=== PATIENT | female | born 1965 | race Caucasian/White ===

== ENCOUNTER 2020-09-22 16:54 | Emergency (ER) | payer OTHER, SELFPAY ==
--- NOTE | ~2020-09-22 | XR_ITS ---
EXAMINATION: XR knee RT min 4V DATE: 09/22/2020 17:34 INDICATION: Right knee pain TECHNIQUE: Four views of the right knee were obtained. COMPARISON: None. FINDINGS: Alignment is normal. No fracture or osteochondral lesion. 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 No joint effusion/synovitis. There is infra patellar soft tissue swelling. IMPRESSION: 1. Soft tissue swelling without acute osseous abnormality. Reviewed, dictated and finalized at location A. [employer]
[2020-09-22 17:16] VITALS: BP 155/92; PULSE 93; RESP 20; TEMP 36.6; O2SAT 100
--- NOTE | 2020-09-22 17:48 | ED.FALL ---
HPI - Fall General Chief Complaint: Fall Stated Complaint: fall today/right knee pain Time Seen by Provider: 09/22/20 17:10 Source: patient Mode of arrival: ambulatory Limitations: no limitations History of Present Illness HPI Narrative: Patient is a 54-year-old female who presents complaining of right knee pain. She reports stepping off a curb yesterday while walking dogs in her knee gave out causing her to fall. Patient reports right knee pain and swelling. Abrasion noted to right knee. Patient reports multiple falls with same knee over the past few weeks. Mild swelling noted to right lower extremity, tenderness with palpation to anterior and posterior knee. Patient denies taking fboo-cnc-[id number] medications prior to arrival. complaint: fall Related Data Home Medications Medication Instructions Recorded Confirmed duloxetine 60 mg PO DAILY 09/22/20 09/22/20 hydroxychloroquine 200 mg PO DAILY 09/22/20 09/22/20 Allergies Allergy/AdvReac Type Severity Reaction Status Date / Time No Known Allergies Allergy Verified 09/22/20 17:15 Review of Systems Review of Systems: Narrative: CONSTITUTIONAL: Denies fever, chills, or sweats. EYES: Denies visual changes, redness, or discharge. ENT: Denies rhinorrhea, congestion, sore throat, or otalgia. CARDIOVASCULAR: Denies chest pain, palpitations, or edema. RESPIRATORY: Denies cough or dyspnea. GASTROINTESTINAL: Denies abdominal pain, nausea, vomiting, or diarrhea. GENITOURINARY: Denies dysuria or hematuria. SKIN: Denies rash or itching. MUSCULOSKELETAL: Right knee pain NEUROLOGIC: Denies headache, numbness, dizziness, or weakness. PSYCHIATRIC: Denies anxiety or depression. [facility] Past Medical History Medical History HTN (hypertension) Surgical History Surgical History H/O: Family History Family History (Updated 09/22/20 @ 17:55 by LOUISE Birch) Other No significant family history Social History Social History (Updated 09/22/20 @ 17:55 by LOUISE Birch) Smoking status: Never smoker Alcohol intake: never Substance use: never Living arrangements: with family Gender identity (if verbalized by the patient): Female Exam Narrative: Exam Narrative: GENERAL: Well-appearing, well-nourished, and in no acute distress. HEAD: Normocephalic, atraumatic. EYES: No redness or drainage. ENT: Mucous membranes pink and moist. CHEST: No respiratory distress. HEART: Regular rate and rhythm. EXTREMITIES: Right knee pain with palpation anterior and posterior, abrasion, edema to right lower extremity SKIN: Warm, dry, no rash. NEURO: No focal deficits. Alert and oriented x3. Gait steady. PSYCH: Normal affect. No signs of depression or anxiety. Course Vital Signs Vital signs: Vital Signs Temperature 36.6 C 09/22/20 17:16 Pulse Rate 93 09/22/20 17:16 Respiratory Rate 20 09/22/20 17:16 Blood Pressure 155/92 H 09/22/20 17:16 Pulse Oximetry 100 09/22/20 17:16 Temperature 36.6 C 09/22/20 17:16 Pulse Rate 93 09/22/20 17:16 Respiratory Rate 20 09/22/20 17:16 Blood Pressure 155/92 H 09/22/20 17:16 Pulse Oximetry 100 09/22/20 17:16 Reviewed-patient is informed that they may have pre-hypertension or hypertension based on a blood pressure reading. I recommend the patient call the primary care provider listed on their discharge instructions or a physician of their choice this week to arrange follow-up for further evaluation of possible pre-hypertension or hypertension. MDM - Fall MDM Narrative Medical decision making narrative: Patient has no fracture or dislocation per x-ray. Soft tissue swelling noted. Discussed with patient rest, ice, elevation as well as NSAIDs. Patient requesting crutches for ambulation. Harvinder wrap placed for comfort. Patient is stable for discharge home with outpatient fol
== END 2020-09-22 18:50 | disposition home or self-care (01) ==
PROVIDERS: Emergency Provider Nurse Practitioner
DX: S80.01XA Contusion of right knee, initial encounter (principal); S80.11XA Contusion of right lower leg, initial encounter; I10 Essential (primary) hypertension; W10.1XXA Fall (on)(from) sidewalk curb, initial encounter; Y93.K1 Activity, walking an animal
CPT/HCPCS: 73564; 99283

== ENCOUNTER 2024-12-12 10:24 | Outpatient (CLI) | payer OTHER, SELFPAY ==
--- NOTE | 2024-12-12 10:32 | ECG_ITS ---
Test Date: 2024-12-12 10:51:36 Measurements Intervals [place] Rate: 69 P: 55 AL: 166 QRS: -1 QRSD: 100 T: 36 QT: 378 QTc: 407 Interpretive Statements SINUS RHYTHM WITH SINUS ARRHYTHMIA ANTEROSEPTAL MYOCARDIAL INFARCTION [40+ ms Q WAVE IN V1-V4], OF INDETERMINATE AGE No previous ECG available for comparison Electronically Signed On 12-12-2024 16:42:51 CDT by Ivonne Morris M.D.
--- OUTSIDE RECORDS SUMMARY | 2024-12-12 12:21 | XMS_ITS | Clinical Summary ---
Author Organization [facility] Address [address] [place] [address] Care Team Providers Care Order Planner Name Role Phone Andree Neal Unavailable [phone] Chaim Miller Primary Care Provid er Joey Alvarenga MD Unavailable [phone] Allergies No known active allergies Medications multivitamin tablet tablet take 1 tablet by oral route every day with food 0 0 05/05/2016 Active lisinopriL (PRINIVIL,ZESTRI L) 5 mg tablet 04/27/[address] (CYMBALTA) 30 mg capsule Take 1 tablet daily for 7 days, then 1 tablet every other day for 7 days and then stop 10 capsule 11/09/2023 Active milnacipran 12.5 mg (5)-25 mg(8)-50 mg(42) tablets,dose pack Take 12.5 mg daily x1d, 12.5 mg bid x2d, 25 mg bid x4d, then 50 mg bid 55 tablet 11/09/2023 Active Active Problems Problem Noted Date Diagnosed Date 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 No ptosis. Pt denies pain or associated headache. Pt will review old photos. 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 woman with a 6-year history of progressive gait unsteadiness with falls. She has a strong maternal family history of gait ataxia. - The examination revealed mild to moderate ataxia that was generalized but most pronounced in her gait, with wide base, irregular path and shukri, and inability to tandem. The TRAV score today was 7. - The examination findings indicate cerebellar ataxia . 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 - I ordered 3 blood tests to rule out potentially treatable causes of ataxia, and I will order a brain MRi to look for cerebellar atrophy. PLAN (phrased as addressed to the patient): - As we discussed, I agree that your balance is impaired. You have what neurologists call ataxic gait. - A possible diagnosis for this problem is cerebellar ataxia. - The specific condition is something we may or may not find out through testing. I recommend the following tests at this time: - My office will arrange for a brain MRI without contrast here at [facility] (clinical information: Ataxic gait for 4 years with falls and family hx of cerebellar ataxia. Check for cerebellar atrophy as in SCA ) (order entered) - I gave you a referral for physical therapy for gait and balance. - Today I will send blood tests for vitamin E level, paraneoplastic antibodies, anti-YASMEEN antibodies. - Contact my office after you have had your brain MRI so I can review it. This encounter's total lgco-[id number] time was greater than 40 minutes. I spent more than 50% of this time in counseling and/or coordination of care as documented in the note. The patient visit started at 1358 and ended at 1401. Greater than 50% of the visit was spent on counseling and coordinating care. Patient was counseled on nature of cerebellar atrophy. NOTE: The present note includes, below, the line Ambulatory referral to Neurology . This statement is included as a mandatory component of the note template that I do not have the ability to remove. This statement has no clinical significance. I am NOT ordering a referral to Neurology. 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 She has chondromalacia of both knees one on the right known from arthroscopy in from the left from her MRI. Patient was currently relatively symptom free of both of her knees for the time being. She long-term would benefit from weight loss. She should avoid low seating kneeling squats and lunges. She is return the office on an as-needed basis Acute tear lateral meniscus, left, initial encou nter 01/20/2021 Assessment & Plan (01/20/2021 3:45 PM CDT): Patient's history and exam is consistent with a tear of the lateral meniscus. With recurring locking effusions would recommend obtaining an MRI to evaluate the integrity structures initiate appropriate treatment once results are available. The patient the meantime was advised to continue using a cane or walking stick. Ice packs and elevation to the acute pain and swelling or recommended as well. She may want to be taking an aspirin a day for DVT prophylaxis as she is relatively inactive Hamstring injury, left, initial encounter 2020 Assessment & Plan (01/20/2021 3:45 PM CDT): Patient most likely ruptured while the posterolateral hamstrings in her thigh. A light wrap may be helpful but otherwise she should stretch the leg. MRI of the knee will help rule out any other internal derangement of the knee joint. Will initiate appropriate treatment once results are available. Encounter for medication monitoring 11/05/2020 Assessment & Plan (10/19/2023 8:31 AM HOTEL SALES MANAGER): Hepatitis negative 2020 Continue routine lab monitoring Assessment & Plan (06/22/2023 9:26 AM CDT): Hepatitis negative 2020 Continue routine lab monitoring Assessment & Plan (03/24/2023 12:42 PM CDT): Hepatitis negative 2020 Continue routine lab monitoring Assessment & Plan (12/24/2022 1:14 PM CDT): Hepatitis negative 2020 Continue routine lab monitoring Assessment & Plan (11/19/2022 12:54 PM HOTEL SALES MANAGER): Hepatitis negative 2020 Assessment & Plan (10/06/2022 3:10 PM HOTEL SALES MANAGER): Hepatitis negative 2020 Assessment & Plan (08/31/2022 12:06 PM HOTEL SALES MANAGER): Hepatitis negative 2020 Will check updated baseline labs today Assessment & Plan (07/28/2022 8:35 AM HOTEL SALES MANAGER): Hepatitis negative 2020 Will check updated baseline labs today Assessment & Plan (06/30/2022 12:23 PM CDT): Hepatitis negative 2020 Will check updated baseline labs today Assessment & Plan (11/25/2021 2:39 PM HOTEL SALES MANAGER): Hepatitis negative 2020 Will check updated baseline labs today Assessment & Plan (04/14/2021 12:54 PM CDT): Maintain routine eye exams throughout the duration of taking hydroxychloroquine Assessment & Plan (02/20/2021 2:45 PM CDT): Maintain routine eye exams throughout the duration of taking hydroxychloroquine Assessment & Plan (01/08/2021 3:39 PM CDT): Maintain routine eye exams throughout the duration of taking hydroxychloroquine Assessment & Plan (11/05/2020 2:08 PM HOTEL SALES MANAGER): Maintain routine eye exams throughout the duration of taking hydroxychloroquine Right knee pain 11/05/2020 Assessment & Plan (11/05/2020 2:09 PM HOTEL SALES MANAGER): MRI with evidence of medial and lateral meniscal tears with a chondral flap lesion of the medial femoral condyle and a large effusion with a large He cyst and a hematoma anterior lateral with just distal to the knee itself. Scheduled for arthroscopic partial meniscectomy with Dr. Coelho on 2020. Osteochondral lesion 10/22/2020 Bucket-handle tear of latera l meniscus of right knee as current injury 10/22/2020 Assessment & Plan (10/22/2020 8:58 AM HOTEL SALES MANAGER): Patient has a lateral meniscal tear as well. The time of arthroscopy partial meniscectomy of the lateral meniscus is likely indicated. At her age tears on likely to heal even if repaired. Acute medial meniscus tear of right knee 021 Assessment & Plan (10/22/2020 8:57 AM HOTEL SALES MANAGER): By MRI the patient has medial lateral meniscal tears of the right knee. These are unlikely to heal and would recommend arthroscopic partial meniscectomy. With patient's inflammatory arthritis that she is likely have some persistent issues with the knee. However removing the meniscal pathology may reduce the wear rate of the knee for 3rd body wear as well as fluid buildup. Typically this helps reduce the size of He cyst. The risks of knee arthroscopy include incisional numbness, hypersensitive scar, neurovascular compromise, infection, recurrent tearing, persistent pain due to underlying arthritis, medical and anesthetic risks including and is willing to proceed Hematoma of right lower leg 10/22/2020 Assessment & Plan (10/22/2020 8:59 AM HOTEL SALES MANAGER): Patient's hematoma has reduced in size from the initial swelling. This may dissipate spontaneously but if still present at the time of surgery excision debridement could be performed to drain the hematoma and speed the healing process. This would entail a separate incision and have risks of incisional numbness hypersensitive scar keloid formation and neurovascular compromise. Neck pain 04/16/2020 Assessment & Plan (04/16/2020 2:36 PM CDT): Pt reports worsening neck pain, exacerbated by lateral rotation. Has been working with a chiropractor. Will obtain updated XR at this time. Muscle weakness 04/16/2020 Assessment & Plan (09/03/2020 4:34 PM HOTEL SALES MANAGER): She complains of weakness in her legs with giving out, RLE strength intact, LLE 4/5 hip flexion and knee flexion/extension. She also complains of poor balance and easy tripping. We have been recommending neuro evaluation for the last several months, at last contact she was going to check with and PCP for in-network referral. Today she states that she has been putting this off to 2020. Based upon another fall, once again reiterated recommendation to see neuro. She can see if someone at [place] or [facility] would be in-network. Assessment & Plan (06/04/2020 3:58 PM CDT): She complains of weakness in her legs with giving out on three occasions, two falls since last visit. RLE strength intact, LLE 4/5 hip flexion and knee flexion/extension. CK 195. Await neuro evaluation. Assessment & Plan (04/16/2020 2:36 PM CDT): She complains of weakness in her legs with giving out on three occasions. RLE strength intact, LLE 4/5 hip flexion and knee flexion/extension. Will check CK now. May consider neuro evaluation. Right hip pain 07/21/2019 Assessment & Plan (09/29/2019 2:36 PM HOTEL SALES MANAGER): Suspect trochanteric bursitis. Symptoms have resolved since last visit. Continues to do exercises daily. Assessment & Plan (08/21/2019 4:24 PM HOTEL SALES MANAGER): Suspect trochanteric bursitis. Pt also complains of perception of weakness, strength intact by exam. Will obtain XR as discussed last visit. She has been unable to find time to arrange PT, provided handout of exercises today, will monitor response. Assessment & Plan (07/21/2019 3:30 PM CDT): Suspect trochanteric bursitis. Pt also complains of perception of weakness, strength intact by exam. Will obtain XR and trial PT, follow up in 6 weeks. Fibromyalgia 02/02/2019 Overview (04/16/2020): Gabapentin with side effects Cymbalta at 90 mg daily caused diaphoresis and nausea Assessment & Plan (11/09/2023 2:00 PM HOTEL SALES MANAGER): On Cymbalta 60 mg daily which she previously felt offered benefit, now cannot say that it helps and has frequent diaphoresis. Discussed tapering off of Cymbalta, decreasing to 30 mg daily x7d then every other day x7d then stop. Will instead start Savella, reviewed dosing and potential AE, will start with the dose titration pack. Recommend routine exercise. Follow up in 6-8 weeks or sooner as needed. Assessment & Plan (10/19/2023 8:31 AM HOTEL SALES MANAGER): On Cymbalta 60 mg daily with benefit, will continue and monitor. Recommend routine exercise. Assessment & Plan (06/22/2023 2:03 PM CDT): On Cymbalta 60 mg daily with benefit, will continue and monitor. Recommend routine exercise. Assessment & Plan (03/25/2023 12:29 PM CDT): On Cymbalta 60 mg daily with benefit, will continue and monitor. Recommend routine exercise and encouraged her to forge ahead with the sleep study that had been ordered by her PCP. Assessment & Plan (12/24/2022 9:35 AM CDT): On Cymbalta 60 mg daily with benefit, will continue and monitor. Assessment & Plan (11/19/2022 12:54 PM HOTEL SALES MANAGER): On Cymbalta 60 mg daily with benefit, will continue and monitor. Assessment & Plan (10/06/2022 10:19 AM HOTEL SALES MANAGER): On Cymbalta 60 mg daily with benefit, will continue and monitor. Assessment & Plan (08/31/2022 12:06 PM HOTEL SALES MANAGER): On Cymbalta 60 mg daily with benefit, will continue and monitor. Assessment & Plan (07/28/2022 8:35 AM HOTEL SALES MANAGER): On Cymbalta 60 mg daily with benefit, will continue and monitor. Assessment & Plan (06/30/2022 3:01 PM CDT): On Cymbalta 60 mg daily with benefit, will continue and monitor. Assessment & Plan (11/25/2021 2:38 PM HOTEL SALES MANAGER): Previously on Cymbalta 90 mg daily, sicne last visit she tapered to 60 mg daily without increase in pain; however, after decreasing to 30 mg daily her widespread pain flared. Will increase Cymbalta back to 60 mg daily and monitor. Assessment & Plan (05/08/2021 4:08 PM CDT): On Cymbalta 90 mg daily. Noted swelling B feet after starting Lyrica. Widespread pain improved at this time. Will continue Cymbalta and monitor. Assessment & Plan (02/20/2021 4:13 PM CDT): On Cymbalta 90 mg daily. Noted swelling B feet after starting Lyrica. Widespread pain improved at this time. Will continue Cymbalta and monitor. Encourage routine exercise. Plan for follow up in 8 weeks to reassess or sooner as needed. Assessment & Plan (01/09/2021 3:50 PM CDT): On Cymbalta 90 mg daily with complaint of significantly worsened widespread pain. At this time will begin trial of Lyrica 75 mg bid, discussed possible side effects, and titrate dose as needed/tolerated. In the future may consider tapering down/off Cymbalta. Encourage routine exercise. Plan for follow up in 4-6 weeks to reassess or sooner as needed. Assessment & Plan (11/05/2020 2:08 PM HOTEL SALES MANAGER): On Cymbalta 90 mg daily without adverse effect and with improvement in her widespread pain, will continue. Encouraged exercise as able. Assessment & Plan (09/03/2020 4:32 PM HOTEL SALES MANAGER): Remains on Cymbalta 60 mg daily which she is now tolerating without adverse effect, reports some benefit, questions trying a higher dose. At this time will try increasing Cymbalta to 90 mg daily and monitor response. Follow up in 6-8 weeks to reassess. Assessment & Plan (07/04/2020 3:08 PM CDT): Remains on Cymbalta 60 mg daily which she is now tolerating without adverse effect, reports some benefit, questions trying a higher dose. Given uncertainty with side effects, will resume hydroxychloroquine as below and pending this then may consider increasing to 90 mg daily. Assessment & Plan (06/04/2020 4:25 PM CDT): Previously reported notable improvement in her widespread pain after starting Cymbalta. Today states that she does not feel that it is providing any benefit and notes ongoing side effects (diaphoresis and upset stomach) despite having decreased the dose to 60 mg daily; based upon this, she would like to taper off of Cymbalta, will decrease to 30 mg daily x1 week and then stop. After 1 week of being off then will begin hydroxychloroquine as below and after two weeks if she is tolerating this without adverse effect, then may begin Lyrica 75 mg bid. Recommend routine exercise. Follow up in 4 weeks to reassess. Assessment & Plan (04/16/2020 2:33 PM CDT): Previously reported notable improvement in her widespread pain after starting Cymbalta. Requested to increase to 90 mg daily last visit, today reports nausea and diaphoresis which are likely side effects. She also complains of a frequent feeling of tension throughout her muscles with an inability to relax, question whether this could be related to Cymbalta as well. At this time, will reduce Cymbalta back to 60 mg daily and monitor side effects, may have to consider tapering further. Recommend routine exercise. Follow up in 4 weeks to reassess. Assessment & Plan (03/05/2020 3:00 PM CDT): On Cymbalta 60 mg daily with notable improvement in her widespread pain. Today she requests to attempt increasing the dose to 90 mg daily. We will discontinue hydroxychloroquine as below and after side effects improve, then will try increasing Cymbalta to 90 mg daily and monitor response. Recommend routine exercise. Follow up in 4-6 weeks. Assessment & Plan (02/06/2020 2:49 PM CDT): On Cymbalta 60 mg daily with notable improvement in her widespread pain, discussed that in the future may consider increasing dose to 90 mg daily if needed. Recommend routine exercise. Continue to monitor. Assessment & Plan (01/05/2020 3:28 PM CDT): Pt did not tolerate gabapentin due to side effects. Previously felt well controlled with combination of Cymbalta and CBD,however now with widespread pain once again. Reassess for inflammatory arthritis as above. In the meantime will continue Cymbalta 60 mg daily. Recommend routine exercise. Assessment & Plan (09/29/2019 2:38 PM HOTEL SALES MANAGER): Pt did not tolerate gabapentin due to side effects. Now feels well controlled with combination of Cymbalta and CBD. Will continue Cymbalta 60 mg daily. Recommend routine exercise. Follow up in 3 months or sooner as needed. Assessment & Plan (08/21/2019 4:23 PM HOTEL SALES MANAGER): Ongoing sensation of pain all over with widespread tenderness one xam. She initially reported improvement with Cymbalta 30 mg daily, but eventually pain worsened again. No improvement after increasing Cymbalta to 60 mg daily, will decrease back to 30 mg daily at this time. Begin trial of gabapentin starting at 300 mg qHS and increaseing by 300 mg per week to a dose of 300 mg tid until next visit. Plan for follow up in 4 weeks to reassess. Assessment & Plan (07/21/2019 3:28 PM CDT): Based upon complaint of widespread pain and diffuse tenderness on exam which is out of proportion, suspect that fibromyalgia is contributing to the bulk of her pain complaints at present. She initially reported improvement with Cymbalta 30 mg daily but given worsening pain complaints will try increasing to 60 mg daily at this time and monitor. Plan for follow up in 6 weeks to reassess. Assessment & Plan (04/21/2019 4:26 PM CDT): Improved with Cymbalta 30 mg daily, will continue. Should this worsen again in the future then we could increase the dose further. Assessment & Plan (02/02/2019 4:45 PM CDT): As above. 12/18 tender points on exam today. Recommend initiating treatment with Cymbalta [address] Effexor as it can benefit both her mood and pain complaints, will titrate dose as needed/tolerated. Plan for follow up in 4-6 weeks to reassess or sooner as needed. Polyarthralgia 01/12/2019 Overview (10/22/2023): Our prior workup revealed equivocal RF IgM, xrays with calcific tendonitis B shoulders and R plantar fascia enthesophyte, and ultrasound with only mild changes at the wrist and 2nd PIP. Repeat US in April 2019 showed increased thickening of the 2nd PIP, though still very mild overall and in December 2019 showed slight worsening with increased synovial thickening. IM triamcinolone provided significant benefit to her joint pain. Suspect that this represents an early inflammatory arthritis, RA vs spondyloarthritis with the enthesophyte seen on prior imaging. Labs 01/12/19 AVISE: equivocal RF IgM (4.7) Xrays 01/13/19 XR L foot - negative XR R foot - large enthesophyte at the R plantar fascial origin XR B hands - negative XR B shoulders - small bone islands within both humeral heads. Mild calcific tendonitis bilaterally. Ultrasound US right hand/wrist (10/21/23): Small grade 1 power doppler in the radial scaphoid joint. Moderate synovial thickening in the 3rd PIP joint. An enlarged median nerve at 0.12 cm2 is identified. A small cortical defect seen in the 2nd metacarpal head without obvious erosion or surrounding inflammatory signals. 01/15/2020 US R hand/wrist: mild thickening/effusion wrist. Mild 3rd MCP and PIP thickening wiht moderate 2nd PIP thickening. Compared ot hand US from 04/28/19 a mild increase in thickening is noted. 04/28/19 US R hand/wrist: moderate 2nd pip thickening. Grade 1 PD in the wrist with mild thickening. Compared to 01/20/19 the 2nd PIP is worse. 01/20/19 US R hand/wrist: mild thickening/effusion with grade 1 PD at the wrist. Very mild 2nd PIP thickening. Assessment & Plan (11/09/2023 1:59 PM HOTEL SALES MANAGER): Over the last few years at times she has noted more inflammatory sounding pain and had some suspected synovitis by exam, however prior hand ultrasound have not shown significant active inflammatory arthritis. Repeat hand US this month again does not show significant active inflammation and she does not have notable synovitis on exam. She is diffusely tender with an amplified pain response, overall suspect that fibromyalgia is the biggest contributor to her current pain. However, she does have known OA which is likely the source of her knee pain. Assessment & Plan (10/19/2023 11:35 AM HOTEL SALES MANAGER): Hair thinning has improved since stopping leflunomide, though she does feel that her joint pain and stiffness have increased since it was discontinued. In particular notes hand pain which does sound somewhat inflammatory and knee pain which sounds mechanical. Prior knee xrays confirm OA bilaterally. Over the last few years at times she has noted more inflammatory sounding pain and had some suspected synovitis by exam, however prior hand ultrasound have not shown significant active inflammatory arthritis. At this time, recommend that we recheck labs as below and obtain an updated hand ultrasound to better assess whether her current symptoms are a reflection of active inflammation to warrant treatment with a dmard. Plan for follow up in 4 weeks or sooner as needed. Assessment & Plan (06/22/2023 2:03 PM CDT): Low cdai. While she can say that her joint pain has improved with treatment with leflunomide, she reports hair thinning and fatigue which she is concerned are 2/2 leflunomide; due to this, recommend that we discontinue leflunomide and monitor both those symptoms andh er joints off treatment. Should her joints flare, then may consider sulfasalazine. Recent labs reviewed. Follow up in 2 months to reassess or sooner as needed. Assessment & Plan (03/25/2023 12:28 PM CDT): Moderate cdai, with mild/questionable synovitis of three PIP joints. Overall she can say that she has improved with treatment with leflunomide and Cymbalta. Primary complaint is her R 4th finger, she does not feel that this is significant enough to warrant anything further at present. Discussed that would consider repeat hand US. The burning pain suggests possible neuropathic etiology. For now she wishes to continue leflunomide 20 mg daily and Tylenol up to 4g/day and monitor. Recheck labs today as below. Follow up in 3 months to reassess or sooner as needed. Assessment & Plan (12/24/2022 1:13 PM CDT): Moderate cdai. Now on leflunomide 20 mg dialy x1 month and feels that she is tolerating it without AE and also may be starting to notice some benefit. Recheck labs today as below. At this time will plan to continue leflunomide and allow time for effect. Follow up in 3 months to reassess or sooner as needed. Assessment & Plan (11/19/2022 3:05 PM HOTEL SALES MANAGER): Moderate cdai. Discussed multifactorial nature of fatigue, while leflunomide could contribute it could also be related to many things including suspected sleep apnea (she reports snoring and witnessed apneic events). Offered to hold leflunomide but after further discussion she is agreeable to continuing. Will check labs today and will increase leflunomide dose to 20 mg daily. Will reserve steroids for worsening given inherent risks. Labs today as below. Follow up in 4 weeks to reassess or sooner as needed. Assessment & Plan (10/06/2022 3:09 PM HOTEL SALES MANAGER): Discussed that while it is great that she is feeling better this month, she does still report inflammatory sounding pain in her hands. Discussed my suspicion that the steroid shot is the more likely reason for her symptomatic improvement and that as its effect weans, she will likely begin to hurt more once again. Moreover, when she was here last visit she had a high cdai which was a reflection of numerous tender AND swollen joints in her hands. Reviewed the risks of uncontrolled disease including joint damage and increased CV risk. Offered to mail patient a handout reviewing leflunomide again which she was interested in. She will review the handout and consider what we talked about today and she will call with update in 2 weeks. Assessment & Plan (09/01/2022 2:31 PM HOTEL SALES MANAGER): High cdai. On methotrexate 15 mg po weekly with report of oral sores/sensitivity, will d/c. Will instead initiate treatment with leflunomide 10 mg po daily. Reviewed potential adverse effects including diarrhea. Warned to watch for development of any rash and to stop taking and call should this occur. Reviewed need for routine lab monitoring throughout the duration of taking this medication, initially monthly and then quarterly as long as they remain on the medication. Due to burden of disease will give patient a triamcinolone injection. Patient made aware of SE of steroids including but not limited to HTN, increased blood glucose, cataracts, glaucoma, AVN, and osteoporosis with group home use. Labs today. Plan for follow up in 4 weeks to reassess or sooner as needed. Assessment & Plan (07/28/2022 2:14 PM HOTEL SALES MANAGER): Moderate cdai. On methotrexate 10 mg po weekly with folic acid 1 mg daily without AE, recheck labs today and will increase methotrexate to 15 mg weekly. Plan for follow up in 4 weeks to reassess or sooner as needed. Assessment & Plan (06/30/2022 3:00 PM CDT): Moderate cdai. Again discussed initiating treatment with methotrexate 10 mg po weekly with folic acid 1 mg daily, pt states that she is now agreeable to trying this. Reviewed potential adverse effects including nausea, fatigue, and oral ulcers. Warned to watch for development of any rash and to stop taking and call should this occur. Reviewed need for routine lab monitoring throughout the duration of taking this medication, initially monthly and then quarterly as long as they remain on the medication. Plan for follow up in 4 weeks to reassess or sooner as needed. Assessment & Plan (11/25/2021 2:37 PM HOTEL SALES MANAGER): Repeat hand ultrasound in May compared to US from 01/15/2020 showed no significant change despite hydroxychloroquine. Sometime since then she dc'd hydroxychloroquine altogether. Notes increasing hand pain and has a high cdai by exam today. Discussed initiating treatment with methotrexate 10 mg po weekly with folic acid 1 mg daily. Reviewed potential adverse effects including nausea, fatigue, and oral ulcers. Warned to watch for development of any rash and to stop taking and call should this occur. Reviewed need for routine lab monitoring throughout the duration of taking this medication, initially monthly and then quarterly as long as they remain on the medication. Due to burden of disease will give patient a triamcinolone injection. Patient made aware of SE of steroids including but not limited to HTN, increased blood glucose, cataracts, glaucoma, AVN, and osteoporosis with meterman use. Plan for follow up in 4 weeks to reassess or sooner as needed. Assessment & Plan (05/08/2021 4:07 PM CDT): High cdai. Previous hand ultrasound 01/15/2020 showed mild thickening/effusion R wrist, mild thickening 3rd MCP/PIP, and moderate 2nd PIP; subsequent to this she was started on hydroxychloroquine. Today notes increasing joint pain without significant AM stiffness, some of this pain does sound more mechanical though she also has suspected synovitis in a few joints on exam. At this time, recommend obtaining repeat hand ultrasound to assess response to hydroxychloroquine and to help determine further treatment recommendations. Will continue hydroxychloroquine 200 mg bid. Notes recent labs with PCP and lath tier, will request results but check CRP and ESR today. Await ultrasound findings, follow up timing tbd pending this. Assessment & Plan (02/20/2021 4:12 PM CDT): Low cdai. Overall feels improved since starting treatment for Lyme per chiropractor, will monitor response after completing. Will continue hydroxychloroquine 200 mg bid. Labs up to date. Plan for follow up in 2-3 months to reassess. Assessment & Plan (01/09/2021 3:49 PM CDT): High cdai with tenderness throughout most of her joints and 18/18 tender points but no obvious synovitis. Overall suspect that fibromyalgia is causing the bulk of her current pain, see below. Labs today as below. Will continue hydroxychloroquine 200 mg bid. Assessment & Plan (11/05/2020 2:07 PM HOTEL SALES MANAGER): Our prior workup revealed equivocal RF IgM, xrays with calcific tendonitis B shoulders and R plantar fascia enthesophyte, and ultrasound with only mild changes at the wrist and 2nd PIP. Repeat US in April 2019 showed increased thickening of the 2nd PIP, though still very mild overall and in December 2019 showed slight worsening with increased synovial thickening. IM triamcinolone provided significant benefit to her joint pain. Suspect that this represents an early inflammatory arthritis, RA vs spondyloarthritis with the enthesophyte seen on prior imaging. Overall feels improved since last visit with significant lessening of hand pain. She believes that hydroxychloroquine is working. Unable to re-examine joints today due to phone visit. Will continue hydroxychloroquine 200 mg bid. Plan for follow up in 3 months to reassess or sooner as needed. Assessment & Plan (09/03/2020 4:32 PM HOTEL SALES MANAGER): Our prior workup revealed equivocal RF IgM, xrays with calcific tendonitis B shoulders and R plantar fascia enthesophyte, and ultrasound with only mild changes at the wrist and 2nd PIP. Repeat US in April 2019 showed increased thickening of the 2nd PIP, though still very mild overall and in December 2019 showed slight worsening with increased synovial thickening. IM triamcinolone provided significant benefit to her joint pain. Suspect that this represents an early inflammatory arthritis, RA vs spondyloarthritis with the enthesophyte seen on prior imaging. Moderate cdai. On hydroxychloroquine 200 mg bid x6 weeks and fortunately is tolerating without adverse effect, will continue and allow more time for effect. Plan for follow up in 2 months to reassess or sooner as needed. Assessment & Plan (07/04/2020 3:06 PM CDT): Our prior workup revealed equivocal RF IgM, xrays with calcific tendonitis B shoulders and R plantar fascia enthesophyte, and ultrasound with only mild changes at the wrist and 2nd PIP. Repeat US in April 2019 showed increased thickening of the 2nd PIP, though still very mild overall and in December 2019 showed slight worsening with increased synovial thickening. IM triamcinolone provided significant benefit to her joint pain. Suspect that this represents an early inflammatory arthritis, RA vs spondyloarthritis with the enthesophyte seen on prior imaging. She had started hydroxychloroquine and then reported side effects including diaphoresis and GI upset - these persisted despite stopping. At this time she is agreeable to trying hydroxychloroquine once again, will resume 200 mg once daily for 2 weeks and if tolerating without adverse effect, then will increase back to bid dosing. Plan for follow up in 6-8 weeks to reassess or sooner as needed. Assessment & Plan (06/04/2020 4:24 PM CDT): Our prior workup revealed equivocal RF IgM, xrays with calcific tendonitis B shoulders and R plantar fascia enthesophyte, and ultrasound with only mild changes at the wrist and 2nd PIP. Repeat US in April 2019 showed increased thickening of the 2nd PIP, though still very mild overall and in December 2019 showed slight worsening with increased synovial thickening. IM triamcinolone provided significant benefit to her joint pain. Suspect that this represents an early inflammatory arthritis, RA vs spondyloarthritis with the enthesophyte seen on prior imaging. She had started hydroxychloroquine and then reported side effects including diaphoresis and GI upset - these persisted despite stopping, suspect they are 2/2 Cymbalta as above. Pt is agreeable to trying hydroxychloroquine once again, however will wait to start this until after she has been off Cymbalta for 1 week. Assessment & Plan (04/16/2020 2:35 PM CDT): Our prior workup revealed equivocal RF IgM, xrays with calcific tendonitis B shoulders and R plantar fascia enthesophyte, and ultrasound with only mild changes at the wrist and 2nd PIP. Repeat US in April 2019 showed increased thickening of the 2nd PIP, though still very mild overall and in December 2019 showed slight worsening with increased synovial thickening. IM triamcinolone provided significant benefit to her joint pain. Suspect that this represents an early inflammatory arthritis, RA vs spondyloarthritis with the enthesophyte seen on prior imaging. She started hydroxychloroquine 2 months ago and reported side effects including diaphoresis and GI upset - these persisted despite stopping, suspect they are 2/2 Cymbalta as above. Though her joint complaints are improved currently, she does have persistent synovitis by exam. Likely will consider the use of methotrexate at next visit which was discussed briefly today. Assessment & Plan (03/05/2020 3:01 PM CDT): Our prior workup revealed equivocal RF IgM, xrays with calcific tendonitis B shoulders and R plantar fascia enthesophyte, and ultrasound with only mild changes at the wrist and 2nd PIP. Repeat US in April 2019 showed increased thickening of the 2nd PIP, though still very mild overall. Once again, repeat ultrasound last month shows slight worsening with increased synovial thickening. IM triamcinolone provided significant benefit to her joint pain. Thus, she complains of inflammatory sounding pain with AM stiffness for ~2 hours and has had increasing inflammatory changes on her last two ultrasounds, though still fairly mild overall. Discussed suspicion that this represents an early inflammatory arthritis, RA vs spondyloarthritis with the enthesophyte seen on prior imaging. She started hydroxychloroquine 1 month ago and reports unbearable side effects including diaphoresis and GI upset. Will discontinue and monitor for these symptoms to resolve. Discussed that at follow up we may consider a trial of an anti-inflammatory such as meloxicam. Plan for follow up in 4-6 weeks to reassess. Assessment & Plan (02/06/2020 2:48 PM CDT): Our prior workup revealed equivocal RF IgM, xrays with calcific tendonitis B shoulders and R plantar fascia enthesophyte, and ultrasound with only mild changes at the wrist and 2nd PIP. Repeat US in April 2019 showed increased thickening of the 2nd PIP, though still very mild overall. Once again, repeat ultrasound last month shows slight worsening with increased synovial thickening. IM triamcinolone provided significant benefit to her joint pain. Thus, she complains of inflammatory sounding pain with AM stiffness for ~2 hours and has had increasing inflammatory changes on her last two ultrasounds, though still fairly mild overall. Discussed suspicion that this represents an early inflammatory arthritis, RA vs spondyloarthritis with the enthesophyte seen on prior imaging. Pt interested in initiating treatment targeted at inflammation given her symptom progression. Recommend starting treatment with hydroxychloroquine 200 mg once daily. Warned to watch for development of a rash. Discussed SE including but not limited to dizziness, bloating, and in rare cases, retinal toxicity. Patient instructed to have a baseline eye exam and routine exams throughout the duration of taking hydroxychloroquine. Plan for follow up in 4 weeks to reassess. Assessment & Plan (01/05/2020 3:27 PM CDT): Our prior workup revealed equivocal RF IgM, xrays with calcific tendonitis B shoulders and R plantar fascia enthesophyte, and ultrasound with only mild changes at the wrist and 2nd PIP. Repeat AVISE negative, repeat US in April 2019 showed increased thickening of the 2nd PIP, though still very mild overall. We have previously discussed that this may represent an overlap of an inflammatory arthritis such as RA with fibromyalgia. Though previously she has had no obvious synovitis by exam, today she has several joints with questionable swelling as well as widespread tenderness. To reevaluate will obtain hand ultrasound. Due to burden of disease will give patient a triamcinolone injection AFTER the hand ultrasound is obtained. Patient made aware of SE of steroids including but not limited to HTN, increased blood glucose, cataracts, glaucoma, AVN, and osteoporosis with group home use. Plan for follow up in ~3-4 weeks to reassess, timing determined based upon when ultrasound is able to be completed. Assessment & Plan (09/29/2019 2:37 PM HOTEL SALES MANAGER): Our prior workup revealed equivocal RF IgM, xrays with calcific tendonitis B shoulders and R plantar fascia enthesophyte, and ultrasound with only mild changes at the wrist and 2nd PIP. Repeat AVISE negative, US shows increased thickening of the 2nd PIP, though still very mild overall. This may represent an overlap of an inflammatory arthritis such as RA with fibromyalgia. She has no obvious synovitis by exam. Discussed that we may consider the use of hydroxychloroquine in this instance, for now will continue treatment for fibromyalgia as below and monitor. Assessment & Plan (08/21/2019 4:22 PM HOTEL SALES MANAGER): Stable complaints in her hands with AM stiffness for 2 hours. Our prior workup revealed equivocal RF IgM, xrays with calcific tendonitis B shoulders and R plantar fascia enthesophyte, and ultrasound with only mild changes at the wrist and 2nd PIP. Repeat AVISE negative, US shows increased thickening of the 2nd PIP, though still very mild overall. This may represent an overlap of an inflammatory arthritis such as RA with fibromyalgia. She has no obvious synovitis by exam. Discussed that we may consider the use of hydroxychloroquine in this instance, for now will continue treatment for fibromyalgia as below and monitor. Assessment & Plan (07/21/2019 3:29 PM CDT): Increasing complaints in her hands with AM stiffness for 2 hours. Our prior workup revealed equivocal RF IgM, xrays with calcific tendonitis B shoulders and R plantar fascia enthesophyte, and ultrasound with only mild changes at the wrist and 2nd PIP. Repeat AVISE negative, US shows increased thickening of the 2nd PIP. This may represent an overlap of an inflammatory arthritis such as RA with fibromyalgia. Discussed that we would consider the use of hydroxychloroquine in this instance, will increase Cymbalta as above and consider hydroxychloroquine at follow up. Assessment & Plan (04/21/2019 4:49 PM CDT): Increasing complaints in her hands with AM stiffness for 2 hours. By exam today she exhibits far more synovitis than she had previously with a high cdai overall. Our prior workup revealed equivocal RF IgM, xrays with calcific tendonitis B shoulders and R plantar fascia enthesophyte, and ultrasound with only mild changes at the wrist and 2nd PIP. Based upon worsening symptoms and exam findings, suspect that this may represent an overlap of an inflammatory arthritis with fibromyalgia. Will repeat labs as below and obtain updated hand ultrasound to help direct further treatment. FU 1 month. Assessment & Plan (02/02/2019 4:44 PM CDT): 53yoF presents for evaluation of widespread pain present for the past 3.5 years. Worse at the end of the day after having stood all day, seems to set in after she sits and rests and feels that it does improve if she gets up to move around. Reports stiffness in her hands with inability to make a fist in the morning for ~30 minutes. Profound fatigue with nonrestorative sleep, she snores and has not had a sleep study. Our workup revealed equivocal RF IgM, xrays with calcific tendonitis B shoulders and R plantar fascia enthesophyte, and ultrasound with only mild changes at the wrist and 2nd PIP. Overall at present there is little evidence to suggest an inflammatory arthritis, however will continue to monitor for progression. At present suspect fibromyalgia is contributing to the bulk of her pain complaints. Assessment & Plan (01/12/2019 3:56 PM CDT): 53yoF presents for evaluation of widespread pain present for the past 3.5 years. Worse at the end of the day after having stood all day, seems to set in after she sits and rests and feels that it does improve if she gets up to move around. Reports stiffness in her hands with inability to make a fist in the morning for ~30 minutes. Profound fatigue with nonrestorative sleep, she snores and has not had a sleep study. Her exam reveals tenderness with questionable swelling in several joints throughout her hands. By history there is concern for fibromyalgia with the sensation of pain all over and profound fatigue with poor sleep though she has few tender points on exam today. There is also concern for possibly inflammatory arthritis such as RA. To fully evaluate will check appropriate serologies, xrays, and ultrasound with plan for follow up in 2 weeks to review results and to discuss treatment options. Chronic fatigue 01/12/2019 Assessment & Plan (11/19/2022 3:06 PM HOTEL SALES MANAGER): Fatigue with snoring and apenic events, recommend sleep study Assessment & Plan (01/12/2019 3:57 PM CDT): Chronic fatigue with nonrestorative sleep. Pt snores but denies witnessed apneic events. Recommend that she discuss a sleep study with her PCP. Polyarthralgia 01/12/2019 Overview (12/05/2020): Last Assessment & Plan: Increasing complaints in her hands with AM stiffness for 2 hours. By exam today she exhibits far more synovitis than she had previously with a high cdai overall. Our prior workup revealed equivocal RF IgM, xrays with calcific tendonitis B shoulders and R plantar fascia enthesophyte, and ultrasound with only mild changes at the wrist and 2nd PIP. Based upon worsening symptoms and exam findings, suspect that this may represent an overlap of an inflammatory arthritis with fibromyalgia. Will repeat labs as below and obtain updated hand ultrasound to help direct further treatment. FU 1 month. Atypical lobular hyperplasia (ALH) of breast 10/2016 Ejection murmur 05/05/2016 Overview (12/31/2016): Systolic ejection murmur Essential hypertension 05/05/2016 Overview (12/31/2016): Essential hypertension Resolved Problems Problem Noted Date Diagnosed Date Resolved Date Body mass index 40+ - severely obese 05/05/2016 10/22/2020 Overview (12/31/2016): Morbid obesity with BMI of 40.0-44.9, adult Surgical History Surgery Date Site/Laterality Comments SECTION BREAST BIOPSY 09/20/2016 - 09/19/2017 TUBAL LIGATION Medical History Medical History Date Comments Anxiety Depression Fibromyalgia Rheumatoid arthritis (HCC) Rheumatoid arthritis (HCC) Family History Medical History Relation Name Comments Lung cancer Father Cancer, lung; C ause of : Cancer, lung/Family history of lung cancer - (Added by TW Conv) Heart attack Mother Hypertension Other Family history of Hypertension; Relation Name Status Comments Father Mother Other Social History Tobacco Use Types Packs/Day Years Used Date Smoking Tobacco: Never Alcohol Use Standard Drinks/Week Comments No 0 (1 standard drink = 0.6 oz pur e alcohol) AUDIT-C Answer Date Recorded Q1: How often do you have a drink containing alc ohol? 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 Not on file Not o n file Obstetrics History Last Filed Vital Signs Vital Sign Reading Time Taken Comments Blood Pressure 124/90 11/09/2023 10:53 AM HOTEL SALES MANAGER Pulse 89 11/09/2023 10:53 AM HOTEL SALES MANAGER Temperature 36.7 C (98.1 F) 11/25/2021 1:11 PM HOTEL SALES MANAGER Respiratory Rate 15 2020 9:50 AM HOTEL SALES MANAGER Oxygen Saturation 97% 11/09/2023 10:53 AM HOTEL SALES MANAGER Inhaled Oxygen Concentration - - Weight 96 kg (211 lb 9.6 oz) 11/09/2023 10:53 AM HOTEL SALES MANAGER Height 157.5 cm (5' 2 ) 11/09/2023 10:53 AM HOTEL SALES MANAGER Body Mass Index 38.7 11/09/2023 10:53 AM HOTEL SALES MANAGER Plan of Treatment Health Maintenance Due Date Last Done Comments Breast Cancer Screening-Mammogram 1967 Cervical Cancer Screening 1967 Colon Cancer Screening-Colonoscopy 1965 Depression Screening 1967 Regular Well Visit/Exam 18-64 11/28/1985 Influenza Vaccine (#1) 2024 DTaP/Tdap/Td Vaccine (3 - Td or Tdap) 04/17/2033 04/17/2023, 01/23/2013 Hepatitis B Screening Completed 10/28/2015 , 05/31/2015, 04/16/2015 Hepatitis C Screening Completed 04/16/2020 Zoster Vaccine Completed 08/26/2021, 05/02/2021 Pneumococcal vaccine <65 Aged Out No longer eligible based on patient's age to complete this topic Procedures Procedure Name Priority Date/Time Associated Diagnosis Comments HEPATITIS C ANTIBODY Routine 04/16/2020 2:31 PM CDT Encounter for screening for other viral diseases from Last 3 Months or Most Recently Relevant to Health Maintenance Results * Hepatitis C antibody (04/16/2020 2:31 PM CDT) Hep C Ab NON-REACTI VE NON-REACT MELANIA [facility] SIGNAL TO CUT-OFF 0.02 <1.00 [facility] Comment: HCV antibody was non-reactive. There is no laboratory evidence of HCV infection. In most cases, no further action is required. However, if recent HCV exposure is suspected, a test for HCV RNA (test code 04148) is suggested. For additional information please refer to http://education.[employer]/faq/HWP77y5 (This link is being provided for informational/ educational purposes only.) Blood specimen (specimen) 04/16/2020 2:31 PM CDT 04/16/2020 2:32 PM CDT [facility] - GENERA L ORDERABLES Final Result [id number] [place] [id number] from Last 3 Months or Most Recently Relevant to Health Maintenance Insurance [facility] CLAIMS [facility] CLAIMS [facility] CLAIMS Care Teams Order Planner Relationship Specialty Start Date End Date Chaim Miller PA [address] [place] [address] PCP - General Physician Cook Apprentice 06/25/22 [place] [id number] [address] Physician Cook Apprentice Orthopedic Surgery 11/29/20 Joey Alvarenga MD [address] [facility] [address] [place] [address] Consulting Physician Rheumatology 10/19/23
--- OUTSIDE RECORDS SUMMARY | 2024-12-12 12:21 | XMS_ITS | Clinical Summary ---
Author Organization [facility] Address [address] [facility] [facility] [place] [address] Care Team Providers Care Anesthesiology Resident Name Role Phone Unavailable Primary Care Provider Unavailabl e Source Comments [facility],non-owned Affiliates and Associated Physician Practices is amultiple site organization consisting of ambulatory clinics and hospital sitesin [place], [place], [place] and [place]. This disclosure is being madepursuant to the Care Everywhere program and may not contain all information available regarding this patient. Last updated 18.[facility] Allergies No known active allergies Medications * Be aware that medications may not be up to date on this document. Alwaysverify current medications with the patient. Medication Sig Dispensed Refills Start Date End Date Status DULoxetine (Cymbalta) 30 MG capsule Take 1 (one) capsule by mouth once daily Active leflunomide (Arava) 10 MG tablet Take 0.5 (one-half) tablet by mouth once daily Active lisinopril (Prinivil; Zestril) 2.5 MG tablet Take 2 (two) tablets by mouth once daily Active oxyCODONE, immediate release, (Roxicodone) 5 MG tabletIndications: Abdominal hematoma Take 1 (one) tablet by mouth every 4 hours as needed 20 tablet 04/19/2023 Active Additional Information Patient not taking.Reported on 04/22/2023 acetaminophen (Tylenol) 500 MG tablet Take 2 (two) tablets by mouth every 6 hours Maximum allowable Acetaminophen amount = 4 Grams (4000 mg) / 24 hours. 04/20/2023 Active polyethylene glycol 3350 (Miralax) 17 g packet Take 17 (seventeen) g by mouth once daily 0 04/21/2023 Active Additional Information Patient not taking.Reported on 04/22/2023 cyanocobalamin 100 MCG tablet Take 0.5 (one-half) tablet by mouth once daily Active Active Problems Problem Noted Date Diagnosed Date S/P evacuation of hematoma 04/20/2023 Abdominal hematoma 04/17/2023 Immunizations Name Administration Dates Next Due TDAP (7yrs+) 04/17/2023 Social History Tobacco Use Types Packs/Day Years Used Date Smoking Tobacco: Never Passive Smoke Exposure: Never Smokeless Tobacco: Never Tobacco Cessation:Counseling Given: Not Answered Alcohol Use Standard Drinks/Week Comments Never 0 (1 standard drink = 0.6 oz pur e alcohol) AUDIT-C Answer Date Recorded Q1: How often do you have a drink containing alc ohol? Monthly or less 04/18/2023 Q2: How many drinks containi ng alcohol do you have on a typical day when you are drinking? 1 or 2 04/18/2023 Q3: How often do you have si x or more drinks on one occasion? Never 04/18/2023 Overall Financial Resource Strain (CARDIA) Answe r Date Recorded How hard is it for you to pa y for the very basics like food, housing, medical care, and heating? Not hard at all 04/18/2023 [facility] [place] [place] [facility] - Occupational Stress Questionnaire Answer Date Recorded Do you feel stress - tense, restless, nervous, or anxious, or unable to sleep at night because your mind is troubled all the time - these days? Not at all 04/18/2023 Hunger Vital Sign Answer Date Recorded Within the past 12 months, y ou worried that your food would run out before you got the money to buy more. Never true 04/18/20 23 Within the past 12 months, t he food you bought just didn't last and you didn't have money to get more. Never true 04/18/2023 PRAPARE - Transportation Answer Date Re corded In the past 12 months, has l ack of transportation kept you from medical appointments or from getting medications? No 03/22 In the past 12 months, has l ack of transportation kept you from meetings, work, or from getting things needed for daily living? No 04/18/2023 Housing Stability Vital Sign Answer Wale e Recorded In the last 12 months, was t here a time when you were not able to pay the mortgage or rent on time? No 04/18/2023 In the last 12 months, how many places have you lived? 1 04/18/2023 In the last 12 months, was t here a time when you did not have a steady place to sleep or slept in a senior living (including now)? No 04/18/2023 Sex and Gender Information Value Date Recorded Sex Assigned at Not on file Gender Identity Not on file Sexual Orientation Not on file Last Filed Vital Signs Vital Sign Reading Time Taken Comments Blood Pressure 155/85 05/04/2023 10:14 PM CDT Pulse 80 05/04/2023 10:14 PM CDT Temperature 36.7 C (98 F) 05/04/2023 12:21 PM CDT Respiratory Rate 18 05/04/2023 10:14 PM CDT Oxygen Saturation 100% 05/04/2023 10:14 PM CDT Inhaled Oxygen Concentration - - Weight 95.3 kg (210 lb) 05/04/2023 12:21 PM CDT Height 157.5 cm (5' 2 ) 05/04/2023 12:21 PM CDT Body Mass Index 38.41 05/04/2023 12:21 PM CDT Plan of Treatment Health Maintenance Due Date Last Done Comments COLOGUARD (AGES 45-75) - COLON CA SCREENING 1967 COLON MONITORING 1967 COLONOSCOPY - COLON CA SCREENING 1967 CT COLONOGRAPHY - COLON CA SCREENING 1967 Colorectal Cancer Screening 1967 FIT - COLON CA SCREENING 1967 FLEX SIG - COLON CA SCREENING 1967 LIPID TESTING 1967 MAMMOGRAM 1967 PAP SMEAR 1967 HIV SCREENING 11/28/1982 HEPATITIS C SCREENING 11/24/1985 HEPATITIS B VACCINE (1 of 3 - 19+ 3-dose series) 11/28/1986 PNEUMOCOCCAL VACCINE 50+ (1 of 1 - PCV) 11/28/2017 ZOSTER VACCINE (1 of 2) 11/28/2017 COVID-19 VACCINE ( - season) 2024 02/06/2022, 10/12/2021, 02/04/2021, Additional history exists INFLUENZA VACCINE (#1) 2024 DEPRESSION SCREENING 09/20/2024 SCREENING FOR DIABETES 05/04/2026 3, 04/19/2023, 04/17/2023 DTAP/TDAP/TD VACCINES (2 - Td or Tdap) 04/17/2033 04/17/2023 HIB VACCINE Aged Out No longer eligi ble based on patient's age to complete this topic HPV VACCINE Aged Out No longer eligi ble based on patient's age to complete this topic MENINGOCOCCAL (Group B) VACCINE SHARED DECISION-MAKING Aged Out No longer eligible based on patient's age to complete this topic MENINGOCOCCAL GROUPS A/C/Y/W VACCINE Aged Out No longer eligible based on patient's age to complete this topic Procedures Procedure Name Priority Date/Time Associated Diagnosis Comments COMPREHENSIVE METABOLIC PANEL STAT 05/04/2023 2:42 PM CDT from Last 3 Months or Most Recently Relevant to Health Maintenance Results * (ABNORMAL) COMPREHENSIVE METABOLIC PANEL (05/04/2023 2:42 PM CDT) BUN 14 7 - 26 mg/dL 05/04/2023 3:21 PM [facility] Creatinine 0.53(L) 0.56 - 0.96 mg/dL 05/04/2023 3:21 PM [facility] Sodium 141 136 - 145 mmol/L 05/04/2023 3:21 PM [facility] Potassium 3.7 3.5 - 4.5 mmol/L 05/04/2023 3:21 PM [facility] Chloride 106 98 - 107 mmol/L 05/04/2023 3:21 PM [facility] CO2 25 22 - 29 mmol/L 05/04/2023 3:21 PM [facility] Glucose 85 70 - 115 mg/dL 05/04/2023 3:21 PM [facility] Calcium 9.4 8.4 - 10.2 mg/dL 05/04/2023 3:21 PM [facility] Protein Total 7.1 6.0 - 8.3 g/dL 05/04/2023 3:21 PM [facility] Albumin 3.9 3.4 - 5.0 g/dL 05/04/2023 3:21 PM [facility] Bilirubin Total 0.5 0.2 - 1.2 mg/dL 05/04/2023 3:21 PM [facility] Alkaline Phosphatase 87 40 - 150 U/L 05/04/2023 3:21 PM [facility] ALT 34 5 - 55 U/L 05/04/2023 3:21 PM [facility] AST 20 5 - 34 U/L 05/04/2023 3:21 PM [facility] Anion Gap 14 8 - 18 05/04/2023 3:21 PM [facility] BUN/Creatinine Ratio 26(H) 7 - 23 05/04/2023 3:21 PM [facility] Osmolality Calculated 292 270 - 300 mOsm/kg 05/04/2023 3:21 PM [facility] Albumin/Globulin Ratio 1.2 1.1 - 2.3 05/04/2023 3:21 PM [facility] eGFR by CKD-EPI >90 >=90 mL/min/1.7 3 m2 05/04/2023 3:21 PM [facility] Blood BLOOD SPECIMEN / Unknown Venipuncture / Unknown 05/04/2023 2:42 PM CDT 05/04/2023 2:47 PM T Villa Echavarria MD LAB - CHEMISTRY MITZI MONIQUE [facility] Organization Address [facility]/State/ZIP Co de Phone Number [facility] [address] [place] [address] [phone] from Last 3 Months or Most Recently Relevant to Health Maintenance Advance Directives * Full Code (Latest Code Status on File) Date Activated Date Inactivated Comments 04/17/2023 3:07 PM 04/20/2023 3:55 PM
--- OUTSIDE RECORDS SUMMARY | 2024-12-12 12:21 | XMS_ITS | Referral Summary ---
Author Organization [facility] Address [address] [place] [address] Care Team Providers Care Material [employer] Name Role Phone Andree Neal Unavailable [phone] Chaim Miller Primary Care Provid er Joey Alvarenga MD Unavailable [phone] Allergies No known active allergies Medications multivitamin [...] a brain MRI without contrast here at [facility] (clinical information: Ataxic gait for 4 years [...] I can review it. This encounter's total [id number]-[id number] time was greater than 40 minutes. I [...] 11/05/2020 Assessment & Plan (10/19/2023 8:31 AM REGISTRATION MANAGER): Hepatitis negative 2020 Continue routine lab monitoring Assessment & Plan (06/22/2023 9:26 AM CDT): Hepatitis negative 2020 Continue routine lab monitoring Assessment & Plan (03/24/2023 12:42 PM CDT): Hepatitis negative 2020 Continue routine lab monitoring Assessment & Plan (12/24/2022 1:14 PM CDT): Hepatitis negative 2020 Continue routine lab monitoring Assessment & Plan (11/19/2022 12:54 PM REGISTRATION MANAGER): Hepatitis negative 2020 Assessment & Plan (10/06/2022 3:10 PM REGISTRATION MANAGER): Hepatitis negative 2020 Assessment & Plan (08/31/2022 12:06 PM REGISTRATION MANAGER): Hepatitis negative 2020 Will check updated baseline labs today Assessment & Plan (07/28/2022 8:35 AM REGISTRATION MANAGER): Hepatitis negative 2020 Will check updated baseline labs today Assessment & Plan (06/30/2022 12:23 PM CDT): Hepatitis negative 2020 Will check updated baseline labs today Assessment & Plan (11/25/2021 2:39 PM REGISTRATION MANAGER): Hepatitis negative 2020 Will check updated [...] hydroxychloroquine Assessment & Plan (11/05/2020 2:08 PM REGISTRATION MANAGER): Maintain routine eye exams throughout the duration of taking hydroxychloroquine Right knee pain 11/05/2020 Assessment & Plan (11/05/2020 2:09 PM REGISTRATION MANAGER): MRI with evidence of medial and [...] 10/22/2020 Assessment & Plan (10/22/2020 8:58 AM REGISTRATION MANAGER): Patient has a lateral meniscal tear as well. The time of arthroscopy partial meniscectomy of the lateral meniscus is likely indicated. At her age tears on likely to heal even if repaired. Acute medial meniscus tear of right knee 021 Assessment & Plan (10/22/2020 8:57 AM REGISTRATION MANAGER): By MRI the patient has medial [...] 10/22/2020 Assessment & Plan (10/22/2020 8:59 AM REGISTRATION MANAGER): Patient's hematoma has reduced in size [...] 04/16/2020 Assessment & Plan (09/03/2020 4:34 PM REGISTRATION MANAGER): She complains of weakness in her [...] neuro. She can see if someone at [facility] or [facility] would be in-network. Assessment & Plan (06/04/2020 [...] 07/21/2019 Assessment & Plan (09/29/2019 2:36 PM REGISTRATION MANAGER): Suspect trochanteric bursitis. Symptoms have resolved since last visit. Continues to do exercises daily. Assessment & Plan (08/21/2019 4:24 PM REGISTRATION MANAGER): Suspect trochanteric bursitis. Pt also complains [...] nausea Assessment & Plan (11/09/2023 2:00 PM REGISTRATION MANAGER): On Cymbalta 60 mg daily which [...] needed. Assessment & Plan (10/19/2023 8:31 AM REGISTRATION MANAGER): On Cymbalta 60 mg daily with [...] monitor. Assessment & Plan (11/19/2022 12:54 PM REGISTRATION MANAGER): On Cymbalta 60 mg daily with benefit, will continue and monitor. Assessment & Plan (10/06/2022 10:19 AM REGISTRATION MANAGER): On Cymbalta 60 mg daily with benefit, will continue and monitor. Assessment & Plan (08/31/2022 12:06 PM REGISTRATION MANAGER): On Cymbalta 60 mg daily with benefit, will continue and monitor. Assessment & Plan (07/28/2022 8:35 AM REGISTRATION MANAGER): On Cymbalta 60 mg daily with benefit, will continue and monitor. Assessment & Plan (06/30/2022 3:01 PM CDT): On Cymbalta 60 mg daily with benefit, will continue and monitor. Assessment & Plan (11/25/2021 2:38 PM REGISTRATION MANAGER): Previously on Cymbalta 90 mg daily, [...] needed. Assessment & Plan (11/05/2020 2:08 PM REGISTRATION MANAGER): On Cymbalta 90 mg daily without adverse effect and with improvement in her widespread pain, will continue. Encouraged exercise as able. Assessment & Plan (09/03/2020 4:32 PM REGISTRATION MANAGER): Remains on Cymbalta 60 mg daily [...] exercise. Assessment & Plan (09/29/2019 2:38 PM REGISTRATION MANAGER): Pt did not tolerate gabapentin due to side effects. Now feels well controlled with combination of Cymbalta and CBD. Will continue Cymbalta 60 mg daily. Recommend routine exercise. Follow up in 3 months or sooner as needed. Assessment & Plan (08/21/2019 4:23 PM REGISTRATION MANAGER): Ongoing sensation of pain all over [...] thickening. Assessment & Plan (11/09/2023 1:59 PM REGISTRATION MANAGER): Over the last few years at [...] pain. Assessment & Plan (10/19/2023 11:35 AM REGISTRATION MANAGER): Hair thinning has improved since stopping [...] needed. Assessment & Plan (11/19/2022 3:05 PM REGISTRATION MANAGER): Moderate cdai. Discussed multifactorial nature of [...] needed. Assessment & Plan (10/06/2022 3:09 PM REGISTRATION MANAGER): Discussed that while it is great [...] weeks. Assessment & Plan (09/01/2022 2:31 PM REGISTRATION MANAGER): High cdai. On methotrexate 15 mg [...] glucose, cataracts, glaucoma, AVN, and osteoporosis with retirement use. Labs today. Plan for follow up in 4 weeks to reassess or sooner as needed. Assessment & Plan (07/28/2022 2:14 PM REGISTRATION MANAGER): Moderate cdai. On methotrexate 10 mg [...] needed. 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 Plan for follow up in 4 [...] bid. Notes recent labs with PCP and document review attorney, will request results but check CRP and [...] bid. Assessment & Plan (11/05/2020 2:07 PM REGISTRATION MANAGER): Our prior workup revealed equivocal RF [...] needed. Assessment & Plan (09/03/2020 4:32 PM REGISTRATION MANAGER): Our prior workup revealed equivocal RF [...] glucose, cataracts, glaucoma, AVN, and osteoporosis with retirement use. Plan for follow up in ~3-4 weeks to reassess, timing determined based upon when ultrasound is able to be completed. Assessment & Plan (09/29/2019 2:37 PM REGISTRATION MANAGER): Our prior workup revealed equivocal RF [...] monitor. Assessment & Plan (08/21/2019 4:22 PM REGISTRATION MANAGER): Stable complaints in her hands with [...] 01/12/2019 Assessment & Plan (11/19/2022 3:06 PM REGISTRATION MANAGER): Fatigue with snoring and apenic events, [...] Morbid obesity with BMI of 40.0-44.9, adult Social History Tobacco Use Types Packs/Day Years Used Date Smoking Tobacco: Never Alcohol Use Standard Drinks/Week Comments No 0 (1 standard drink = 0.6 oz pur e alcohol) AUDIT-C Answer Date Recorded Q1: How often do you have a drink containing alc ohol? 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 Not on file Not on file Not o n file Last Filed Vital Signs Vital Sign Reading Time Taken Comments Blood Pressure 124/90 11/09/2023 10:53 AM REGISTRATION MANAGER Pulse 89 11/09/2023 10:53 AM REGISTRATION MANAGER Temperature 36.7 C (98.1 F) 11/25/2021 1:11 PM REGISTRATION MANAGER Respiratory Rate 15 2020 9:50 AM REGISTRATION MANAGER Oxygen Saturation 97% 11/09/2023 10:53 AM REGISTRATION MANAGER Inhaled Oxygen Concentration - - Weight 96 kg (211 lb 9.6 oz) 11/09/2023 10:53 AM REGISTRATION MANAGER Height 157.5 cm (5' 2 ) 11/09/2023 10:53 AM REGISTRATION MANAGER Body Mass Index 38.7 11/09/2023 10:53 AM REGISTRATION MANAGER Plan of Treatment Not on file Procedures Procedure Name Priority Date/Time Associated Diagnosis [...] a test for HCV RNA (test code 76727) is suggested. For additional information please refer to http://education.femeninas/faq/FSG49h2 (This link is being provided for informational/ educational purposes only.) Blood specimen (specimen) 04/16/2020 2:31 PM CDT 04/16/2020 2:32 PM CDT [facility] MICROBIOLOGY - GENERA L ORDERABLES Final Result [employer] [id number] [phone] from Last 3 Months or Most Recently Relevant to Health Maintenance Insurance [facility] Care Teams Material [employer] Relationship Specialty Start Date End Date Chaim Miller PA [address] [place], [place] [id number] PCP - General Physician [employer] Consultant 06/25/22 [place] [id number] [facility] [address] [place] [address] Physician [employer] Consultant Orthopedic Surgery 11/29/20 Joey Alvarenga MD [address] [facility] [address] [place] [address] Consulting Physician Rheumatology 10/19/23
--- OUTSIDE RECORDS SUMMARY | 2024-12-12 12:21 | XMS_ITS | Clinical Summary ---
Author Organization [facility] Address [address] [place] [address] Care Team Providers Care Sound Technician Supervisor Name Role Phone Chaim Miller Primary Care Provid er Allergies No known active allergies Medications vitamin D3, cholecalciferol , 1000 UNIT Tab tablet Take 1 tablet (25 mcg total) by mouth daily. 07/25/2018 Active duloxetine 30 MG capsule Take 1 capsule (30 mg total) by mouth daily. 04/21/2019 Active multivitamin tablet Take 1 tablet by mouth daily. 05/05/2016 Active biotin 300 MCG Tab Take 1 tablet (300 mcg total) by mouth daily. Active vitamin B-12 100 MCG tablet Take 0.5 tablets (50 mcg total) by mouth daily. Active lisinopril 5 MG tablet Take 1 tablet (5 mg total) by mouth daily. Active HYDROcodone-tay taminophen (NORCO) 5-325 MG tabletIndicatio ns:Acute Pain < 3 Day Supply Take 1 tablet by mouth every 6 (six) hours as needed for Pain. Indications: Acute Pain < 3 Day Supply 10 tablet 09/22/2020 Active Active Problems Problem Noted Date Diagnosed Date Fibromyalgia 02/02/2019 Overview (05/15/2019): Last Assessment & Plan: Improved with Cymbalta 30 mg daily, will continue. Should this worsen again in the future then we could increase the dose further. Chronic fatigue 01/12/2019 Overview (05/15/2019): Last Assessment & Plan: Chronic fatigue with nonrestorative sleep. Pt snores but denies witnessed apneic events. Recommend that she discuss a sleep study with her PCP. Polyarthralgia 01/12/2019 Overview (05/15/2019): Last Assessment & Plan: Increasing complaints in [...] help direct further treatment. FU 1 month. Ejection murmur 05/05/2016 Overview (05/15/2019): Overview: Systolic ejection murmur Essential hypertension 05/05/2016 Overview (05/15/2019): Overview: Essential hypertension Resolved Problems Problem Noted Date Diagnosed Date Resolved Date Wears glasses 02/25/2018 05/31/2020 Encounters Date Type Department Care Team Description 11/20/2024 1:40 PM BINDING DYER - 11/20/2024 11:59 PM [facility] Hospital Encounter [facility] [address] [place] [address] Sarah Schwarz NP Discharge Disposition: Home or Self Care (Routine Discharge) 11/20/2024 Travel from Last 3 Months Family History Medical History Relation Comments None Brother Lung Cancer Father Heart Attack Mother Heart Disease Mother Hyperlipidemia Mother Hypertension Mother None Sister 1 None Sister 2 None Sister 3 Relation Status Comments Brother Alive Father Mother Sister 1 Alive Sister 2 Alive Sister 3 Alive Social History Tobacco Use Types Packs/Day Years Used Date Smoking Tobacco: Never Smokeless Tobacco: Never Alcohol Use Standard Drinks/Week Comments No 0 (1 standard drink = 0.6 oz pur e alcohol) AUDIT-C Answer Date Recorded Frequency of Alcohol Consumption Never 09/27/2018 Average Number of Drinks Not on file 019 Frequency of Binge Drinking Not on file 04/2019 Education Answer Date Recorded What is the highest level of school you have completed or the highest degree you have received? High school graduate 05/15/2019 Comments No Sex and Gender Information Value Date Recorded Sex Assigned at Female 05/15/2019 8:37 AM CDT Legal Sex Female 5:41 PM CDT Gender Identity Female 05/15/2019 8:37 AM CDT Sexual Orientation Straight 05/31/2019 7: 45 AM CDT Last Filed Vital Signs Vital Sign Reading Time Taken Comments Blood Pressure 120/83 04/17/2023 1:42 PM CDT Pulse 96 04/17/2023 1:42 PM CDT Temperature 36.7 C (98 F) 04/17/2023 1:42 PM CDT Respiratory Rate 16 04/17/2023 1:42 PM CDT Oxygen Saturation 97% 04/17/2023 11:30 AM CDT Inhaled Oxygen Concentration - - Weight 95.3 kg (210 lb) 04/17/2023 11:30 AM CDT Height 157.5 cm (5' 2 ) 04/17/2023 11:30 AM CDT Body Mass Index 38.41 04/17/2023 11:30 AM CDT Plan of Treatment Health Maintenance Due Date Last Done Comments Cervical Cancer Screening Pap Smear (Age 30 to 64) Every 3 Years 1967 Colorectal Cancer Screening Colonoscopy (10 Years) 1967 Annual Physical 11/28/1970 Hepatitis C 11/28/1985 Hepatitis B Vaccines (1 of 3 - 19+ 3-dose series) 11/28/1986 Cervical Cancer Screening Pap with HPV Testing (Age 30 to 64) Every 5 Years 11/28/1997 Cervical Cancer Screening with HPV 11/28/1997 Mammogram Screening 2007 Zoster Vaccines (1 of 2) 11/28/2017 COVID-19 Vaccine ( season) 2024 02/06/2022, 10/12/2021, 02/04/2021, Additional history exists Influenza Adult (#1) 2024 DTaP, Tdap and Td Vaccines (2 - Td or Tdap) 04/17/2033 04/17/2023 Meningococcal B Vaccine Aged Out No l onger eligible based on patient's age to complete this topic Meningococcal Vaccine Aged Out No carina jair eligible based on patient's age to complete this topic Pneumococcal Vaccine: Pediatrics (0 to 5 Years) and At-Risk Patients (6 to 64 Years) Aged Out No longer eligible based on patient's age to complete this topic RSV Immunizations Under 20 Months Aged Out No longer eligible based on patient's age to complete this topic Procedures Procedure Name Priority Date/Time Associated Diagnosis Comments MRI BREAST HUGO WWO CON BIRAD Routine 11/20/2024 3:13 PM BINDING DYER Encounter for screening mammogram for malignant neoplasm of breast from Last 3 Months Results * MRI BREAST HUGO WWO CON BIRAD (11/20/2024 3:13 PM BINDING DYER) Anatomical Region Laterality Modality Breast Bilateral Magnetic Resonan ce 12/06/2024 10:2 9 AM CDT Impressions 12/06/2024 10:34 AM CDT IMPRESSION: No breast malignancy. Recommendation: 1: Routine screening mammogram Bilateral May 2025 2: Breast MRI Bilateral in 1 Year Assessment: ACR BI-RADS CATEGORY 1 - NEGATIVE. Ordered By: SARAH SCHWARZ Interpreted By: Deepak Morris MD, 12/06/2024 10:29 AM Narrative 12/06/2024 10:34 AM CDT [facility] [address] [place] [address] EXAMINATION: MRI BILATERAL BREAST WITHOUT AND WITH CONTRAST Exam Date: 11/20/2024 1:40 PM INDICATION: SUPPLEMENTAL SCREENING FOR BREAST CANCER. ELEVATED LIFETIME RISK FOR BREAST CANCER PT HAS HX OF RT BREAST BIOPSY SHOWING ATYPIA AND HYPERPLASIA REMOVAL OF RT BREAST MICROCALCIFICATIONS ADDITIONAL PERTINENT HISTORY:None provided COMPARISON: Recently of 05/24/2024 and dating back to 11/25/2011 TECHNIQUE: MRI imaging acquisition sequences obtained as per standard department protocol. Patient placed prone in bilateral dedicated breast coil with images acquired on MRI scanner. Bilateral simultaneous acquisitions obtained with axial slices pre and post (in multiple phases) after the uneventful IV infusion of 20 ML OF DOTAREM. 3D Reconstructions (MIPS & reformatted imaging planes) were obtained using dedicated separate software system/workstation. Study supplemented with computer-aided detection (CAD) system. FINDINGS: MR Based Breast Composition: Scattered fibroglandular tissue. Background Parenchymal Enhancement: Minimal level. No cystic or ductal disease. No malignant enhancement pattern or mass. No skin, nipple, chest wall, or lymph node abnormality. Sarah Schwarz NP MRI Final Result from Last 3 Months Insurance Care Teams Sound Technician Supervisor Relationship Specialty Start Date End Date Chaim Miller PA PCP - General PHYSICIAN BALANCE WEIGHER 04/17/23
== END 2024-12-12 10:25 | disposition home or self-care (01) ==
PROVIDERS: Visit Provider Surgery
DX: Z01.810 Encounter for preprocedural cardiovascular examination (principal); I10 Essential (primary) hypertension; R94.31 Abnormal electrocardiogram [ECG] [EKG]
CPT/HCPCS: 93005

== ENCOUNTER 2024-12-20 00:21 | Day surgery (SDC) | payer OTHER, SELFPAY ==
[2024-12-06 15:23] VITALS: BMI 38.2
--- NOTE | 2024-12-06 15:23 | PC.NURSE ---
Report to the Outpatient Waiting Room, entrance under the green pavilion located off [facility], at time _1130_ on date 12/20/24_. Planned Procedure Time: _1330_.? Time changes happen often and if your time is changed the preop area will call you the afternoon before. - You and your visitor will be asked to self-screen and do not enter if you have any COVID symptoms. Please call surgeon if you need to reschedule. - A mask is optional within the hospital at this time. Patients may have clear liquids (water, carbonated beverages, clear teas, apple juice) until 3 hours prior to surgery with a maximum of 20 ounces. - No food from midnight until time of surgery and no smoking, or chewing tobacco (or any form of nicotine). No chewing gum, candy or mints. - Infants may have breast milk until 4 hours before surgery, infant formula 6 hours prior to surgery. - Children will be allowed to drink immediately following surgery.? If applicable, please bring a bottle or sippy cup to assist with drinking. Juice, water, soda, and popsicles are readily available.? For infants on formula, please bring formula the day of surgery.? Pacifiers are allowed. Take only the following medications with a SIP of water on the morning of surgery: ___DULOXETINE DO NOT STOP ANY OF YOUR OTHER PRESCRIPTION MEDICATIONS PRIOR TO SURGERY EXCEPT THE FOLLOWING Hold all vitamins and supplements for 3 days per anesthesiologist. Medications to discontinue per physician Date to take last dose Please no make-up, nail tajik, hairspray, perfume, deodorant, or body powder the day of surgery.? No jewelry (including any body piercings) or valuables the day of surgery, leave them at home.? Please take a shower or bath the night before, or the morning of, surgery with HIBICL[employer] antibacterial soap.? Wear comfortable, loose fitting clothing.? Children are encouraged to wear pajamas. - Jewelry must be removed prior to entering the operating room.? Rings and piercings that are not removed may be cut off. - The hospital will not accept responsibility for valuables.? - Please leave all valuables, including medications, at home the day of surgery. If you are going home after surgery, a licensed school bus driver/mechanic must drive you home.? - NO public transportation without another adult if you receive anesthesia. - We recommend that an adult stay with you for 24 hours following discharge. - We also recommend that you do not drive, make important decision, drink alcoholic beverages, or take any drugs that were not prescribed by your health care provider for at least 24 hours after your discharge time. For Pediatric surgeries, we recommend two adults accompany the child home. Follow any additional instructions given to you from your surgeon. Telephone instructions given to EDUARDO__and asked if any additional questions and then verbalized understanding. Patient advised to call surgeon office or pre surgery nurse liaison [phone] if any additional questions.
--- NOTE | 2024-12-19 13:51 | P.PNAN_ITS ---
Anes - Initial Pre Proc Eval Procedure: Operation Date: 12/20/24 12:00 Proposed Procedures p Excisional Biopsy Right Shoulder Subcutaneous Mass - Marimar Paz MD Date/Time: 12/19/24 13:51 Surgeon: Marimar Paz MD Pre Op Diagnosis: right shoulder subcutaneous mass (6x5cm) Patient Data Age: 59 Gender: F Height: 1.57 m Weight: 95 kg Allergies Allergy/AdvReac Type Severity Reaction Status Date / Time No Known Allergies Allergy Verified 12/20/24 10:10 Home Medications ?Medication ?Instructions ?Recorded ?Confirmed ?Type cholecalciferol (vitamin D3) 25 25 mcg PO DAILY 11/28/24 12/20/24 History mcg (1,000 unit) capsule duloxetine 60 mg capsule,delayed 60 mg PO DAILY 11/28/24 12/20/24 History release (Cymbalta) lisinopril 10 mg tablet 10 mg PO DAILY 11/28/24 12/20/24 History magnesium 200 mg tablet 200 mg PO DAILY 11/28/24 12/20/24 History mecobalamin (vitamin B12) 500 mcg 500 mcg PO DAILY 11/28/24 12/20/24 History chewable tablet multivitamin (Daily Multi-Vitamin 1 tablet PO DAILY 11/28/24 12/20/24 History tablet) omeprazole magnesium 2.5 mg oral 10 mg PO DAILY 11/28/24 12/20/24 History suspension,delayed release (Prilosec) Patient hx anesthesia problems: post op nausea/vomiting Family hx anesthesia problems: none Results Review: All pre-operative results and documents have been reviewed as part of the pre-operative evaluation. [facility] Past Medical History Medical History (Updated 12/19/24 @ 13:51 by Neal Lloyd DO) PONV (postoperative nausea and vomiting) Arthritis HTN (hypertension) Surgical History Surgical History (Updated 11/28/24 @ 14:02 by Berenice Varma MA) Hx of tubal ligation 2000 H/O: 1990, 1993, 2000 Family History Family History (Updated 11/28/24 @ 14:02 by Berenice Varma MA) Father Lung cancer Mother Hypertension Other No significant family history Social History Social History (Updated 11/28/24 @ 14:03 by Berenice Varma MA) Smoking status: Never smoker Alcohol intake: current Alcohol use details: 2 PER MONTH- GLASS [place] WINE Substance use: never Do You Feel Safe in your Home?: Yes Lack of Transportation: No Lack of Food: Never True Current Housing: I Have Housing Concerned About Future Housing: No Difficulty Paying Gas/Electric Bills: No Difficulty Paying for Meds: No Currently Unemployed: Decline to Answer Education: High School Diploma/GED Difficulty w/ Childcare or Family Care: No Living arrangements: with family Gender identity (if verbalized by the patient): Female Anes - Eval Final PreProcedure Day of Procedure 12/19/24 13:51 Patient weight: obese Heart: regular rate and rhythm Lungs: clear to auscultation Airway: Mallampati scale class II Neurological: alert and oriented Last oral intake: >/= 8 hours ASA classification: III Emergent: no Anesthetic plan: proceed Anesthesia type and monitoring: general GIVS and standard monitoring Results Review: All pre-operative results and documents have been reviewed as part of the pre- operative evaluation. Informed Consent: The patient's anesthetic plan and its attendant risks and benefits were discussed with the patient/family/POA. Questions were solicited and answers provided to the satisfaction of the patient/family/POA.
--- OUTSIDE RECORDS SUMMARY | 2024-12-20 00:24 | XMS_ITS | Clinical Summary ---
Author Organization [facility] [employer] Address [address] [place] [address] Care Team Providers Care House Father Name Role Phone Unavailable Primary Care Provider Unavailabl e Source Comments [facility] [employer],non-owned Affiliates and Associated Physician Practices is amultiple site organization consisting of ambulatory clinics and hospital sitesin [place], [place], [place] and [place]. This disclosure is being madepursuant to the Care Everywhere program and may not contain all information available regarding this patient. Last updated 18.[facility] [employer] Allergies No known active allergies Medications * [...] and heating? Not hard at all 04/18/2023 [facility] [place] of Occupat ional Health - Occupational Stress [...] place to sleep or slept in a longterm (including now)? No 04/18/2023 Sex and Gender [...] 7 - 26 mg/dL 05/04/2023 3:21 PM [facility] Creatinine 0.53(L) 0.56 - 0.96 mg/dL 05/04/2023 3:21 PM [facility] Sodium 141 136 - 145 mmol/L 05/04/2023 3:21 PM [facility] Potassium 3.7 3.5 - 4.5 mmol/L 05/04/2023 3:21 PM [facility] Chloride 106 98 - 107 mmol/L 05/04/2023 3:21 PM [facility] CO2 25 22 - 29 mmol/L 05/04/2023 3:21 PM [facility] Glucose 85 70 - 115 mg/dL 05/04/2023 3:21 PM [facility] Calcium 9.4 8.4 - 10.2 mg/dL 05/04/2023 3:21 PM [facility] Protein Total 7.1 6.0 - 8.3 g/dL 05/04/2023 3:21 PM [facility] Albumin 3.9 3.4 - 5.0 g/dL 05/04/2023 3:21 PM [facility] Bilirubin Total 0.5 0.2 - 1.2 mg/dL 05/04/2023 3:21 PM [facility] Alkaline Phosphatase 87 40 - 150 U/L 05/04/2023 3:21 PM [facility] ALT 34 5 - 55 U/L 05/04/2023 3:21 PM [facility] AST 20 5 - 34 U/L 05/04/2023 3:21 PM [facility] Anion Gap 14 8 - 18 05/04/2023 3:21 PM [facility] BUN/Creatinine Ratio 26(H) 7 - 23 05/04/2023 3:21 PM [facility] Osmolality Calculated 292 270 - 300 mOsm/kg 05/04/2023 3:21 PM [facility] Albumin/Globulin Ratio 1.2 1.1 - 2.3 05/04/2023 3:21 PM [facility] eGFR by CKD-EPI >90 >=90 mL/min/1.7 3 m2 05/04/2023 3:21 PM [facility] Blood BLOOD SPECIMEN / Unknown Venipuncture / Unknown 05/04/2023 2:42 PM CDT 05/04/2023 2:47 PM T Villa Echavarria MD LAB - CHEMISTRY MITZI MONIQUE [facility] Organization Address [facility]/State/ZIP Co de Phone Number [facility] [address] [place] [address] [phone] from Last 3 Months or Most Recently Relevant to Health Maintenance Advance Directives * Full Code (Latest Code Status on File) Date Activated Date Inactivated Comments 04/17/2023 3:07 PM 04/20/2023 3:55 PM
--- OUTSIDE RECORDS SUMMARY | 2024-12-20 00:24 | XMS_ITS | Referral Summary ---
Author Organization [facility] Address [address] [place] [address] Care Team Providers Care Microbiology Lab Technician Name Role Phone Andree Neal Unavailable [phone] Chaim Miller Primary Care Provid er Joey Alvarenga MD Unavailable [phone] Allergies No known active allergies Medications multivitamin [...] without contrast here at [facility] (clinical information: Ataxic gait for 4 years [...] I can review it. This encounter's total vimv-hl-ofni time was greater than 40 minutes. I [...] 11/05/2020 Assessment & Plan (10/19/2023 8:31 AM IT RISK AND ASSURANCE MANAGER): Hepatitis negative 2020 Continue routine lab monitoring Assessment & Plan (06/22/2023 9:26 AM CDT): Hepatitis negative 2020 Continue routine lab monitoring Assessment & Plan (03/24/2023 12:42 PM CDT): Hepatitis negative 2020 Continue routine lab monitoring Assessment & Plan (12/24/2022 1:14 PM CDT): Hepatitis negative 2020 Continue routine lab monitoring Assessment & Plan (11/19/2022 12:54 PM IT RISK AND ASSURANCE MANAGER): Hepatitis negative 2020 Assessment & Plan (10/06/2022 3:10 PM IT RISK AND ASSURANCE MANAGER): Hepatitis negative 2020 Assessment & Plan (08/31/2022 12:06 PM IT RISK AND ASSURANCE MANAGER): Hepatitis negative 2020 Will check updated baseline labs today Assessment & Plan (07/28/2022 8:35 AM IT RISK AND ASSURANCE MANAGER): Hepatitis negative 2020 Will check updated baseline labs today Assessment & Plan (06/30/2022 12:23 PM CDT): Hepatitis negative 2020 Will check updated baseline labs today Assessment & Plan (11/25/2021 2:39 PM IT RISK AND ASSURANCE MANAGER): Hepatitis negative 2020 Will check updated [...] hydroxychloroquine Assessment & Plan (11/05/2020 2:08 PM IT RISK AND ASSURANCE MANAGER): Maintain routine eye exams throughout the duration of taking hydroxychloroquine Right knee pain 11/05/2020 Assessment & Plan (11/05/2020 2:09 PM IT RISK AND ASSURANCE MANAGER): MRI with evidence of medial and [...] 10/22/2020 Assessment & Plan (10/22/2020 8:58 AM IT RISK AND ASSURANCE MANAGER): Patient has a lateral meniscal tear as well. The time of arthroscopy partial meniscectomy of the lateral meniscus is likely indicated. At her age tears on likely to heal even if repaired. Acute medial meniscus tear of right knee 021 Assessment & Plan (10/22/2020 8:57 AM IT RISK AND ASSURANCE MANAGER): By MRI the patient has medial [...] 10/22/2020 Assessment & Plan (10/22/2020 8:59 AM IT RISK AND ASSURANCE MANAGER): Patient's hematoma has reduced in size [...] 04/16/2020 Assessment & Plan (09/03/2020 4:34 PM IT RISK AND ASSURANCE MANAGER): She complains of weakness in her [...] neuro. She can see if someone at [facility] or [facility] would be in-network. Assessment & Plan (06/04/2020 [...] 07/21/2019 Assessment & Plan (09/29/2019 2:36 PM IT RISK AND ASSURANCE MANAGER): Suspect trochanteric bursitis. Symptoms have resolved since last visit. Continues to do exercises daily. Assessment & Plan (08/21/2019 4:24 PM IT RISK AND ASSURANCE MANAGER): Suspect trochanteric bursitis. Pt also complains [...] nausea Assessment & Plan (11/09/2023 2:00 PM IT RISK AND ASSURANCE MANAGER): On Cymbalta 60 mg daily which [...] needed. Assessment & Plan (10/19/2023 8:31 AM IT RISK AND ASSURANCE MANAGER): On Cymbalta 60 mg daily with [...] monitor. Assessment & Plan (11/19/2022 12:54 PM IT RISK AND ASSURANCE MANAGER): On Cymbalta 60 mg daily with benefit, will continue and monitor. Assessment & Plan (10/06/2022 10:19 AM IT RISK AND ASSURANCE MANAGER): On Cymbalta 60 mg daily with benefit, will continue and monitor. Assessment & Plan (08/31/2022 12:06 PM IT RISK AND ASSURANCE MANAGER): On Cymbalta 60 mg daily with benefit, will continue and monitor. Assessment & Plan (07/28/2022 8:35 AM IT RISK AND ASSURANCE MANAGER): On Cymbalta 60 mg daily with benefit, will continue and monitor. Assessment & Plan (06/30/2022 3:01 PM CDT): On Cymbalta 60 mg daily with benefit, will continue and monitor. Assessment & Plan (11/25/2021 2:38 PM IT RISK AND ASSURANCE MANAGER): Previously on Cymbalta 90 mg daily, [...] needed. Assessment & Plan (11/05/2020 2:08 PM IT RISK AND ASSURANCE MANAGER): On Cymbalta 90 mg daily without adverse effect and with improvement in her widespread pain, will continue. Encouraged exercise as able. Assessment & Plan (09/03/2020 4:32 PM IT RISK AND ASSURANCE MANAGER): Remains on Cymbalta 60 mg daily [...] exercise. Assessment & Plan (09/29/2019 2:38 PM IT RISK AND ASSURANCE MANAGER): Pt did not tolerate gabapentin due to side effects. Now feels well controlled with combination of Cymbalta and CBD. Will continue Cymbalta 60 mg daily. Recommend routine exercise. Follow up in 3 months or sooner as needed. Assessment & Plan (08/21/2019 4:23 PM IT RISK AND ASSURANCE MANAGER): Ongoing sensation of pain all over [...] thickening. Assessment & Plan (11/09/2023 1:59 PM IT RISK AND ASSURANCE MANAGER): Over the last few years at [...] pain. Assessment & Plan (10/19/2023 11:35 AM IT RISK AND ASSURANCE MANAGER): Hair thinning has improved since stopping [...] needed. Assessment & Plan (11/19/2022 3:05 PM IT RISK AND ASSURANCE MANAGER): Moderate cdai. Discussed multifactorial nature of [...] needed. Assessment & Plan (10/06/2022 3:09 PM IT RISK AND ASSURANCE MANAGER): Discussed that while it is great [...] weeks. Assessment & Plan (09/01/2022 2:31 PM IT RISK AND ASSURANCE MANAGER): High cdai. On methotrexate 15 mg [...] cataracts, glaucoma, AVN, and osteoporosis with terminal computer operator use. Labs today. Plan for follow up in 4 weeks to reassess or sooner as needed. Assessment & Plan (07/28/2022 2:14 PM IT RISK AND ASSURANCE MANAGER): Moderate cdai. On methotrexate 10 mg [...] needed. Assessment & Plan (11/25/2021 2:37 PM IT RISK AND ASSURANCE MANAGER): Repeat hand ultrasound in May compared [...] cataracts, glaucoma, AVN, and osteoporosis with terminal computer operator use. Plan for follow up in [...] bid. Notes recent labs with PCP and digital marketing officer, will request results but check CRP and [...] bid. Assessment & Plan (11/05/2020 2:07 PM IT RISK AND ASSURANCE MANAGER): Our prior workup revealed equivocal RF [...] needed. Assessment & Plan (09/03/2020 4:32 PM IT RISK AND ASSURANCE MANAGER): Our prior workup revealed equivocal RF [...] glucose, cataracts, glaucoma, AVN, and osteoporosis with nursing home use. Plan for follow up in ~3-4 weeks to reassess, timing determined based upon when ultrasound is able to be completed. Assessment & Plan (09/29/2019 2:37 PM IT RISK AND ASSURANCE MANAGER): Our prior workup revealed equivocal RF [...] monitor. 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 on file Not on file Not o n file Last Filed Vital Signs Vital Sign Reading Time Taken Comments Blood Pressure 124/90 11/09/2023 10:53 AM IT RISK AND ASSURANCE MANAGER Pulse 89 11/09/2023 10:53 AM IT RISK AND ASSURANCE MANAGER Temperature 36.7 C (98.1 F) 11/25/2021 1:11 PM IT RISK AND ASSURANCE MANAGER Respiratory Rate 15 2020 9:50 AM IT RISK AND ASSURANCE MANAGER Oxygen Saturation 97% 11/09/2023 10:53 AM IT RISK AND ASSURANCE MANAGER Inhaled Oxygen Concentration - - Weight 96 kg (211 lb 9.6 oz) 11/09/2023 10:53 AM IT RISK AND ASSURANCE MANAGER Height 157.5 cm (5' 2 ) 11/09/2023 10:53 AM IT RISK AND ASSURANCE MANAGER Body Mass Index 38.7 11/09/2023 10:53 AM IT RISK AND ASSURANCE MANAGER Plan of Treatment Not on file [...] a test for HCV RNA (test code 10562) is suggested. For additional information please refer to http://education.[employer].ru/faq/IIN20v0 (This link is being provided for informational/ educational purposes only.) Blood specimen (specimen) 04/16/2020 2:31 PM CDT 04/16/2020 2:32 PM CDT [facility] MICROBIOLOGY - GENERA L ORDERABLES Final Result Startup [facility] [id number] [id number] from Last 3 Months or Most Recently Relevant to Health Maintenance Insurance [facility] Care Teams Microbiology Lab Technician Relationship Specialty Start Date End Date Chaim Miller PA [address], [place] [address] PCP - General Physician Health Science Instructor 06/25/22 [place] [address] [facility] [address] [place] [address] Physician Health Science Instructor Orthopedic Surgery 11/29/20 Joey Alvarenga MD [address] [facility] [address] [place] [address] Consulting Physician Rheumatology 10/19/23
--- OUTSIDE RECORDS SUMMARY | 2024-12-20 00:24 | XMS_ITS | Clinical Summary ---
Author Organization [facility] Address [address] [place] [address] Care Team Providers Care Clearing House Clerk Name Role Phone Chaim Miller Primary Care [...] Department Care Team Description 11/20/2024 1:40 PM LOAN COUNSELOR - 11/20/2024 11:59 PM [facility] Hospital Encounter [facility] [address] [place] [address] Sarah Schwarz NP Discharge Disposition: Home or [...] WWO CON BIRAD Routine 11/20/2024 3:13 PM LOAN COUNSELOR Encounter for screening mammogram for malignant neoplasm of breast from Last 3 Months Results * MRI BREAST HUGO WWO CON BIRAD (11/20/2024 3:13 PM LOAN COUNSELOR) Anatomical Region Laterality Modality Breast Bilateral Magnetic Resonan ce 12/06/2024 10:2 9 AM CDT Impressions 12/06/2024 10:34 AM CDT IMPRESSION: No breast malignancy. Recommendation: 1: Routine screening mammogram Bilateral May 2025 2: Breast MRI Bilateral in 1 Year Assessment: ACR BI-RADS CATEGORY 1 - NEGATIVE. Ordered By: SARAH SCHWARZ Interpreted By: Deepak Morris MD, 12/06/2024 10:29 AM Narrative 12/06/2024 10:34 AM CDT [facility] [address] [place] [address] EXAMINATION: MRI BILATERAL BREAST WITHOUT AND WITH [...] from Last 3 Months Insurance Care Teams Clearing House Clerk Relationship Specialty Start Date End Date Chaim Miller PA PCP - General PHYSICIAN CLOTH MERCERIZING SUPERVISOR 04/17/23
--- OUTSIDE RECORDS SUMMARY | 2024-12-20 00:24 | XMS_ITS | Continuity of Care Document ---
Author Name [facility] Organization [facility] Care Team Providers Care Surfacer Name Role Phone [facility] Unavailable Unavailable Problems Combined list of problems from Department of Defense and Veterans Affairs facilities. It does not include entries that were removed or entered in error. 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 [facility] Chronic pain Active 5 Diagnosis [facility] Trigger finger, right middle finger Active Condition [facility] Trigger finger, right ring finger Active Condition 0055C[facility] Anisocoria Active Condition [facility] Anxiety Active Condition [facility] Astigmatism Active Condition [facility] Chronic pain Active Condition [facility] Difficulty swallowing Active Condition [facility] Essential (primary) hypertension Active Condition [facility] Fibromyalgia Active Condition [facility] Hyperlipidemia Active Condition [facility] Morbid obesity Active Condition Unknown Organization Patent ductus arteriosus Active Condition [facility] Presbyopia Active Condition [facility] Rosacea Active Condition [facility] Weakness of right hand Active Condition [facility] Medications Combined list of outpatient medications from Department of Defense and Veterans Affairs facilities.Medications provided include 1) outpatient medications from the last 15 months, and 2) patient-reported medications. Medication Details Route Status Patient Instructions Prescription Expires Prescription Number Last Dispense Date Ordering Provider Order Date Order Qty Source cholecalcif ketan 125 mcg (5000 intl units) oral capsule cholecal ciferol 125 mcg (5000 intl units) oral capsule Start Date: 04/29/21 Status: Ordered Repeat number: 1 Ordered 2020 No Facilit y Access clotrimazol e 1% topical cream APPLY TO AFFECTED AREA(S) TWICE A DAY DIRECTED , # 28 g, 3 total refill(s ), Acute Complet ed 10/12/2023 3 2023 28.0 Ambulat ory Pharmac y Cymbalta 60 mg oral delayed release capsule 1 cap(s), Oral, Daily, do not crush or chew, # 30 cap(s), 0 total refill(s ), Maintena nce Oral (given by mouth) Cancele d 02/09/20242023 30.0 0055C-[address] [place] [address] diclofenac sodium 75 mg oral delayed release tablet diclofen ac sodium 75 mg oral delayed release tablet Start Date: 04/05/21 Stop Date: 05/11/23 Status: Complete d Repeat number: 1 Complet ed 05/11/20232022 No Facilit y Access diclofenac sodium 75 mg oral delayed release tablet diclofen ac sodium 75 mg oral delayed release tablet Start Date: 11/08/20 Stop Date: 05/11/23 Status: Complete d Repeat number: 1 Complet ed 05/11/20232022 No Facilit y Access DULoxetine 30 mg oral delayed release capsule 1 cap(s), Oral, BID, for 1-2 wks then increase to 60mg. do not crush or chew, # 14 cap(s), 0 total refill(s ), Maintena dce, Pharmacy : [facility] Oral (given by mouth) Discont inued 02/09/20242023 14.0 0055C-[address] [place] [address] DULoxetine 30 mg oral delayed release capsule 1 cap(s), Oral, Daily, for 1-2 wks then increase to 60mg. do not crush or chew, # 14 cap(s), 0 total refill(s ), Maintena dce, Pharmacy : [facility] Oral (given by mouth) Discont inued 05/17/2024 4 2023 14.0 0055C-3 [facility] DULoxetine 30 mg oral delayed release capsule DULoxeti ne 30 mg oral delayed release capsule Start Date: 06/12/21 Stop Date: 05/11/23 Status: Complete d Repeat number: 1 Complet ed 05/11/20232022 No Facilit y Access DULoxetine 30 mg oral delayed release capsule DULoxeti ne 30 mg oral delayed release capsule Start Date: 11/06/20 Stop Date: 05/11/23 Status: Complete d Repeat number: 1 Complet ed 05/11/20232022 No Facilit y Access DULoxetine 30 mg oral delayed release capsule DULoxeti ne 30 mg oral delayed release capsule Start Date: 06/16/20 Stop Date: 05/11/23 Status: Complete d Repeat number: 1 Complet ed 05/11/20232022 No Facilit y Access DULoxetine 60 mg oral delayed release capsule 1 cap(s), Oral, Daily, do not crush or chew, # 90 cap(s), 3 total refill(s ), [facility], Pharmacy : [facility] Oral (given by mouth) Ordered 5 2024 90.0 0055C-[address] [place] [address] DULoxetine 60 mg oral delayed release capsule 1 cap(s), Oral, Daily, do not crush or chew, # 90 cap(s), 3 total refill(s ), [facility], Pharmacy : [facility] Oral (given by mouth) Discont inued 12/07/20242024 90.0 0055C-3 [facility] DULoxetine 60 mg oral delayed release capsule 1 cap(s), Oral, Daily, do not crush or chew, # 90 cap(s), 0 total refill(s ), [facility], Pharmacy : [facility] Oral (given by mouth) Discont inued 05/30/2024 4 2023 90.0 0055C-3 [facility] DULoxetine 60 mg oral delayed release capsule DULoxeti ne 60 mg oral delayed release capsule Start Date: 05/07/20 Stop Date: 05/11/23 Status: Complete d Repeat number: 1 Complet ed 05/11/20232022 No Facilit y Access DULoxetine 60 mg oral delayed release capsule 1 cap(s), Oral, Daily, do not crush or chew, # 90 cap(s), 2 total refill(s ), Maintena nce, Pharmacy : [facility] Oral (given by mouth) Discont inued 10/31/2024 4 2024 90.0 0055C-3 [facility]ulik Flexeril 10 mg oral tablet See Instruct ions, 1 tab(s) Oral before bedtime. , # 90 tab(s), 0 total refill(s ), Acute, Pharmacy : [facility] Ordered 12/07/2025 5 2024 90.0 0055C-[address] [place] [address] [place] HYDROCODONE -ACETAMINOP HEN (HYDROCODON E/ACETAMINO PHEN), 5MG-325MG, TABLET, ORAL, MALLINCKROD T PH, 50 HYDROCOD ONE-ACET AMINOPHE N (HYDROCO DONE/TRISHA TAMINOPH EN), 5MG-325M G, TABLET, ORAL, MALLINCK RODT PH, 50 Start Date: 11/30/20 Stop Date: 05/11/23 Status: Complete d Repeat number: 1 Complet ed 05/11/20232022 No Facilit y Access hydroxychlo roquine 200 mg oral tablet 2 total refill(s ) Complet ed 05/11/20232022 No Facilit y Access hydroxychlo roquine 200 mg oral tablet 2 total refill(s ) Complet ed 05/11/20232022 No Facilit y Access leflunomide 10 mg oral tablet 1 tab(s), Oral, Daily, # 90 tab(s), 0 total refill(s ), Maintena nce Oral (given by mouth) Discont inued 05/17/20242023 90.0 0055C-[address] [place] [address] Ma[place] lisinopril 10 mg oral tablet 1 tab(s), Oral, Daily, for blood pressure , # 90 tab(s), 3 total refill(s ), Maintena nce, Pharmacy : [facility] Oral (given by mouth) Ordered 2024 90.0 0055C-[address] [place] [address] Maulik lisinopril 10 mg oral tablet 1 tab(s), Oral, Daily, for blood pressure , # 90 tab(s), 3 total refill(s ), [facility], [facility] Oral (given by mouth) Discont inued 10/31/2024 2024 90.0 0055C-[address] [place] [address] Maulik lisinopril 5 mg oral tablet lisinopr il 5 mg oral tablet Start Date: 05/01/21 Stop Date: 10/19/23 Status: Disconti nubianca Repeat number: 1 Discont inued 10/19/20232023 No Facilit y Access lisinopril 5 mg oral tablet TAKE ONE TABLET BY MOUTH DAILY, # 90 EA, 2 total refill(s ), Acute Complet ed 04/26/2023 2 2022 90.0 Ambulat ory Pharmac y Multivitami n oral gum 0 total refill(s ), [facility] Ordered 2022 0055C-[address] [place] [address] Ma[place] naproxen 500 mg oral tablet naproxen 500 mg oral tablet Start Date: 10/17/20 Stop Date: 05/11/23 Status: Complete d Repeat number: 1 Complet ed 05/11/20232022 No Facilit y Access naproxen 500 mg oral tablet 1 tab(s), Oral, BID, # 20 tab(s), 0 total refill(s ), Acute, 08/05/24 12:00:00 AM [employer] [facility], Pharmacy : [facility] Oral (given by mouth) Complet ed 08/05/2024 3 2023 20.0 0055C-[address] [place] [address] [place] omeprazole 20 mg oral delayed release capsule 180 cap(s), 0 Refill(s ), 0 total refill(s ), Soft Stop Ordered 2023 0055C-[address] [place] [address] Ma[place] pregabalin 75 mg oral capsule pregabal in 75 mg oral capsule Start Date: 01/11/21 Stop Date: 05/11/23 Status: Complete d Repeat number: 1 Complet ed 05/11/20232022 No Facilit y Access rosuvastati n 5 mg oral tablet TAKE ONE TABLET BY MOUTH DAILY, # 90 EA, 1 total refill(s ), Acute Complet ed 12/10/20232023 90.0 Ambulat ory Pharmac y Savella 4-week titration pack oral tablet 55 EA, 0 Refill(s ), FOLLOW PACKAGE DIRECTIO NS, 0 total refill(s ), Soft Stop Discont inued 05/17/20242023 0055C-[address] [place] [address] Vitamin B12 0 total refill(s ), Maintena nce Ordered 2022 0055C-[address] [place] [address] Vitamin D2 1.25 mg (50,000 intl units) oral capsule 1.25 mg, Oral, every week, # 12 cap(s), 0 total refill(s ), Maintena nce, 12 caps = 90-day supply, Pharmacy : [facility] Oral (given by mouth) Ordered 4 2023 12.0 0055C-[address] [place] [address] Immunizations Combined list of available immunizations from the Department of Defense and Veterans Affairs facilities. 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 Status Comments Source tetanus, diphtheria, acellular pertu is 2022 DARLENERBRUNN ER [id number] 115 complet ed Result Comment: Manufactu rer: SKB(Glaxo ) 5C-[address] [place] [address] SARS-CoV-2 mRNA(toziname wyd-pcfu-jxu) vac 2021 DARLENERBRUNN ER 217 complet ed Result Comment: Route: Unknown Manufactu rer: OTH (PFR) 0055C-[address] [place] [address] SARS-CoV-2 mRNA(toziname exu-btlj-ubw) vac 2021 DARLENERBRUNN ER 217 complet ed Result Comment: Route: Unknown Manufactu rer: OTH (PFR) 0055C-[address] [place] [address] zoster vaccine, inactivated 2020 DARLENERBRUNN ER [id number] 187 complet ed Result Comment: Route: Unknown Manufactu rer: OTH (SKB) 0055C-3 [facility] zoster vaccine, inactivated 2020 zzLef t Arm [id number] GlaxoSmithKli ne complet ed zoster vaccine, inactivat ed 05/02/21 Given Ambulat ory Pharmac y COVID Vaccine Pfizer 2020 DARLENERBRUNN ER 208 complet ed Result Comment: Route: Unknown Manufactu rer: OTH (PFR) 0055C-3 [facility] COVID Vaccine Pfizer 2020 DARLENERBRUNN ER 208 complet ed Result Comment: Route: Unknown Manufactu rer: OTH (PFR) 0055C-3 [facility] tuberculin purified protein derivative 2016 zzLef t Arm [id number] 96 sanofi pasteur complet ed Patient Tolerance : Negative Ambulat ory Pharmac y tuberculin purified protein derivative 2015 zzLef t Arm [id number] 96 sanofi pasteur complet ed Patient Tolerance : Negative Ambulat ory Pharmac y hepatitis B adult vaccine 2015 TRANSCR IBED 43 complet ed hepatitis B adult vaccine 10/28/15 Given Ambulat ory Pharmac y HepB, Adult 2015 DARLENERBRUNN ER TRANSCR IBED 43 complet ed Result Comment: Route: Unknown Manufactu rer: Transcrib ed (TRS) 0055C-3 [facility] hepatitis B adult vaccine 2014 TRANSCR IBED 43 complet ed hepatitis B adult vaccine 05/31/15 Given Ambulat ory Pharmac y HepB, Adult 2014 DARLENERBRUNN ER TRANSCR IBED 43 complet ed Result Comment: Route: Unknown Manufactu rer: Transcrib ed (TRS) 0055C-[address] [place] [address]- [place] hepatitis B adult vaccine 2014 TRANSCR IBED 43 complet ed hepatitis B adult vaccine 04/16/15 Given Ambulat ory Pharmac y HepB, Adult 2014 DARLENERBRUNN ER TRANSCR IBED 43 complet ed Result Comment: Route: Unknown Manufactu rer: Transcrib ed (TRS) 0055C-3 [facility] tetanus, diphtheria, acellular pertu is 2012 zzRig ht Arm [id number] 115 GlaxoSmithKli ne complet ed tetanus, diphtheri a, acellular pertussis 01/23/13 Given Ambulat ory Pharmac y Results Combined list of recent chemistry, hematology and other laboratory results from Department of Defense and Veterans Affairs, ranging from 15 months to all on record, depending upon the facility. Order Name Results Value Reference Range Date Interpretation Specimen Comments Source Chemistry Vitamin D 25 OH 15.7 ng/mL 30.0 - 100.0 05/24 L Interpretiv e Data: Classificat ion of Vitamin D Status: Deficient: <20 ng/mL Insufficien t: 20-29 ng/mL Sufficient: 30-100 ng/mL Possible Toxicity: >100 ng/mL This assay is for the quantitativ e determinati on of total 25 (OH) vitamin D. It is intended as an aid in the determinati on of vitamin D sufficiency . Results should always be interpreted in conjunction with the patient's medical history, clinical presentatio n, and other findings. Testing performed by [employer] 5600A-U [facility] [employer] Chemistry Triglycerid es 121 mg/dL 7 - 149 05/24 N Interpretiv e Data: AGES 0-9: Desirable: < 75 mg/dL Borderline High: 75-99 mg/dL High: >/= 100 mg/dL AGES 10-19: Desirable: < 90 mg/dL Borderline High: 90-129 mg/dL High: >/= 130 mg/dL ADULTS: Desirable: < 150 mg/dL Borderline High: 150-199 mg/dL High: >/= 240 mg/dL Very High: >/= 500 mg/dL [address] [place] [address] Chemistry Cholesterol Total 242 mg/dL 05/24 H Interpretiv e Data: According to the [employer] : AGES 0-19: Desirable: < 170 mg/dL Borderline High: 170-199 mg/dL High Blood Cholesterol : >/= 200 mg/dL ADULTS: Desirable < 200 mg/dL Borderline High: 200-239 mg/dL High Blood Cholesterol : >/= 240 mg/dL -[address] [place] [address] Chemistry HDL Cholesterol 61 mg/dL 40 - 59 05/24 H Interpretiv e Data: HDL (HIGH DENSITY LIPOPROTEIN ): ADULTS: Low: < 40 mg/dL High: >/= 60 mg/dL AGES 0 -19: Low: < 40 mg/dL Borderline Low: 40 - 45 mg/dL Acceptable: > 45 mg/dL - [address] [place] [address] Chemistry LDL 178 mg/dL 100 - 130 05/24 H Interpretiv e Data: AGES 0-19: Desirable: < 110 mg/dL Borderline High: 110-129 mg/dL High: >/= 130 mg/dL ADULTS: Desirable: <100 mg/dL Near/above optimal: 100-130 mg/dL Borderline High: 131-159 mg/dL High: 160-189 mg/dL Very High: 190 mg/dL - [facility] Chemistry LDL/HDL 3 05/24- [address] [place] [address] Chemistry Chol/HDL 4 mg/dL 05/24- [address] [place] [address] AP Specimens HPV Genotype 18 Negative 6 (05/17/24 2:42 PM) Negative 05/17 N Interpretiv e Data: HPV GENOTYPE 18 Negative: NEGATIVE for HPV genotype 18 DNA. HPV GENOTYPE 18 Positive: POSITIVE for HPV genotype 18 DNA. The serge HPV Test is a qualitative in vitro test for the detection Human Papillomavi timoteo in clinician-c ollected cervical and vaginal specimens. It detects the following high-risk HPV types 16, 18, 31, 33, 35, 39, 45, 51, 52, 56, 58, 66, and 68. Note: The modificatio n to specimen source of vaginal was developed and its performance characteris tics determined by [facility] Molecular Diagnostics [facility]. Vaginal source has not been cleared or approved by the U. S. Food and Drug Administrat ion. This modified vaginal specimen HPV test is for clinical purposes. This laboratory is certified under the Clinical Laboratory Improvement Amendments of 1988 (CLIA-88) as qualified to perform high complexity clinical laboratory testing. Clinician collected PreservCyt ThinPrep vaginal specimen are an approved additional specimen source, based on an internal laboratory validation. Limitations : A negative result does NOT preclude the presence of HPV infection because results depend on adequate specimen collection, absence of inhibitors and sufficient DNA to be detected. Correlation with cytologic findings is recommended as applicable. Questions about process or methodology contact Molecular Department at or [phone]. 0109A-A [facility] AP Specimens HPV Genotype 16 Negative 8 (05/17/24 2:42 PM) Negative 05/17 N Interpretiv e Data: HPV GENOTYPE 16 Negative: NEGATIVE for HPV DNA genotype 16 DNA. HPV GENOTYPE 16 Positive: POSITIVE for HPV genotype 16 DNA. The serge HPV Test is a qualitative in vitro test for the detection Human Papillomavi timoteo in clinician-c ollected cervical and vaginal specimens. It detects the following high-risk HPV types 16, 18, 31, 33, 35, 39, 45, 51, 52, 56, 58, 66, and 68. Note: The modificatio n to specimen source of vaginal was developed and its performance characteris tics determined by [facility], [facility]. Vaginal source has not been cleared or approved by the U. S. Food and Drug Administrat ion. This modified vaginal specimen HPV test is for clinical purposes. This laboratory is certified under the Clinical Laboratory Improvement Amendments of 1988 (CLIA-88) as qualified to perform high complexity clinical laboratory testing. Clinician collected PreservCyt ThinPrep vaginal specimen are an approved additional specimen source, based on an internal laboratory validation. Limitations : A negative result does NOT preclude the presence of HPV infection because results depend on adequate specimen collection, absence of inhibitors and sufficient DNA to be detected. Correlation with cytologic findings is recommended as applicable. Questions about process or methodology contact Molecular Department at or [phone]. 0109A-A [facility] AP Specimens HPV Typing High Risk Negative 7 (05/17/24 2:42 PM) Negative 05/17 N Interpretiv e Data: HPV Typing High Risk Negative: NEGATIVE for concurrentl y detecting the rest of the 12 high risk types HPV DNA (31,33,35,3 9,45,51,52, 56,58,59,66 and 68) without differentia tion. HPV Typing High Risk Positive: POSITIVE for concurrentl y detecting the rest of the 12 high risk types HPV DNA (31,33,35,3 9,45,51,52, 56,58,59,66 and 68) without differentia tion. The serge HPV Test is a qualitative in vitro test for the detection Human Papillomavi timoteo in clinician-c ollected cervical and vaginal specimens. It detects the following high-risk HPV types 16, 18, 31, 33, 35, 39, 45, 51, 52, 56, 58, 66, and 68. Note: The modificatio n to specimen source of vaginal was developed and its performance characteris tics determined by [facility]ostics [facility]. Vaginal source has not been cleared or approved by the U. S. Food and Drug Administrat ion. This modified vaginal specimen HPV test is for clinical purposes. This laboratory is certified under the Clinical Laboratory Improvement Amendments of 1988 (CLIA-88) as qualified to perform high complexity clinical laboratory testing. Clinician collected PreservCyt ThinPrep vaginal specimen are an approved additional specimen source, based on an internal laboratory validation. Limitations : A negative result does NOT preclude the presence of HPV infection because results depend on adequate specimen collection, absence of inhibitors and sufficient DNA to be detected. Correlation with cytologic findings is recommended as applicable. Questions about process or methodology contact Molecular Department at or [phone]. 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 DEPARTME NT OF PATHOLOG Y [address] [facility] [address] [place] [address] Cytology Gynecolo gic Report Patient: Tom Aguayo Specimen #: [id number] [facility] ID:: [id number]: [id number] Taken: 14:42 /Age: [birth year] 8 (Age: 58) Received : 05/24/2024 13:04 Physicia n(s:): GOGO MAY Reported : 05/25/2024 Specimen (s) Received Taken Rec Thin Prep - Cervical w/o reflex HPV 14:42 05/24/2024 13:04 Final Diagnosi s Thin Prep - Cervical w/o reflex HPV: Satisfac tory for evaluati on; endocerv ical componen t present. Negative for intraepi thelial lesion or malignan cy. This Pap test was evaluate d with the assistan ce of the Thin Prep Imaging System. Elect sylwiaicall y Signed by JUN MEZA Clinical Diagnosi s and History ASC-H pap with neg HPV 11/15, neg bx; nl paps since; co test 5yrs if nl Prior History Signed Out Specimen # Interpre tation 05/05/20 21 [id number] Negative for Intraepi thlial Lesion or Malignan cy 06/23/20 18 [id number] Negative for Intraepi thlial Lesion or Malignan cy 11/25/19 17 [id number] NEGATIVE 08/05/20 15 [id number] EPITHELI AL CELL ABNORMAL ITIES 04/08/20 09 [id number] NEGATIVE CPT Codes: A; 94939 The Pap test is a screenin g test for precurso rs of squamous cell carcinom a with an irreduci ble false negative rate of around 5%. It is not designed to detect glandula r lesions. A negative test does not ensure that no disease is present. 05/17 0055C-[address] [place] [address] Specimens AP Surgical Pathology Patient: Tom Aguayo Specimen #: [id number] Patholog ist: Juan Antonio Timmons, , Lt Col, [employer], [employer] Accessio n: 05/25/2024 [facility] DEPARTME NT OF PATHOLOG Y [address] [place] [address] [address] [place] [address] Surgical Patholog y Report Patient: Tom Aguayo Specimen #: [id number] [facility] ID:: [id number] Encounte r #: [id number] Taken: 4 14:25 /Age: 3 8 (Age: 58) Received : 05/25/2024 11:30 Physicia n(s): GOGO MAY Reported : 05/29/2024 Specimen (s) Received Taken Rec cx polyp 4 14:25 05/25/2024 11:30 Final Diagnosi s A: Cervix, Polypect feng: - Benign cervical polyp Elect sylwiaicall y Signed rafi/2023 Juan Antonio Timmons, DO, Lt [employer], [employer], Clinical Diagnosi s and History 58yo with polypoid tissue @ os Pre-Oper ative Diagnosi s cervical polyp Post-Ope rative Diagnosi s cervical polyp Gross Descript ion A. Received in formalin , labeled with the patient' s correct name and secondar y identifi ers, designat ed cervica l polyp , are multiple fragment s of pickering ?brown soft tissue measurin g 1.0 x 0.9 x 0.2 cm in aggregat e. Entirely submitte d in 1 cassette . Blocks submitte d in 10% neutral- buffered formalin for paraffin -embedde d sections . Cold ischemic time : N/A . Total fixation time: N/A . [facility] CPT Codes: A; 13198 05/17 0055C-3 [facility] Vital Signs Combined list of inpatient and outpatient Vital Signs from Department of Defense and Veterans Affairs, ranging from 12 months to all on record, depending upon the facility. Vital Sign Value Date Comments Source Blood Pressure Manual Automatic 05/11/2023 15:39:00 [facility] BP Site Left arm 05/11/2023 15:39:00 0055C -[facility] Peripheral Pulse Rate 86 bpm 05/11/2023 15:39:00 [facility] Respiratory Rate 16 br/min 05/11/2023 15:39:00 [facility] Temperature Oral 36.2 Salima 05/11/2023 15:39:00 [facility] Systolic Blood Pressure 132 mm[Hg] 05/11/2023 15:39:00 [facility] Diastolic Blood Pressure 80 mm[Hg] 05/11/2023 15:39:00 [facility] Mean Arterial Pressure, Calc 97 mm[Hg] 05/11/2023 15:39:00 [facility] BP Site Left arm 02/08/2024 19:03:00 0055C -[facility] Mean Arterial Pressure, Calc 96 mm[Hg] 02/08/2024 19:03:00 [facility] Systolic Blood Pressure 127 mm[Hg] 02/08/2024 19:03:00 [facility] Diastolic Blood Pressure 80 mm[Hg] 02/08/2024 19:03:00 [facility] Blood Pressure Manual Automatic 02/08/2024 19:03:00 [facility] Respiratory Rate 16 br/min 08/05/2023 14:52:00 [facility] Temperature Oral 36.7 Salima 08/05/2023 14:52:00 [facility] Mean Arterial Pressure, Calc 101 mm[Hg] 08/05/2023 14:52:00 [facility] Peripheral Pulse Rate 73 bpm 08/05/2023 14:52:00 [facility] Systolic Blood Pressure 138 mm[Hg] 08/05/2023 14:52:00 [facility] Diastolic Blood Pressure 83 mm[Hg] 08/05/2023 14:52:00 [facility] Systolic Blood Pressure 146 1 10/31/2024 20:17:00 [facility] Diastolic Blood Pressure 93 mm[Hg] 10/31/2024 20:17:00 [facility] Mean Arterial Pressure, Calc 111 mm[Hg] 10/31/2024 20:17:00 [facility] Peripheral Pulse Rate 81 bpm 10/31/2024 20:17:00 [facility] Respiratory Rate 17 br/min 10/31/2024 20:17:00 [facility] Temperature Oral 36.9 Salima 10/31/2024 20:17:00 [facility] Systolic Blood Pressure 126 mm[Hg] 05/17/2024 18:24:00 [facility] Diastolic Blood Pressure 87 mm[Hg] 05/17/2024 18:24:00 [facility] Apical Heart Rate 82 bpm 05/17/2024 18:24:00 [facility] Mean Arterial Pressure, Calc 100 mm[Hg] 05/17/2024 18:24:00 [facility] Systolic Blood Pressure 165 mm[Hg] 02/08/2024 19:01:00 [facility] Diastolic Blood Pressure 105 mm[Hg] 02/08/2024 19:01:00 [facility] Mean Arterial Pressure, Calc 125 mm[Hg] 02/08/2024 19:01:00 [facility] BP Site Left arm 02/08/2024 19:01:00 [facility] Blood Pressure Manual Automatic 02/08/2024 19:01:00 [facility] Peripheral Pulse Rate 77 bpm 02/08/2024 19:01:00 [facility] Respiratory Rate 14 br/min 02/08/2024 19:01:00 [facility] Temperature Oral 36.9 Salima 02/08/2024 19:01:00 [facility] Mean Arterial Pressure, Calc 107 mm[Hg] 05/17/2024 18:18:00 [facility] Systolic Blood Pressure 143 mm[Hg] 05/17/2024 18:18:00 [facility] Diastolic Blood Pressure 89 mm[Hg] 05/17/2024 18:18:00 [facility] Blood Pressure Manual Automatic 05/17/2024 18:18:00 [facility] BP Site Right arm 05/17/2024 18:18:00 [facility] Temperature Oral 36.7 Salima 05/17/2024 18:18:00 [facility] Peripheral Pulse Rate 82 bpm 05/17/2024 18:18:00 [facility] Respiratory Rate 16 br/min 05/17/2024 18:18:00 [facility] Blood Pressure Manual Automatic 10/19/2023 20:52:00 [facility] Temperature Oral 36.7 Salima 10/19/2023 20:52:00 [facility] BP Site Left arm 10/19/2023 20:52:00 [facility] Respiratory Rate 16 br/min 10/19/2023 20:52:00 [facility] Mean Arterial Pressure, Calc 87 mm[Hg] 10/19/2023 20:52:00 [facility] Peripheral Pulse Rate 89 bpm 10/19/2023 20:52:00 [facility] Systolic Blood Pressure 112 mm[Hg] 10/19/2023 20:52:00 [facility] Diastolic Blood Pressure 74 mm[Hg] 10/19/2023 20:52:00 [facility] Encounters Combined list of: 1) Encounters from [facility] facilities going backup to the last 18 months, not all VA inpatient encounters are included; 2) Encounters from the Department of Defense facilities going backup to 280 months. Location Location Details Encounter Type Encounter Number Reason For Visit Attending Provider ADM Date DC Date Status Disposition Source - [facility] Outside Documentat ion Only [id number] 05/26 Discharge Disposition: Home or Self Care [facility] [id number] Essenti al (primar y) hyperte nsion,E ncounte r for other screeni ng for maligna nt neoplas m of breast, Fibromy algia,B enign lipomat ous neoplas m of skin and subcuta neous tissue of right arm,Oth er chronic pain SARAH ROSEHALL 10/31 Discharge Disposition: Home or Self Care [facility] Between Visit [id number] 11/13 Discharge Disposition: Home or Self Care [facility] Between Visit [id number] 12/04 Discharge Disposition: Home or Self Care [facility] [id number] Fibromy algia SARAH ROSEHALL 12/07 Discharge Disposition: Home or Self Care [facility] Procedures Combined list of: 1) Procedures from [facility] Affairs facilities going back up to thelast 18 months, not all VA non-surgical procedures are included; 2) All procedures from the [facility] facilities. Procedure Procedure Type Code Date Perfomer Comments Sourc e delivery only; including care delivery only; including care 62489 4 [facility] delivery only; including care delivery only; including care 80699 1 [facility] abdominal hematoma I+D 3 [facility] right knee surgery 1 [facility] right breast bx 7 B9 [facility] right breast calcification excision 7 ductal hyperplasia [facility] C/S with BTL 1 [facility] wte 6 [facility] Social History Combined list of available smoking, tobacco, and other social history from [facility] and [facility] facilities. Social History Type Response Date Comment Sourdiane e Sex Representation Female (finding) 07/24/2021 Unknown Organization Tobacco Cigarette use: Never-cigarette user. Other Tobacco use: Never-other tobacco user (not cigarettes). Ambulatory Pharmacy Sexual Orientation Ambula tory Pharmacy Gender identity Ambulator y Pharmacy Assessment and Plan Combined list of future care activities from Department of Defense and Veterans Affairs facilities (e.g., assessment and plan notes, appointments, orders, and referrals). Additional future care activities may be listed in the Plan of Care section. Result Assessment and Plan Date Source Assessment and Plan Extracted from:Title : Office Clinic Note Author: SARAH SCHWARZ NP, Family Medicine Date: 12/07/24 1. F ibromyalgia Chronic. Not currently well-controlled over the last 2 months. She is on max-dosing of Cymbalta. She reports increased pain, particularly at night, if she has been doing increased activity during the day. She states that she can only last a couple of hours and whole body aches. Cymbalta was working well previously, but has stopped working over the last 2 months and has begun to impact sleep. She was established with Rheumatology a couple of years ago but had a falling out and hasn't gone back. She has trialed Gabapentin, Lyrica and has stopped d/t adverse SE. S he has not trialed skeletal muscle relaxant and is open to trying this today. - we will trial adding on flexeril that she c an take at HS; advised that there is room to upward titrate if no immediate improvement - refer back to Rheumatology for management; second-opinion referral - pt to follow-up in 2 -4 weeks with virtual appt to discuss med efficacy 20 m inutes total time spent on evaluation and management. Sarah Schwarz R., , [place] [address] Orders: DULoxetine(DULoxetine 60 mg oral delayed release capsule), 1 cap(s), Oral, Daily, do not crush or chew, # 90 cap(s), 3 total refill(s), Maintenance, Pharmacy: [facility] [Not filled] cyclobenzaprine(Flexeril 10 mg oral tablet), See Instructions, 1 tab(s) Oral before bedtime., # 90 tab(s), 0 total refill(s), Acute, Pharmacy: [facility] [Not filled] Extracted from:Title: 0055 [facility] lipoma/referral Author: SARAH SCHWARZ NP, Family Medicine Date: 10/31/24 1. B enign lipomatous neoplasm of skin and subcutaneous tissue of right arm Right shoulder duration x months . Causing some discomfort as it is located underneath bra strap. Would like referral for removal. PE remarkable for 5.0x 3.cm soft, mobile lump. Likely lipoma. - Gen surgery referral for removal - f/u PRN Ordered: Referral Request 2.0 - [facility] 2. E ssential (primary) hypertension Checks at home with averages in 110s/80. No CP, SOB, palpitations. No medication changes today.? 3. F ibromyalgia Well-controlled on Cymbalta. Would like medication refill. 4. B reast neoplasm screening status D ue for breast MRI d/t high lifetime risk. Will place referral and order for breast MRI. 15 minutes total time spent on evaluation and management. Sarah Schwarz R., [place] [address] Ordered: Referral Request 2.0 - [facility] Orders: DULoxetine(DULoxetine 60 mg oral delayed release capsule), 1 cap(s), Oral, Daily, do not crush or chew, # 90 cap(s), 3 total refill(s), Maintenance, Pharmacy: [facility] [Not filled] lisinopril(lisinopril 10 mg oral tablet), 1 tab(s), Oral, Daily, for blood pressure, # 90 tab(s), 3 total refill(s), Maintenance, Pharmacy: [facility] [Not filled] Extracted from:Title: 0055 [facility] virt fibromyalgia/med refill Author: SARAH CSHWARZ NP Date: 05/30/24 1. F ibromyalgia Doing well on current med. Needing refill today. - continue current medication--no changes today 10 minutes total time spent on evaluation and management. Sarah Schwarz R., [place], [place] [address] Orders: DULoxetine(DULoxetine 60 mg oral delayed release capsule), 1 cap(s), Oral, Daily, do not crush or chew, # 90 cap(s), 2 total refill(s), Maintenance, 1 cap(s) Oral Daily,Instr:do not crush or chew, Pharmacy: [facility] [Not filled] Extracted from:Title: TECHNICAL SYSTEM ANALYST/Virtual, cx polyp; vit d def, elevated LDL Author: GOGO MAY NP Date: 05/29/24 1. P olyp of cervix uteri B9 polyp; no further eval needed 2. V itamin D deficiency, unspecified start 50K units wkly, stop 5000U daily while taking 50K U dose; repeat labs just after taking last vit d dose Ordered: ergocalciferol(Vitamin D2 1.25 mg (50,000 intl units) oral capsule), 1.25 mg, Oral, every week, # 12 cap(s), 0 total refill(s), Maintenance, 12 caps = 90-day supply, 1.25 mg Oral every week, Pharmacy: [facility] [Not filled] Vitamin D 25 Hydroxy Level 3. O ther specified abnormal findings of blood chemistry low fat/low chol diet, no more than 25% total calories from fat, will repeat lab with vit d lab Ordered: Lipid Panel 4. O ther signs and symptoms in breast increased lifetime risk; mammo nl; plan MRI 12/12; contact clinic 10/14 for referral Orders: [facility] Path[facility] Pt questions addressed and instructions were provided to the patient. Gogo May [facility] [employer] [facility] Extracted from:Title: TECHNICAL SYSTEM ANALYST/WWE, pap, cx polyp; dysplasia f/u Author: GOGO MAY NP Date: 05/17/24 1. E ncounter for gynecological examination (general) (routine) with abnormal findings Over 50% of m inute visit spent face to face with patient on education, reviewing history, and developing plan of care. Continue monthly BSE and yearly well woman exams. Return to clinic in 1 year. Exercise: 30 minutes of moderate exercise 5 days a week including cardio and strength training is recommended for a healthy lifestyle. T his should be in addition to your normal daily work/routine. If you are trying to lose weight more exercise along with a healthy diet is recommended. Supplements/Vitamins: If you are not following, or able to follow a well-balanced diet indicated below due to personal or medical reasons, it is recommended you take a m ultivitamin. This is especially important if you are trying to get as w omen need additional folic acid before and during (400-1000 micrograms per day). Daily calcium intake should be around 1200 mg per day w hich is 120% of the recommended daily allowance if looking at food labels.? W e recommend V itamin D3 2,000-3,000 international units a day i f you have not already been identified with an insufficiency or deficiency. Nutrition: A healthy diet with protein, vegetables, fruits, grains, and dairy is advised. More information including example serving sizes can be found at h ttps://www.choosemyplate.gov/.&# 160; T hese amounts are appropriate for individuals who get less than 30 minutes per day of moderate physical activity, beyond normal daily activities. Those who are more physically active may be able to consume more while staying within calorie needs. Ordered: Vitamin D 25 Hydroxy Level MG Mammo Ace Screening Bilateral 2. E ncounter for screening for malignant neoplasm of cervix co test 5yrs if neg Ordered: [facility] Cytology TECHNICAL SYSTEM ANALYST HPV High Risk (16/18/Other) 3. 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 O ther specified abnormal findings of blood chemistry low fat/low chol diet, no more than 25% total calories from fat, states wasn't aware they wanted to start statin; code and test clerk never told her; will repeat lab to determine further plan Ordered: Lipid Panel 5. E ssential (primary) hypertension repeat BP nl; on HTN meds; to monitor home readings 6. A typical squamous cells cannot exclude high grade squamous intraepithelial lesion on cytologic smear of cervix (ASC-H) co test 5yrs if neg Ordered: [facility] Cyt[facility] TECHNICAL SYSTEM ANALYST HPV High Risk (16/18/Other) 7. O besity, unspecified increase exercise, decrease calories to decrease wt/BMI; advised healthy lifestyle, namely whole food plant based diet w/ regular exercise. Advise nutrition wade/diary to track energy intake vs expenditure f/u prn PVUA. 8. B MO 38.0 to 38.9 Pt questions addressed and written discharge instructions were provided to the patient. Gogo Fernandez [facility] [employer] [facility] Extracted from:Title: 0055 [facility] Chronic pain / Multiple complaints Author: BENEDICT DICK PA Date: 02/08/24 1. C hronic pain 58 y/o F w/hx of fibromyalgia along with p olyarthralgia and o steoarthritis of the right knee presents c/o ongoing pain requesting help with pain management. Pt states she currently sees a code and test clerk but is not pleased with the care she is receiving. Pt would like a second opinion. -Will restart Cymbalta. -Placed consults for pt to see new code and test clerk for a second opinion. -F/u as needed. 2. F ibromyalgia Same as above. 3. D ifficulty swallowing 58 y/o F w/hx of esophageal strictures which were treated in the past and presents c/o of difficulty swallowing and feeling like food is stuck. for 2-3 wks. -Placed consult for GI. -ER precautions given. -F/u as needed. 4. R ight knee pain 58 y/o F w/hx of chronic right knee pain improved with steroid injections in the past and would like to continue with the same treatment. -Placed consult for orthopedics. -F/u as needed. 5. W eakness of right hand 58 y/o F w/hx of right hand pain and weakness for years worsening over the past few wks. Negative tinnel's and p halen's tests. Full AROM. Weakness noted on exam. P t may benefit from nerve conduction study. -Placed consult for Neurology. -F/u as needed. Extracted from:Title: 0055 BCC Essential Hypertension Author: BENEDICT DICK PA Date: 11/16/23 1. E ssential (primary) hypertension 57 y/o F w/hx of hypertension presents for a virtual appointment to discuss blood pressure check. Pt states she has been doing well with Lisinopril 10mg. Pt states her blood pressure has been averaging about 115/80 without any s/s of hypotension. Continue current treatment plan and f/u as needed. Extracted from:Title: 0055 BCC Cyst on Eyelid / Hypertension Author: BENEDICT DICK PA Date: 10/19/23 1. C yst of eyelid 57 y/o F presents c/o cyst on her right upper eyelid for years recently growing and started to bother her right eye. Pt has an appointment scheduled with ophthalmology. -Placed consult for Ophthalmology. -F/u as needed. Ordered: Referral Request 2.0 2. E ssential (primary) hypertension Pt states her average BP has been in the 140s/90s on lisinopril 5mg still asymptomatic. Will increase lisinopril to 10mg once daily and have pt f/u in 2 wks with a new BP log. Orders: lisinopril(lisinopril 10 mg oral tablet), 1 tab(s), Oral, Daily, for blood pressure, # 90 tab(s), 3 total refill(s), Maintenance, 1 tab(s) Oral Daily,Instr:for blood pressure, Pharmacy: [facility] [Not filled] Extracted from:Title: 0055 BCC Plantar Fasciitis Author: ABDI PERERA PA Date: 08/05/23 1. P lantar fasciitis 57y/o pt states 2mo of posterior heel pain on the R side. Pt believes i s was new shoes that are f lat and un-supportive she had worn for a while. Pain is located at p lanter heel and radiates up to Achilles. Pain i s worse when first standing and with prolonged walking. She has tried Biofreeze, Epsom salt, acupuncture, Tylenol and Advil none of which have provided much relief. Pt states she has never had this before. Likely a tendinitis vs plantar fascitis. -Recommend changing shoes -Discussed benefits of shoe inserts, tennis ball massage, f rozen water bottle massage -Recommended stretching heel/Achilles prior to getting out of b ed in the [facility] -Provided stretch/strengthening handout for Achilles tendinitis/plantar fasciatus -Trial Naproxen 500mg twice daily with food f or 2 wks then as needed. Maintain hydration with at least 64oz of water per day. -f/u in 4-6 wks after start of conservative tx -If conservative tx does not help will consider imaging +/- referral to podiatry Ordered: naproxen(naproxen 500 mg oral tablet), 1 tab(s), Oral, BID, # 20 tab(s), 0 total refill(s), Acute, 08/05/2024, Pharmacy: [facility] [Not filled] 2. E levated blood pressure Pt had elevated BP at appointment. Possibly due to pts pain levels. Will keep an eye on BP a nd consider medication change/increase at flu visit. Extracted from:Title: 0055 BCC Surgery f/u / knee pain / anisocoria / Hypertension Author: BENEDICT DICK PA Date: 05/11/23 1. H istory of major abdominal surgery 57 y/o F 3 wks s/p abdominal hemorrhage surgery presents for a f/u with normal wound healing. Pt initially fell and hurt her left knee and is currently having weakness of the knee. -Continue to monitor wound for healing. -Apply moisturizing topical ointment or cream to help with reduced scaring. -F/u as needed Ordered: Referral Request 2.0 2. p ain of left knee 57 y/o F 3 wks s/p abdominal hemorrhage surgery presents for a f/u with normal wound healing. Pt initially fell and hurt her left knee and is currently having weakness of the knee. On exam the pt had tenderness to palpation to the knee joint with mild effusion on the left knee but otherwise negative exams. -Placed consult for physical therapy. -F/u as needed. Will consider imaging next. 3. A nisocoria 57 y/o F presents for a 3 wk post of after falling and tearing an abdominal vessel. During the fall the pt hit her face on the ground. On exam today the pt has Anisocoria R bigger than L. Pt is having random episodes of pain on the right eye. No other vision changes. P t denies any hx of unequal pupils. Given that the pt has had a recent injury, will get pt evaluated by ophthalmology. Will consider neurology next. Ordered: Referral Request 2.0 4. H ypertension Chronic, currently well controlled but states she continues to have a high diastolic BP at home averaging in the high 90s. She states her BP was normal during her hospital stay. Will have pt do a 2 wk BP check then f/u. Future Scheduled TestsLaboratoryVitamin D 25 Hydroxy Level 08/20/24Lipid Panel 08/20/24 12/20/2024 [facility] Assessment and Plan Extracted from:Title : Office Clinic Note Author: SARAH SCHWARZ NP, Family Medicine Date: 12/07/24 1. F ibromyalgia Chronic. Not currently well-controlled over the last 2 months. She is on max-dosing of Cymbalta. She reports increased pain, particularly at night, if she has been doing increased activity during the day. She states that she can only last a couple of hours and whole body aches. Cymbalta was working well previously, but has stopped working over the last 2 months and has begun to impact sleep. She was established with Rheumatology a couple of years ago but had a falling out and hasn't gone back. She has trialed Gabapentin, Lyrica and has stopped d/t adverse SE. S he has not trialed skeletal muscle relaxant and is open to trying this today. - we will trial adding on flexeril that she c an take at HS; advised that there is room to upward titrate if no immediate improvement - refer back to Rheumatology for management; second-opinion referral - pt to follow-up in 2 -4 weeks with virtual appt to discuss med efficacy 20 m inutes total time spent on evaluation and management. Sarah Schwarz R., , [place] [address] Orders: DULoxetine(DULoxetine 60 mg oral delayed release capsule), 1 cap(s), Oral, Daily, do not crush or chew, # 90 cap(s), 3 total refill(s), Maintenance, Pharmacy: [facility] [Not filled] cyclobenzaprine(Flexeril 10 mg oral tablet), See Instructions, 1 tab(s) Oral before bedtime., # 90 tab(s), 0 total refill(s), Acute, Pharmacy: [facility] [Not filled] Extracted from:Title: 0055 BCC lipoma/referral Author: SARAH SCHWARZ NP, Family Medicine Date: 10/31/24 1. B enign lipomatous neoplasm of skin and subcutaneous tissue of right arm Right shoulder duration x months . Causing some discomfort as it is located underneath bra strap. Would like referral for removal. PE remarkable for 5.0x 3.cm soft, mobile lump. Likely lipoma. - Gen surgery referral for removal - f/u PRN Ordered: Referral Request 2.0 - [facility] 2. E ssential (primary) hypertension Checks at home with averages in 110s/80. No CP, SOB, palpitations. No medication changes today.? 3. F ibromyalgia Well-controlled on Cymbalta. Would like medication refill. 4. B reast neoplasm screening status D ue for breast MRI d/t high lifetime risk. Will place referral and order for breast MRI. 15 minutes total time spent on evaluation and management. Sarah Schwarz R., , [place] [address] Ordered: Referral Request 2.0 - [facility] Orders: DULoxetine(DULoxetine 60 mg oral delayed release capsule), 1 cap(s), Oral, Daily, do not crush or chew, # 90 cap(s), 3 total refill(s), Maintenance, Pharmacy: [facility] [Not filled] lisinopril(lisinopril 10 mg oral tablet), 1 tab(s), Oral, Daily, for blood pressure, # 90 tab(s), 3 total refill(s), Maintenance, Pharmacy: [facility] [Not filled] Extracted from:Title: 0055 BCC virt fibromyalgia/med refill Author: SARAH SCHWARZ NP Date: 05/30/24 1. F ibromyalgia Doing well on current med. Needing refill today. - continue current medication--no changes today 10 minutes total time spent on evaluation and management. Sarah Schwarz R., Alfonso, [place] [address] Orders: DULoxetine(DULoxetine 60 mg oral delayed release capsule), 1 cap(s), Oral, Daily, do not crush or chew, # 90 cap(s), 2 total refill(s), Maintenance, 1 cap(s) Oral Daily,Instr:do not crush or chew, Pharmacy: [facility] [Not filled] Extracted from:Title: TECHNICAL SYSTEM ANALYST/Virtual, cx polyp; vit d def, elevated LDL Author: GOGO MAY NP Date: 05/29/24 1. P olyp of cervix uteri B9 polyp; no further eval needed 2. V itamin D deficiency, unspecified start 50K units wkly, stop 5000U daily while taking 50K U dose; repeat labs just after taking last vit d dose Ordered: ergocalciferol(Vitamin D2 1.25 mg (50,000 intl units) oral capsule), 1.25 mg, Oral, every week, # 12 cap(s), 0 total refill(s), Maintenance, 12 caps = 90-day supply, 1.25 mg Oral every week, Pharmacy: [facility] [Not filled] Vitamin D 25 Hydroxy Level 3. O ther specified abnormal findings of blood chemistry low fat/low chol diet, no more than 25% total calories from fat, will repeat lab with vit d lab Ordered: Lipid Panel 4. O ther signs and symptoms in breast increased lifetime risk; mammo nl; plan MRI 12/12; contact clinic 10/14 for referral Orders: [facility] Pathology Pt questions addressed and instructions were provided to the patient. Gogo May [facility] Extracted from:Title: TECHNICAL SYSTEM ANALYST/WWE, pap, cx polyp; dysplasia f/u Author: GOGO MAY NP Date: 05/17/24 1. E ncounter for gynecological examination (general) (routine) with abnormal findings Over 50% of m inute visit spent face to face with patient on education, reviewing history, and developing plan of care. Continue monthly BSE and yearly well woman exams. Return to clinic in 1 year. Exercise: 30 minutes of moderate exercise 5 days a week including cardio and strength training is recommended for a healthy lifestyle. T his should be in addition to your normal daily work/routine. If you are trying to lose weight more exercise along with a healthy diet is recommended. Supplements/Vitamins: If you are not following, or able to follow a well-balanced diet indicated below due to personal or medical reasons, it is recommended you take a m ultivitamin. This is especially important if you are trying to get as w omen need additional folic acid before and during (400-1000 micrograms per day). Daily calcium intake should be around 1200 mg per day w hich is 120% of the recommended daily allowance if looking at food labels.? W e recommend V itamin D3 2,000-3,000 international units a day i f you have not already been identified with an insufficiency or deficiency. Nutrition: A healthy diet with protein, vegetables, fruits, grains, and dairy is advised. More information including example serving sizes can be found at h ttps://www.choosemyplate.gov/.&# 160; T hese amounts are appropriate for individuals who get less than 30 minutes per day of moderate physical activity, beyond normal daily activities. Those who are more physically active may be able to consume more while staying within calorie needs. Ordered: Vitamin D 25 Hydroxy Level MG Mammo Ace Screening Bilateral 2. E ncounter for screening for malignant neoplasm of cervix co test 5yrs if neg Ordered: AP Cytology TECHNICAL SYSTEM ANALYST HPV High Risk (16/18/Other) 3. P olyp of cervix uteri sent to path; virtual appt scheduled 9 to discuss results Ordered: AP Surgical Pathology 4. O ther specified abnormal findings of blood chemistry low fat/low chol diet, no more than 25% total calories from fat, states wasn't aware they wanted to start statin; code and test clerk never told her; will repeat lab to determine further plan Ordered: Lipid Panel 5. E ssential (primary) hypertension repeat BP nl; on HTN meds; to monitor home readings 6. A typical squamous cells cannot exclude high grade squamous intraepithelial lesion on cytologic smear of cervix (ASC-H) co test 5yrs if neg Ordered: AP Cytology TECHNICAL SYSTEM ANALYST HPV High Risk (16/18/Other) 7. O besity, unspecified increase exercise, decrease calories to decrease wt/BMI; advised healthy lifestyle, namely whole food plant based diet w/ regular exercise. Advise nutrition wade/diary to track energy intake vs expenditure f/u prn PVUA. 8. B MO 38.0 to 38.9 Pt questions addressed and written discharge instructions were provided to the patient. Gogo May [facility] LACING STRING CUTTER [facility] Extracted from:Title: 0055 BCC Chronic pain / Multiple complaints Author: BENEDICT DICK PA Date: 02/08/24 1. C hronic pain 58 y/o F w/hx of fibromyalgia along with p olyarthralgia and o steoarthritis of the right knee presents c/o ongoing pain requesting help with pain management. Pt states she currently sees a code and test clerk but is not pleased with the care she is receiving. Pt would like a second opinion. -Will restart Cymbalta. -Placed consults for pt to see new code and test clerk for a second opinion. -F/u as needed. 2. F ibromyalgia Same as above. 3. D ifficulty swallowing 58 y/o F w/hx of esophageal strictures which were treated in the past and presents c/o of difficulty swallowing and feeling like food is stuck. for 2-3 wks. -Placed consult for GI. -ER precautions given. -F/u as needed. 4. R ight knee pain 58 y/o F w/hx of chronic right knee pain improved with steroid injections in the past and would like to continue with the same treatment. -Placed consult for orthopedics. -F/u as needed. 5. W eakness of right hand 58 y/o F w/hx of right hand pain and weakness for years worsening over the past few wks. Negative tinnel's and p halen's tests. Full AROM. Weakness noted on exam. P t may benefit from nerve conduction study. -Placed consult for Neurology. -F/u as needed. Extracted from:Title: 0055 BCC Essential Hypertension Author: BENEDICT DICK PA Date: 11/16/23 1. E ssential (primary) hypertension 57 y/o F w/hx of hypertension presents for a virtual appointment to discuss blood pressure check. Pt states she has been doing well with Lisinopril 10mg. Pt states her blood pressure has been averaging about 115/80 without any s/s of hypotension. Continue current treatment plan and f/u as needed. Extracted from:Title: 0055 BCC Cyst on Eyelid / Hypertension Author: BENEDICT DICK PA Date: 10/19/23 1. C yst of eyelid 57 y/o F presents c/o cyst on her right upper eyelid for years recently growing and started to bother her right eye. Pt has an appointment scheduled with ophthalmology. -Placed consult for Ophthalmology. -F/u as needed. Ordered: Referral Request 2.0 2. E ssential (primary) hypertension Pt states her average BP has been in the 140s/90s on lisinopril 5mg still asymptomatic. Will increase lisinopril to 10mg once daily and have pt f/u in 2 wks with a new BP log. Orders: lisinopril(lisinopril 10 mg oral tablet), 1 tab(s), Oral, Daily, for blood pressure, # 90 tab(s), 3 total refill(s), Maintenance, 1 tab(s) Oral Daily,Instr:for blood pressure, Pharmacy: [facility] [Not filled] Extracted from:Title: 0055 BCC Plantar Fasciitis Author: ABDI PERERA PA Date: 08/05/23 1. P lantar fasciitis 57y/o pt states 2mo of posterior heel pain on the R side. Pt believes i s was new shoes that are f lat and un-supportive she had worn for a while. Pain is located at p lanter heel and radiates up to Achilles. Pain i s worse when first standing and with prolonged walking. She has tried Biofreeze, Epsom salt, acupuncture, Tylenol and Advil none of which have provided much relief. Pt states she has never had this before. Likely a tendinitis vs plantar fascitis. -Recommend changing shoes -Discussed benefits of shoe inserts, tennis ball massage, f rozen water bottle massage -Recommended stretching heel/Achilles prior to getting out of b ed in the [facility] -Provided stretch/strengthening handout for Achilles tendinitis/plantar fasciatus -Trial Naproxen 500mg twice daily with food f or 2 wks then as needed. Maintain hydration with at least 64oz of water per day. -f/u in 4-6 wks after start of conservative tx -If conservative tx does not help will consider imaging +/- referral to podiatry Ordered: naproxen(naproxen 500 mg oral tablet), 1 tab(s), Oral, BID, # 20 tab(s), 0 total refill(s), Acute, 08/05/2024, Pharmacy: [facility] [Not filled] 2. E levated blood pressure Pt had elevated BP at appointment. Possibly due to pts pain levels. Will keep an eye on BP a nd consider medication change/increase at flu visit. Extracted from:Title: 0055 BCC Surgery f/u / knee pain / anisocoria / Hypertension Author: BENDEICT DICK PA Date: 05/11/23 1. H istory of major abdominal surgery 57 y/o F 3 wks s/p abdominal hemorrhage surgery presents for a f/u with normal wound healing. Pt initially fell and hurt her left knee and is currently having weakness of the knee. -Continue to monitor wound for healing. -Apply moisturizing topical ointment or cream to help with reduced scaring. -F/u as needed Ordered: Referral Request 2.0 2. p ain of left knee 57 y/o F 3 wks s/p abdominal hemorrhage surgery presents for a f/u with normal wound healing. Pt initially fell and hurt her left knee and is currently having weakness of the knee. On exam the pt had tenderness to palpation to the knee joint with mild effusion on the left knee but otherwise negative exams. -Placed consult for physical therapy. -F/u as needed. Will consider imaging next. 3. A nisocoria 57 y/o F presents for a 3 wk post of after falling and tearing an abdominal vessel. During the fall the pt hit her face on the ground. On exam today the pt has Anisocoria R bigger than L. Pt is having random episodes of pain on the right eye. No other vision changes. P t denies any hx of unequal pupils. Given that the pt has had a recent injury, will get pt evaluated by ophthalmology. Will consider neurology next. Ordered: Referral Request 2.0 4. H ypertension Chronic, currently well controlled but states she continues to have a high diastolic BP at home averaging in the high 90s. She states her BP was normal during her hospital stay. Will have pt do a 2 wk BP check then f/u. Future Scheduled TestsLaboratoryVitamin D 25 Hydroxy Level 08/20/24Lipid Panel 08/20/24 12/20/2024 Unknown Organization Functional Status Combined list of recent functional and cognitive assessments recorded at [facility] [employer] [facility] [employer] (VA).VA Functional [place] Measurement (FIM) Scale: 1 = Total Assistance (Subject = 0% +), 2 = Maximal Assistance (Subject = 25% +), 3 = Moderate Assistance (Subject = 50% +), 4 = Minimal Assistance (Subject = 75% +), 5 = Supervision, 6 = Modified [place] (Device), 7 = Complete [place] (Timely, Safely). Assessment Date/Time Source Assessment Type Assessment Skill Assessment Score Assessment Details No data available for this section
--- OUTSIDE RECORDS SUMMARY | 2024-12-20 00:24 | XMS_ITS | Clinical Summary ---
Author Organization [facility] Address [address] [place] [address] Care Team Providers Care Volunteer Services Coordinator Name Role Phone Anrdee Neal Unavailable [phone] Chaim Miller Primary Care Provid er Joey Alvarenga MD Unavailable [phone] Allergies No known active allergies Medications multivitamin [...] a brain MRI without contrast here at [facility] (clinical information: Ataxic gait for 4 years [...] I can review it. This encounter's total [id number] time was greater than 40 minutes. I [...] 11/05/2020 Assessment & Plan (10/19/2023 8:31 AM APPLIANCE LINE ASSEMBLER): Hepatitis negative 2020 Continue routine lab monitoring Assessment & Plan (06/22/2023 9:26 AM CDT): Hepatitis negative 2020 Continue routine lab monitoring Assessment & Plan (03/24/2023 12:42 PM CDT): Hepatitis negative 2020 Continue routine lab monitoring Assessment & Plan (12/24/2022 1:14 PM CDT): Hepatitis negative 2020 Continue routine lab monitoring Assessment & Plan (11/19/2022 12:54 PM APPLIANCE LINE ASSEMBLER): Hepatitis negative 2020 Assessment & Plan (10/06/2022 3:10 PM APPLIANCE LINE ASSEMBLER): Hepatitis negative 2020 Assessment & Plan (08/31/2022 12:06 PM APPLIANCE LINE ASSEMBLER): Hepatitis negative 2020 Will check updated baseline labs today Assessment & Plan (07/28/2022 8:35 AM APPLIANCE LINE ASSEMBLER): Hepatitis negative 2020 Will check updated baseline labs today Assessment & Plan (06/30/2022 12:23 PM CDT): Hepatitis negative 2020 Will check updated baseline labs today Assessment & Plan (11/25/2021 2:39 PM APPLIANCE LINE ASSEMBLER): Hepatitis negative 2020 Will check updated baseline [...] hydroxychloroquine Assessment & Plan (11/05/2020 2:08 PM APPLIANCE LINE ASSEMBLER): Maintain routine eye exams throughout the duration of taking hydroxychloroquine Right knee pain 11/05/2020 Assessment & Plan (11/05/2020 2:09 PM APPLIANCE LINE ASSEMBLER): MRI with evidence of medial and lateral [...] 10/22/2020 Assessment & Plan (10/22/2020 8:58 AM APPLIANCE LINE ASSEMBLER): Patient has a lateral meniscal tear as well. The time of arthroscopy partial meniscectomy of the lateral meniscus is likely indicated. At her age tears on likely to heal even if repaired. Acute medial meniscus tear of right knee 021 Assessment & Plan (10/22/2020 8:57 AM APPLIANCE LINE ASSEMBLER): By MRI the patient has medial lateral [...] 10/22/2020 Assessment & Plan (10/22/2020 8:59 AM APPLIANCE LINE ASSEMBLER): Patient's hematoma has reduced in size from [...] 04/16/2020 Assessment & Plan (09/03/2020 4:34 PM APPLIANCE LINE ASSEMBLER): She complains of weakness in her legs [...] neuro. She can see if someone at [place] or [facility] would be in-network. [...] 07/21/2019 Assessment & Plan (09/29/2019 2:36 PM APPLIANCE LINE ASSEMBLER): Suspect trochanteric bursitis. Symptoms have resolved since last visit. Continues to do exercises daily. Assessment & Plan (08/21/2019 4:24 PM APPLIANCE LINE ASSEMBLER): Suspect trochanteric bursitis. Pt also complains of [...] nausea Assessment & Plan (11/09/2023 2:00 PM APPLIANCE LINE ASSEMBLER): On Cymbalta 60 mg daily which she [...] needed. Assessment & Plan (10/19/2023 8:31 AM APPLIANCE LINE ASSEMBLER): On Cymbalta 60 mg daily with benefit, [...] monitor. Assessment & Plan (11/19/2022 12:54 PM APPLIANCE LINE ASSEMBLER): On Cymbalta 60 mg daily with benefit, will continue and monitor. Assessment & Plan (10/06/2022 10:19 AM APPLIANCE LINE ASSEMBLER): On Cymbalta 60 mg daily with benefit, will continue and monitor. Assessment & Plan (08/31/2022 12:06 PM APPLIANCE LINE ASSEMBLER): On Cymbalta 60 mg daily with benefit, will continue and monitor. Assessment & Plan (07/28/2022 8:35 AM APPLIANCE LINE ASSEMBLER): On Cymbalta 60 mg daily with benefit, will continue and monitor. Assessment & Plan (06/30/2022 3:01 PM CDT): On Cymbalta 60 mg daily with benefit, will continue and monitor. Assessment & Plan (11/25/2021 2:38 PM APPLIANCE LINE ASSEMBLER): Previously on Cymbalta 90 mg daily, sicne [...] needed. Assessment & Plan (11/05/2020 2:08 PM APPLIANCE LINE ASSEMBLER): On Cymbalta 90 mg daily without adverse effect and with improvement in her widespread pain, will continue. Encouraged exercise as able. Assessment & Plan (09/03/2020 4:32 PM APPLIANCE LINE ASSEMBLER): Remains on Cymbalta 60 mg daily which [...] exercise. Assessment & Plan (09/29/2019 2:38 PM APPLIANCE LINE ASSEMBLER): Pt did not tolerate gabapentin due to side effects. Now feels well controlled with combination of Cymbalta and CBD. Will continue Cymbalta 60 mg daily. Recommend routine exercise. Follow up in 3 months or sooner as needed. Assessment & Plan (08/21/2019 4:23 PM APPLIANCE LINE ASSEMBLER): Ongoing sensation of pain all over with [...] thickening. Assessment & Plan (11/09/2023 1:59 PM APPLIANCE LINE ASSEMBLER): Over the last few years at times [...] pain. Assessment & Plan (10/19/2023 11:35 AM APPLIANCE LINE ASSEMBLER): Hair thinning has improved since stopping leflunomide, [...] needed. Assessment & Plan (11/19/2022 3:05 PM APPLIANCE LINE ASSEMBLER): Moderate cdai. Discussed multifactorial nature of fatigue, [...] needed. Assessment & Plan (10/06/2022 3:09 PM APPLIANCE LINE ASSEMBLER): Discussed that while it is great that [...] weeks. Assessment & Plan (09/01/2022 2:31 PM APPLIANCE LINE ASSEMBLER): High cdai. On methotrexate 15 mg po [...] glucose, cataracts, glaucoma, AVN, and osteoporosis with intermediate teacher use. Labs today. Plan for follow up in 4 weeks to reassess or sooner as needed. Assessment & Plan (07/28/2022 2:14 PM APPLIANCE LINE ASSEMBLER): Moderate cdai. On methotrexate 10 mg po [...] needed. Assessment & Plan (11/25/2021 2:37 PM APPLIANCE LINE ASSEMBLER): Repeat hand ultrasound in May compared to [...] glucose, cataracts, glaucoma, AVN, and osteoporosis with intermediate teacher use. Plan for follow up in 4 [...] bid. Notes recent labs with PCP and software developer manager, will request results but check CRP and [...] bid. Assessment & Plan (11/05/2020 2:07 PM APPLIANCE LINE ASSEMBLER): Our prior workup revealed equivocal RF IgM, [...] needed. Assessment & Plan (09/03/2020 4:32 PM APPLIANCE LINE ASSEMBLER): Our prior workup revealed equivocal RF IgM, [...] glucose, cataracts, glaucoma, AVN, and osteoporosis with care home use. Plan for follow up in ~3-4 weeks to reassess, timing determined based upon when ultrasound is able to be completed. Assessment & Plan (09/29/2019 2:37 PM APPLIANCE LINE ASSEMBLER): Our prior workup revealed equivocal RF IgM, [...] monitor. 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 on file Not on file Not o n file Obstetrics History Last Filed Vital Signs Vital Sign Reading Time Taken Comments Blood Pressure 124/90 11/09/2023 10:53 AM APPLIANCE LINE ASSEMBLER Pulse 89 11/09/2023 10:53 AM APPLIANCE LINE ASSEMBLER Temperature 36.7 C (98.1 F) 11/25/2021 1:11 PM APPLIANCE LINE ASSEMBLER Respiratory Rate 15 2020 9:50 AM APPLIANCE LINE ASSEMBLER Oxygen Saturation 97% 11/09/2023 10:53 AM APPLIANCE LINE ASSEMBLER Inhaled Oxygen Concentration - - Weight 96 kg (211 lb 9.6 oz) 11/09/2023 10:53 AM APPLIANCE LINE ASSEMBLER Height 157.5 cm (5' 2 ) 11/09/2023 10:53 AM APPLIANCE LINE ASSEMBLER Body Mass Index 38.7 11/09/2023 10:53 AM APPLIANCE LINE ASSEMBLER Plan of Treatment Health Maintenance Due Date [...] a test for HCV RNA (test code 52449) is suggested. For additional information please refer to http://education.[employer]/faq/XQW14e1 (This link is being provided for informational/ educational purposes only.) Blood specimen (specimen) 04/16/2020 2:31 PM CDT 04/16/2020 2:32 PM CDT [facility] MICROBIOLOG[facility] - GENERA L ORDERABLES Final Result [facility] [address] [place] [address] from Last 3 Months or Most Recently Relevant to Health Maintenance Insurance [facility] CLAIMS [facility] CLAIMS [facility] CLAIM[facility] Care Teams Volunteer Services Coordinator Relationship Specialty Start Date End Date Chaim Miller PA [address] [place] [address] PCP - General Physician Fretted Instruments Inspector 06/25/22 [place] [address] [address] Physician Fretted Instruments Inspector Orthopedic Surgery 11/29/20 Joey Alvarenga MD [address] [facility] [address] [place] [address] Consulting Physician Rheumatology 10/19/23
[2024-12-20 10:10] VITALS: BP 138/81; PULSE 79; RESP 16; TEMP 36.4; O2SAT 97
[2024-12-20] MEDS: LACTATED RINGERS 1,000 ML 30 ML IV CONT (10:30)
--- NOTE | 2024-12-20 10:37 | WPDHPUPDATE1 ---
History and Physical Update Update Date/Time: 12/20/24 10:37 History and Physical has been reviewed, including an updated exam of the patient. There are NO changes in the patient's condition. Risks, benefits, and alternatives have been discussed and questions answered. Patient agrees to proceed with procedure.
[2024-12-20] MEDS: ceFAZolin 2 GM/D5W 50 ML 2 GM/50 ML BAG IVPB (12:09)
[2024-12-20] MEDS: BUPIVACAINE/EPINEPHRINE 0.5% 30 ML VIAL 20 ML INFILTRATE (12:24)
[2024-12-20 12:40] VITALS: BP 121/71; PULSE 89; RESP 16; O2SAT 95
--- NOTE | 2024-12-20 12:41 | W.PM.PROC2 ---
Procedure Note - Detailed Date of Procedure 12/20/24 Pre-op Diagnosis right shoulder subcutaneous mass Post-op Diagnosis Same Procedure Performed excisional biopsy right shoulder subcutaneous mass measuring 6 x 4 cm Surgeon Marimar Paz MD Anesthesia MAC and Local Indications 59-year-old female presenting to the office with a right shoulder subcutaneous mass. The patient reports slow growth in size and now moderate symptomatology. 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 After adequate induction of MAC anesthesia, the patient was prepped and draped in the normal sterile fashion. A time-out was then done to verify patient's identity, as well as the procedure being performed. I began by localizing the area and around this mass in the right anterior shoulder. Once locally anesthetized, I made an incision over the mass. This was carried down through the dermis into the subcutaneous tissue. At this point a well-circumscribed mass was encountered. This was noted to be most consistent with a multi lobular lipoma. I was able to bluntly and sharply dissect around this mass which was located entirely within the subcutaneous tissue. Once excised, it measured 6 x 4 cm. It will now be sent to pathology for further review. Hemostasis was then gained with the Bovie cautery. No other pathology was seen in the cavity. I then closed the subcutaneous tissue with 3-0 Vicryl suture. The skin was closed with 4-0 Monocryl subcuticular suture. Dermabond was placed on the wound. The patient tolerated the procedure well. She was alert and awake in the operating room postoperatively. She will be sent to the recovery room in stable condition. Estimated Blood Loss 5 Drains No Packing No Pathology Yes Complications No immediate complications Condition Stable Disposition PACU [facility] Billing Surgery - Charge Forward: Surgery Billing
[2024-12-20 13:15] VITALS: BP 128/76; PULSE 90; RESP 16
== END 2024-12-20 13:22 | disposition home or self-care (01) ==
PROVIDERS: Visit Provider Surgery
PROC: (CPT 23071; principal; 2024-12-20 12:00)
DX: D17.21 Benign lipomatous neoplasm of skin and subcutaneous tissue of right arm (principal); I10 Essential (primary) hypertension; M19.90 Unspecified osteoarthritis, unspecified site; E66.9 Obesity, unspecified; Z68.37 Body mass index [BMI] 37.0-37.9, adult; Z98.890 Other specified postprocedural states; Z98.51 Tubal ligation status; Z80.1 Family history of malignant neoplasm of trachea, bronchus and lung
CPT/HCPCS: 23071; 88304; J0690; J2003; J2250; J2405; J2704; J3010; J7120

== ENCOUNTER 2025-03-29 11:21 | Emergency (ER) | payer OTHER, SELFPAY ==
--- NOTE | ~2025-03-29 | CT_ITS ---
EXAM: CTA brain carotid - 03/29/2025 13:10 CDT History: 59 years old Female with Vertigo/lightheadedness after massage TECHNIQUE: CT scan of the head without contrast. Subsequently CTA of the head and neck with intraveno us contrast was performed. 3-D reconstructed images of cerebral artery circulation were generated on a [employer] workstation. Automatic exposure control was used for this study. CONTRAST: 100 cc of Omnipaque 350 was used for this study COMPARISON: None available. FINDINGS: CT HEAD WITHOUT CONTRAST: BRAIN PARENCHYMA: Peraza-white differentiation is maintained.No intra-axial hemorrhage or midline shift . No evidence of intraaxial mass. Mild chronic volume loss with scattered white matter hypodensitie s compatible with chronic microvascular ischemic changes. VENTRICLES/ EXTRA-AXIAL SPACES: No extra-axial hemorrhage or fluid collection. No evidence of extra-a xial mass. No hydrocephalus. CALVARIUM AND SINUSES: No calvarial fracture. The visualized sinuses and mastoid air cells are clear . CTA: Normal branching pattern of the thoracic aorta. Great vessels of the neck are patent. RIGHT ANTERIOR CIRCULATION: Innominate and right common carotid artery is normal in caliber. No significant stenosis at the carotid bifurcation by NASCET criteria. Cervical segment of the internal carotid artery is normal in caliber. Cavernous and supraclinoid segm ents of the internal carotid artery patent. M1 segment and middle cerebral artery bifurcation are unremarkable. A1 segment, anterior communicating artery complex and A2 segment are within normal limits. LEFT ANTERIOR CIRCULATION: Left common carotid artery is normal in caliber. No significant stenosis at the carotid bifurcation by NASCET criteria. Cervical segment of the internal carotid artery is normal in caliber. Cavernous and supraclinoid segm ents of the internal carotid artery patent. M1 segment and middle cerebral artery bifurcation are unremarkable. A1 segment, anterior communicating artery complex and A2 segment are within normal limits. POSTERIOR CIRCULATION: Vertebral arteries are codominant and patent throughout the neck. Intradural vertebral arteries are normal in caliber and terminate as the basilar artery. Basilar artery is normal in caliber. P1 and P2 segments of the posterior cerebral arteries are normal in caliber. OTHER: Multilevel degenerative changes of the visualized cervical spine. Visualized lungs are clear. IMPRESSION: No evidence for acute intracranial hemorrhage or acute ischemic infarct on non-contrast CT. Unremarkable CTA of the head and neck. No evidence of cerebral artery aneurysm, stenosis or mass. *REFERENCES: NASCET CRITERIA: The degree of internal carotid artery (ICA) stenosis is based on NASCET criteria. No rmal is no stenosis. Mild is less than 50% stenosis. Moderate is 50-69% stenosis. Severe is 70-99% st enosis. Total occlusion is no detectable patent lumen. Reviewed, dictated and finalized at location A. IMPRESSION: No evidence for acute intracranial hemorrhage or acute ischemic infarct on non- contrast CT. Unremarkable CTA of the head and neck. No evidence of cerebral artery aneurysm , stenosis or mass. *REFERENCES: NASCET CRITERIA: The degree of internal carotid artery (ICA) stenosis is based on NASCET criteria. Normal is no stenosis. Mild is less than 50% stenosis. Mode rate is 50-69% stenosis. Severe is 70-99% stenosis. Total occlusion is no detec table patent lumen.
--- NOTE | ~2025-03-29 | XR_ITS ---
EXAM/PROCEDURE: XR chest 1V portable - 03/29/2025 13:12 CDT HISTORY: 59 years old Female with Flu like symptoms TECHNIQUE: AP view(s) of the chest. COMPARISON: None available. FINDINGS: LUNGS/ PLEURA: No focal consolidation. No appreciable pneumothorax or large pleural effusion. HEART/ MEDIASTINUM: Heart appears normal in size. BONES: No acute osseous abnormality. OTHER: Visualized upper abdomen is unremarkable. IMPRESSION: No acute process. Reviewed, dictated and finalized at location A. IMPRESSION: No acute process.
--- OUTSIDE RECORDS SUMMARY | 2025-03-29 11:27 | XMS_ITS | Clinical Summary ---
Author Organization [facility] Address [address] [place] [address] Care Team Providers Care Billing Checker Name Role Phone Chaim Miller Primary Care [...] Date Resolved Date Wears glasses 02/25/2018 05/31/2020 Family History Medical History Relation Comments None [...] 11:30 AM CDT Height 157.5 cm (5' 2) 04/17/2023 11:30 AM CDT Body Mass Index [...] Screening with HPV 11/28/1997 Mammogram Screening 2007 Pneumococcal Vaccine: 50+ Years (1 of 1 - PCV) 11/28/2017 Zoster Vaccines (1 of 2) 11/28/2017 COVID-19 Vaccine ( season) 2024 02/06/2022, 10/12/2021, 02/04/2021, Additional history exists DTaP, Tdap and Td Vaccines (2 - Td or Tdap) 04/17/2033 04/17/2023 Meningococcal B Vaccine Aged Out No l onger eligible based on patient's age to complete this topic Meningococcal Vaccine Aged Out No carina jair eligible based on patient's age to complete this topic RSV Immunizations Under 20 Months Aged Out No longer eligible based on patient's age to complete this topic Insurance Care Teams Billing Checker Relationship Specialty Start Date End Date Chaim Miller PA PCP - General PHYSICIAN SENIOR TALENT ACQUISITION SPECIALIST 04/17/23
--- OUTSIDE RECORDS SUMMARY | 2025-03-29 11:27 | XMS_ITS | Clinical Summary ---
Author Organization [facility] Address [address] [place] [address] Care Team Providers Care Tourist Information Assistant Name Role Phone Andree Neal Unavailable [phone] Chaim Miller Primary Care Provid er Joey Alvarenga MD Unavailable [phone] Allergies No known active allergies Medications multivitamin [...] ataxia. Check for cerebellar atrophy as in [facility]) (order entered) - I gave you a referral for physical therapy for gait and balance. - Today I will send blood tests for vitamin E level, paraneoplastic antibodies, anti-YASMEEN antibodies. - Contact my office after you have had your brain MRI so I can review it. This encounter's total ovim-qb-dxmo time was greater than 40 minutes. I [...] includes, below, the line Ambulatory referral to Neurology. This statement is included as a mandatory [...] 11/05/2020 Assessment & Plan (10/19/2023 8:31 AM POWERBUILDER): Hepatitis negative 2020 Continue routine lab monitoring Assessment & Plan (06/22/2023 9:26 AM CDT): Hepatitis negative 2020 Continue routine lab monitoring Assessment & Plan (03/24/2023 12:42 PM CDT): Hepatitis negative 2020 Continue routine lab monitoring Assessment & Plan (12/24/2022 1:14 PM CDT): Hepatitis negative 2020 Continue routine lab monitoring Assessment & Plan (11/19/2022 12:54 PM POWERBUILDER): Hepatitis negative 2020 Assessment & Plan (10/06/2022 3:10 PM POWERBUILDER): Hepatitis negative 2020 Assessment & Plan (08/31/2022 12:06 PM POWERBUILDER): Hepatitis negative 2020 Will check updated baseline labs today Assessment & Plan (07/28/2022 8:35 AM POWERBUILDER): Hepatitis negative 2020 Will check updated baseline labs today Assessment & Plan (06/30/2022 12:23 PM CDT): Hepatitis negative 2020 Will check updated baseline labs today Assessment & Plan (11/25/2021 2:39 PM POWERBUILDER): Hepatitis negative 2020 Will check updated baseline [...] hydroxychloroquine Assessment & Plan (11/05/2020 2:08 PM POWERBUILDER): Maintain routine eye exams throughout the duration of taking hydroxychloroquine Right knee pain 11/05/2020 Assessment & Plan (11/05/2020 2:09 PM POWERBUILDER): MRI with evidence of medial and lateral [...] 10/22/2020 Assessment & Plan (10/22/2020 8:58 AM POWERBUILDER): Patient has a lateral meniscal tear as well. The time of arthroscopy partial meniscectomy of the lateral meniscus is likely indicated. At her age tears on likely to heal even if repaired. Acute medial meniscus tear of right knee 021 Assessment & Plan (10/22/2020 8:57 AM POWERBUILDER): By MRI the patient has medial lateral [...] 10/22/2020 Assessment & Plan (10/22/2020 8:59 AM POWERBUILDER): Patient's hematoma has reduced in size from [...] 04/16/2020 Assessment & Plan (09/03/2020 4:34 PM POWERBUILDER): She complains of weakness in her legs [...] neuro. She can see if someone at [place] or [facility] would be in-network. Assessment & Plan [...] 07/21/2019 Assessment & Plan (09/29/2019 2:36 PM POWERBUILDER): Suspect trochanteric bursitis. Symptoms have resolved since last visit. Continues to do exercises daily. Assessment & Plan (08/21/2019 4:24 PM POWERBUILDER): Suspect trochanteric bursitis. Pt also complains of [...] nausea Assessment & Plan (11/09/2023 2:00 PM POWERBUILDER): On Cymbalta 60 mg daily which she [...] needed. Assessment & Plan (10/19/2023 8:31 AM POWERBUILDER): On Cymbalta 60 mg daily with benefit, [...] monitor. Assessment & Plan (11/19/2022 12:54 PM POWERBUILDER): On Cymbalta 60 mg daily with benefit, will continue and monitor. Assessment & Plan (10/06/2022 10:19 AM POWERBUILDER): On Cymbalta 60 mg daily with benefit, will continue and monitor. Assessment & Plan (08/31/2022 12:06 PM POWERBUILDER): On Cymbalta 60 mg daily with benefit, will continue and monitor. Assessment & Plan (07/28/2022 8:35 AM POWERBUILDER): On Cymbalta 60 mg daily with benefit, will continue and monitor. Assessment & Plan (06/30/2022 3:01 PM CDT): On Cymbalta 60 mg daily with benefit, will continue and monitor. Assessment & Plan (11/25/2021 2:38 PM POWERBUILDER): Previously on Cymbalta 90 mg daily, sicne [...] needed. Assessment & Plan (11/05/2020 2:08 PM POWERBUILDER): On Cymbalta 90 mg daily without adverse effect and with improvement in her widespread pain, will continue. Encouraged exercise as able. Assessment & Plan (09/03/2020 4:32 PM POWERBUILDER): Remains on Cymbalta 60 mg daily which [...] exercise. Assessment & Plan (09/29/2019 2:38 PM POWERBUILDER): Pt did not tolerate gabapentin due to side effects. Now feels well controlled with combination of Cymbalta and CBD. Will continue Cymbalta 60 mg daily. Recommend routine exercise. Follow up in 3 months or sooner as needed. Assessment & Plan (08/21/2019 4:23 PM POWERBUILDER): Ongoing sensation of pain all over with [...] thickening. Assessment & Plan (11/09/2023 1:59 PM POWERBUILDER): Over the last few years at times [...] pain. Assessment & Plan (10/19/2023 11:35 AM POWERBUILDER): Hair thinning has improved since stopping leflunomide, [...] needed. Assessment & Plan (11/19/2022 3:05 PM POWERBUILDER): Moderate cdai. Discussed multifactorial nature of fatigue, [...] needed. Assessment & Plan (10/06/2022 3:09 PM POWERBUILDER): Discussed that while it is great that [...] weeks. Assessment & Plan (09/01/2022 2:31 PM POWERBUILDER): High cdai. On methotrexate 15 mg po [...] glucose, cataracts, glaucoma, AVN, and osteoporosis with aircraft structure mechanic use. Labs today. Plan for follow up in 4 weeks to reassess or sooner as needed. Assessment & Plan (07/28/2022 2:14 PM POWERBUILDER): Moderate cdai. On methotrexate 10 mg po [...] needed. Assessment & Plan (11/25/2021 2:37 PM POWERBUILDER): Repeat hand ultrasound in May compared to [...] glucose, cataracts, glaucoma, AVN, and osteoporosis with aircraft structure mechanic use. Plan for follow up in 4 [...] bid. Notes recent labs with PCP and junk removal specialist, will request results but check CRP and [...] bid. Assessment & Plan (11/05/2020 2:07 PM POWERBUILDER): Our prior workup revealed equivocal RF IgM, [...] needed. Assessment & Plan (09/03/2020 4:32 PM POWERBUILDER): Our prior workup revealed equivocal RF IgM, [...] glucose, cataracts, glaucoma, AVN, and osteoporosis with aircraft structure mechanic use. Plan for follow up in ~3-4 weeks to reassess, timing determined based upon when ultrasound is able to be completed. Assessment & Plan (09/29/2019 2:37 PM POWERBUILDER): Our prior workup revealed equivocal RF IgM, [...] monitor. 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 on file Not o n file Obstetrics History Last Filed Vital Signs Vital Sign Reading Time Taken Comments Blood Pressure 124/90 11/09/2023 10:53 AM POWERBUILDER Pulse 89 11/09/2023 10:53 AM POWERBUILDER Temperature 36.7 C (98.1 F) 11/25/2021 1:11 PM POWERBUILDER Respiratory Rate 15 2020 9:50 AM POWERBUILDER Oxygen Saturation 97% 11/09/2023 10:53 AM POWERBUILDER Inhaled Oxygen Concentration - - Weight 96 kg (211 lb 9.6 oz) 11/09/2023 10:53 AM POWERBUILDER Height 157.5 cm (5' 2) 11/09/2023 10:53 AM POWERBUILDER Body Mass Index 38.7 11/09/2023 10:53 AM POWERBUILDER Plan of Treatment Health Maintenance Due Date Last Done Comments Breast Cancer Screening-Mammogram 1967 Cervical Cancer Screening 1967 Colon Cancer Screening-Colonoscopy 1967 Depression Screening 1967 Regular Well Visit/Exam 18-64 11/28/1985 Influenza Vaccine (Season Ended) 2025 DTaP/Tdap/Td Vaccine (3 - Td or Tdap) [...] a test for HCV RNA (test code 92346) is suggested. For additional information please refer to http://education.[employer]/faq/WMC60b6 (This link is being provided for informational/ educational purposes only.) Blood specimen (specimen) 04/16/2020 2:31 PM CDT 04/16/2020 2:32 PM CDT [facility] MICROBIOLOGY - GENERA L ORDERABLES Final Result [facility] [id number] [place] [address] from Last 3 Months or Most Recently Relevant to Health Maintenance Insurance [facility] [employer] CLAIMS [place] CLAIMS [employer] CLAIMS Care Teams Tourist Information Assistant Relationship Specialty Start Date End Date Chaim Miller PA [address] [place] [address] PCP - General Physician Pig Lead Melter Helper 06/25/22 [place] [address] [address] Physician Pig Lead Melter Helper Orthopedic Surgery 3/12/21 Joey Alvarenga MD [address] [facility] [address] [place] [address] Consulting Physician Rheumatology 10/19/23
--- OUTSIDE RECORDS SUMMARY | 2025-03-29 11:27 | XMS_ITS | Referral Summary ---
Author Organization [facility] Address [address] [place] [address] Care Team Providers Care Polo Coach Name Role Phone Andree Neal Unavailable [phone] Chaim Miller Primary Care Provid er Joey Alvarenga MD Unavailable [phone] Allergies No known active allergies Medications multivitamin [...] a brain MRI without contrast here at [facility] (clinical information: Ataxic gait for 4 years [...] I can review it. This encounter's total ckyb-wb-qxij time was greater than 40 minutes. I [...] 11/05/2020 Assessment & Plan (10/19/2023 8:31 AM RIFFLER TENDER): Hepatitis negative 2020 Continue routine lab monitoring Assessment & Plan (06/22/2023 9:26 AM CDT): Hepatitis negative 2020 Continue routine lab monitoring Assessment & Plan (03/24/2023 12:42 PM CDT): Hepatitis negative 2020 Continue routine lab monitoring Assessment & Plan (12/24/2022 1:14 PM CDT): Hepatitis negative 2020 Continue routine lab monitoring Assessment & Plan (11/19/2022 12:54 PM RIFFLER TENDER): Hepatitis negative 2020 Assessment & Plan (10/06/2022 3:10 PM RIFFLER TENDER): Hepatitis negative 2020 Assessment & Plan (08/31/2022 12:06 PM RIFFLER TENDER): Hepatitis negative 2020 Will check updated baseline labs today Assessment & Plan (07/28/2022 8:35 AM RIFFLER TENDER): Hepatitis negative 2020 Will check updated baseline labs today Assessment & Plan (06/30/2022 12:23 PM CDT): Hepatitis negative 2020 Will check updated baseline labs today Assessment & Plan (11/25/2021 2:39 PM RIFFLER TENDER): Hepatitis negative 2020 Will check updated baseline [...] hydroxychloroquine Assessment & Plan (11/05/2020 2:08 PM RIFFLER TENDER): Maintain routine eye exams throughout the duration of taking hydroxychloroquine Right knee pain 11/05/2020 Assessment & Plan (11/05/2020 2:09 PM RIFFLER TENDER): MRI with evidence of medial and lateral [...] 10/22/2020 Assessment & Plan (10/22/2020 8:58 AM RIFFLER TENDER): Patient has a lateral meniscal tear as well. The time of arthroscopy partial meniscectomy of the lateral meniscus is likely indicated. At her age tears on likely to heal even if repaired. Acute medial meniscus tear of right knee 021 Assessment & Plan (10/22/2020 8:57 AM RIFFLER TENDER): By MRI the patient has medial lateral [...] 10/22/2020 Assessment & Plan (10/22/2020 8:59 AM RIFFLER TENDER): Patient's hematoma has reduced in size from [...] 04/16/2020 Assessment & Plan (09/03/2020 4:34 PM RIFFLER TENDER): She complains of weakness in her legs [...] neuro. She can see if someone at [place] or [facility] would be in-network. Assessment & Plan (06/04/2020 [...] 07/21/2019 Assessment & Plan (09/29/2019 2:36 PM RIFFLER TENDER): Suspect trochanteric bursitis. Symptoms have resolved since last visit. Continues to do exercises daily. Assessment & Plan (08/21/2019 4:24 PM RIFFLER TENDER): Suspect trochanteric bursitis. Pt also complains of [...] nausea Assessment & Plan (11/09/2023 2:00 PM RIFFLER TENDER): On Cymbalta 60 mg daily which she [...] needed. Assessment & Plan (10/19/2023 8:31 AM RIFFLER TENDER): On Cymbalta 60 mg daily with benefit, [...] monitor. Assessment & Plan (11/19/2022 12:54 PM RIFFLER TENDER): On Cymbalta 60 mg daily with benefit, will continue and monitor. Assessment & Plan (10/06/2022 10:19 AM RIFFLER TENDER): On Cymbalta 60 mg daily with benefit, will continue and monitor. Assessment & Plan (08/31/2022 12:06 PM RIFFLER TENDER): On Cymbalta 60 mg daily with benefit, will continue and monitor. Assessment & Plan (07/28/2022 8:35 AM RIFFLER TENDER): On Cymbalta 60 mg daily with benefit, will continue and monitor. Assessment & Plan (06/30/2022 3:01 PM CDT): On Cymbalta 60 mg daily with benefit, will continue and monitor. Assessment & Plan (11/25/2021 2:38 PM RIFFLER TENDER): Previously on Cymbalta 90 mg daily, sicne [...] needed. Assessment & Plan (11/05/2020 2:08 PM RIFFLER TENDER): On Cymbalta 90 mg daily without adverse effect and with improvement in her widespread pain, will continue. Encouraged exercise as able. Assessment & Plan (09/03/2020 4:32 PM RIFFLER TENDER): Remains on Cymbalta 60 mg daily which [...] exercise. Assessment & Plan (09/29/2019 2:38 PM RIFFLER TENDER): Pt did not tolerate gabapentin due to side effects. Now feels well controlled with combination of Cymbalta and CBD. Will continue Cymbalta 60 mg daily. Recommend routine exercise. Follow up in 3 months or sooner as needed. Assessment & Plan (08/21/2019 4:23 PM RIFFLER TENDER): Ongoing sensation of pain all over with [...] thickening. Assessment & Plan (11/09/2023 1:59 PM RIFFLER TENDER): Over the last few years at times [...] pain. Assessment & Plan (10/19/2023 11:35 AM RIFFLER TENDER): Hair thinning has improved since stopping leflunomide, [...] needed. Assessment & Plan (11/19/2022 3:05 PM RIFFLER TENDER): Moderate cdai. Discussed multifactorial nature of fatigue, [...] needed. Assessment & Plan (10/06/2022 3:09 PM RIFFLER TENDER): Discussed that while it is great that [...] weeks. Assessment & Plan (09/01/2022 2:31 PM RIFFLER TENDER): High cdai. On methotrexate 15 mg po [...] glucose, cataracts, glaucoma, AVN, and osteoporosis with watermelon harvesting supervisor use. Labs today. Plan for follow up in 4 weeks to reassess or sooner as needed. Assessment & Plan (07/28/2022 2:14 PM RIFFLER TENDER): Moderate cdai. On methotrexate 10 mg po [...] needed. Assessment & Plan (11/25/2021 2:37 PM RIFFLER TENDER): Repeat hand ultrasound in May compared to [...] glucose, cataracts, glaucoma, AVN, and osteoporosis with watermelon harvesting supervisor use. Plan for follow up in 4 [...] bid. Notes recent labs with PCP and sales mgr, will request results but check CRP and [...] bid. Assessment & Plan (11/05/2020 2:07 PM RIFFLER TENDER): Our prior workup revealed equivocal RF IgM, [...] needed. Assessment & Plan (09/03/2020 4:32 PM RIFFLER TENDER): Our prior workup revealed equivocal RF IgM, [...] glucose, cataracts, glaucoma, AVN, and osteoporosis with watermelon harvesting supervisor use. Plan for follow up in ~3-4 weeks to reassess, timing determined based upon when ultrasound is able to be completed. Assessment & Plan (09/29/2019 2:37 PM RIFFLER TENDER): Our prior workup revealed equivocal RF IgM, [...] monitor. 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 on file Not o n file Last Filed Vital Signs Vital Sign Reading Time Taken Comments Blood Pressure 124/90 11/09/2023 10:53 AM RIFFLER TENDER Pulse 89 11/09/2023 10:53 AM RIFFLER TENDER Temperature 36.7 C (98.1 F) 11/25/2021 1:11 PM RIFFLER TENDER Respiratory Rate 15 2020 9:50 AM RIFFLER TENDER Oxygen Saturation 97% 11/09/2023 10:53 AM RIFFLER TENDER Inhaled Oxygen Concentration - - Weight 96 kg (211 lb 9.6 oz) 11/09/2023 10:53 AM RIFFLER TENDER Height 157.5 cm (5' 2) 11/09/2023 10:53 AM RIFFLER TENDER Body Mass Index 38.7 11/09/2023 10:53 AM RIFFLER TENDER Plan of Treatment Not on file Procedures [...] a test for HCV RNA (test code 35194) is suggested. For additional information please refer to http://education.[employer]/faq/TQF49e4 (This link is being provided for informational/ educational purposes only.) Blood specimen (specimen) 04/16/2020 2:31 PM CDT 04/16/2020 2:32 PM CDT [facility] MICROBIOLOGY - GENERA L ORDERABLES Final Result [facility] [id number] [id number] from Last 3 Months or Most Recently Relevant to Health Maintenance Insurance [facility] CLAIMS [facility] CLAIMS [facility] CLAIMS Care Teams Polo Coach Relationship Specialty Start Date End Date Chaim Miller PA [address] [place], [place] [id number] PCP - General Physician Accounts Executive 06/25/22 [place] [address] [facility] [address] [place] [address] Physician Accounts Executive Orthopedic Surgery 11/29/20 Joey Alvarenga MD [address] [facility] [address] [place] [address] Consulting Physician Rheumatology 10/19/23
--- OUTSIDE RECORDS SUMMARY | 2025-03-29 11:28 | XMS_ITS | Data Portability ---
Author Organization [place] - [facility] , [facility] Address [address] [place] [address] Assessment Encounter Date Assessment Date Assessment LastModified by Organization Details LastModified Time 01/07/2025 01/07/2025 Viral respiratory infection - supported by patient's symptoms of dry cough, headache, chest congestion, and right ear pain, no history of allergies or asthma, and recent runny nose. - Prescribe a cough suppressant - Prescribe a nasal spray for ear pressure - Advise visiting a walk-in clinic if symptoms do not improve to check for potential ear infection - Medications sent to the pharmacy [email or web address] Not available 01/07/2025 14:27:07 Plan of Treatment Reminders Order Date Submit Date Provider Last Modified By Organization Details Last Modified Time Details Appointments None recorded. Lab None recorded. Referral None recorded. Procedures None recorded. Surgeries None recorded. Imaging None recorded. Medication Orders benzonatate 200 mg capsule 2024 025 [id number], [address] [place] [address], [id number], 14:27:40 fluticasone propionate 50 mcg/actuati on nasal spray,suspe nsion 2024 0[address] [id number], [address], [place], [id number], 14:27:40 Patient TargetsNo targets recorded. Patient Instructions Encounter Date Encounter Id Patient Instructions Last Modified By Organization Details Last Modified Time 01/07/2025 [id number] upper respirator y infection (cold): care instructions [email or web address] Not available 01/07/2025 14:27:31 Summary of Today s Visit: Today, we talked about your recent symptoms, which include a dry cough, constant headache, and ear pain, alongside pressure in your chest and sinuses. You mentioned that you do not have current fever, chills, or allergies, and no one close to you is experiencing similar symptoms. You've been taking Tylenol and NyQuil to manage your symptoms. Based on our discussion, it sounds like you have a viral respiratory infection. Treatment Plan: To alleviate your symptoms, I am prescribing a cough suppressant and a nasal spray. These medications should help reduce the pressure in your sinuses and relieve your ear pain. The prescriptions will be sent to your pharmacy. Follow-Up Recommendations: If your symptoms do not improve after using the prescribed medications, it is advisable to visit a walk-in clinic. This is important to rule out or address a potential ear infection. You should seek medical attention promptly if you notice worsening symptoms or new symptoms like fever or severe ear pain. Wishing you a em recovery and relief from your symptoms! If you have any further questions or concerns, feel free to reach out. Stay well! [email or web address] Not available 01/07/2025 14:27:17 Reason for Referral None Reported. Problems Name Problem SNOMED Code Status Onset Date Resolution Date Notes Provider Name and Address Organization Details Recorded Time Essential hypertension [id number] Active LOUISE Rodriguez 1 [facility] [address], [address], [facility] 14:24:29 Problem Notes None recorded. Medical Equipment None Reported. Allergies No known drug allergies Medications Name Sig Start Date Stop Date Status Note LastModified by Organization Details LastModified Time benzonatate 200 mg capsule Take 1 capsule 3 times a day by oral route as needed for 10 days, for cough. 2024 active Not Available Not Available Not Avai lable lisinopril 10 mg tablet active ADDED BY SLAVA T: Not Available Not Available Not Available fluticasone propionate 50 mcg/actuation nasal spray,suspens ion Instill 1 spray in each nostril twice daily 2024 active Not Available Not Available Not Avai lable Cymbalta 60 mg capsule,delay ed release active ADDED BY SLAVA T: Not Available Not Available Not Available Prilosec 10 mg oral suspension,de layed release active ADDED BY SLAVA T: Not Available Not Available Not Available Vitals Date Recorded Body height Body mass index (BMI) Body weight Provider Name and Address Organization Details Last Updated DateTime 01/07/2025 154.94 cm 39.1 kg/m2 51906.62 g LOUISE Rodriguez 1 [facility] [address], [place], [address], [place] [facility] 01/07/2025 14:24:50 Social History None recorded. Functional Status None recorded. Mental Status None recorded. Family History Nothing Reported. Medical History No medical history recorded. Gynecological HistoryNo gynecological history recorded. Obstetrics History GPAL:G 0 P 0 0 0 0 Past Encounters Encounter ID Performer Location Encounter Start Date Encounter Closed Date Diagnosis/Indication Diagnosis SNOMED-CT Code Diagnosis ICD10 Code Diagnosis Note [id number] LOUISE Rodriguez [facility] [address] [address] 01/07/2025 14:21:29 01/07/2025 14:31:39 Upper respiratory infection 45847487 J06.9 Summary of Today s Visit:Toda y, we talked about your recent symptoms, which include a dry cough, constant headache, and ear pain, alongside pressure in your chest and sinuses. You mentioned that you do not have current fever, chills, or allergies, and no one close to you is experienci ng similar symptoms. You've been taking Tylenol and NyQuil to manage your symptoms. Based on our discussion , it sounds like you have a viral respirator y infection. Treatment Plan:To alleviate your symptoms, I am prescribin g a cough suppressan t and a nasal spray. These medication s should help reduce the pressure in your sinuses and relieve your ear pain. The prescripti ons will be sent to your pharmacy. Follow-Up Recommenda tions:If your symptoms do not improve after using the prescribed medication s, it is advisable to visit a walk-in clinic. This is important to rule out or address a potential ear infection. You should seek medical attention promptly if you notice worsening symptoms or new symptoms like fever or severe ear pain. Wishing you a em recovery and relief from your symptoms! If you have any further questions or concerns, feel free to reach out. Stay well! Health Concerns Section Related Observation LastModified by Organization Detai ls LastModified Time None Recorded Concern Status LastModified by Organization Details LastModified Time None Recorded Advance Directives Directive None Recorded Payers Insurance Date Sequence Insurance Name Policy Number Policy Richey Covered Member ID Richey Member ID Guarantor Name 02/06/2025 1 [facility] Tom Palmerulk [id number] Tom Duchesne 01/07/2025 1 *SELF PAY* Samantha willett Dede 01/07/2025 [facility] Tom Duchesne [id number] Tom Dede 01/07/2025 2 *SELF PAY* Tom Aguayo [id number] Tom Aguayo Notes Date Note Type Note Provider Name and Address Organization Details Recorded Time 01/07/2025 text/html Call connected, patient greeted. Patient name, , telephone number, and location verified verbally with the patient. Telemedicine limitations reviewed, answered all questions the patient had about the telehealth interaction, and verbal consent obtained to treat. Clinician attests they are physically located in the following state at the time of visit: The patient also consents to the use of Cozy scribe technology. CC: Dry cough and headache HPI: The patient reports experiencing a dry cough and constant headache for the past three days. They have noticed that their symptoms have now progressed to involve increased chest congestion and right ear pain. Initially, the patient had a runny nose, but that symptom has since subsided. They describe feeling significant sinus pressure, particularly noting discomfort in the right ear. The patient has been self-managing with [id number] medications, including Tylenol and NyQuil, over the last three days. However, there is no reported improvement with these treatments. The patient denies experiencing fever, chills, sore throat, body aches, or sneezing. They confirm that no one around them is experiencing similar symptoms. The patient explicitly denied having any additional questions regarding their condition by the conclusion of the visit. LOUISE Rodriguez 1 [facility] [address] [place], [address], [facility] - [facility] 01/07/2025 14:28:05 OBGyn Episode No OBEpisode recorded.
--- OUTSIDE RECORDS SUMMARY | 2025-03-29 11:28 | XMS_ITS | Continuity of Care Document ---
Author Name [facility] Organization [facility] Care Team Providers Care Transit Driver Name Role Phone [facility] Unavailable Unavailable Problems Combined list of problems from Department of Defense and Veterans Affairs facilities. It does not include entries that were removed or entered in error. Problem Status Onset Date Problem Type Date of Resolution Comments Source Fibromyalgia Active 025 Diagnosis 0055C-[facility]th [facility] Hyperlipidemia Active 025 Diagnosis 0055C-[facility]th [facility] Screening status Active 025 Diagnosis 0055C-375th [facility] Fibromyalgia Active 025 Diagnosis 0055C-375th [facility] Hyperlipidemia, unspecified Active Condition DoD Ataxia, unspecified Active Condition Do D Pain in right knee Active Condition DoD Encounter for screening, unspecified Active Condition DoD Encounter for screening for malignant neoplasm of colon Active Condition DoD Fibromyalgia Active Condition -375 th [facility] Essential (primary) hypertension Active Condition 5C-375th [facility] earache Inactive Condition DoD PRESBYOPIA Active Condition DoD BENIGN SKIN NEOPLASM DERMATOFIBROMA Inactive Condition DoD PATENT DUCTUS ARTERIOSUS Active Condition DoD Preventive Medicine Estab Patient Checkup Adult 40-64 Inactive Condition DoD MENORRHAGIA PERIMENOPAUSAL Active Condition DoD MENORRHAGIA Active Condition DoD excessive bleeding during period (menorrhagia) Active Condition DoD Test Negative Inactive Condition DoD ABNORMAL ELECTROCARDIOGRAM Inactive Condition DoD joint pain, localized in the shoulder Active Condition DoD Laboratory Studies Active Condition DoD visit for: screening exam cardiovascular disorders Active Condition DoD OBESITY Active Condition DoD anxiety Active Condition DoD ATYPICAL CHEST PAIN Inactive Condition D oD PHOTODERMATITIS Inactive Condition DoD LENTIGO Active Condition DoD ACTINIC KERATOSIS Active Condition DoD ROSACEA Active Condition DoD HYPERTENSION (SYSTEMIC) Active Condition DoD ANOMALIES OF SKIN Inactive Condition DoD CANDIDIASIS OF THE SKIN Active Condition DoD DYSFUNCTIONAL UTERINE BLEEDING Active Condition DoD CERVICAL POLYPS Active Condition DoD Mammogram Screening Active Condition Do D visit for: screening exam for malignant neoplasm cervix Active Condition DoD ROUTINE GYNECOLOGICAL EXAM WITH CERVICAL PAP SMEAR Inactive Condition DoD BRONCHITIS Inactive Condition DoD COMMON COLD Active Condition DoD SINUSITIS Active Condition DoD spinning dizziness (vertigo) Inactive Condition Per ER visit Sep 25 2007 [facility] EUSTACHIAN TUBE DYSFUNCTION Active Condition instructed on valsalva maneuver DoD OTITIS MEDIA Active Condition DoD visit for: routine eye exam Inactive Condition ocular health normal DoD ASTIGMATISM Active Condition DoD REFRACTIVE ERROR - HYPERMETROPIA Active Condition DoD UPPER RESPIRATORY INFECTION Inactive Condition pt w/ headache not resolved w/ motrin TID; pt NOT drinking enough fluids w/ UIR--pt encouarged to push fluids not containing caffeine--pt agreesit not better w/in another week f/u and will treat as bronchitis-- pt agrees DoD visit for: administrative purpose Inactive Condition DoD irregular length of menstrual periods Active Condition trial of O CP for regulation DoD Pelvic Exam (Internal) Active Condition DoD Cervical Pap Smear Inactive Condition Do D TENDONITIS ROTATOR CUFF Active Condition See below for ordered meds, plan of care. DoD Trigger finger, right middle finger Active Condition 0055C -375th [facility] Trigger finger, right ring finger Active Condition 0055C-3 75th [facility] Anisocoria Active Condition -375th [facility] Anxiety Active Condition -375th [facility] Astigmatism Active Condition 0055C-375t h [facility] Chronic pain Active Condition 0055C-375 th [facility] Difficulty swallowing Active Condition 0055C-375th [facility] Hyperlipidemia Active Condition 0055C-3 75th [facility] Morbid obesity Active Condition Unknown Organization Patent ductus arteriosus Active Condition 0055C-375th [facility] Presbyopia Active Condition 0055C-375th [facility] Rosacea Active Condition 0055C-375th [facility] Weakness of right hand Active Condition 005-375th [facility] Medications Combined list of outpatient medications from Department of Defense and Veterans Affairs facilities.Medications provided include 1) outpatient medications from the last 15 months, and 2) patient-reported medications. Medication Details Route Status Patient Instructions Prescription Expires Prescription Number Last Dispense Date Ordering Provider Order Date Order Qty Source atorvastati n 40 mg oral tablet 1 tab(s), Oral, Daily, for choleste rol, # 90 tab(s), 3 total refill(s ), Maintena wae, Pharmacy : [facility] Oral (given by mouth) Ordered 5 2024 90.0 0055C-3 75th [facility] cholecalcif ketan 125 mcg (5000 intl units) oral capsule cholecal ciferol 125 mcg (5000 intl units) oral capsule Start Date: 04/29/21 Status: Ordered Repeat number: 1 Ordered 2020 No Facilit y Access CIPROFLOXAC IN-DEXAMETH ASONE (ciprofloxa gemma HCl/dexamet hasone), 0.3 %-0.1%, DROPS SUSP, OTIC (EAR), SANDOZ, 7.5 ml DROP BTL Active [id number] 03/15/20 2 4 2023 7.5 Pharmac y Data Transac tion Service Facilit y clotrimazol e 1% topical cream APPLY TO [...] by mouth) Cancele d 02/09/20242023 30.0 0055C-[address] [place] [address] [place]ik diclofenac sodium 75 mg oral delayed release [...] 14 cap(s), 0 total refill(s ), Maintena nce, Pharmacy : [facility] Oral (given by mouth) Discont inued 02/09/20242023 14.0 0055C-[address] [place] [address] DULoxetine 30 mg oral delayed release capsule 1 cap(s), Oral, Daily, for 1-2 wks then increase to 60mg. do not crush or chew, # 14 cap(s), 0 total refill(s ), Maintena [facility], Pharmacy : [facility] Oral (given by mouth) Discont inued 05/17/2024 2023 14.0 0055C-3 75th [facility] DULoxetine 30 mg oral delayed release capsule [...] # 90 cap(s), 3 total refill(s ), Maintena wae, Pharmacy : [facility] Oral (given by mouth) Ordered 2024 90.0 0055C-[address] [place] [address] DULoxetine 60 mg oral delayed release capsule 1 cap(s), Oral, Daily, do not crush or chew, # 90 cap(s), 3 total refill(s ), Maintena wae, Pharmacy : [facility] Oral (given by mouth) Discont inued 12/07/20242024 90.0 0055C-[address] [place] [address] DULoxetine 60 mg oral delayed release capsule 1 cap(s), Oral, Daily, do not crush or chew, # 90 cap(s), 0 total refill(s ), [facility] Oral (given by mouth) Discont inued 05/30/2024 4 2023 90.0 0055C-3 [facility] DULoxetine 60 mg oral delayed release capsule DULoxeti ne 60 mg oral delayed release capsule Start Date: 05/07/20 Stop Date: 05/11/23 Status: Complete d Repeat number: 1 Complet ed 05/11/20232022 No Facilit y Access DULoxetine 60 mg oral delayed release capsule 1 cap(s), Oral, Daily, do not crush or chew, # 90 cap(s), 2 total refill(s ), Maintena nce, Pharmacy : [facility] Oral (given by mouth) Discont inued 10/31/2024 4 2024 90.0 0055C-3 [facility] Flexeril 10 mg oral tablet See Instruct ions, 1 tab(s) Oral before bedtime. , # 90 tab(s), 0 total refill(s ), Acute, Pharmacy : [facility] Ordered 12/07/2025 5 2024 90.0 0055C-3 [facility] HYDROCODONE -ACETAMINOP HEN (HYDROCODON E/ACETAMINO PHEN), 5MG-325MG, [...] by mouth) Discont inued 05/17/20242023 90.0 0055C-3 75th [facility] Maulik lisinopril 10 mg oral tablet 1 tab(s), Oral, Daily, for blood pressure , # 90 tab(s), 3 total refill(s ), Mike [facility], Pharmacy : [facility] Oral (given by mouth) Ordered 5 2024 90.0 0055C-[address] [place] [address] Maulik lisinopril 10 mg oral tablet 1 tab(s), Oral, Daily, for blood pressure , # 90 tab(s), 3 total refill(s ), [facility] Pharmacy : [facility] Oral (given by mouth) Discont inued 10/31/2024 5 2024 90.0 0055C-[address] [place] [address] Maulik lisinopril 5 mg oral tablet lisinopr [...] n oral gum 0 total refill(s ), Mike [facility] Ordered 2022 0055C-[address] [place] [address] [place] naproxen 500 mg oral tablet naproxen 500 mg oral tablet Start Date: 10/17/20 Stop Date: 05/11/23 Status: Complete d Repeat number: 1 Complet ed 05/11/20232022 No Facilit y Access naproxen 500 mg oral tablet 1 tab(s), Oral, BID, # 20 tab(s), 0 total refill(s ), Acute, 08/05/24 12:00:00 AM [employer], Pharmacy : [facility] Oral (given by mouth) Complet ed 08/05/2024 3 2023 20.0 0055C-[address] [place] [address] omeprazole 20 mg oral delayed release capsule 1 cap(s), Oral, Daily, 180 cap(s), 0 Refill(s ), # 90 cap(s), 1 total refill(s ), Mike [facility], Pharmacy : [facility] Oral (given by mouth) Ordered 5 2024 90.0 0055C-[address] [place] [address] omeprazole 20 mg oral delayed release capsule 180 cap(s), 0 Refill(s ), 0 total refill(s ), Soft Stop Discont inued 03/19/20252024 0055C-[address] [place] [address] PREDNISONE (prednisone ), 20 MG, TABLET, ORAL, NOVITIUM/AN I PH, 500 ea. BOTTLE Active [id number] 4 2023 10 Pharmac y Data Transac tion Service Facilit y pregabalin 25 mg oral capsule 1 cap(s), Oral, Daily, # 90 cap(s), 0 total refill(s ), [facility] Oral (given by mouth) Discont inued 03/19/2025 5 2024 90.0 0055C-[address] [place] [address] pregabalin 75 mg oral capsule pregabal in [...] ), Soft Stop Discont inued 05/17/20242023 0055C-[address] [place] [address] Maulik Vitamin B12 0 total refill(s ), Mainjessicaa wae Ordered 2022 0055C-[address] [place] [address] Vitamin D2 1.25 mg (50,000 intl units) oral capsule 1.25 mg, Oral, every week, # 12 cap(s), 0 total refill(s ), Mike nce, 12 caps = 90-day supply, Pharmacy : [facility] Oral (given by mouth) Ordered 4 2023 12.0 5C-[address] [place], [place] [address]Diogo Willingham Allergies, Adverse Reactions, Alerts Combined list of allergies from Department of Defense and Veterans Affairs facilities. It does not include entries that were removed or entered in error. Substance Category Reaction Severity Reaction type Status Date Reported Comments Source [id number] Drug allergy (disorder) active 10/17/2007 [facility] [employer] ([facility] Immunizations Combined list of available immunizations from the Department of Defense and Veterans Affairs facilities. Immunization Series Date Given Administered By Site Reaction Lot Number CVX Code Drug Director Automotive Status Comments Source tetanus, diphtheria, acellular pertu is 2022 [id number] complet ed Result Comment: Manufactu rer: VERENICE(Glaxo ) [address]C [address] [place] [address] [place] COVID-19, mRNA, LNP-S, PF, 30 mcg/0.3 mL dose, jeffery-sucrose 2021 [facility] [place] (PFR) Not Given COVID-19, mRNA, LNP-S, PF, 30 mcg/0.3 mL dose, jeffery-sucr ose [facility] SARS-CoV-2 mRNA(toziname jmw-mexn-zvy) vac 2021 [facility] ER 217 complet ed Result Comment: Route: Unknown Manufactu rer: OT (PFR) [address] [place] [address] [place] COVID-19, mRNA, LNP-S, PF, 30 mcg/0.3 mL dose, jeffery-sucrose 2021 [facility] [place] ([facility] Not Given COVID-19, mRNA, LNP-S, PF, 30 mcg/0.3 mL dose, jeffery-sucr ose [facility] SARS-CoV-2 mRNA(toziname dux-jlyt-zqe) vac 2021 [facility] 217 complet ed Result Comment: Route: Unknown Manufactu rer: [facility] (PFR) -[address] [place] [address] [place] zoster vaccine recombinant 1 2020 Unknown, Provider [id number] [place] [address] (SKB) complet ed zoster vaccine recombina nt DoD zoster vaccine, inactivated 2020 [facility] [id number] 187 complet ed Result Comment: Route: Unknown Manufactu rer: [facility] ([facility]) 0055C-3 75th [facility] [place] zoster vaccine, inactivated 2020 zzLef t Arm [id number] GlaxoSmithKli ne complet ed zoster vaccine, inactivat ed 05/02/21 Given Ambulat ory Pharmac y zoster vaccine recombinant 1 2020 Unknown, Provider [id number] [facility] ([facility]) complet ed zoster vaccine recombina nt DoD COVID-19, mRNA, LNP-S, PF, 30 mcg/0.3 mL dose 2020 [facility] [place] (PFR) Not Given COVID-19, mRNA, LNP-S, PF, 30 mcg/0.3 mL dose DoD COVID Vaccine Pfizer 2020 [facility] ER 208 complet ed Result Comment: Route: Unknown Manufactu rer: [facility] (R) 0055C-[address] [place] [address] COVID-19, mRNA, LNP-S, PF, 30 mcg/0.3 mL dose 2020 [facility] [place] (PFR) Not Given COVID-19, mRNA, LNP-S, PF, 30 mcg/0.3 mL dose DoD COVID Vaccine Pfizer 2020 [facility] ER 208 complet ed Result Comment: Route: Unknown Manufactu rer: [facility] ([facility]) 0055C-[address] [place] [address] tuberculin purified protein derivative 2016 zzLef t Arm [id number] 96 sanofi pasteur complet ed Patient Tolerance : Negative Ambulat ory Pharmac y tuberculin skin test; purified protein derivative solution, intradermal 1 2016 Unknown, Provider [id number] 96 Sanofi Pasteur ([facility]) complet ed tuberculi n skin test; purified protein derivativ e solution, intraderm al DoD tuberculin purified protein derivative 2015 zzLef t Arm [id number] 96 sanofi pasteur complet ed Patient Tolerance : Negative Ambulat ory Pharmac y tuberculin skin test; purified protein derivative solution, intradermal 1 2015 Unknown, Provider [id number] 96 Sanofi Pasteur ([facility]) complet ed tuberculi n skin test; purified protein derivativ e solution, intraderm al DoD hepatitis B adult vaccine 2015 TRANSCR IBED 43 complet ed hepatitis B adult vaccine 10/28/15 Given Ambulat ory Pharmac y hepatitis B vaccine, adult dosage 3 2015 Unknown, Provider 43 Transcribed (TRS) complet ed hepatitis B vaccine, adult dosage DoD HepB, Adult 2015 [facility] ER TRANSCR IBED 43 complet ed Result Comment: Route: Unknown Manufactu rer: Transcrib ed (TRS) 0055C-[address] [place] [address] hepatitis B adult vaccine 2014 TRANSCR IBED 43 complet ed hepatitis B adult vaccine 05/31/15 Given Ambulat ory Pharmac y hepatitis B vaccine, adult dosage 2 2014 Unknown, Provider 43 Transcribed (TRS) complet ed hepatitis B vaccine, adult dosage DoD HepB, Adult 2014 [facility] ER TRANSCR IBED 43 complet ed Result Comment: Route: Unknown Manufactu rer: Transcrib ed (TRS) 0055C-[address] [place] [address] hepatitis B adult vaccine 2014 TRANSCR IBED 43 complet ed hepatitis B adult vaccine 04/16/15 Given Ambulat ory Pharmac y hepatitis B vaccine, adult dosage 1 2014 Unknown, Provider 43 Transcribed (TRS) complet ed hepatitis B vaccine, adult dosage DoD HepB, Adult 2014 [facility] ER TRANSCR IBED 43 complet ed Result Comment: Route: Unknown Manufactu rer: Transcrib ed (TRS) 0055C-[address] [place] [address] tetanus, diphtheria, acellular pertu is 2012 Petar Arm [id number] 115 GlaxoSmithKli ne complet ed tetanus, diphtheri a, acellular pertussis 01/23/13 Given Ambulat ory Pharmac y tetanus toxoid, reduced diphtheria toxoid, and acellular pertu is vaccine, adsorbed 1 2012 Unknown, Provider [id number] 115 [facility] complet ed tetanus toxoid, reduced diphtheri a toxoid, and acellular pertussis vaccine, adsorbed DoD Results Combined list of recent chemistry, hematology and other laboratory results from Department of Defense and Veterans Affairs, ranging from 15 months to all on record, depending upon the facility. Order Name Results Value Reference Range Date Interpretation Specimen Comments Source Chemistr y eGFR CKD EPI 101 mL/min/1 .73_m2 02/21 Interpretiv e Data: Estimated Glomerular Filtration Rate (eGFR) calculated using the 2020 Chronic Kidney Disease-Epi demiology (CKD-EPI) Collaborati on creatinine equation; units of measure are mL/min/1.73 m2. Results are only valid for adults (>=18 years) whose serum creatinine is in steady state. eGFR calculation s are not valid for patients with acute kidney injury and for patients on dialysis. Creatinine- based estimates of kidney function may also be inaccurate in patients with reduced creatinine generation due to decreased muscle mass (e.g., malnutritio n, severe hypoalbumin emia, sarcopenia, chronic neuromuscul ar disease, amputations , severe heart failure or liver disease) and in patients with increased creatinine generation due to increased muscle mass (e.g., muscle builders, anabolic steroids) or increased dietary intake. CKD is diagnosed based on abnormaliti es of kidney structure or function, present for >3 months, with implication s for health and disease. CKD is classified and staged based on cause, eGFR and albuminuria (quantified as urine albumin to creatinine ratio). An eGFR >60 mL/min/1.73 m2 in the absence of increased urine albumin excretion or structural abnormaliti es does not CKD. eGFR provides only an estimate of measured GFR within +/- 30% for most patients. As mentioned, nutritional status and muscle mass, among many factors, may lead to inaccuracy in the estimate. Consider ordering the creatinine- cystatin C panel if better accuracy is needed for clinical decision-ene hyman. eGFR (mL/min/1.7 3 m2) CKD stage Interpretat ion Normal 60-89 Mild decrease 45-59 Mild to moderate decrease 30-44 Moderate to severe decrease 15-29 Severe decrease <15 Kidney failure [facility] Chemistr y Creatinine Level 0.70 mg/dL 0.57 - 1.11 02/21 N [facility] Chemistr y Potassium Lvl 5.2 mmol/L 3.5 - 5.1 02/21 H [facility] Chemistr y Glucose Lvl 88 mg/dL 74 - 99 02/21 N -375 [facility] Chemistr y Sodium 144 mmol/L 136 - 145 02/21 N 375 [facility] Chemistr y BUN/Creat Ratio 24 mg/dL 12 - 20 02/21 H -375 [facility] Chemistr y BUN 17 mg/dL 7 - 20 02/21 N 375 [facility] Chemistr y AGAP 10.00 0.00 - 15.00 02/21 N -375 [facility] Chemistr y CO2 28 mmol/L 22 - 29 02/21 N 375 [facility] Chemistr y Chloride 106 mmol/L 98 - 107 02/21 N 375 [facility] Chemistr y Calcium 9.6 mg/dL 8.4 - 10.2 02/21 N 375 [facility] Hematolo gy RBC 4.7 x10^6/mc L 3.6 - 5.0106 02/21 N 375 [facility] Hematolo gy Hemoglobin 13.5 g/dL 11.0 - 15.0 02/21 N 375 [facility] Hematolo gy WBC 7.2 x10^3/mc L 4.0 - 11.0103 02/21 N -375 [facility] Hematolo gy MCV 89 fL 80 - 97 02/21 N 375 [facility] Hematolo gy MCH 29 pg 28 - 33 02/21 N -375 [facility] Hematolo gy Hematocrit 42 % 34 - 46 02/21 N 5A-375 [facility] Hematolo gy Platelets 277 x10^3/mc L 150 - [id number] 02/21 N 0055A-375 [facility] Hematolo gy MCHC 32.5 g/dL 33.0 - 36.5 02/21 L 0055A-375 [facility] Hematolo gy RDW 13.1 % 11.0 - 14.9 02/21 N [facility] Hematolo gy MPV 9.6 fL 7.4 - 10.4 02/21 N [facility] Chemistr y eAvg Glucose 97 mg/dL 02/21 [facility] Chemistr y Hemoglobin A1c 5.0 % 4.0 - 5.6 02/21 N Interpretiv e Data: Normal: 4.0 - 5.6% Increased Risk: 5.7 - 6.4% Diabetic Range: 6.5% For patients without diabetes, the normal range for the hemoglobin A1c test is between 4% and 5.6%. Hemoglobin A1c levels between 5.7% and 6.4% indicate increased risk of diabetes, and levels of 6.5% or higher indicate diabetes. Because studies have repeatedly shown that out-of-cont rol diabetes results in complicatio ns from the disease, the goal for people with diabetes is a hemoglobin A1c less than 7%. The higher the hemoglobin A1c, the higher the risks of developing complicatio ns related to diabetes. If confirmatio n is needed, consider recalling the patient and ordering Hemoglobin Electrophor esis. [facility] Chemistr y Triglyceri araceli 140 mg/dL 7 - 149 02/21 N Interpretiv e Data: AGES 0-9: Desirable: < 75 mg/dL Borderline High: 75-99 mg/dL High: >/= 100 mg/dL AGES 10-19: Desirable: < 90 mg/dL Borderline High: 90-129 mg/dL High: >/= 130 mg/dL ADULTS: Desirable: < 150 mg/dL Borderline High: 150-199 mg/dL High: >/= 240 mg/dL Very High: >/= 500 mg/dL [facility] Chemistr y LDL/HDL 4 02/21 [facility] Chemistr y Chol/HDL 5 mg/dL 02/21 [facility] Chemistr y LDL 220 mg/dL 100 - 130 02/21 H Interpretiv e Data: AGES 0-19: Desirable: < 110 mg/dL Borderline High: 110-129 mg/dL High: >/= 130 mg/dL ADULTS: Desirable: <100 mg/dL Near/above optimal: 100-130 mg/dL Borderline High: 131-159 mg/dL High: 160-189 mg/dL Very High: 190 mg/dL [facility] Chemistr y HDL Cholestero l 59 mg/dL 40 - 59 02/21 N Interpretiv e Data: HDL (HIGH DENSITY LIPOPROTEIN ): ADULTS: Low: < 40 mg/dL High: >/= 60 mg/dL AGES 0 -19: Low: < 40 mg/dL Borderline Low: 40 - 45 mg/dL Acceptable: > 45 mg/dL [facility] Chemistr y Cholestero l Total 268 mg/dL 02/21 H Interpretiv e Data: According to the [place] [employer] : AGES 0-19: Desirable: < 170 mg/dL Borderline High: 170-199 mg/dL High Blood Cholesterol : >/= 200 mg/dL ADULTS: Desirable < 200 mg/dL Borderline High: 200-239 mg/dL High Blood Cholesterol : >/= 240 mg/dL [facility] [facility] Chemistr y TSH 2.440 mIU/L 0.270 - 4.200 02/21 N Interpretiv e Data: Recommend: TPO/Thyrope roxidase Antibody when TSH result is > 4.2 uIU/mL 5600A-[facility] EPILAB Chemistr y Vitamin D 25 OH 40.5 ng/mL 30.0 - 100.0 02/21 N Interpretiv e Data: Testing methodology : Testing performed by Electrochem iluminescen t immunoassay (ECLIA) For more assay specific information , please see the Epi Lab Guide at: [email or web address] x 5600A-[facility] EP[facility] Hematolo gy Basophil % Auto 0.6 % 0.0 - 2.5 02/21 N [facility] Hematolo gy Eosinophil % Auto 3 % 0 - 5 02/21 N [facility] Hematolo gy Baso Absolute 0.0 x10^3/mc L 0.0 - 0.1103 02/21 N [facility] Hematolo gy Neutro Absolute 3.8 x10^3/mc L 2.0 - 7.0103 02/21 N [facility] Hematolo gy Neutrophil % Auto 53 % 46 - 77 02/21 N [facility] Hematolo gy Lymph Absolute 2.6 x10^3/mc L 1.2 - 4.0103 02/21 N [facility] Hematolo gy Lymphocyte % Auto 36 % 20 - 40 02/21 N [facility] Hematolo gy Monocyte % Auto 7 % 1 - 12 02/21 N [facility] Hematolo gy Eos Absolute 0.2 x10^3/mc L 0.0 - 0.7103 02/21 N [facility] Hematolo gy [place] Absolute 0.5 x10^3/mc L 0.2 - 0.8103 02/21 N [facility] j[facility] Chemistr y Vitamin D 25 [place] 15.7 ng/mL 30.0 [...] n, and other findings. Testing performed by [employer] ce. 56[facility] [facility] EPIL[facility] Chemistr y LDL/HDL 3 05/24 [facility] Chemistr y Triglyceri araceli 121 mg/dL 7 - 149 05/24 N Interpretiv e Data: AGES 0-9: Desirable: < 75 mg/dL Borderline High: 75-99 mg/dL High: >/= 100 mg/dL AGES 10-19: Desirable: < 90 mg/dL Borderline High: 90-129 mg/dL High: >/= 130 mg/dL ADULTS: Desirable: < 150 mg/dL Borderline High: 150-199 mg/dL High: >/= 240 mg/dL Very High: >/= 500 mg/dL [facility] Chemistr y LDL 178 mg/dL 100 - 130 05/24 H Interpretiv e Data: AGES 0-19: Desirable: < 110 mg/dL Borderline High: 110-129 mg/dL High: >/= 130 mg/dL ADULTS: Desirable: <100 mg/dL Near/above optimal: 100-130 mg/dL Borderline High: 131-159 mg/dL High: 160-189 mg/dL Very High: 190 mg/dL [facility] Chemistr y Chol/HDL 4 mg/dL 05/24 [facility] Chemistr y Cholestero l Total 242 mg/dL 05/24 H Interpretiv e Data: According to the [employer] [employer] : AGES 0-19: Desirable: < 170 mg/dL Borderline High: 170-199 mg/dL High Blood Cholesterol : >/= 200 mg/dL ADULTS: Desirable < 200 mg/dL Borderline High: 200-239 mg/dL High Blood Cholesterol : >/= 240 mg/dL [facility] javan Chemistr y HDL Cholestero l 61 mg/dL 40 - 59 05/24 H Interpretiv e Data: HDL (HIGH DENSITY LIPOPROTEIN ): ADULTS: Low: < 40 mg/dL High: >/= 60 mg/dL AGES 0 -19: Low: < 40 mg/dL Borderline Low: 40 - 45 mg/dL Acceptable: > 45 mg/dL [facility] javan AP Specimen s HPV Typing High Risk Negative 14 (05/17/24 2:42 PM) Negative 05/17 N Interpretiv [...] and its performance characteris tics determined by [facility] [place] [employer] [facility]. Vaginal source has not been cleared or approved by the U. S. Food and Drug Administrat Shopline. This modified vaginal specimen HPV test is [...] or methodology contact Molecular Department at or [phone]. Unknown Organizat [facility] AP Specimen s HPV Genotype 18 Negative 13 (05/17/24 2:42 PM) Negative 05/17 N Interpretiv [...] and its performance characteris tics determined by [facility] [place] [employer] [facility]. Vaginal source has not been cleared or approved by the U. S. Food and Drug Administrat Shopline. This modified vaginal specimen HPV test is [...] or methodology contact Molecular Department at or [phone]. Unknown Organizat ion AP Specimen s HPV Genotype 16 Negative 15 (05/17/24 2:42 PM) Negative 05/17 N Interpretiv [...] and its performance characteris tics determined by [facility], [facility]. Vaginal source has not been cleared or approved by the U. S. Food and Drug Administrat [employer]line. This modified vaginal specimen HPV test is [...] process or methodology contact Molecular Department at [phone] or [phone]. Unknown Organizat ion AP Specimen s AP Cyto DATA INTEGRITY SPECIALIST Patient: Tom gAuayo Specimen #: [id number] Patholog ist: Accessio n: 05/24/2024 [facility] DEPARTME NT OF PATHOLOG Y 355[address] [facility] Floor [facility] [place] [address] Cytology Gynecolo gic Report Patient: Tom Aguayo Specimen #: [id number] [facility] ID:: [id number] Encounte r #: [id number] Taken: 14:42 /Age: 3 8 (Age: 58) Received : 05/24/2024 13:04 Physicia n(s:): JEANNETTE MOREL Reported : 05/25/2024 Specimen (s) Received Taken Rec Thin Prep - Cervical w/o reflex HPV 14:42 05/24/2024 13:04 Final Diagnosi s Thin Prep - Cervical w/o reflex HPV: Satisfac tory for evaluati on; endocerv ical componen t present. Negative for intraepi thelial lesion or malignan cy. This Pap test was evaluate d with the assistan ce of the Thin Prep Imaging System. Elect ronicall y Signed by JUN MEZA Clinical Diagnosi s and History ASC-H pap with neg HPV 11/15, neg bx; nl paps since; co test 5yrs if nl Prior History Signed Out Specimen # Interpre tation 05/05/20 21 [id number] Negative for Intraepi thlial Lesion or Malignan cy 06/23/20 18 [id number] Negative for Intraepi thlial Lesion or Malignan cy 11/25/19 17 [id number] NEGATIVE 08/05/20 15 [id number] EPITHELI AL CELL ABNORMAL ITIES 04/08/20 09 [id number] NEGATIVE CPT Codes: A; 43415 The Pap test is a screenin g test for precurso rs of squamous cell carcinom a with an irreduci ble false negative rate of around 5%. It is not designed to detect glandula r lesions. A negative test does not ensure that no disease is present. 05/17 0055C-375 th [facility] javan AP Specimen s AP Surgical Pathology Patient: Tom Aguayo Specimen #: [id number] Patholog ist: Juan Antonio Timmons DO, Lt [employer], [employer], Accessio n: 05/25/2024 [facility] DEPARTME NT OF PATHOLOG Y [address] [place] [address] Surgical Patholog y Report Patient: Tom Aguayo Specimen #: [id number] [facility] ID:: [id number] Encounte r #: [id number] Taken: 14:25 /Age: 3 8 (Age: 58) Received : 05/25/2024 11:30 Physicia n(s): JEANNETTE MOREL Reported : 05/29/2024 Specimen (s) Received Taken Rec cx polyp 14:25 05/25/2024 11:30 Final Diagnosi s A: Cervix, Polypect feng: - Benign cervical polyp Elect ronicall y Signed rafi/2023 Juan Antonio Timmons, DO, [employer], [employer], Clinical Diagnosi s and History 58yo with polypoid tissue @ os Pre-Oper ative Diagnosi s cervical polyp Post-Ope rative Diagnosi s cervical polyp Gross Descript ion A. Received in formalin , labeled with the patient' s correct name and secondar y identifi ers, designat ed cervica l polyp, are multiple fragment s of pickering ?brown soft tissue measurin g 1.0 x 0.9 x 0.2 cm in aggregat e. Entirely submitte d in 1 cassette . Blocks submitte d in 10% neutral- buffered formalin for paraffin -embedde d sections . Cold ischemic time : N/A . Total fixation time: N/A . CTT/[facility] CPT Codes: A; 19501 05/17 0055C-375 th [facility] javan Vital Signs Combined list of inpatient and [...] 10/31/2024 20:17:00 0055C-375th [facility]-Maulik Temperature Oral 36.9 Saliam 10/31/2024 20:17:00 0055C-375th [facility]-Maulik Systolic Blood Pressure [...] ADM Date DC Date Status Disposition Source [address] [place] [address] Maulik AUGUSTE ([facility]Fam veronica Practice Non-GME FHI2) OUTPATIENT [id number] left shoulde r pain for over 2 months CAMPBELL SNEED 07/15 Released w/o Limitations [address] [place] [address] Maulik AUGUSTE ([facility])(F amily Practic e Non-GME FHI2) [address] [place] [address] Maulik B [facility])([facility] Non-GME FHI1) OUTPATIENT [id number] annual pap smear SAM DWIGHT P 07/22 Released w/o Limitations [address] [place] [address] Maulik B [facility])(F amily Practic e Non-GME FHI1) [address] [place], [place] [address] [facility])([facility] Non-GME FHI1) TELE CONSULT [id number] mum info req- PRATEEK Nicole 11/[address] [place] [address])(F amily Practic e Non-GME FHI1) [address] [place], [place] [address] [facility])([facility] Non-GME FHI2) OUTPATIENT [id number] LOGAN and Chronic Cough H#[id number] JUDI RODRIGEZ 03/17 Released w/o Limitations [address] [place] [address])(F amily Practic e Non-GME FHI2) [address] [place] [address])(Opt ometry) OUTPATIENT [id number] eye exam SANTOS CORTEZ 03/24 Released w/o Limitations [address] [place] [address])(O ptometr y) [address] [place] [address])([facility] Non-GME FHI2) OUTPATIENT [id number] cold x 2 wks chest congest .clogge d ear.eye s crusted YOHAN MCGINNIS 09/06 Released w/o Limitations [address] [place] [address])(F amily Practic e Non-GME FHI2) [address] [place] [address])([facility] Non-GME FHI1) TELE CONSULT [id number] call back - YOHAN Larsen 09/[address] [place] [address])(F amily Practic e Non-GME FHI1) [address] [place], [place] [address] [facility])([facility] Practice Non-GME FHI2) OUTPATIENT [id number] 555H# RIGHT EAR ACHE AND SORE THROAT ROSE SUN 09/28 Released w/o Limitations [address] [place], [place] [address] [facility])(F amily Practic e Non-GME FHI2) [facility] [employer] ([facility])(Fam veronica Practice Non-GME FHI2) OUTPATIENT [id number] chest cold and dry cough IRON SYKES 10/17 Released w/o Limitations [facility] [employer] ([facility])(F amily Practic e Non-GME FHI2) [facility] [employer] ([facility])(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) OUTPATIENT [id number] annual pap YOHAN BELL 04/02 Released w/o Limitations [facility] [employer] ([facility])(G ynecolo gy) [facility] [employer] ([facility])(Ob/ Billing Control Clerk) TELE CONSULT [id number] YOHAN BELL 04/[address] [place] [address] [employer] ([facility])(O b/Billing Control Clerk) [facility] [employer] ([facility])(Sco tt [facility] Team 4) OUTPATIENT [id number] spot nose - [phone] YOHAN MCGINNIS 07/03 Released w/o Limitations [facility] [employer] ([facility])([facility] Team 4) [address] [place] [address] [employer] ([facility])(Rosalino matology) OUTPATIENT [id number] HYPERTE NSION (SYSTEM IC) MARÍA HAGAN 07/04 Released w/o Limitations [address] [place] [address] [employer] ([facility])(D ermatol ogy) [facility] [employer] ([facility])(Ob/ Billing Control Clerk) TELE CONSULT [id number] Lipid results VICKI GARCIA 07/05 [facility] [employer] ([facility])(O b/Billing Control Clerk) [facility] [employer] ([facility])(Sco tt [facility] Team 4) OUTPATIENT [id number] f/u labs and BP YOHAN MCGINNIS 07/24 Released w/o Limitations [facility] [employer] ([facility])([facility] Team 4) [address] [place] [address] [employer] ([facility])(Car diology (MTF)) OUTPATIENT [id number] EKG LIPOFFSUSANNA I 07/29 Released w/o Limitations [facility] [employer] ([facility])(C ardiolo gy (MTF)) [facility] [employer] ([facility])([facility] Team 4) TELE CONSULT [id number] Lab f/u CATHERINEHORACIOLY R 08/[address] [place] [address] Group [employer] NIEVESB ([facility])([facility] Team 4) [address] [place] [address] [employer] ([facility])([facility] Team 4) OUTPATIENT [id number] rt arm pain FRANCISTANESHA Otis 09/02 Released w/o Limitations [facility] Group Maulik NIEVESB ([facility])([facility] Team 4) [address] [place] [address] [employer] ([facility])([facility] Team 4) TELE CONSULT [id number] rad f/u CATHERINE YOHAN R 10/[address] [place] [address] Group Maulik NIEVESB ([facility])([facility] Team 4) [address] [place] [address] Maulik NIEVESB [facility])([facility] Team 4) TELE CONSULT [id number] Tests Results YOHAN MCGINNIS 10/[address] [place] [address] Maulik NIEVESB ([facility])([facility] Team 4) [address] [place] [address] Maulik NIEVESB ([facility])([facility] Team 4) OUTPATIENT [id number] request ing referra l manager data center for irregul ar menstra l cycles [phone] YOHAN MCGINNIS 12/04 Released w/o Limitations [address] [place] [address] Maulik NIEVESB ([facility])([facility] Team 4) [address] [place] [address] Maulik PICKETTB [facility])(Fam veronica Med Tm B Non-AD BCC) TELE CONSULT [id number] Audio notes / Lab results YOHAN MCGINNIS 12/[address] [place] [address] Group Maulik PICKETTB ([facility])(F amily Med Tm B Non-AD BCC) [facility] [employer] ([facility])(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) OUTPATIENT [id number] DYSFUNC TIONAL UTERINE BLEEDIN DEENA DONAHUE 01/07 Released w/o Limitations [address] [place] [address] Group Maul[employer] PICKET[employer] ([facility])(G ynecolo gy) [facility] Ma[employer]ik P[employer] ([facility])(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) OUTPATIENT [id number] pelvic pain DEENA ESTRADA 01/10 Released w/o Limitations [address] [place] [address] [employer] ([facility])(G ynecolo gy) [facility] [employer] ([facility])(Ob/ Billing Control Clerk) TELE CONSULT [id number] Biiosy results DEENA ESTRADA 01/[address] [place] [address] [employer] ([facility])(O b/Billing Control Clerk) [address] [place] [address] [employer] ([facility])(Ob/ Billing Control Clerk) TELE CONSULT [id number] test results DEENA ESTRADA 01/[address] [place] [address] [employer] ([facility])(O b/Billing Control Clerk) [address] [place] [address] [employer] ([facility])(Ob/ Billing Control Clerk) TELE CONSULT [id number] Questio ns about surgery DEENA ESTRADA 02/[address] [place] [address] [employer] ([facility])(O b/Billing Control Clerk) [address] [place] [address] [employer] ([facility])(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) TELE CONSULT [id number] surgery date DEENA ESTRADA 02/[address] [place] [address] Maulik PICKETTB ([facility])(G ynecolo gy) [address] [place] [address] Maulik PICKETTB ([facility])(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) TELE CONSULT [id number] spottin g/disch arge after Ablatio n DEENA ESTRADA 04/[address] [place] [address] Maulik PICKETTB ([facility])(G ynecolo gy) [address] [place] [address] [employer] [facility])(War rior Op Med Cln Tm A Ad) OUTPATIENT [id number] bump on back of right shoulde r x 5 months [phone] JOELLE FRANCISCO 01/25 Released w/o Limitations [address] [place] [address] [employer] ([facility])(W arrior Op Med Cln Tm A Ad) [address] [place] [address] [employer] [facility])(Opt ometry) OUTPATIENT [id number] rt exam SANTOS CORTEZ 09/16 Released w/o Limitations [address] [place] [address] [employer] ([facility])(O ptometr y) [address] [place] [address] [employer] [facility])(Fam veronica Med Tm B Non-AD BCC) TELE CONSULT [id number] Notes Entered by: JEREMY MACE 28 Nov 2012 1604 ------- ------- ------- ------- -- 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 JEREMY Morrison 11/[address] [place] [address])(F amily Med Tm B Non-AD BCC) [address] [place] [address])(War rior Op Med Cln Tm A Ad) TELE CONSULT [id number] Notes Entered by: CALOS DSOUZA 20 Dec 2012 0825 ------- ------- ------- ------- -- Referra l for [facility] needs correct ed VERENICE Wharton 12/[address] [place] [address])(W arrior Op Med Cln Tm A Ad) [address] [place] [address])(Opt ometry) OUTPATIENT [id number] ROUTINE JUAN BERGER 11/07 Released w/o Limitations [address] [place] [address])(O ptometr y) [address] [place] [address])(Fam veronica Med Tm B Non-AD BCC) TELE CONSULT [id number] Notes Entered by: CALOS DSOUZA 21 Nov 2013 1103 ------- ------- ------- ------- -- Sx ear pain Rice ext [phone] VERENICE CAMPOS 11/[address] [place] [address] Maulik [facility])(F amily Med Tm B Non-AD BCC) [address] [place] [address])(Fam veronica Med Tm B Non-AD BCC) TELE CONSULT [id number] Notes Entered by: MANDI YANES 22 Nov 2013 0809 ------- ------- ------- ------- -- Sx - ear pain - Rice - [phone] VERENICE Baker 11/[address] [place] [address])(F amily Med Tm B Non-AD BCC) [address] [place] [address])(Sco tt [facility] Team 3) OUTPATIENT [id number] bilater al ear pain ALECIA CRUZ S 11/24 Released w/o Limitations [employer] ([facility])([facility] Team 3) [facility] [employer] ([facility])(War rior Op Med Cln Tm A Ad) OUTPATIENT [id number] Notes Entered by: MARCOS LINTON 30 Nov 2013 0826 ------- ------- ------- ------- -- 09/24 BP check PIERRE SUAREZ 11/30 Released w/o Limitations [employer] ([facility])(W arrior Op Med Cln Tm A Ad) [facility] [employer] NIEVESB ([facility])([facility] Team 3) OUTPATIENT [id number] F/U for BP ALECIA CRUZ S 12/01 Released w/o Limitations [facility] [employer] ([facility])([facility] Team 3) [facility] [employer] ([facility])([facility] Team 3) OUTPATIENT [id number] BP f/u ALECIA CRUZ S 12/15 Released w/o Limitations [employer] ([facility])([facility] Team 3) [facility] [employer] ([facility])(Fam veronica Med Tm B Non-AD BCC) OUTPATIENT [id number] leg pain - [phone] PIERRE SUAREZ 03/07 Released w/o Limitations [employer] ([facility])(F amily Med Tm B Non-AD BCC) [facility] [employer] ([facility])(Fam veronica Med Tm B Non-AD BCC) OUTPATIENT [id number] pain in both knees x 3 mths//6 [phone] PIERRE SUAREZ 07/13 Released w/o Limitations [employer] ([facility])(F amily Med Tm B Non-AD BCC) [facility] [employer] ([facility])(Fam veronica Med Tm B Non-AD BCC) TELE CONSULT [id number] Notes Entered by: ADELITA US 19 Jul 2014 1132 ------- ------- ------- ------- -- Questio ns concern ing medicat ion for pain/ Erick / [phone] Ex [phone] until 1:30 PIERRE SUAREZ 07/[address] [place] [address] [employer] [employer] ([facility])(F amily Med Tm B Non-AD BCC) [address] [place] [address] [employer] [employer] ([facility])(Fam veronica Med Tm B Non-AD BCC) OUTPATIENT [id number] knee pain worse; medicat ion not helping ; pain level 04/29 today [id number] IRON GARCIA 08/01 Released w/o Limitations [address] [place] [address] [employer] ([facility])(F amily Med Tm B Non-AD BCC) [address] [place] [address] [employer] [employer] ([facility])(Fam veronica Med Tm B Non-AD BCC) OUTPATIENT [id number] Request ing mahamed refer l to pain managem ent - PIERRE SUAREZ 09/19 Released w/o Limitations [address] [place] [address] [employer] ([facility])(F amily Med Tm B Non-AD BCC) [address] [place] [address] [employer] [employer] ([facility])([facility] veronica Med Tm B Non-AD BCC) TELE CONSULT [id number] Notes Entered by: NASRIN ROJAS 19 Oct 201422 ------- ------- ------- ------- -- Network Results - PAIN MANAGEM ENT- 10/04/14 ALECIA CRUZ 10/[address] [place] [address] [employer] ([facility])(F amily Med Tm B Non-AD BCC) [address] [place] [address] Maulik PICK[employer] [facility])([facility] veronica Med Tm B Non-AD BCC) TELE CONSULT [id number] Notes Entered by: NASRIN ROJAS 11 Jan 201536 ------- ------- ------- ------- -- Network Results - PAIN MANAGEM ENT- Sep - Oct - Nov PIERRE SUAREZ 01/[address] [place] [address] [employer] ([facility])(F amily Med Tm B Non-AD BCC) [address] [place] [address] Maulik [facility])(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) OUTPATIENT [id number] [facility] [id number] JANINA LUCAS 07/29 Released w/o Limitations [address] [place] [address])(G ynecolo gy) [address] [place] [address])(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) TELE CONSULT [id number] Notes Entered by: SHOLA LUCAS 06 Aug 2015 0959 ------- ------- ------- ------- -- Pap results NOEL IRIZARRY 08/[address] [place] [address])(G yconcepcióncovlad gy) [address] [place] [address])(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) TELE CONSULT [id number] Notes Entered by: KENNETH MALIK 14 Aug 2015 1347 ------- ------- ------- ------- -- Scanned zhang hays into MANJEET JANINA LUCAS 08/[address] [place] [address])(G ynecolo gy) [address] [place] [address])(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) TELE CONSULT [id number] Notes Entered by: NOEL IRIZARRY 26 Aug 2015 0723 ------- ------- ------- ------- -- appt JANINA LUCAS 08/[address] [place] [address])(G ynecovlad gy) [address] [place] [address])(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) OUTPATIENT [id number] Colpo/6 [id number] CRISTINA REYES 09/24 Released w/o Limitations [address] [place] [address])(G ynecolo gy) [address] [place] [address])([facility] veronica Med Tm B Non-AD BCC) OUTPATIENT [id number] Notes Entered by: WILL BOYD 24 Sep 2015 1613 ------- ------- ------- ------- -- Blood pressur e PIERRE Tao 09/24 Released w/o Limitations [address] [place] [address] Maulik AUGUSTE [facility])(F amily Med Tm B Non-AD BCC) [address] [place] [address] Maulik AUGUSTE [facility])(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) TELE CONSULT [id number] Notes Entered by: NOEL IRIZARRY 04 Oct 2015 1453 ------- ------- ------- ------- -- Test results NOEL IRIZARRY 10/[address] [place] [address] [employer] [employer] ([facility])(G ynecolo gy) [address] [place] [address] Maulik AUGUSTE [facility])(Fam veronica Med Tm B Non-AD BCC) TELE CONSULT [id number] Notes Entered by: RADHA REYES 02 Dec 2015 1545 ------- ------- ------- ------- -- SX - Elevate belia ROADS / Erick / RIGOBERTO MORALES 12/[address] [place] [address] Maulik AUGUSTE [facility])(F amily Med Tm B Non-AD BCC) [address] [place] [address] Maulik AUGUSTE [facility])(Fam veronica Med Tm B Non-AD BCC) OUTPATIENT [id number] HTN with side effects (LOGAN, blurry vision) . STANISLAV PRUITT 12/01 Released w/o Limitations [address] [place] [address] Maulik AUGUSTE [facility])(F amily Med Tm B Non-AD BCC) [address] [place] [address] Maulik AUGUSTE [facility])(Fam veronica Med Tm B Non-AD BCC) TELE CONSULT [id number] Notes Entered by: DOMINIQEU MILLER 04 Dec 2015 0710 ------- ------- ------- ------- -- Lab results LASHAY HERNANDEZ 12/03 Referred for Appointment [address] [place] [address] Maulik AUGUSTE ([facility])(F amily Med Tm B Non-AD BCC) [address] [place] [address] [employer] AUG[employer] ([facility])(Fam veronica Med Tm B Non-AD BCC) TELE CONSULT [id number] Notes Entered by: RADHA REYES 05 Dec 2015 1510 ------- ------- ------- ------- -- SX - Multipl e Issues / Rice / / LASHAY HERNANDEZ 12/04 Referred for Appointment [address] [place] [address])(F amily Med Tm B Non-AD BCC) [address] [place] [address])(Fam veronica Med Tm B Non-AD BCC) TELE CONSULT [id number] Notes Entered by: NI HERNANDEZ 04 Feb 2016 1337 ------- ------- ------- ------- -- Switch Cardiol ogist/r efill medicat ion//61 [phone]//FILIPE Fontanez 02/03 Referred for Appointment [address] [place] [address])(F amily Med Tm B Non-AD BCC) [address] [place] [address])(Med ication Refill Clinic) TELE CONSULT [id number] Notes Entered by: Denisha MCGHEE 11 Feb 2016 0848 ------- ------- ------- ------- -- Med Bridge / Erick / LASHAY HERNANDEZ 02/10 Referred for Appointment [address] [place] [address])(Liz edlizabeth on Refill Clinic) [address] [place] [address])(Fam veronica Med Tm B Non-AD BCC) OUTPATIENT [id number] Medicat ion concern JANES KELLEY 03/04 Released w/o Limitations [address] [place] [address])(F amily Med Tm B Non-AD BCC) [address] [place] [address])(Fam veronica Med Tm B Non-AD BCC) TELE CONSULT [id number] Notes Entered by: VALENTIN LINN 30 Mar 2016 1559 ------- ------- ------- ------- -- SX- FOOT PAIN/ ERICK / LASHAY HERNANDEZ 03/30 Referred for Appointment [address] [place] [address] Group [facility])(F amily Med Tm B Non-AD BCC) [address] [place] [address] [facility])(Fam veronica Med Tm B Non-AD BCC) TELE CONSULT [id number] Notes Entered by: Elizabet HARDING 02 Apr 2016 0932 ------- ------- ------- ------- -- [facility] follow up *sympto ms persist * / Erick / tld LASHAY HERNANDEZ 04/02 Referred for Appointment [address] [place] [address])(F amily Med Tm B Non-AD BCC) [address] [place] [address])(Fam veronica Med Tm B Non-AD BCC) OUTPATIENT [id number] f/u [facility] R foot burning IRON GARCIA 04/06 Released w/o Limitations [address] [place] [address] [facility])(F amily Med Tm B Non-AD BCC) [address] [place] [address] [facility])(Fam veronica Med Tm B Non-AD BCC) TELE CONSULT [id number] Notes Entered by: CAMPBELL CHRISTOPHER 20 Apr 2016 1230 ------- ------- ------- ------- -- Network results Urgent Care 016 JANES BOWSER 04/[address] [place] [address] [facility])(F amily Med Tm B Non-AD BCC) [address] [place] [address] [facility])(Med ication Refill Clinic) TELE CONSULT [id number] Notes Entered by: TILA PÉRZE 10 Jun 2016 09 ------- ------- ------- ------- -- Med renewal /Satish e/ /MONA Ibarra 06/10 Referred for Appointment [address] [place] [address] [facility]Liz yen on [facility]) [address] [place] [address] [facility])(Fam veronica Med Tm B Non-AD BCC) OUTPATIENT [id number] JANES KELLEYY 06/26 Released w/o Limitations [address] [place] [address] [facility])(F amily Med Tm B Non-AD BCC) [address] [place] [address] [facility])(Fam veronica Med Tm B Non-AD BCC) OUTPATIENT [id number] work physicdenisha l [phone] SAM FOSTER 07/08 Released w/o Limitations [address] [place] [address] [facility])(F amily Med Tm B Non-AD BCC) [address] [place] [address] [facility])(Fam veronica Med Tm B Non-AD BCC) TELE CONSULT [id number] Notes Entered by: Elizabet HARDNIG 17 Jul 2016 1145 ------- ------- ------- ------- -- Referra l request / Rice / or LASHAY Tellez 07/17 Other Not Elsewhere Classified [address] [place] [address] [facility])(F amily Med Tm B Non-AD BCC) [address] [place] [address] [facility])(Fam veronica Med Tm B Non-AD BCC) TELE CONSULT [id number] Notes Entered by: PILAR JAEGER 20 Jul 2016 0824 ------- ------- ------- ------- -- Network Results -CARDIO LOGY 12/30/15 SDG STANISLAV PRUITT 07/[address] [place] [address] [facility])(F amily Med Tm B Non-AD BCC) [address] [place] [address] [facility])(Fam veronica Med Tm B Non-AD BCC) TELE CONSULT [id number] Notes Entered by: BRETT GLOVER 07 Sep 2016 1008 ------- ------- ------- ------- -- Referra l Renewal Request /Satish e/[phone] ANA CHICAS Jayro 09/[address] [place] [address] [facility])(F amily Med Tm B Non-AD BCC) [address] [place] [address])(Fam veronica Med Tm B Non-AD BCC) TELE CONSULT [id number] Notes Entered by: PILAR JAEGER 13 Oct 2016 1037 ------- ------- ------- ------- -- Network Results -PAIN MANAGEM ENT 6 PIERRE AVILES 10/[address] [place] [address] [facility])(F amily Med Tm B Non-AD BCC) [address] [place] [address])(Fam veronica Med Tm B Non-AD BCC) TELE CONSULT [id number] Notes Entered by: PILAR JAEGER 15 Oct 2016 1341 ------- ------- ------- ------- -- Network Results -PAIN MANAGEM ENT 10/05/16 PIERRE AVILES 10/[address] [place] [address] [facility])(F amily Med Tm B Non-AD BCC) [address] [place] [address])(Fam veronica Med Tm B Non-AD BCC) TELE CONSULT [id number] Notes Entered by: ELIO KAY 16 Oct 2016 1040 ------- ------- ------- ------- -- Network results Anesthe raisa/Louie n MGT. 09/28/16 PIERRE BENOIT 10/[address] [place] [address])(F amily Med Tm B Non-AD BCC) [address] [place] [address])(Fam veronica Med Tm B Non-AD BCC) TELE CONSULT [id number] Notes Entered by: PILAR JAEGER 20 Oct 2016 1306 ------- ------- ------- ------- -- Network Results -PAIN MANAGEM ENT 10/12/16 PIERRE AVILES 10/[address] [place] [address] [facility])(F amily Med Tm B Non-AD BCC) [address] [place] [address] [facility])(Fam veronica Med Tm B Non-AD BCC) TELE CONSULT [id number] Notes Entered by: PILAR JAEGER 27 Oct 2016 1213 ------- ------- ------- ------- -- Network Results -PAIN MANAGEM ENT 10/19/16 PIERRE AVILES 10/[address] [place] [address] Ma[facility] AUGUSTE [facility])(F amily Med Tm B Non-AD BCC) [address] [place] [address] [facility] NIEVESGarret [facility])(Fam veronica Med Tm B Non-AD BCC) TELE CONSULT [id number] Notes Entered by: PILAR JAEGER 06 Nov 2016 1337 ------- ------- ------- ------- -- Network Results -PAIN MANAGEM ENT 10/26/16 and 11/02/16 PIERRE AVILES 11/[address] [place] [address] [facility] NIEVESGarret [facility])(F amily Med Tm B Non-AD BCC) [address] [place] [address] [facility] NIEVESGarret [facility])(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) OUTPATIENT [id number] dysplas ia repeat pap and HPV JANINA LUCAS 11/16 Released w/o Limitations [address] [place] [address] [facility] NIEVESGarret [facility])(G yconcepcióncovlad gy) [address] [place] [address] [facility] NIEVESGarret [facility])(Fam veronica Med Tm B Non-AD BCC) TELE CONSULT [id number] Notes Entered by: PILAR JAEGER 16 Nov 2016 1459 ------- ------- ------- ------- -- Network Results -PAIN MANAGEM ENT 11/09/16 PIERRE AVILES 11/[address] [place] [address] Maulik AUGUSTE [facility])(F amily Med Tm B Non-AD BCC) [address] [place] [address] [facility])(Fam veronica Med Tm B Non-AD BCC) OUTPATIENT [id number] Med renewal and routine exam SMA FOSTER 12/03 Released w/o Limitations [address] [place] [address])(F amily Med Tm B Non-AD BCC) [address] [place] [address])(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) TELE CONSULT [id number] Notes Entered by: SHOLA LUCAS 07 Dec 2016 1624 ------- ------- ------- ------- -- Test results KOSTAS DAHL 12/[address] [place] [address])(Goyo ynecolo gy) [address] [place] [address])(Car e Coordinat ion Clinic) TELE CONSULT [id number] Notes Entered by: SWAPNA ORR 19 Jan 2017 1637 ------- ------- ------- ------- -- Assist with care [facility] cannon SWAPNA ORR 01/[address] [place] [address])([facility]) [address] [place] [address])([facility]bin e [facility]) TELE CONSULT [id number] Notes Entered by: SWAPNA ORR 27 Jan 2017 1139 ------- ------- ------- ------- -- Second opinion SWAPNA ORR 01/[address] [place] [address])(C ase Managem ent) [address] [place] [address])(War rior Op Med Cln Tm A Ad) TELE CONSULT [id number] Notes Entered by: MURALI VARELA 27 Jan 2017 1533 ------- ------- ------- ------- -- Network results Endocri nology 7 PIERRE MACE 01/[address] [place] [address])(W arrior Op Med Cln Tm A Ad) [address] [place] [address])(Car e [employer] [facility]) TELE CONSULT [id number] Notes Entered by: SWAPNA ORR 09 Feb 2017 1218 ------- ------- ------- ------- -- Update SWAPNA ORR 02/[address] [place] [address] Maulik PICKETT ([facility])([facility] are [facility]) [address] [place] [address] [facility])(Fam veronica Med Tm B Non-AD BCC) TELE CONSULT [id number] Notes Entered by: CONI CHRISTOPHER 19 Feb 2017 1142 ------- ------- ------- ------- -- Network Results Surgery 7 PIERRE CRUZ 02/[address] [place] [address] [facility])(F amily Med Tm B Non-AD BCC) [address] [place] [address] [facility])(Car [employer] [facility]) TELE CONSULT [id number] Notes Entered by: SWAPNA ORR 03 Mar 2017 1101 ------- ------- ------- ------- -- Status update SWAPNA ORR 03/[address] [place] [address] [facility]) [address] [place] [address] [facility])(Fam veronica Med Tm B Non-AD BCC) OUTPATIENT [id number] Joint Pain (off/on ), getting worse, [phone] 7 PIERRE SUAREZ 03/10 Released w/o Limitations [address] [place] [address] [facility])(F amily Med Tm B Non-AD BCC) [address] [place] [address] [facility])(Fam veronica Med Tm B Non-AD BCC) TELE CONSULT [id number] Notes Entered by: PILAR JAEGER 25 Mar 2017 1048 ------- ------- ------- ------- -- Network Results -SURGIC AL ONCOLOG Y 03/12/17 PIERRE AVILES 03/[address] [place] [address])(F amily Med Tm B Non-AD BCC) [address] [place] [address])(Fam veronica Med Tm B Non-AD BCC) TELE CONSULT [id number] Notes Entered by: JAN LINDSAY 30 Mar 2017 0904 ------- ------- ------- ------- -- Lab test results - Erick - [facility] TOM TALLEY 03/[address] [place] [address])(F amily Med Tm B Non-AD BCC) [address] [place] [address])(Fam veronica Med Tm B Non-AD BCC) TELE CONSULT [id number] Notes Entered by: MURALI VARELA 10 May 2017 1625 ------- ------- ------- ------- -- Network results Hematol ogy/Onc ology 7 PIERRE MACE 05/[address] [place] [address])(F amily Med Tm B Non-AD BCC) [address] [place] [address])(Fam veronica Med Tm B Non-AD BCC) TELE CONSULT [id number] Notes Entered by: PILAR JAEGER 12 May 2017 1234 ------- ------- ------- ------- -- Network Results -SURGIC AL ONCOLOG Y 01/27/17 PIERRE AVILES 05/[address] [place] [address] [facility])(F amily Med Tm B Non-AD BCC) [address] [place] [address])(Fam veronica Med Tm B Non-AD BCC) TELE CONSULT [id number] Notes Entered by: MURALI VARELA 12 May 2017 1448 ------- ------- ------- ------- -- Network Results Emergen cy Room 7 PIERRE MACE 05/[address] [place] [address])(F amily Med Tm B Non-AD BCC) [address] [place] [address] [facility])(Fam veronica Med Tm B Non-AD BCC) OUTPATIENT [id number] F/U Lab Results and referra ls [id number] PIERRE SUAREZ 06/07 Released w/o Limitations [address] [place] [address] [facility])(F amily Med Tm B Non-AD BCC) [address] [place] [address] [facility])(Fam veronica Med Tm B Non-AD BCC) OUTPATIENT [id number] Concern of hard bump on nose/te nder to touch / tongue is green [id number] ALEXIS ELIZONDO 09/22 Released w/o Limitations [address] [place] [address] Group [facility])(F amily Med Tm B Non-AD BCC) [address] [place] [address] [facility])(Fam veronica Med Tm B Non-AD BCC) TELE CONSULT [id number] Notes Entered by: Angeline JON 10 Nov 2017 1455 ------- ------- ------- ------- -- Network Results Ent/Sle ep Medicin e 8 NB PIERRE SUAREZ 11/[address] [place] [address] [facility])(F amily Med Tm B Non-AD BCC) [address] [place] [address] [facility])(War rior Op Med Cln Tm A Ad) OUTPATIENT [id number] Extreme Fatigue , Hip and leg weakens s, appetit e loss, dizzine ss618.9 [phone] DENICE MORALES 01/13 Released w/o Limitations [address] [place] [address] [facility])(W arrior Op Med Cln Tm A Ad) [address] [place] [address] [facility])(War rior Op Med Cln Tm A Ad) TELE CONSULT [id number] Notes Entered by: Liz VELIZ 21 Jan 2018 0841 ------- ------- ------- ------- -- Pt needs a referra l to janey balderas Dermato pamela@ [phone] to DONTRELLEDU Wallace 01/[address] [place] [address] [facility])(W arrior Op Med Cln Tm A Ad) [address] [place] [address] [facility])(War rior Op Med Cln Tm A Ad) TELE CONSULT [id number] Notes Entered by: TILA PÉREZ 21 Jan 2018 1019 ------- ------- ------- ------- -- Med Renewal /[facility]/[phone] DONTRELLEDU Wallace 01/[address] [place] [address])(W arrior Op Med Cln Tm A Ad) [address] [place] [address] [facility])(War rior Op Med Cln Tm A Ad) TELE CONSULT [id number] Notes Entered by: DELORIS MORA 24 Jan 2018 0725 ------- ------- ------- ------- -- Lab results DONTRELLEDU Wallace 01/[address] [place] [address])(W arrior Op Med Cln Tm A Ad) [address] [place] [address] [facility])(War rior Op Med Cln Tm A Ad) TELE CONSULT [id number] Notes Entered by: Liz VELIZ 08 Feb 2018 0914 ------- ------- ------- ------- -- PT NEEDS A OPTOMET RY RETRO FEBRUARY 04 DONTRELLEDU Wallace 02/[address] [place] [address] [facility])(W arrior Op Med Cln Tm A Ad) [address] [place] [address])(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) OUTPATIENT [id number] Annual WWE JANINA LUCAS 06/17 Released w/o Limitations [address] [place] [address])(G ynecovlad gy) [address] [place] [address])(Sco tt MTF BHOP) OUTPATIENT [id number] consult JOSIE MCCORMICK 06/24 Released w/o Limitations [address] [place] [address])([facility] [address] [place] [address])(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) TELE CONSULT [id number] Notes Entered by: SHOLA LUCAS 28 Jun 2018 0826 ------- ------- ------- ------- -- Test results JANINA LUCAS 06/[address] [place] [address])(G liz gy) [address] [place] [address])(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) TELE CONSULT [id number] Notes Entered by: JAN LINDSAY 06 Jul 2018 1337 ------- ------- ------- ------- -- Sx: Indra lincoln rodrigo - Rose - - tsg JANINA LUCAS 07/[address] [place] [address])(G liz gy) [address] [place] [address])(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) TELE CONSULT [id number] Notes Entered by: NOEL IRIZARRY 07 Jul 2018 1307 ------- ------- ------- ------- -- Tests results NOEL IRIZARRY 07/07 Released w/o Limitations [address] [place] [address])(G liz gy) [address] [place] [address])(Fam veronica Med Tm B Non-AD BCC) TELE CONSULT [id number] Notes Entered by: YASMIN GAN 08 Aug 2018 1438 ------- ------- ------- ------- -- COLIN Null 08/08 Referred for Appointment [address] [place] [address])(F amily Med Tm B Non-AD BCC) [address] [place] [address])(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) TELE CONSULT [id number] Notes Entered by: MANDI YANES 06 Sep 2018 0814 ------- ------- ------- ------- -- Med Refill - Rose - [phone] JANINA LUCAS 09/[address] [place] [address] Group [facility])(G ynecolo gy) [address] [place] [address] Group [facility])(War rior Op Med Cln Tm A Ad) TELE CONSULT [id number] Notes Entered by: PORTIA ALVAREZ 04 Jan 2019 1123 ------- ------- ------- ------- -- Med bridge request /obszan [facility]/[phone] LAZARO Strong 01/04 Referred for Appointment [address] [place] [address] Group [facility])(W arrior Op Med Cln Tm A Ad) [address] [place] [address])(War rior Op Med Cln Tm A Ad) OUTPATIENT [id number] 7 f/u on meds, MAGGIE DUNBAR 01/12 Released w/o Limitations [address] [place] [address] Group [facility])(W arrior Op Med Cln Tm A Ad) [address] [place] [address])(War rior Op Med Cln Tm A Ad) TELE CONSULT [id number] Notes Entered by: BRETT GLOVER 18 Jan 2019 1121 ------- ------- ------- ------- -- Med Renewal /Obszan [facility]/[phone] TAWNY DOMINGUEZ 01/18 Referred for Appointment [facility])(W arrior Op Med Cln Tm A Ad) [address] [place] [address])(War rior Op Med Cln Tm A Ad) TELE CONSULT [id number] Notes Entered by: Liz VELIZ 21 Mar 2019 1057 ------- ------- ------- ------- -- STAT REFERRA L REQUEST FOR OPTOMET RY FORM ANNA Marcus IN HUNTER KRUEGERDARINEL BARRON 03/21 Referred for Appointment [address] [place] [address])(W arrior Op Med Cln Tm A Ad) [address] [place] [address])(War rior Op Med Cln Tm A Ad) TELE CONSULT [id number] Notes Entered by: RADHA REYES 04 Apr 2019 1435 ------- ------- ------- ------- -- Aldo Chandra / Robe mota / [phone] - sgj VALENTIN LAZO 04/04 Other Not Elsewhere Classified [address] [place] [address])(W arrior Op Med Cln Tm A Ad) [address] [place] [address])(Fam veronica Med Tm B Non-AD BCC) TELE CONSULT [id number] Notes Entered by: Elizabet MENJIVAR 26 Apr 2019 1120 ------- ------- ------- ------- -- Network results Allergy 9 TSB ELISEO HELLER 04/[address] [place] [address])(F amily Med Tm B Non-AD BCC) [address] [place] [address])(War rior Op Med Cln Tm A Ad) OUTPATIENT [id number] 1 left wrist injury DICK PENALOZA 05/15 Released w/o Limitations [address] [place] [address])(W arrior Op Med Cln Tm A Ad) [address] [place] [address])(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) OUTPATIENT [id number] 4 dysplas ia pt - e - [phone] CHITRA GARCIA 06/15 Released w/o Limitations [address] [place] [address])(G liz gy) [address] [place] [address])(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) TELE CONSULT [id number] Notes Entered by: KEATON GARCIA 23 Jun 2019 0707 ------- ------- ------- ------- -- tissue exam SALLY RINCON 06/23 Other Not Elsewhere Classified [address] [place] [address] Group [facility])(G yvijay gy) [address] [place] [address])(War rior Op Med Cln Tm A Ad) TELE CONSULT [id number] Notes Entered by: IPLAR JAEGER 26 Jul 2019 0852 ------- ------- ------- ------- -- Network Results RHEUM 07/21/19 [facility] ELISEO HELLER 07/[address] [place] [address])(W arrior Op Med Cln Tm A Ad) [address] [place] [address])(War rior Op Med Cln Tm A Ad) TELE CONSULT [id number] Notes Entered by: Elizabet MENJIVAR 22 Aug 2019 0749 ------- ------- ------- ------- -- Network results Rheum 08/21/20 19 [facility] ELISEO HELLER 08/[address] [place] [address])(W arrior Op Med Cln Tm A Ad) [address] [place] [address])(War rior Op Med Cln Tm A Ad) TELE CONSULT [id number] Notes Entered by: Elizabet MENJIVAR 02 Oct 2019 0901 ------- ------- ------- ------- -- Network results Rheumy 09/29/19 20 [facility] ELISEO HELLER 10/[address] [place] [address])(W arrior Op Med Cln Tm A Ad) [address] [place] [address])(War rior Op Med Cln Tm A Ad) TELE CONSULT [id number] Notes Entered by: RADHA REYES 02 Feb 2020 1005 ------- ------- ------- ------- -- STAT Referra l [place] - Appt 05 February / Gilberto lopez / - MELODY Toro 02/01 Immediate Referral [facility])(W arrior Op Med Cln Tm A Ad) [address] [place] [address] Group [facility])(War rior Op Med Cln Tm A Ad) TELE CONSULT [id number] Notes Entered by: BRETT GLOVER 24 Apr 2020 1144 ------- ------- ------- ------- -- F/u on Special ist - Referra l Request /Angela miller/[phone] BAHMAN RICK 04/24 Other Not Elsewhere Classified [address] [place] [address] Group [facility])(W arrior Op Med Cln Tm A Ad) [address] [place] [address] Group [facility])(Fam veronica Med Tm B Non-AD BCC) TELE CONSULT [id number] 5 Notes Entered by: BRETT GLOVER 05 Sep 2020 0924 ------- ------- ------- ------- -- Referra l Request /Angela miller/[phone] BAHMAN RICK 09/05 Other Not Elsewhere Classified [address] [place] [address] Group [facility])(F amily Med Tm B Non-AD BCC) [address] [place] [address] Group [facility])(Fam veronica Med Tm B Non-AD BCC) TELE CONSULT [id number] Notes Entered by: EV VALDEZ 24 Sep 2020 1134 ------- ------- ------- ------- -- R Knee MRI Referra l Request - ER x2 F/U/ Odell mota/ - ROSA Ozuna 09/24 Referred for Appointment [address] [place] [address] Group [facility])(F amily Med Tm B Non-AD BCC) [address] [place] [address] [facility])(Fam veronica Med Tm B Non-AD BCC) TELE CONSULT [id number] Notes Entered by: JAN LINDSAY 25 Sep 2020 1233 ------- ------- ------- ------- -- Sx; Right knee pain - MRI issue - Odell ki - - tsg* ROSA ANDRES 09/25 Released to Self [facility] [address] [place] [address])(F amily Med Tm B Non-AD BCC) [address] [place] [address])([facility] veronica Med Tm B Non-AD BCC) TELE CONSULT [id number] 5 Notes Entered by: TRENTON BOLDEN RET 30 Sep 2020 1341 ------- ------- ------- ------- -- MRI appt date resched joshua/[phone] BAHMAN RICK 09/30 Referred for Appointment [address] [place] [address])(F amily Med Tm B Non-AD BCC) [address] [place] [address])([facility] veronica Med Tm B Non-AD BCC) OUTPATIENT [id number] Virtual - MRI results [id number] BENEDICT DICK 10/09 Released w/o Limitations [address] [place] [address])(F amily Med Tm B Non-AD BCC) [address] [place] [address])(Fam veronica Med Tm B Non-AD BCC) TELE CONSULT [id number] Notes Entered by: JAN LINDSAY 15 Oct 2020 1450 ------- ------- ------- ------- -- Referra l renewal /Rx status - Paul - - BENEDICT Vences 10/[address] [place] [address])(F amily Med Tm B Non-AD BCC) [address] [place] [address])(Fam veronica Med Tm B Non-AD BCC) TELE CONSULT [id number] Notes Entered by: EMMA ROACH 29 Oct 2020 1354 ------- ------- ------- ------- -- Referra l Request /Luann wallace/ BAHMAN RICK 10/29 Other Not Elsewhere Classified [address] [place] [address] [facility])(F amily Med Tm B Non-AD BCC) [address] [place] [address] [facility])(Fam veronica Med Tm B Non-AD BCC) TELE CONSULT [id number] Notes Entered by: BRETT GLOVER 08 Jan 2021 1600 ------- ------- ------- ------- -- STAT Referra l Request (appt 09 January)/ Paul / BAHMAN RICK 01/08 Other Not Elsewhere Classified [address] [place] [address] [facility])(F amily Med Tm B Non-AD BCC) [address] [place] [address] [facility])([facility] veronica Med Tm B Non-AD BCC) TELE CONSULT [id number] Notes Entered by: EV VALDEZ 20 Jan 2021 1558 ------- ------- ------- ------- -- Orthope dic Referra l Additio nal Visits Req/ Paul / BAHMAN RICK 01/20 Other Not Elsewhere Classified [address] [place] [address] [facility])(F amily Med Tm B Non-AD BCC) [address] [place] [address])(War rior Op Med Cln Tm A Ad) TELE CONSULT [id number] Notes Entered by: Elizabet MENJIVAR 04 Mar 2021 0917 ------- ------- ------- ------- -- Network results Ortho 10/22/20 - 01/20/21 BENEDICT APONTE 03/[address] [place] [address] [facility]ul[facility])(W arrior Op Med Cln Tm A Ad) [address] [place] [address] [facility])(Fam veronica Med Tm B Non-AD BCC) TELE CONSULT [id number] Notes Entered by: Elizabet MENJIVAR 05 Mar 2021 0929 ------- ------- ------- ------- -- Network results Ortho 11/30/19 21 BENEDICT APONTE 03/[address] [place] [address] Maulik B [facility])(F amily Med Tm B Non-AD BCC) [address] [place] [address] [facility])(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) OUTPATIENT [id number] Annual WWE JEANNETTE MOREL 04/28 Released w/o Limitations [address] [place] [address] Maulik PICKETTB [facility])(Goyo mcgrath) [address] [place] [address] Maulik [facility])(Fam veronica Med Tm B Non-AD BCC) OUTPATIENT [id number] FTf-Fol low up on right side of breast from firewor k hit-[phone] ELISEO HELLER 04/30 Released w/o Limitations [address] [place] [address] Maulik [facility])(F amily Med Tm B Non-AD BCC) [address] [place] [address] Maulik B [facility])(Fam veronica Med Tm B Non-AD BCC) TELE CONSULT [id number] 7 Notes Entered by: ELISEO ADAME 02 May 2021 1528 ------- ------- ------- ------- -- follow up labs SARKIS NAVA 05/02 Released to Self Care [address] [place] [address] Maulik [facility])(F amily Med Tm B Non-AD BCC) [address] [place] [address] Maulik B [facility])(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) TELE CONSULT [id number] 3 Notes Entered by: ALEXANDRE MOREL 07 May 2021 0743 ------- ------- ------- ------- -- results NOEL IRIZARRY 05/07 Released to Self Care [address] [place] [address] [facility])(G ynecolo gy) [address] [place] [address] [facility])(Fam veronica Med Tm B Non-AD BCC) TELE CONSULT [id number] 8 Notes Entered by: SMILEY JOHNSON 20 May 2021 1056 ------- ------- ------- ------- -- Sx Rt Ear Blockag e with Pain/ Dick / CHARLES DAVIS 05/20 Referred for Appointment [address] [place] [address] [facility])(F amily Med Tm B Non-AD BCC) [address] [place] [address] [facility])(Fam veronica Med Tm B Non-AD BCC) OUTPATIENT [id number] f2f/rt ear pain BENEDICT DICK 05/20 Released w/o Limitations [address] [place] [address] [facility])(F amily Med Tm B Non-AD BCC) [address] [place] [address] [facility])(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) TELE CONSULT [id number] 7 Notes Entered by: ALEXANDRE MOREL 20 May 2021 1530 ------- ------- ------- ------- -- results NOEL IRIZARRY 05/20 Released to Self Care [address] [place] [address] [facility])(G ynecolo gy) [address] [place] [address] [facility])(Fam veronica Med Tm B Non-AD BCC) TELE CONSULT [id number] 9 Notes Entered by: Elizabet MENJIVAR 04 Jun 2021 1028 ------- ------- ------- ------- -- Network results Gastro 06/04/20 21 TSB BENEDICT DICK 06/[address] [place] [address] [facility])(F amily Med Tm B Non-AD BCC) [address] [place] [address] [facility])(Fam veronica Med Tm B Non-AD BCC) TELE CONSULT [id number] 0 Notes Entered by: EV VALDEZ 09 Jun 2021 1119 ------- ------- ------- ------- -- Sandrine Prieto rd Results / Paul / JUSTA [phone] -[facility] REEMA LEMA 06/09 Released to Self Care [address] [place] [address])(F amily Med Tm B Non-AD BCC) [address] [place] [address])([facility] veronica Med Tm B Non-AD BCC) TELE CONSULT [id number] 0 Notes Entered by: JAN LINDSAY 28 Oct 2021 0949 ------- ------- ------- ------- -- Aldo Dick - - CHARLES Oden 10/28 Immediate Referral [address] [place] [address])(F amily Med Tm B Non-AD BCC) [address] [place] [address])(Fam veronica Med Tm B Non-AD BCC) TELE CONSULT [id number] 8 Notes Entered by: Raymond FLOOD 18 Dec 2021 1233 ------- ------- ------- ------- -- Network results Rheumat zina 022 BENEDICT BARRETO 12/[address] [place] [address])( amily Med Tm B Non-AD BCC) [address] [place] [address])([facility] veronica Med Tm B Non-AD BCC) TELE CONSULT [id number] 0 Notes Entered by: SMILEY JOHNSON 17 Apr 2022 1035 ------- ------- ------- ------- -- Aldo Kenyon ( Stat Appt May 2022)/ Paul / ( Patient called [phone]). CHARLES DAVIS 04/17 Referred for Appointment [address] [place] [address])(F amily Med Tm B Non-AD BCC) [address] [place] [address])(Fam veronica Med Tm B Non-AD BCC) TELE CONSULT [id number] 7 Notes Entered by: SMILEY JOHNSON 17 Apr 2022 1042 ------- ------- ------- ------- -- Aldo Kenyon ( Stat Appt Jul)/Gael sprague/( Patient called [id number]) CHARLES DAVIS 04/17 Other Not Elsewhere Classified [address] [place] [address])(F amily Med Tm B Non-AD BCC) [address] [place] [address])(Fam veronica Med Tm B Non-AD BCC) OUTPATIENT [id number] 9 F2F/rig ht shoulde r pain, acid reflux BENEDICT DICK 04/24 Released w/o Limitations [address] [place] [address])(F amily Med Tm B Non-AD BCC) [address] [place] [address])(Fam veronica Med Tm B Non-AD BCC) TELE CONSULT [id number] 3 Notes Entered by: TRAV WALTERS 05 May 2022 1453 ------- ------- ------- ------- -- Network results Physica l Therapy 022 SLC BENEDICT DICK 05/[address] [place] [address])(F amily Med Tm B Non-AD BCC) [address] [place] [address])(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) OUTPATIENT [id number] 5 WWE/Dys plasia JEANNETTE MOREL 05/21 Released w/o Limitations [address] [place] [address])(G ynecolo gy) [address] [place] [address])([facility] veronica Med Tm B Non-AD BCC) TELE CONSULT [id number] 7 Notes Entered by: ALECIA JOAQUIN 28 May 2022 1351 ------- ------- ------- ------- -- Network results Physica l Therapy 022 HLW BENEDICT DICK 05/[address] [place] [address])(F amily Med Tm B Non-AD BCC) [address] [place] [address])(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) TELE CONSULT [id number] Notes Entered by: ALECIA JOAQUIN 18 Jun 2022 1130 ------- ------- ------- ------- -- Network results Dorian tubbs gy 022 JEANNETTE CHEN 06/[address] [place] [address])(G ynecolo gy) [address] [place] [address])(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) TELE CONSULT [id number] 7 Notes Entered by: ALEXANDRE MOREL 19 Jun 2022 1853 ------- ------- ------- ------- -- results NOEL IIRZARRY 06/19 Referred for Appointment [address] [place] [address])(G ynecolo gy) [address] [place] [address])(Fam veronica Med Tm B Non-AD BCC) TELE CONSULT [id number] 8 Notes Entered by: WONG HARMAN 25 Jun 2022 1220 ------- ------- ------- ------- -- STAT Referra l Request Ricardo edemmy/[phone] CHARLES DAVIS 06/25 Immediate Referral [address] [place] [address])(F amily Med Tm B Non-AD BCC) [address] [place] [address])(Fam veronica Med Tm B Non-AD BCC) TELE CONSULT [id number] 9 Notes Entered by: PILAR AMAYA 15 Sep 2022 1543 ------- ------- ------- ------- -- Out of Meds Aug RX Refill Request / Dick / DEA ISRAEL 09/15 Medication Refill Forwarded [address] [place] [address])(F amily Med Tm B Non-AD BCC) [address] [place] [address] Maulik [facility])(Fam veronica Med Tm B Non-AD BCC) TELE CONSULT [id number] 3 Notes Entered by: BRETT GLOVER 22 Sep 2022 1049 ------- ------- ------- ------- -- Referra azul Renewal Request /Luann s/ SARKIS NAVA 09/22 Released to Self Care [address] [place] [address] Maulik B [facility])(F amily Med Tm B Non-AD BCC) [address] [place] [address] Maulik B [facility])(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) TELE CONSULT [id number] 9 Notes Entered by: MU FORD 07 Oct 2022 0843 ------- ------- ------- ------- -- Winifred marcus Info Request / Paul / [id number] NOEL IRIZARRY 10/07 Referred for Appointment [address] [place] [address] Maulik B [facility])(G ynecolo gy) [address] [place] [address] [facility]ul[facility])(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) OUTPATIENT [id number] breast exam prior breast reducti on618. [phone] JEANNETTE MOREL 10/12 Released w/o Limitations [address] [place] [address] Maulik [facility])(G ynecolo gy) [address] [place] [address] Maulik [facility])(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) TELE CONSULT [id number] Notes Entered by: JAN LINDSAY 15 Oct 2022 0942 ------- ------- ------- ------- -- Speak w/ Yadira - - tsg NOEL IRIZARRY 10/15 Released to Self Care [address] [place] [address] Maulik [facility])(G ynecolo gy) [address] [place] [address] Maulik PICKET[facility] ([facility])(Fam veronica Med Tm B Non-AD BCC) TELE CONSULT [id number] 4 Notes Entered by: BRETT GLOVER 30 Oct 2022 1301 ------- ------- ------- ------- -- Aldo Chandra /Luann wallace/ COLE ARCE Goyo 10/30 Other Not Elsewhere Classified [address] [place] [address])(F amily Med Tm B Non-AD BCC) [address] [place] [address])([facility] veronica Med Tm B Non-AD BCC) TELE CONSULT [id number] Notes Entered by: VILMA KHAN 19 Nov 2022 1330 ------- ------- ------- ------- -- Lab results RASHIDA CRENSHAW 11/19 Other Not Elsewhere Classified [address] [place] [address])(F amily Med Tm B Non-AD BCC) [address] [place] [address])([facility] veronica Med Tm B Non-AD BCC) TELE CONSULT [id number] 6 Notes Entered by: Angeline ESTRADA 25 Nov 2022 1605 ------- ------- ------- ------- -- NETWORK RESULTS -Joint Pain 11/19/22 BENEDICT DICK 11/[address] [place] [address] [facility])(F amily Med Tm B Non-AD BCC) [address] [place] [address])(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) TELE CONSULT [id number] 7 Notes Entered by: ALEXANDRE MOREL 03 Dec 2022 1248 ------- ------- ------- ------- -- results NOEL IRIZARRY 12/03 Released to Self Care [address] [place] [address])(G yconcepcióncovlad gy) [address] [place] [address] [facility])(Fam veronica Med Tm B Non-AD BCC) OUTPATIENT [id number] R0S-Daw cuss Labs VILMA KHAN 12/07 Released w/o Limitations [address] [place] [address])(F amily Med Tm B Non-AD BCC) [address] [place] [address])(Sco tt Internal Medicine Tm) TELE CONSULT [id number] 4 Notes Entered by: LASHAY MURDOCK 09 Dec 2022 1409 ------- ------- ------- ------- -- Network results Gastroe suly gy 023 EMILEE PEREZ 12/[address] [place] [address])(S cott Interna l Medicin e Tm) [address] [place] [address])(Fam veronica Med Tm B Non-AD BCC) TELE CONSULT [id number] 5 Notes Entered by: VILMA KHAN 11 Dec 2022 0739 ------- ------- ------- ------- -- Appoint ment to discuss medicat RL Mccabe 12/[address] [place] [address])(F amily Med Tm B Non-AD BCC) [address] [place] [address])(Fam veronica Med Tm B Non-AD BCC) TELE CONSULT [id number] 4 Notes Entered by: LASHAY MURDOCK 21 Dec 2022 1159 ------- ------- ------- ------- -- Network results Rheumat zina 023 and 023 BENEDICT CASAREZ 12/[address] [place] [address])(F amily Med Tm B Non-AD BCC) [address] [place] [address])(Fam veronica Med Tm B Non-AD BCC) TELE CONSULT [id number] 2 Notes Entered by: Angeline ESTRADA 25 Dec 2022 1435 ------- ------- ------- ------- -- Network Results - Rheumat BENEDICT Brewer 12/[address] [place] [address])(F amily Med Tm B Non-AD BCC) [address] [place] [address])([facility] veronica Med Tm B Non-AD BCC) TELE CONSULT [id number] 2 Notes Entered by: KEVON MIJARES 28 Dec 2022 160 ------- ------- ------- ------- -- NETWORK RESULTS BENEDICT SIU 12/[address] [place] [address])( amily Med Tm B Non-AD BCC) [address] [place] [address])([facility] veronica Med Tm B Non-AD BCC) TELE CONSULT [id number] 6 Notes Entered by: WONG HARMAN 08 Jan 2023 133 ------- ------- ------- ------- -- RX Johnny /Luann s/ DEA ISRAEL 01/08 Other Not Elsewhere Classified [address] [place] [address])( amily Med Tm B Non-AD BCC) 0055C-[facility] Between Visit [id number] 01/29 Discharge Disposition: Home or Self Care 0055C[facility] [facility] 00[facility] [id number] Lex Blair for screeni ng, unspeci fied JASSON ROSEHALL 02/09 Discharge Disposition: Home or Self Care 0055C[facility] 0055A-[facility] Outpatient [id number] JASSON ROSEHALL 02/21 Discharge Disposition: Home or Self Care 0055A[facility] 0055C-[facility] Between Visit [id number] 03/01 Discharge Disposition: Home or Self Care 0055C-3 [facility] [id number] Nick Blair yperlip idemia, unspeci fied JASSON ROSEHALL 03/19 Discharge Disposition: Home or Self Care 0055C-[address] [facility] [facility] Procedures Combined list of: 1) Procedures from Department of Veterans Affairs facilities [facility], not all VA non-surgical procedures are included; 2) All procedures from the Department of Defense facilities. Procedure Procedure Type Code Date Perfomer Comments Sour e TELE ASSESS & MGT SRV PROV QUAL NONPHYS HLTH CARE PRO TO EST PAT,PARENT,GUARD NOT ORIG REL ASSESS & MGT SRV PROV W/IN PREV 7 DAYS NOR LEAD ASSESS & MGT SRV/PX W/IN NXT 24H/SOON APT; 11-20 MIN MED DIS 023 DoD TELE ASSESS & MGT SRV PROV QUAL NONPHYS HLTH CARE PRO TO EST PAT,PARENT,GUARD NOT ORIG REL ASSESS & MGT SRV PROV W/IN PREV 7 DAYS NOR LEAD ASSESS & MGT SRV/PX W/IN NXT 24H/SOON APT; 11-20 MIN MED DIS 023 DoD TELE ASSESS & MGT SRV PROV QUAL NONPHYS HLTH CARE PRO TO EST PAT,PARENT,GUARD NOT ORIG REL ASSESS & MGT SRV PROV W/IN PREV 7 DAYS NOR LEAD ASSESS & MGT SRV/PX W/IN NXT 24 HR/SOON APT;5-10 MIN MED DIS 023 DoD TELE ASSESS & MGT SRV PROV QUAL NONPHYS HLTH CARE PRO TO EST PAT,PARENT,GUARD NOT ORIG REL ASSESS & MGT SRV PROV W/IN PREV 7 DAYS NOR LEAD ASSESS & MGT SRV/PX W/IN NXT 24H/SOON APT; 11-20 MIN MED DIS 022 DoD TELE ASSESS & MGT SRV PROV QUAL NONPHYS HLTH CARE PRO TO EST PAT,PARENT,GUARD NOT ORIG REL ASSESS & MGT SRV PROV W/IN PREV 7 DAYS NOR LEAD ASSESS & MGT SRV/PX W/IN NXT 24H/SOON APT; 11-20 MIN MED DIS 022 DoD TELE ASSESS & MGT SRV PROV QUAL NONPHYS HLTH CARE PRO TO EST PAT,PARENT,GUARD NOT ORIG REL ASSESS & MGT SRV PROV W/IN PREV 7 DAYS NOR LEAD ASSESS & MGT SRV/PX W/IN NXT 24 HR/SOON APT;5-10 MIN MED DIS DoD TELE ASSESS & MGT SRV PROV QUAL NONPHYS HLTH CARE PRO TO EST PAT,PARENT,GUARD NOT ORIG REL ASSESS & MGT SRV PROV W/IN PREV 7 DAYS NOR LEAD ASSESS & MGT SRV/PX W/IN NXT 24H/SOON APT; 21-30 MIN MED DIS DoD TELE ASSESS & MGT SRV PROV QUAL NONPHYS HLTH CARE PRO TO EST PAT,PARENT,GUARD NOT ORIG REL ASSESS & MGT SRV PROV W/IN PREV 7 DAYS NOR LEAD ASSESS & MGT SRV/PX W/IN NXT 24 HR/SOON APT;5-10 MIN MED DIS DoD REMOVAL IMPACTED CERUMEN REQUIRING INSTRUMENTATION, UNILATERAL DoD TELE ASSESS & MGT SRV PROV QUAL NONPHYS HLTH CARE PRO TO EST PAT,PARENT,GUARD NOT ORIG REL ASSESS & MGT SRV PROV W/IN PREV 7 DAYS NOR LEAD ASSESS & MGT SRV/PX W/IN NXT 24 HR/SOON APT;5-10 MIN MED DIS DoD TELE ASSESS & MGT SRV PROV QUAL NONPHYS HLTH CARE PRO TO EST PAT,PARENT,GUARD NOT ORIG REL ASSESS & MGT SRV PROV W/IN PREV 7 DAYS NOR LEAD ASSESS & MGT SRV/PX W/IN NXT 24 HR/SOON APT;5-10 MIN MED DIS DoD SCREENING PAPANICOLAOU SMEAR; OBTAINING, PREPARING AND CONVEYANCE OF CERVICAL OR VAGINAL SMEAR TO LABORATORY DoD TELE ASSESS & MGT SRV PROV QUAL NONPHYS HLTH CARE PRO TO EST PAT,PARENT,GUARD NOT ORIG REL ASSESS & MGT SRV PROV W/IN PREV 7 DAYS NOR LEAD ASSESS & MGT SRV/PX W/IN NXT 24 HR/SOON APT;5-10 MIN MED DIS DoD TELE ASSESS & MGT SRV PROV QUAL NONPHYS HLTH CARE PRO TO EST PAT,PARENT,GUARD NOT ORIG REL ASSESS & MGT SRV PROV W/IN PREV 7 DAYS NOR LEAD ASSESS & MGT SRV/PX W/IN NXT 24 HR/SOON APT;5-10 MIN MED DIS 021 DoD TELE ASSESS & MGT SRV PROV QUAL NONPHYS HLTH CARE PRO TO EST PAT,PARENT,GUARD NOT ORIG REL ASSESS & MGT SRV PROV W/IN PREV 7 DAYS NOR LEAD ASSESS & MGT SRV/PX W/IN NXT 24 HR/SOON APT;5-10 MIN MED DIS 021 DoD TELE ASSESS & MGT SRV PROV QUAL NONPHYS HLTH CARE PRO TO EST PAT,PARENT,GUARD NOT ORIG REL ASSESS & MGT SRV PROV W/IN PREV 7 DAYS NOR LEAD ASSESS & MGT SRV/PX W/IN NXT 24H/SOON APT; 11-20 MIN MED DIS DoD WAIVER SERVICES; NOT OTHERWISE SPECIFIED (NOS) DoD TELE ASSESS & MGT SRV PROV QUAL NONPHYS HLTH CARE PRO TO EST PAT,PARENT,GUARD NOT ORIG REL ASSESS & MGT SRV PROV W/IN PREV 7 DAYS NOR LEAD ASSESS & MGT SRV/PX W/IN NXT 24 HR/SOON APT;5-10 MIN MED DIS DoD TELE ASSESS & MGT SRV PROV QUAL NONPHYS HLTH CARE PRO TO EST PAT,PARENT,GUARD NOT ORIG REL ASSESS & MGT SRV PROV W/IN PREV 7 DAYS NOR LEAD ASSESS & MGT SRV/PX W/IN NXT 24H/SOON APT; 11-20 MIN MED DIS DoD TELE ASSESS & MGT SRV PROV QUAL NONPHYS HLTH CARE PRO TO EST PAT,PARENT,GUARD NOT ORIG REL ASSESS & MGT SRV PROV W/IN PREV 7 DAYS NOR LEAD ASSESS & MGT SRV/PX W/IN NXT 24H/SOON APT; 11-20 MIN MED DIS 021 DoD TELE ASSESS & MGT SRV PROV QUAL NONPHYS HLTH CARE PRO TO EST PAT,PARENT,GUARD NOT ORIG REL ASSESS & MGT SRV PROV W/IN PREV 7 DAYS NOR LEAD ASSESS & MGT SRV/PX W/IN NXT 24 HR/SOON APT;5-10 MIN MED DIS 020 DoD TELE ASSESS & MGT SRV PROV QUAL NONPHYS HLTH CARE PRO TO EST PAT,PARENT,GUARD NOT ORIG REL ASSESS & MGT SRV PROV W/IN PREV 7 DAYS NOR LEAD ASSESS & MGT SRV/PX W/IN NXT 24 HR/SOON APT;5-10 MIN MED DIS 020 DoD BIOPSY OF CERVIX, SINGLE OR MULTIPLE, OR LOCAL EXCISION OF LESION, WITH OR WITHOUT FULGURATION (SEPARATE PROCEDURE) 019 DoD TELE ASSESS & MGT SRV PROV QUAL NONPHYS HLTH CARE PRO TO EST PAT,PARENT,GUARD NOT ORIG REL ASSESS & MGT SRV PROV W/IN PREV 7 DAYS NOR LEAD ASSESS & MGT SRV/PX W/IN NXT 24 HR/SOON APT;5-10 MIN MED DIS 019 DoD DISEASE MANAGEMENT PROGRAM, FOLLOW-UP/REASSESSM ENT DoD TELE ASSESS & MGT SRV PROV QUAL NONPHYS HLTH CARE PRO TO EST PAT,PARENT,GUARD NOT ORIG REL ASSESS & MGT SRV PROV W/IN PREV 7 DAYS NOR LEAD ASSESS & MGT SRV/PX W/IN NXT 24H/SOON APT; 11-20 MIN MED DIS 018 [facility] HEALTH AND BEHAVIOR INTERVENTION, EACH 15 MINUTES, [id number]; INDIVIDUAL 018 [facility] BIOPSY OF CERVIX, SINGLE OR MULTIPLE, OR LOCAL EXCISION OF LESION, WITH OR WITHOUT FULGURATION (SEPARATE PROCEDURE) 018 DoD TELE ASSESS & MGT SRV PROV QUAL NONPHYS HLTH CARE PRO TO EST PAT,PARENT,GUARD NOT ORIG REL ASSESS & MGT SRV PROV W/IN PREV 7 DAYS NOR LEAD ASSESS & MGT SRV/PX W/IN NXT 24 HR/SOON APT;5-10 MIN MED DIS 018 DoD TELE ASSESS & MGT SRV PROV QUAL NONPHYS HLTH CARE PRO TO EST PAT,PARENT,GUARD NOT ORIG REL ASSESS & MGT SRV PROV W/IN PREV 7 DAYS NOR LEAD ASSESS & MGT SRV/PX W/IN NXT 24 HR/SOON APT;5-10 MIN MED DIS 018 DoD CASE MANAGEMENT, EACH 15 MINUTES 017 [facility] CASE MANAGEMENT, EACH 15 MINUTES 017 [facility] CASE MANAGEMENT, EACH 15 MINUTES 017 DoD CASE MANAGEMENT, EACH 15 MINUTES 017 [facility] SCREENING PAPANICOLAOU SMEAR; OBTAINING, PREPARING AND CONVEYANCE OF CERVICAL OR VAGINAL SMEAR TO LABORATORY 017 DoD TELE ASSESS & MGT SRV PROV QUAL NONPHYS HLTH CARE PRO TO EST PAT,PARENT,GUARD NOT ORIG REL ASSESS & MGT SRV PROV W/IN PREV 7 DAYS NOR LEAD ASSESS & MGT SRV/PX W/IN NXT 24 HR/SOON APT;5-10 MIN MED DIS 016 DoD TELE ASSESS & MGT SRV PROV QUAL NONPHYS HLTH CARE PRO TO EST PAT,PARENT,GUARD NOT ORIG REL ASSESS & MGT SRV PROV W/IN PREV 7 DAYS NOR LEAD ASSESS & MGT SRV/PX W/IN NXT 24 HR/SOON APT;5-10 MIN MED DIS 016 DoD TELE ASSESS & MGT SRV PROV QUAL NONPHYS HLTH CARE PRO TO EST PAT,PARENT,GUARD NOT ORIG REL ASSESS & MGT SRV PROV W/IN PREV 7 DAYS NOR LEAD ASSESS & MGT SRV/PX W/IN NXT 24 HR/SOON APT;5-10 MIN MED DIS 016 DoD ELECTROCARDIOGRAM, ROUTINE ECG WITH AT LEAST 12 LEADS; WITH INTERPRETATION AND REPORT 016 DoD URINE TEST, BY VISUAL COLOR COMPARISON METHODS 016 DoD SCREENING PAPANICOLAOU SMEAR; OBTAINING, PREPARING AND CONVEYANCE OF CERVICAL OR VAGINAL SMEAR TO LABORATORY 015 DoD BLOOD PRESSURE MEASURED (CKD)(DM) 014 DoD TELE ASSESS & MGT SRV PROV QUAL NONPHYS HLTH CARE PRO TO EST PAT,PARENT,GUARD NOT ORIG REL ASSESS & MGT SRV PROV W/IN PREV 7 DAYS NOR LEAD ASSESS & MGT SRV/PX W/IN NXT 24 HR/SOON APT;5-10 MIN MED DIS 014 DoD TELE ASSESS & MGT SRV PROV QUAL NONPHYS HLTH CARE PRO TO EST PAT,PARENT,GUARD NOT ORIG REL ASSESS & MGT SRV PROV W/IN PREV 7 DAYS NOR LEAD ASSESS & MGT SRV/PX W/IN NXT 24H/SOON APT; 11-20 MIN MED DIS 014 DoD DETERMINATION OF REFRACTIVE STATE 014 DoD DETERMINATION OF REFRACTIVE STATE 012 DoD GONADOTROPIN, CHORIONIC (HCG); QUALITATIVE 010 DoD ELECTROCARDIOGRAM, ROUTINE ECG WITH AT LEAST 12 LEADS; INTERPRETATION AND REPORT ONLY 009 DoD DESTRUCTION (EG, LASER SURGERY, ELECTROSURGERY, CRYOSURGERY, CHEMOSURGERY, SURGICAL CURETTEMENT), OF BENIGN LESIONS OTHER THAN SKIN TAGS OR CUTANEOUS VASCULAR PROLIFERATIVE LESIONS; UP TO 14 LESIONS 009 [facility] BIOPSY OF CERVIX, SINGLE OR MULTIPLE, OR LOCAL EXCISION OF LESION, WITH OR WITHOUT FULGURATION (SEPARATE PROCEDURE) 009 [facility] VISUAL FIELD EXAMINATION, UNI OR BILATERAL, WITH MEDICAL DIAGNOSTIC EVAL; INTERMEDIATE EXAM (EG, AT LEAST 2 ISOPTERS ON GOLDMANN PERIMETER, OR SEMIQUANT, AUTO SUPRATHRESHOLD SCREEN PROGRAM, QUISPE 007 [facility] SCREENING PAPANICOLAOU SMEAR; OBTAINING, PREPARING AND CONVEYANCE OF CERVICAL OR VAGINAL SMEAR TO LABORATORY 006 [facility] HANDLING AND/OR CONVEYANCE OF SPECIMEN FOR TRANSFER FROM THE OFFICE TO A LABORATORY 005 [facility] INFECTIOUS AGENT ANTIGEN DETECTION BY IMMUNOASSAY WITH DIRECT OPTICAL (IE, VISUAL) OBSERVATION; STREPTOCOCCUS, GROUP A 004 [facility] Non-Physician Phone Call To Patient/Provider Brief (5-10min) Non-Physician Phone Call To Patient/Provider Brief (5-10min) [phone] TAWNY DOMINGUEZ [facility] Disease management program, follow-up/meliton e ment 019 ALEXIS ELIZONDO [facility] Non-Physician Phone Call To Pt/Provider Intermed (11-20 min) Non-Physician Phone Call To Pt/Provider Intermed (11-20 min) [id number] [id number] COLIN BERRY [facility] Health And Behavior Intervention, Each 15 Minutes Individual Health And Behavior Intervention, Each 15 Minutes Individual [id number] [id number] JOSIE MCCORMICK [facility] Health And Behav A e mt Each 15 Min Initial A e ment Health And Behav Assessmt Each 15 Min Initial Assessment [id number] [phone] JOSIE MCCORMICK [facility] Screening papanicolaou smear; obtaining, preparing and conveyance of cervical or vaginal smear to laboratory 018 JANINA LUCAS [facility] Biopsy Cervical Biopsy Cervical [id number] [phone] JANINA LUCAS [facility] Non-Physician Phone Call To Patient/Provider Brief (5-10min) Non-Physician Phone Call To Patient/Provider Brief (5-10min) [id number] EDU JON [facility] Non-Physician Phone Call To Patient/Provider Brief (5-10min) Non-Physician Phone Call To Patient/Provider Brief (5-10min) [id number] EDU JON [facility] Non-Physician Phone Call To Patient/Provider Brief (5-10min) Non-Physician Phone Call To Patient/Provider Brief (5-10min) [id number] EDU JON [facility] Case Management, each 15 minutes 017 DOMINGA SWAPNA Zachary [facility] Case Management, each 15 minutes 017 DOMINGA SWAPNA Sharma [facility] Case Management, each 15 minutes 017 SWAPNA ORR [facility] Case Management, each 15 minutes 017 SWAPNA ORR [facility] Screening papanicolaou smear; obtaining, preparing and conveyance of cervical or vaginal smear to laboratory 017 JANINA LUCAS [facility] Non-Physician Phone Call To Patient/Provider Brief (5-10min) Non-Physician Phone Call To Patient/Provider Brief (5-10min) [id number] LASHAY HERNANDEZ [facility] Non-Physician Phone Call To Patient/Provider Brief (5-10min) Non-Physician Phone Call To Patient/Provider Brief (5-10min) [id number] LASHAY HERNANDEZ [facility] Non-Physician Phone Call To Patient/Provider Brief (5-10min) Non-Physician Phone Call To Patient/Provider Brief (5-10min) [id number] FILIPE DE JESUS [facility] ECG 12-Lead With Interpretation And Report ECG 12-Lead With Interpretation And Report [id number] STANISLAV PRUITT [facility] Test Test [id number] CRISTINA REYES [facility] Colposcopy Cervix With Endocervical Curettage Colposcopy Cervix With Endocervical Curettage [id number] 016 CRISTINA REYES [facility] Colposcopy Cervix With Biopsy(s) Colposcopy Cervix With Biopsy(s) 99441 016 CRISTINA REYES [facility] Colposcopy Cervix With Biopsy(s) Colposcopy Cervix With Biopsy(s) 24868 015 JANINA LUCAS Screening papanicolaou smear; obtaining, preparing and conveyance of cervical or vaginal smear to laboratory 015 JANINA LUCAS A e ment & Intervention Blood Pre ure Measured Assessment & Intervention Blood Pressure Measured 014 PIERRE SAUREZ Non-Physician Phone Call To Patient/Provider Brief (5-10min) Non-Physician Phone Call To Patient/Provider Brief (5-10min) [id number] [phone] VERENICE CAMPOS Non-Physician Phone Call To Pt/Provider Intermed (11-20 min) Non-Physician Phone Call To Pt/Provider Intermed (11-20 min) [id number] 014 VERENICE CAMPOS Determination Of Refractive State Determination Of Refractive State [id number] 014 JUAN BERGER Ophthalmological Prior Patient Start Comprehensive Care Ophthalmological Prior Patient Start Comprehensive Care [id number] JUAN BERGER Determination Of Refractive State Determination Of Refractive State [id number] SANTOS CORTEZ Ophthalmological Prior Patient Start Comprehensive Care Ophthalmological Prior Patient Start Comprehensive Care [id number] 012 SANTOS CORTEZ Biopsy Endometrial, Without Cervical Dilation Biopsy Endometrial, Without Cervical Dilation 51493 010 DEENA ESTRADA Urine HCG, Test Urine HCG, Test 91504 010 DEENA ESTRADA ECG Interpretation And Report Only ECG Interpretation And Report Only [id number] 009 STEPHANIE SHIN Destruction Of Benign Lesion By Any Method 009 MARÍA HAGAN Destruction Of Premalignant Lesion By Any Method One Lesion 009 MARÍA HAGAN Biopsy Cervical 009 YOHAN BELL Visual Valverde Test Intermediate Examination Visual Valverde Test Intermediate Examination [id number] 007 SANTOS CORTEZ Determination Of Refractive State Determination Of Refractive State [id number] 007 SANTOS CORTEZ Ophthalmological New Patient Start Comprehensive Care Ophthalmological New Patient Start Comprehensive Care 05324 007 SANTOS CORTEZ Screening papanicolaou smear; obtaining, preparing and conveyance of cervical or vaginal smear to laboratory 006 DWIGHT VARGAS [facility] Biopsy Cervical Biopsy Cervical 37821 CHITRA MARTINEZ AM [facility] Non-Physician Phone Call To Patient/Provider Brief (5-10min) Non-Physician Phone Call To Patient/Provider Brief (5-10min) [id number] BAHMAN RICK [facility] Non-Physician Phone Call To Pt/Provider Intermed (11-20 min) Non-Physician Phone Call To Pt/Provider Intermed (11-20 min) [id number] ROSA ANDRES [facility] Waiver services; not otherwise specified (NOS) BENEDICT DICK [facility] Screening papanicolaou smear; obtaining, preparing and conveyance of cervical or vaginal smear to laboratory JEANNETTE MOREL [facility] Cerumen Removal Right Ear Curette Cerumen Removal Right Ear Curette 21237 BENEDICT DICK [facility] Non-Physician Phone Call To Pt/Provider Lengthy (21-30 min) Non-Physician Phone Call To Pt/Provider Lengthy (21-30 min) 07357 CHARLES DAVIS [facility] delivery only; including care delivery only; including care [phone] [id number] [place] [address]-S [facility] delivery only; including care delivery only; including care [phone] [id number] [facility] abdominal hematoma I+D 023 [id number] [place] [address]-S [facility] right knee surgery 021 [id number] [place] [address]-S [facility] right breast bx 017 B9 [id number] [place], [place] [address]GRP-S [facility] right breast calcification excision 017 ductal hyperplasia [id number] [facility] C/S with BTL 001 [id number] [facility] wte 996 [id number] [place] [address]-S [facility] Social History Combined list of available smoking, tobacco, and other social history from Department of Defense and Veterans Affairs facilities. Social History Type Response Date Comment [facility] e Sex Representation Female (finding) 07/24/2021 Unknown Organization This section is an empty social history section. [facility] Tobacco Cigarette use: Never-cigarette user. Other Tobacco [...] Source Assessment and Plan Extracted from:Title : 0055 [facility] virtual HLD/fibromyalgia Author: JASSON DEL TORO NP, Family Medicine Date: 03/19/25 1. H yperlipidemia Severe primary hypercholesterolemia. Discussed high l ifetime risk for ASCVD, independent of calculated 10-year risk. Advised of recommendations to begin high-intensity statin therapy due to LDL-C =190 mg/dL, regardless of other risk factors or calculated risk. - Initiate high-intensity statin therapy with atorvastatin 40mg daily - continue lifestyle modification: h eart-healthy diet a nd regular aerobic physical activity - Monitor for statin tolerance and efficacy: Recheck fasting lipid panel in 12 weeks after initiation, then every 3 1 2 months as indicated. - If LDL-C remains =100 mg/dL despite maximally tolerated statin, consider addition of ezetimibe or a PCSK9 inhibitor 20 minutes total time spent on evaluation and management. Jasson Del Toro R., Alfonso, TANDEM OPERATOR-[place] [address] Ordered: atorvastatin(atorvastatin 40 mg oral tablet), 1 tab(s), Oral, Daily, for cholesterol, # 90 tab(s), 3 total refill(s), Maintenance, Pharmacy: [facility] [Federal Rx: #90 last filled 03/19/25] 2. F ibromyalgia Not currently well-controlled. She would like to wean off medication. She is o n lowest d barrow of Lyrica. W ill avoid abrupt d iscontinuation. A dvised to begin t aking 1 capsule Q OD x 1 w augustine; 1 t ablet t wice i n 1 week x 1 week, t hen off. Advised of potential w ithdrawal symptoms such as insomnia, nausea, headache, anxiety, sweating, and diarrhea. After completion of wean of Lyrica, she will present for another appt to paulette angeln off Cymbalta. Orders: omeprazole(omeprazole 20 mg oral delayed release capsule), 1 cap(s), Oral, Daily, 180 cap(s), 0 Refill(s), # 90 cap(s), 1 total refill(s), Maintenance, Pharmacy: [facility] [Federal Rx: #90 last filled 03/19/25] Extracted from:Title: 0055 [facility] virtual fibromyalgia/pregabalin Author: JASSON DEL TORO NP, Family Medicine Date: 02/09/25 1. F ibromyalgia Not c urrently well-controlled. S he was i nitiated o n F lexeril last c linic appt. S he reports i ncreased pain and difficulty with sleeping. She presents with request for Lyrica. Previous note indicates that she has been on Lyrica in the past and stopped d/t adverse SE (agitation). She has been having difficulty in finding a Ultra Sound Technician. Discussed trialing Lyrica at low-dose HS with potential to increase dosage PRN based on tolerability. Continue Cymbalta 60mg daily. - continue to seek care with Ultra Sound Technician - trial L yrica 25mg HS - continue Cymbalta 60mg daily 20 minutes total time spent on evaluation and management. Jasson Del Toro R., Alfonso, TANDEM OPERATOR[facility] [place] [address] Ordered: pregabalin(pregabalin 25 mg oral capsule), 1 cap(s), Oral, Daily, # 90 cap(s), 0 total refill(s), Maintenance, Pharmacy: [facility] [Last filled 02/09/25] 2. S creening status Due for annual. Ordered: Basic Metabolic Panel CBC w/ Diff Hemoglobin A1c Lipid Panel TSH w/ Reflex FT4 and Total T3 Vitamin D 25 Hydroxy Level Extracted from:Title: Office Clinic Note Author: JASSON DEL TORO NP, Family Medicine Date: 12/07/24 1. F [...] total time spent on evaluation and management. Jasson Del Toro R., , [place] [address] Orders: DULoxetine(DULoxetine 60 mg oral delayed release capsule), 1 cap(s), Oral, Daily, do not crush or chew, # 90 cap(s), 3 total refill(s), Maintenance, Pharmacy: [facility] [Not filled] cyclobenzaprine(Flexeril 10 mg oral tablet), See Instructions, 1 tab(s) Oral before bedtime., # 90 tab(s), 0 total refill(s), Acute, Pharmacy: [facility] [Not filled] Extracted from:Title: 0055 BCC lipoma/referral Author: JASSON DEL TORO NP, Family Medicine Date: 10/31/24 1. 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 Causing some discomfort as it is located underneath bra strap. Would like referral for removal. PE remarkable for 5.0x 3.cm soft, mobile lump. Likely lipoma. - Gen surgery referral for removal - f/u PRN Ordered: Referral Request 2.0 - [facility] 2. E ssential (primary) hypertension Checks at home with averages in 110s/80. No CP, SOB, palpitations. No medication changes today.? 3. F ibromyalgia Well-controlled on Cymbalta. Would like medication refill. 4. B reast neoplasm screening status D ue for breast MRI d/t high lifetime risk. Will place referral and order for breast MRI. 15 minutes total time spent on evaluation and management. Jasson Del Toro R., [place] [address] Ordered: Referral Request 2.0 - [facility] Orders: DULoxetine(DULoxetine 60 mg oral delayed release capsule), 1 cap(s), Oral, Daily, do not crush or chew, # 90 cap(s), 3 total refill(s), Maintenance, Pharmacy: [facility] [Not filled] lisinopril(lisinopril 10 mg oral tablet), 1 tab(s), Oral, Daily, for blood pressure, # 90 tab(s), 3 total refill(s), Maintenance, Pharmacy: [facility] [Not filled] Extracted from:Title: 0055 BCC virt fibromyalgia/med refill Author: JASSON DEL TORO NP Date: 05/30/24 1. F ibromyalgia Doing well on current med. Needing refill today. - continue current medication--no changes today 10 minutes total time spent on evaluation and management. Jasson Del Toro R., Maj, [place] [address] Orders: DULoxetine(DULoxetine 60 mg oral delayed release capsule), 1 cap(s), Oral, Daily, do not crush or chew, # 90 cap(s), 2 total refill(s), Maintenance, 1 cap(s) Oral Daily,Instr:do not crush or chew, Pharmacy: [facility] [Not filled] Extracted from:Title: DATA INTEGRITY SPECIALIST/Virtual, cx polyp; vit d def, elevated LDL Author: JEANNETTE MOREL NP Date: 05/29/24 1. P olyp of [...] supply, 1.25 mg Oral every week, Pharmacy: [facility] [Not filled] Vitamin D 25 Hydroxy [...] and instructions were provided to the patient. Jeannette Morel [facility] AIRCRAFT MAINTENANCE INSTRUCTOR Extracted from:Title: DATA INTEGRITY SPECIALIST/WWE, pap, cx polyp; dysplasia f/u Author: JEANNETTE MOREL NP Date: 05/17/24 1. E ncounter for [...] test 5yrs if neg Ordered: AP Cytology DATA INTEGRITY SPECIALIST HPV High Risk (16/18/Other) 3. 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 O ther specified abnormal findings of blood chemistry low fat/low chol diet, no more than 25% total calories from fat, states wasn't aware they wanted to start statin; husbandry technician never told her; will repeat lab to determine further plan Ordered: Lipid Panel 5. E ssential (primary) hypertension repeat BP nl; on HTN meds; to monitor home readings 6. A typical squamous cells cannot exclude high grade squamous intraepithelial lesion on cytologic smear of cervix (ASC-H) co test 5yrs if neg Ordered: AP Cytology DATA INTEGRITY SPECIALIST HPV High Risk (16/18/Other) 7. O besity, unspecified increase exercise, decrease calories to decrease wt/BMI; advised healthy lifestyle, namely whole food plant based diet w/ regular exercise. Advise nutrition wade/diary to track energy intake vs expenditure f/u prn PVUA. 8. B [place] 38.0 to 38.9 Pt questions addressed and written discharge instructions were provided to the patient. Jeannette Morel [facility] AIRCRAFT MAINTENANCE INSTRUCTOR [facility] Extracted from:Title: 0055 BCC Chronic pain / Multiple complaints Author: BENEDICT DICK PA Date: 02/08/24 1. C hronic pain 58 y/o F w/hx of fibromyalgia along with p olyarthralgia and o steoarthritis of the right knee presents c/o ongoing pain requesting help with pain management. Pt states she currently sees a husbandry technician but is not pleased with the care she is receiving. Pt would like a second opinion. -Will restart Cymbalta. -Placed consults for pt to see new husbandry technician for a second opinion. -F/u as needed. [...] getting out of b ed in the [facility] -Provided stretch/strengthening handout for Achilles tendinitis/plantar fasciatus [...] tab(s), 0 total refill(s), Acute, 08/05/2024, Pharmacy: [facility] [Not filled] 2. E levated blood [...] D 25 Hydroxy Level 08/20/24Lipid Panel 08/20/24 03/29/2025 [id number] Extracted from:Title : 0055 [facility] virtual HLD/fibromyalgia Author: JASSON DEL TORO NP, Family Medicine Date: 03/19/25 1. H yperlipidemia Severe primary hypercholesterolemia. Discussed high l ifetime risk for ASCVD, independent of calculated 10-year risk. Advised of recommendations to begin high-intensity statin therapy due to LDL-C =190 mg/dL, regardless of other risk factors or calculated risk. - Initiate high-intensity statin therapy with atorvastatin 40mg daily - continue lifestyle modification: h eart-healthy diet a nd regular aerobic physical activity - Monitor for statin tolerance and efficacy: Recheck fasting lipid panel in 12 weeks after initiation, then every 3 1 2 months as indicated. - If LDL-C remains =100 mg/dL despite maximally tolerated statin, consider addition of ezetimibe or a PCSK9 inhibitor 20 minutes total time spent on evaluation and management. Jasson Del Toro R., Alfonso, TANDEM OPERATOR-[place] [facility] [place] [address] Ordered: atorvastatin(atorvastatin 40 mg oral tablet), 1 tab(s), Oral, Daily, for cholesterol, # 90 tab(s), 3 total refill(s), Maintenance, Pharmacy: [facility] [Federal Rx: #90 last filled 03/19/25] 2. F ibromyalgia Not currently well-controlled. She would like to wean off medication. She is o n lowest d barrow of Lyrica. W ill avoid abrupt d iscontinuation. A dvised to begin t aking 1 capsule Q OD x 1 w augustine; 1 t ablet t wice i n 1 week x 1 week, t hen off. Advised of potential w ithdrawal symptoms such as insomnia, nausea, headache, anxiety, sweating, and diarrhea. After completion of wean of Lyrica, she will present for another appt to w zakia off Cymbalta. Orders: omeprazole(omeprazole 20 mg oral delayed release capsule), 1 cap(s), Oral, Daily, 180 cap(s), 0 Refill(s), # 90 cap(s), 1 total refill(s), Maintenance, Pharmacy: [facility] [Federal Rx: #90 last filled 03/19/25] Extracted from:Title: 0055 [facility] virtual fibromyalgia/pregabalin Author: JASSON DEL TORO NP, Family Medicine Date: 02/09/25 1. F ibromyalgia Not c urrently well-controlled. S he was i nitiated o n F lexeril last c linic appt. S he reports i ncreased pain and difficulty with sleeping. She presents with request for Lyrica. Previous note indicates that she has been on Lyrica in the past and stopped d/t adverse SE (agitation). She has been having difficulty in finding a Ultra Sound Technician. Discussed trialing Lyrica at low-dose HS with potential to increase dosage PRN based on tolerability. Continue Cymbalta 60mg daily. - continue to seek care with Ultra Sound Technician - trial L yrica 25mg HS - continue Cymbalta 60mg daily 20 minutes total time spent on evaluation and management. Jasson Del Toro R., , TANDEM OPERATOR-C [facility] [address] Ordered: pregabalin(pregabalin 25 mg oral capsule), 1 cap(s), Oral, Daily, # 90 cap(s), 0 total refill(s), Maintenance, Pharmacy: [facility] [Last filled 02/09/25] 2. S creening status Due for annual. Ordered: Basic Metabolic Panel CBC w/ Diff Hemoglobin A1c Lipid Panel TSH w/ Reflex FT4 and Total T3 Vitamin D 25 Hydroxy Level Extracted from:Title: Office Clinic Note Author: JASSON DEL TORO NP, Family Medicine Date: 12/07/24 1. F [...] total time spent on evaluation and management. Jasson Del Toro R., , TANDEM OPERATOR[facility] [place] [address] Orders: DULoxetine(DULoxetine 60 mg oral delayed release capsule), 1 cap(s), Oral, Daily, do not crush or chew, # 90 cap(s), 3 total refill(s), Maintenance, Pharmacy: [facility] [Not filled] cyclobenzaprine(Flexeril 10 mg oral tablet), See Instructions, 1 tab(s) Oral before bedtime., # 90 tab(s), 0 total refill(s), Acute, Pharmacy: [facility] [Not filled] Extracted from:Title: 0055 BCC lipoma/referral Author: JASSON DEL TORO NP, Family Medicine Date: 10/31/24 1. 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 Causing some discomfort as it is located underneath bra strap. Would like referral for removal. PE remarkable for 5.0x 3.cm soft, mobile lump. Likely lipoma. - Gen surgery referral for removal - f/u PRN Ordered: Referral Request 2.0 - [facility] 2. E ssential (primary) hypertension Checks at home with averages in 110s/80. No CP, SOB, palpitations. No medication changes today.? 3. F ibromyalgia Well-controlled on Cymbalta. Would like medication refill. 4. B reast neoplasm screening status D ue for breast MRI d/t high lifetime risk. Will place referral and order for breast MRI. 15 minutes total time spent on evaluation and management. Jasson Del Toro R., [place] [address] Ordered: Referral Request 2.0 - [facility] Orders: DULoxetine(DULoxetine 60 mg oral delayed release capsule), 1 cap(s), Oral, Daily, do not crush or chew, # 90 cap(s), 3 total refill(s), Maintenance, Pharmacy: [facility] [Not filled] lisinopril(lisinopril 10 mg oral tablet), 1 tab(s), Oral, Daily, for blood pressure, # 90 tab(s), 3 total refill(s), Maintenance, Pharmacy: [facility] [Not filled] Extracted from:Title: 0055 BCC virt fibromyalgia/med refill Author: JASSON DEL TORO NP Date: 05/30/24 1. F ibromyalgia Doing well on current med. Needing refill today. - continue current medication--no changes today 10 minutes total time spent on evaluation and management. Jasson Del Toro R., , [place] [address] Orders: DULoxetine(DULoxetine 60 mg oral delayed release capsule), 1 cap(s), Oral, Daily, do not crush or chew, # 90 cap(s), 2 total refill(s), Maintenance, 1 cap(s) Oral Daily,Instr:do not crush or chew, Pharmacy: [facility] [Not filled] Extracted from:Title: DATA INTEGRITY SPECIALIST/Virtual, cx polyp; vit d def, elevated LDL Author: JEANNETTE MOREL NP Date: 05/29/24 1. P olyp of [...] supply, 1.25 mg Oral every week, Pharmacy: [facility] [Not filled] Vitamin D 25 [...] and instructions were provided to the patient. Jeannette Morel [facility] Extracted from:Title: DATA INTEGRITY SPECIALIST/WWE, pap, cx polyp; dysplasia f/u Author: JEANNETTE MOREL NP Date: 05/17/24 1. E ncounter for [...] test 5yrs if neg Ordered: AP Cytology DATA INTEGRITY SPECIALIST HPV High Risk (16/18/Other) 3. P olyp of cervix uteri sent to path; virtual appt scheduled 9 to discuss results Ordered: AP Surgical Pathology 4. O ther specified abnormal findings of blood chemistry low fat/low chol diet, no more than 25% total calories from fat, states wasn't aware they wanted to start statin; husbandry technician never told her; will repeat lab to determine further plan Ordered: Lipid Panel 5. E ssential (primary) hypertension repeat BP nl; on HTN meds; to monitor home readings 6. A typical squamous cells cannot exclude high grade squamous intraepithelial lesion on cytologic smear of cervix (ASC-H) co test 5yrs if neg Ordered: AP Cytology DATA INTEGRITY SPECIALIST HPV High Risk (16/18/Other) 7. O besity, unspecified increase exercise, decrease calories to decrease wt/BMI; advised healthy lifestyle, namely whole food plant based diet w/ regular exercise. Advise nutrition wade/diary to track energy intake vs expenditure f/u prn PVUA. 8. B [place] 38.0 to 38.9 Pt questions addressed and written discharge instructions were provided to the patient. Jeannette Morel [facility] AIRCRAFT MAINTENANCE INSTRUCTOR [facility] Extracted from:Title: 0055 BCC Chronic pain / Multiple complaints Author: BENEDICT DICK PA Date: 02/08/24 1. C hronic pain 58 y/o F w/hx of fibromyalgia along with p olyarthralgia and o steoarthritis of the right knee presents c/o ongoing pain requesting help with pain management. Pt states she currently sees a husbandry technician but is not pleased with the care she is receiving. Pt would like a second opinion. -Will restart Cymbalta. -Placed consults for pt to see new husbandry technician for a second opinion. -F/u as needed. [...] [facility] [Not filled] Extracted from:Title: 0055 [facility] Plantar Fasciitis Author: ABDI PERERA PA Date: [...] getting out of b ed in the [facility] -Provided stretch/strengthening handout for Achilles tendinitis/plantar fasciatus [...] change/increase at flu visit. Extracted from:Title: 0055 [facility] Surgery f/u / knee pain / anisocoria [...] D 25 Hydroxy Level 08/20/24Lipid Panel 08/20/24 03/29/2025 Unknown Organization Functional Status Combined list of recent functional and cognitive assessments recorded at [facility] ([facility] Functional [place] Measurement (FIM) Scale: 1 = Total Assistance (Subject = 0% +), 2 = Maximal Assistance (Subject = 25% +), 3 = Moderate Assistance (Subject = 50% +), 4 = Minimal Assistance (Subject = 75% +), 5 = Supervision, 6 = Modified [place] (Device), 7 = Complete [place] (Timely, Safely). Assessment Date/Time Source Assessment Type Assessment Skill Assessment Score Assessment Details No data available for this section
--- OUTSIDE RECORDS SUMMARY | 2025-03-29 11:28 | XMS_ITS | Clinical Summary ---
Author Organization [facility] Address [address] [place] [address] Care Team Providers Care Library Supervisor Name Role Phone Unavailable Primary Care Provider Unavailabl e Source Comments [facility],non-owned Affiliates and Associated Physician Practices is amultiple site organization consisting of ambulatory clinics and hospital sitesin [place], [place], [place] and [place]. This disclosure is being madepursuant to the Care Everywhere program and may not contain all information available regarding this patient. Last updated 18.[facility] Allergies No known active allergies Medications * Be aware that medications may not be up to date on this document. Alwaysverify current medications with the patient. DULoxetine (Cymbalta) 30 MG capsule Take 1 (one) capsule by mouth once daily Active leflunomide (Arava) 10 MG tablet Take 0.5 (one-half) tablet by mouth once daily Active lisinopril (Prinivil; Zestril) 2.5 MG tablet Take 2 (two) tablets by mouth once daily Active oxyCODONE, immediate release, (Roxicodone) 5 MG tabletIndicati ons:Abdominal hematoma Take 1 (one) tablet by mouth every 4 hours as needed 20 tablet 3 Active Additional Information Patient not taking.Reported on 04/22/2023 acetaminophen (Tylenol) 500 MG tablet Take 2 (two) tablets by mouth every 6 hours Maximum allowable Acetaminophen amount = 4 Grams (4000 mg) / 24 hours. 3 Active polyethylene glycol 3350 (Miralax) 17 g packet Take 17 (seventeen) g by mouth once daily 0 Active Additional Information Patient not taking.Reported on 04/22/2023 cyanocobalamin 100 MCG tablet Take 0.5 (one-half) tablet by mouth once daily Active Active Problems Problem Noted Date Diagnosed Date S/P evacuation of hematoma 04/20/2023 Abdominal hematoma 04/17/2023 Immunizations Immunization Administration Dates Next Due TDAP (7yrs+) 04/17/2023 [...] and heating? Not hard at all 04/18/2023 [facility] [place] [facility] Occup[facility] - Occupational Stress [...] place to sleep or slept in a usp (including now)? No 04/18/2023 Comments Unknown Sex and Gender Information Value Date Recorded Sex Assigned at Not on file Legal Sex Female 7:46 PM CHIEF WARDEN Gender Identity Not on file Sexual Orientation [...] 12:21 PM CDT Height 157.5 cm (5' 2) 05/04/2023 12:21 PM CDT Body Mass Index [...] SCREENING 1967 LIPID TESTING 1967 MAMMOGRAM 1967 HIV SCREENING 11/28/1982 HEPATITIS C SCREENING 11/24/1985 HEPATITIS B VACCINE (1 of 3 - 19+ 3-dose series) 11/28/1986 PAP SMEAR 11/28/1988 PNEUMOCOCCAL VACCINE 50+ (1 of 1 - PCV) 11/28/2017 ZOSTER VACCINE (1 of 2) 11/28/2017 COVID-19 VACCINE ( - season) 2024 02/06/2022, 10/12/2021, 02/04/2021, Additional history exists DEPRESSION SCREENING 09/20/2024 INFLUENZA VACCINE (Season Ended) 2025 SCREENING FOR DIABETES 05/04/2026 , 04/19/2023, 04/17/2023, Additional history exists DTAP/TDAP/TD VACCINES (2 - Td or Tdap) [...] 7 - 26 mg/dL 05/04/2023 3:21 PM [facility] Creatinine 0.53(L) 0.56 - 0.96 mg/dL 05/04/2023 3:21 PM [facility] Sodium 141 136 - 145 mmol/L 05/04/2023 3:21 PM [facility] Potassium 3.7 3.5 - 4.5 mmol/L 05/04/2023 3:21 PM [facility] Chloride 106 98 - 107 mmol/L 05/04/2023 3:21 PM [facility] CO2 25 22 - 29 mmol/L 05/04/2023 3:21 PM [facility] Glucose 85 70 - 115 mg/dL 05/04/2023 3:21 PM [facility] Calcium 9.4 8.4 - 10.2 mg/dL 05/04/2023 3:21 PM [facility] Protein Total 7.1 6.0 - 8.3 g/dL 05/04/2023 3:21 PM [facility] Albumin 3.9 3.4 - 5.0 g/dL 05/04/2023 3:21 PM [facility] Bilirubin Total 0.5 0.2 - 1.2 mg/dL 05/04/2023 3:21 PM [facility] Alkaline Phosphatase 87 40 - 150 U/L 05/04/2023 3:21 PM [facility] ALT 34 5 - 55 U/L 05/04/2023 3:21 PM [facility] AST 20 5 - 34 U/L 05/04/2023 3:21 PM [facility] Anion Gap 14 8 - 18 05/04/2023 3:21 PM [facility] BUN/Creatinine Ratio 26(H) 7 - 23 05/04/2023 3:21 PM [facility] Osmolality Calculated 292 270 - 300 mOsm/kg 05/04/2023 3:21 PM [facility] Albumin/Globulin Ratio 1.2 1.1 - 2.3 05/04/2023 3:21 PM [facility] eGFR by CKD-EPI >90 >=90 mL/min/1.7 3 m2 05/04/2023 3:21 PM [facility] Blood BLOOD SPECIMEN / Unknown Venipuncture / Unknown 05/04/2023 2:42 PM CDT 05/04/2023 2:47 PM CDT Villa Echavarria MD LAB - CHEMISTRY ORDERABLES nal Result Performing Organization Address [facility]/State/ZIP Co de Phone Number [facility] [address] [place] [address], [facility] [phone] from Last 3 Months or Most Recently Relevant to Health Maintenance Insurance [facility] SELF PAY NO INSURANCE Member Subscriber Plan / Payer (Ef fective for All Dates) Name:Arthur Morgan Member ID:Not on file Relation to Subscriber:Not on file Name:ARTHUR MORGAN Subscriber ID:Not on file (Home) Address: [address] [place] [id number] Payer ID:Not on file Group ID:Not on file Type:Self Pay Address: [place], [place] Advance Directives * Full Code (Latest Code Status on File) Date Activated Date Inactivated Comments 04/17/2023 3:07 PM 04/20/2023 3:55 PM
[2025-03-29 11:44] VITALS: BP 153/90; PULSE 94; RESP 18; TEMP 36.7; O2SAT 96
[2025-03-29 12:21] LABS: Hematocrit 43.0 % (37.0-47.0); Hemoglobin 13.8 g/dL (12.0-15.0); Immature Granulocyte Percent A 0.2 % (0-0.5); Lymphocytes Absolute Auto 2.54 K/mm3 (0.9-3.2); Mean Corpuscular HGB Conc 32.1 g/dl (32-36); Mean Corpuscular Hemoglobin 28.6 pg (26-34); Mean Corpuscular Volume 89.0 fl (80-100); Nucleated Red Blood Cells Absolute Auto 0.000 K/mm3 (0.0-0.012); Nucleated Red Blood Cells Perc 0.0 % (0.0-0.2); Platelet Count Result 266 k/mm3 (150-375); Red Blood Count 4.83 M/mm3 (4.2-5.4); White Blood Count 8.6 K/mm3 (4.5-10.0)
[2025-03-29] MEDS: SODIUM CHLORIDE 0.9% IV 1,000 ML 999 ML IV CONT (12:21)
[2025-03-29] MEDS: ONDANSETRON INJ 4 MG/2 ML VIAL IV PUSH ×2 (12:21→15:25)
--- OUTSIDE RECORDS SUMMARY | 2025-03-29 12:21 | XMS_ITS | Clinical Summary ---
Author Organization [facility] Address [address] [place] [address] Care Team Providers Care Pump Tester Name Role Phone Chaim Miller Primary Care [...] to complete this topic Insurance Care Teams Pump Tester Relationship Specialty Start Date End Date Chaim Miller PA PCP - General PHYSICIAN RADIO ANNOUNCER 04/17/23
--- OUTSIDE RECORDS SUMMARY | 2025-03-29 12:21 | XMS_ITS | Referral Summary ---
Author Organization [facility] Address [address] [place] [address] Care Team Providers Care Lead Tinner Name Role Phone Andree Neal Unavailable [phone] Chaim Miller Primary Care Provid er Joey Alvarenga MD Unavailable [phone] Allergies No known active allergies Medications multivitamin [...] a brain MRI without contrast here at [facility] (clinical information: Ataxic gait for 4 [...] I can review it. This encounter's total ivas-at-nbhm time was greater than 40 minutes. I [...] 11/05/2020 Assessment & Plan (10/19/2023 8:31 AM SUPERVISOR DRY CLEANING): Hepatitis negative 2020 Continue routine lab monitoring Assessment & Plan (06/22/2023 9:26 AM CDT): Hepatitis negative 2020 Continue routine lab monitoring Assessment & Plan (03/24/2023 12:42 PM CDT): Hepatitis negative 2020 Continue routine lab monitoring Assessment & Plan (12/24/2022 1:14 PM CDT): Hepatitis negative 2020 Continue routine lab monitoring Assessment & Plan (11/19/2022 12:54 PM SUPERVISOR DRY CLEANING): Hepatitis negative 2020 Assessment & Plan (10/06/2022 3:10 PM SUPERVISOR DRY CLEANING): Hepatitis negative 2020 Assessment & Plan (08/31/2022 12:06 PM SUPERVISOR DRY CLEANING): Hepatitis negative 2020 Will check updated baseline labs today Assessment & Plan (07/28/2022 8:35 AM SUPERVISOR DRY CLEANING): Hepatitis negative 2020 Will check updated baseline labs today Assessment & Plan (06/30/2022 12:23 PM CDT): Hepatitis negative 2020 Will check updated baseline labs today Assessment & Plan (11/25/2021 2:39 PM SUPERVISOR DRY CLEANING): Hepatitis negative 2020 Will check updated baseline [...] hydroxychloroquine Assessment & Plan (11/05/2020 2:08 PM SUPERVISOR DRY CLEANING): Maintain routine eye exams throughout the duration of taking hydroxychloroquine Right knee pain 11/05/2020 Assessment & Plan (11/05/2020 2:09 PM SUPERVISOR DRY CLEANING): MRI with evidence of medial and lateral [...] 10/22/2020 Assessment & Plan (10/22/2020 8:58 AM SUPERVISOR DRY CLEANING): Patient has a lateral meniscal tear as well. The time of arthroscopy partial meniscectomy of the lateral meniscus is likely indicated. At her age tears on likely to heal even if repaired. Acute medial meniscus tear of right knee 021 Assessment & Plan (10/22/2020 8:57 AM SUPERVISOR DRY CLEANING): By MRI the patient has medial lateral [...] 10/22/2020 Assessment & Plan (10/22/2020 8:59 AM SUPERVISOR DRY CLEANING): Patient's hematoma has reduced in size from [...] 04/16/2020 Assessment & Plan (09/03/2020 4:34 PM SUPERVISOR DRY CLEANING): She complains of weakness in her legs [...] neuro. She can see if someone at [place] or [facility] would be in-network. Assessment & Plan [...] 07/21/2019 Assessment & Plan (09/29/2019 2:36 PM SUPERVISOR DRY CLEANING): Suspect trochanteric bursitis. Symptoms have resolved since last visit. Continues to do exercises daily. Assessment & Plan (08/21/2019 4:24 PM SUPERVISOR DRY CLEANING): Suspect trochanteric bursitis. Pt also complains of [...] nausea Assessment & Plan (11/09/2023 2:00 PM SUPERVISOR DRY CLEANING): On Cymbalta 60 mg daily which she [...] needed. Assessment & Plan (10/19/2023 8:31 AM SUPERVISOR DRY CLEANING): On Cymbalta 60 mg daily with benefit, [...] monitor. Assessment & Plan (11/19/2022 12:54 PM SUPERVISOR DRY CLEANING): On Cymbalta 60 mg daily with benefit, will continue and monitor. Assessment & Plan (10/06/2022 10:19 AM SUPERVISOR DRY CLEANING): On Cymbalta 60 mg daily with benefit, will continue and monitor. Assessment & Plan (08/31/2022 12:06 PM SUPERVISOR DRY CLEANING): On Cymbalta 60 mg daily with benefit, will continue and monitor. Assessment & Plan (07/28/2022 8:35 AM SUPERVISOR DRY CLEANING): On Cymbalta 60 mg daily with benefit, will continue and monitor. Assessment & Plan (06/30/2022 3:01 PM CDT): On Cymbalta 60 mg daily with benefit, will continue and monitor. Assessment & Plan (11/25/2021 2:38 PM SUPERVISOR DRY CLEANING): Previously on Cymbalta 90 mg daily, sicne [...] needed. Assessment & Plan (11/05/2020 2:08 PM SUPERVISOR DRY CLEANING): On Cymbalta 90 mg daily without adverse effect and with improvement in her widespread pain, will continue. Encouraged exercise as able. Assessment & Plan (09/03/2020 4:32 PM SUPERVISOR DRY CLEANING): Remains on Cymbalta 60 mg daily which [...] exercise. Assessment & Plan (09/29/2019 2:38 PM SUPERVISOR DRY CLEANING): Pt did not tolerate gabapentin due to side effects. Now feels well controlled with combination of Cymbalta and CBD. Will continue Cymbalta 60 mg daily. Recommend routine exercise. Follow up in 3 months or sooner as needed. Assessment & Plan (08/21/2019 4:23 PM SUPERVISOR DRY CLEANING): Ongoing sensation of pain all over with [...] thickening. Assessment & Plan (11/09/2023 1:59 PM SUPERVISOR DRY CLEANING): Over the last few years at times [...] pain. Assessment & Plan (10/19/2023 11:35 AM SUPERVISOR DRY CLEANING): Hair thinning has improved since stopping leflunomide, [...] needed. Assessment & Plan (11/19/2022 3:05 PM SUPERVISOR DRY CLEANING): Moderate cdai. Discussed multifactorial nature of fatigue, [...] needed. Assessment & Plan (10/06/2022 3:09 PM SUPERVISOR DRY CLEANING): Discussed that while it is great that [...] weeks. Assessment & Plan (09/01/2022 2:31 PM SUPERVISOR DRY CLEANING): High cdai. On methotrexate 15 mg po [...] needed. Assessment & Plan (07/28/2022 2:14 PM SUPERVISOR DRY CLEANING): Moderate cdai. On methotrexate 10 mg po [...] needed. Assessment & Plan (11/25/2021 2:37 PM SUPERVISOR DRY CLEANING): Repeat hand ultrasound in May compared to [...] bid. Notes recent labs with PCP and artificial breeding distributor, will request results but check CRP and [...] bid. Assessment & Plan (11/05/2020 2:07 PM SUPERVISOR DRY CLEANING): Our prior workup revealed equivocal RF IgM, [...] needed. Assessment & Plan (09/03/2020 4:32 PM SUPERVISOR DRY CLEANING): Our prior workup revealed equivocal RF IgM, [...] operator use. Plan for follow up in ~3-4 weeks to reassess, timing determined based upon when ultrasound is able to be completed. Assessment & Plan (09/29/2019 2:37 PM SUPERVISOR DRY CLEANING): Our prior workup revealed equivocal RF IgM, [...] monitor. 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 on file Not on file Not o n file Last Filed Vital Signs Vital Sign Reading Time Taken Comments Blood Pressure 124/90 11/09/2023 10:53 AM SUPERVISOR DRY CLEANING Pulse 89 11/09/2023 10:53 AM SUPERVISOR DRY CLEANING Temperature 36.7 C (98.1 F) 11/25/2021 1:11 PM SUPERVISOR [employer] CLEANING Respiratory Rate 15 2020 9:50 AM SUPERVISOR DRY CLEANING Oxygen Saturation 97% 11/09/2023 10:53 AM SUPERVISOR DRY CLEANING Inhaled Oxygen Concentration - - Weight 96 kg (211 lb 9.6 oz) 11/09/2023 10:53 AM SUPERVISOR DRY CLEANING Height 157.5 cm (5' 2) 11/09/2023 10:53 AM SUPERVISOR DRY CLEANING Body Mass Index 38.7 11/09/2023 10:53 AM SUPERVISOR DRY CLEANING Plan of Treatment Not on file Procedures [...] a test for HCV RNA (test code 67939) is suggested. For additional information please refer to http://education.Evocalize/faq/ZMH62e9 (This link is being provided for informational/ educational purposes only.) Blood specimen (specimen) 04/16/2020 2:31 PM CDT 04/16/2020 2:32 PM CDT [facility] MICROBIOLOGY - GENERA L ORDERABLES Final Result [facility] [id number] [id number] from Last 3 Months or Most Recently Relevant to Health Maintenance Insurance [facility] CLAIMS [facility] CLAIMS [facility] CLAIMS Care Teams Lead Tinner Relationship Specialty Start Date End Date Chaim Miller PA [address] [place], [place] [id number] PCP - General Physician Turn Supervisor 06/25/22 [place] [address] [facility] [address] [place] [address] Physician Turn Supervisor Orthopedic Surgery 11/29/20 Joey Alvarenga MD [address] [facility] [address] [place] [address] Consulting Physician Rheumatology 10/19/23
--- OUTSIDE RECORDS SUMMARY | 2025-03-29 12:21 | XMS_ITS | Clinical Summary ---
Author Organization [facility] Address [address] [place] [address] Care Team Providers Care It Web Development Consultant Name Role Phone Andree Neal Unavailable [phone] Chaim Miller Primary Care Provid er Joey Alvarenga MD Unavailable Allergies No known active allergies Medications multivitamin [...] a brain MRI without contrast here at [facility] (clinical information: Ataxic gait for 4 [...] I can review it. This encounter's total bqcr-lk-wuyf time was greater than 40 minutes. I [...] 11/05/2020 Assessment & Plan (10/19/2023 8:31 AM ACCOUNTING MACHINE OPERATOR): Hepatitis negative 2020 Continue routine lab monitoring Assessment & Plan (06/22/2023 9:26 AM CDT): Hepatitis negative 2020 Continue routine lab monitoring Assessment & Plan (03/24/2023 12:42 PM CDT): Hepatitis negative 2020 Continue routine lab monitoring Assessment & Plan (12/24/2022 1:14 PM CDT): Hepatitis negative 2020 Continue routine lab monitoring Assessment & Plan (11/19/2022 12:54 PM ACCOUNTING MACHINE OPERATOR): Hepatitis negative 2020 Assessment & Plan (10/06/2022 3:10 PM ACCOUNTING MACHINE OPERATOR): Hepatitis negative 2020 Assessment & Plan (08/31/2022 12:06 PM ACCOUNTING MACHINE OPERATOR): Hepatitis negative 2020 Will check updated baseline labs today Assessment & Plan (07/28/2022 8:35 AM ACCOUNTING MACHINE OPERATOR): Hepatitis negative 2020 Will check updated baseline labs today Assessment & Plan (06/30/2022 12:23 PM CDT): Hepatitis negative 2020 Will check updated baseline labs today Assessment & Plan (11/25/2021 2:39 PM ACCOUNTING MACHINE OPERATOR): Hepatitis negative 2020 Will check updated baseline [...] hydroxychloroquine Assessment & Plan (11/05/2020 2:08 PM ACCOUNTING MACHINE OPERATOR): Maintain routine eye exams throughout the duration of taking hydroxychloroquine Right knee pain 11/05/2020 Assessment & Plan (11/05/2020 2:09 PM ACCOUNTING MACHINE OPERATOR): MRI with evidence of medial and lateral [...] 10/22/2020 Assessment & Plan (10/22/2020 8:58 AM ACCOUNTING MACHINE OPERATOR): Patient has a lateral meniscal tear as well. The time of arthroscopy partial meniscectomy of the lateral meniscus is likely indicated. At her age tears on likely to heal even if repaired. Acute medial meniscus tear of right knee 021 Assessment & Plan (10/22/2020 8:57 AM ACCOUNTING MACHINE OPERATOR): By MRI the patient has medial lateral [...] 10/22/2020 Assessment & Plan (10/22/2020 8:59 AM ACCOUNTING MACHINE OPERATOR): Patient's hematoma has reduced in size from [...] 04/16/2020 Assessment & Plan (09/03/2020 4:34 PM ACCOUNTING MACHINE OPERATOR): She complains of weakness in her legs [...] neuro. She can see if someone at [place] or [facility] would be in-network. Assessment & Plan (06/04/2020 [...] 07/21/2019 Assessment & Plan (09/29/2019 2:36 PM ACCOUNTING MACHINE OPERATOR): Suspect trochanteric bursitis. Symptoms have resolved since last visit. Continues to do exercises daily. Assessment & Plan (08/21/2019 4:24 PM ACCOUNTING MACHINE OPERATOR): Suspect trochanteric bursitis. Pt also complains of [...] nausea Assessment & Plan (11/09/2023 2:00 PM ACCOUNTING MACHINE OPERATOR): On Cymbalta 60 mg daily which she [...] needed. Assessment & Plan (10/19/2023 8:31 AM ACCOUNTING MACHINE OPERATOR): On Cymbalta 60 mg daily with benefit, [...] monitor. Assessment & Plan (11/19/2022 12:54 PM ACCOUNTING MACHINE OPERATOR): On Cymbalta 60 mg daily with benefit, will continue and monitor. Assessment & Plan (10/06/2022 10:19 AM ACCOUNTING MACHINE OPERATOR): On Cymbalta 60 mg daily with benefit, will continue and monitor. Assessment & Plan (08/31/2022 12:06 PM ACCOUNTING MACHINE OPERATOR): On Cymbalta 60 mg daily with benefit, will continue and monitor. Assessment & Plan (07/28/2022 8:35 AM ACCOUNTING MACHINE OPERATOR): On Cymbalta 60 mg daily with benefit, will continue and monitor. Assessment & Plan (06/30/2022 3:01 PM CDT): On Cymbalta 60 mg daily with benefit, will continue and monitor. Assessment & Plan (11/25/2021 2:38 PM ACCOUNTING MACHINE OPERATOR): Previously on Cymbalta 90 mg daily, sicne [...] needed. Assessment & Plan (11/05/2020 2:08 PM ACCOUNTING MACHINE OPERATOR): On Cymbalta 90 mg daily without adverse effect and with improvement in her widespread pain, will continue. Encouraged exercise as able. Assessment & Plan (09/03/2020 4:32 PM ACCOUNTING MACHINE OPERATOR): Remains on Cymbalta 60 mg daily which [...] exercise. Assessment & Plan (09/29/2019 2:38 PM ACCOUNTING MACHINE OPERATOR): Pt did not tolerate gabapentin due to side effects. Now feels well controlled with combination of Cymbalta and CBD. Will continue Cymbalta 60 mg daily. Recommend routine exercise. Follow up in 3 months or sooner as needed. Assessment & Plan (08/21/2019 4:23 PM ACCOUNTING MACHINE OPERATOR): Ongoing sensation of pain all over with [...] thickening. Assessment & Plan (11/09/2023 1:59 PM ACCOUNTING MACHINE OPERATOR): Over the last few years at times [...] pain. Assessment & Plan (10/19/2023 11:35 AM ACCOUNTING MACHINE OPERATOR): Hair thinning has improved since stopping leflunomide, [...] needed. Assessment & Plan (11/19/2022 3:05 PM ACCOUNTING MACHINE OPERATOR): Moderate cdai. Discussed multifactorial nature of fatigue, [...] needed. Assessment & Plan (10/06/2022 3:09 PM ACCOUNTING MACHINE OPERATOR): Discussed that while it is great that [...] weeks. Assessment & Plan (09/01/2022 2:31 PM ACCOUNTING MACHINE OPERATOR): High cdai. On methotrexate 15 mg po [...] glucose, cataracts, glaucoma, AVN, and osteoporosis with computer terminal operator use. Labs today. Plan for follow up in 4 weeks to reassess or sooner as needed. Assessment & Plan (07/28/2022 2:14 PM ACCOUNTING MACHINE OPERATOR): Moderate cdai. On methotrexate 10 mg po [...] needed. Assessment & Plan (11/25/2021 2:37 PM ACCOUNTING MACHINE OPERATOR): Repeat hand ultrasound in May compared to [...] glucose, cataracts, glaucoma, AVN, and osteoporosis with computer terminal operator use. Plan for follow up in [...] bid. Notes recent labs with PCP and antique clocks repairer, will request results but check CRP and [...] bid. Assessment & Plan (11/05/2020 2:07 PM ACCOUNTING MACHINE OPERATOR): Our prior workup revealed equivocal RF IgM, [...] needed. Assessment & Plan (09/03/2020 4:32 PM ACCOUNTING MACHINE OPERATOR): Our prior workup revealed equivocal RF IgM, [...] glucose, cataracts, glaucoma, AVN, and osteoporosis with computer terminal operator use. Plan for follow up in ~3-4 weeks to reassess, timing determined based upon when ultrasound is able to be completed. Assessment & Plan (09/29/2019 2:37 PM ACCOUNTING MACHINE OPERATOR): Our prior workup revealed equivocal RF IgM, [...] monitor. 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 Not on file Not o n file Obstetrics History Last Filed Vital Signs Vital Sign Reading Time Taken Comments Blood Pressure 124/90 11/09/2023 10:53 AM ACCOUNTING MACHINE OPERATOR Pulse 89 11/09/2023 10:53 AM ACCOUNTING MACHINE OPERATOR Temperature 36.7 C (98.1 F) 11/25/2021 1:11 PM ACCOUNTING MACHINE OPERATOR Respiratory Rate 15 2020 9:50 AM ACCOUNTING MACHINE OPERATOR Oxygen Saturation 97% 11/09/2023 10:53 AM ACCOUNTING MACHINE OPERATOR Inhaled Oxygen Concentration - - Weight 96 kg (211 lb 9.6 oz) 11/09/2023 10:53 AM ACCOUNTING MACHINE OPERATOR Height 157.5 cm (5' 2) 11/09/2023 10:53 AM ACCOUNTING MACHINE OPERATOR Body Mass Index 38.7 11/09/2023 10:53 AM ACCOUNTING MACHINE OPERATOR Plan of Treatment Health Maintenance Due Date [...] a test for HCV RNA (test code 04215) is suggested. For additional information please refer to http://education.Yasuu/faq/OON35j6 (This link is being provided for informational/ educational purposes only.) Blood specimen (specimen) 04/16/2020 2:31 PM CDT 04/16/2020 2:32 PM CDT [facility] MICROBIOLOGY - GENERA L ORDERABLES Final Result [employer] [address] [place] [address] from Last 3 Months or Most Recently Relevant to Health Maintenance Insurance [facility] [employer] CLAIMS Vocation CLAIMS [facility] CLAIMS Care Teams It Web Development Consultant Relationship Specialty Start Date End Date Chaim Miller PA [address] [place] [address] PCP - General Physician Loft Worker Head 06/25/22 [place] [address] [address] Physician Loft Worker Head Orthopedic Surgery 3/12/21 Joey Alvarenga MD [address] [facility] [address] [place] [address] Consulting Physician Rheumatology 10/19/23
--- OUTSIDE RECORDS SUMMARY | 2025-03-29 12:22 | XMS_ITS | Continuity of Care Document ---
Author Name [facility] Organization [facility] Care Team Providers Care Station Engineer Chief Name Role Phone [facility] Unavailable Unavailable Problems [...] Condition Per ER visit Sep 25 2007 [facility] EUSTACHIAN TUBE DYSFUNCTION Active Condition instructed on [...] 90 tab(s), 3 total refill(s ), Maintena are, Pharmacy : [facility] Oral (given by mouth) Ordered 5 [...] (EAR), SANDOZ, 7.5 ml DROP BTL Active [id number] 03/15/20 2 4 2023 7.5 Pharmac y [...] by mouth) Cancele d 02/09/20242023 30.0 0055C-[address] [place] [address] Maulik diclofenac sodium 75 mg oral delayed [...] total refill(s ), Maintena nce, Pharmacy : [facility] Oral (given by mouth) Discont inued 02/09/20242023 14.0 0055C-[address] [place] [address] DULoxetine 30 mg oral delayed release capsule 1 cap(s), Oral, Daily, for 1-2 wks then increase to 60mg. do not crush or chew, # 14 cap(s), 0 total refill(s ), Maintena [facility], Pharmacy : [facility] Oral (given by mouth) Discont inued 05/17/2024 2023 14.0 0055C-3 [facility] DULoxetine 30 mg oral delayed [...] 90 cap(s), 3 total refill(s ), Maintena are, Pharmacy : [facility] Oral (given by mouth) Ordered 2024 90.0 0055C-[address] [place] [address] DULoxetine 60 mg oral delayed release capsule 1 cap(s), Oral, Daily, do not crush or chew, # 90 cap(s), 3 total refill(s ), Maintena are, Pharmacy : [facility] Oral (given by mouth) Discont inued 12/07/20242024 90.0 0055C-[address] [place] [address] DULoxetine 60 mg oral delayed release capsule 1 cap(s), Oral, Daily, do not crush or chew, # 90 cap(s), 0 total refill(s ), [facility] Oral (given by mouth) Discont inued 05/30/2024 4 2023 90.0 0055C-3 [facility] DULoxetine 60 mg oral delayed release capsule DULoxeti ne 60 mg oral delayed release capsule Start Date: 05/07/20 Stop Date: 05/11/23 Status: Complete d Repeat number: 1 Complet ed 05/11/20232022 No Facilit y Access DULoxetine 60 mg oral delayed release capsule 1 cap(s), Oral, Daily, do not crush or chew, # 90 cap(s), 2 total refill(s ), Maintena nce, Pharmacy : [facility] Oral (given by mouth) Discont inued 10/31/2024 4 2024 90.0 0055C-3 [facility] [facility] [employer] [place] Flexeril 10 mg oral tablet See Instruct ions, 1 tab(s) Oral before bedtime. , # 90 tab(s), 0 total refill(s ), Acute, Pharmacy : [facility] Ordered 12/07/2025 5 2024 90.0 0055C-3 [address] [facility] [employer] [facility] [place] HYDROCODONE -ACETAMINOP HEN (HYDROCODON E/ACETAMINO PHEN), [...] mouth) Discont inued 05/17/20242023 90.0 0055C-3 75th [facility] Maulik lisinopril 10 mg oral tablet 1 tab(s), Oral, Daily, for blood pressure , # 90 tab(s), 3 total refill(s ), Mike [facility], Pharmacy : [facility] Oral (given by mouth) Ordered 5 2024 90.0 0055C-[address] [place] [address] Maulik lisinopril 10 mg oral tablet 1 tab(s), Oral, Daily, for blood pressure , # 90 tab(s), 3 total refill(s ), [facility], Pharmacy : [facility] Oral (given by mouth) Discont inued 10/31/2024 5 2024 90.0 0055C-[address] [place] [address] Maulik lisinopril 5 mg oral tablet lisinopr [...] oral gum 0 total refill(s ), Mike [facility] Ordered 2022 0055C-[address] [place] [address] Maulik naproxen 500 mg oral tablet naproxen 500 mg oral tablet Start Date: 10/17/20 Stop Date: 05/11/23 Status: Complete d Repeat number: 1 Complet ed 05/11/20232022 No Facilit y Access naproxen 500 mg oral tablet 1 tab(s), Oral, BID, # 20 tab(s), 0 total refill(s ), 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, 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, Pharmacy : [facility] Oral (given by mouth) Complet ed 08/05/2024 3 2023 20.0 0055C-[address] [place] [address] omeprazole 20 mg oral delayed release capsule 1 cap(s), Oral, Daily, 180 cap(s), 0 Refill(s ), # 90 cap(s), 1 total refill(s ), Mike [facility], Pharmacy : [facility] Oral (given by mouth) Ordered 5 2024 90.0 0055C-[address] [place] [address] omeprazole 20 mg oral delayed release capsule 180 cap(s), 0 Refill(s ), 0 total refill(s ), Soft Stop Discont inued 03/19/20252024 0055C-[address] [place] [address] PREDNISONE (prednisone ), 20 MG, TABLET, ORAL, NOVITIUM/AN I PH, 500 ea. BOTTLE Active [id number] 4 2023 10 Pharmac y Data Transac tion Service Facilit y pregabalin 25 mg oral capsule 1 cap(s), Oral, Daily, # 90 cap(s), 0 total refill(s ), [facility] Oral (given by mouth) Discont inued 03/19/2025 5 2024 90.0 0055C-[address] [place] [address] pregabalin 75 mg oral capsule pregabal in [...] ), Soft Stop Discont inued 05/17/20242023 0055C-[address] [place] [address] Maulik Vitamin B12 0 total refill(s ), Mainjessicaa are Ordered 2022 0055C-[address] [place] [address] Vitamin D2 1.25 mg (50,000 intl units) oral capsule 1.25 mg, Oral, every week, # 12 cap(s), 0 total refill(s ), Mike nce, 12 caps = 90-day supply, Pharmacy : [facility] Oral (given by mouth) Ordered 4 2023 12.0 5C-[address] [place], [place] [address]Diogo Willingham Allergies, Adverse Reactions, Alerts Combined list of allergies from Department of Defense and Veterans Affairs facilities. It does not include entries that were removed or entered in error. Substance Category Reaction Severity Reaction type Status Date Reported Comments Source [facility] Drug allergy (disorder) active 10/17/2007 375 [facility] [employer] ([facility]) Immunizations Combined list of available immunizations from the Department of Defense and Veterans Affairs facilities. Immunization Series Date Given Administered By Site Reaction Lot Number CVX Code Drug Bean Viner Status Comments Source tetanus, diphtheria, acellular pertu is 2022 [id number] 115 complet ed Result Comment: Manufactu rer: VERENICE(Glaxo ) [address] [place] [address] Maulik COVID-19, mRNA, LNP-S, PF, 30 mcg/0.3 mL dose, jeffery-sucrose 2021 [employer] [place] (PFR) Not Given COVID-19, mRNA, LNP-S, PF, 30 mcg/0.3 mL dose, jeffery-sucr ose [facility] SARS-CoV-2 mRNA(toziname tno-uhha-cij) vac 2021 [facility] ER 217 complet ed Result Comment: Route: Unknown Manufactu rer: OT (PFR) [address] [place] [address] Maulik COVID-19, mRNA, LNP-S, PF, 30 mcg/0.3 mL dose, jeffery-sucrose 2021 [facility] [place] (P[facility]) Not Given COVID-19, mRNA, LNP-S, PF, 30 mcg/0.3 mL dose, jeffery-sucr ose [facility] SARS-CoV-2 mRNA(toziname zrv-puou-qeg) vac 2021 [facility] 217 complet ed Result Comment: Route: Unknown Manufactu rer: [facility] (PFR) -[address] [place] [address] Maulik zoster vaccine recombinant 1 2020 Unknown, Provider [id number] [place] [address] (SKB) complet ed zoster vaccine recombina nt DoD zoster vaccine, inactivated 2020 D[facility]LENERBRUNN ER [id number] 187 complet ed Result Comment: Route: Unknown Manufactu rer: [facility] ([facility]) 0055C-3 75th [facility] Maulik zoster vaccine, inactivated 2020 zzLef t Arm [id number] 187 [employer] ne complet ed zoster vaccine, inactivat ed 05/02/21 Given Ambulat ory Pharmac y zoster vaccine recombinant 1 2020 Unknown, Provider [id number] [facility] ([facility]) complet ed zoster vaccine recombina nt DoD COVID-19, mRNA, LNP-S, PF, 30 mcg/0.3 mL dose 2020 [employer] [place] (PFR) Not Given COVID-19, mRNA, LNP-S, PF, 30 mcg/0.3 mL dose DoD COVID Vaccine Pfizer 2020 [facility]ENER[facility] ER 208 complet ed Result Comment: Route: Unknown Manufactu rer: [facility] (R) 0055C-[address] [place] [address] COVID-19, mRNA, LNP-S, PF, 30 mcg/0.3 mL dose 2020 [facility] [place] (PFR) Not Given COVID-19, mRNA, LNP-S, PF, 30 mcg/0.3 mL dose DoD COVID Vaccine Pfizer 2020 [facility]ENERBR[facility] ER 208 complet ed Result Comment: Route: Unknown Manufactu rer: [facility] ([facility]) 0055C-[address] [place] [address] tuberculin purified protein derivative 2016 zzLef t Arm [id number] 96 sanofi pasteur complet ed Patient Tolerance : Negative Ambulat ory Pharmac y tuberculin skin test; purified protein derivative solution, intradermal 1 2016 Unknown, Provider [id number] 96 Sanofi Pasteur ([facility]) complet ed tuberculi n skin test; purified protein derivativ e solution, intraderm al DoD tuberculin purified protein derivative 2015 zzLef t Arm [id number] 96 sanofi pasteur complet ed Patient Tolerance : Negative Ambulat ory Pharmac y tuberculin skin test; purified protein derivative solution, intradermal 1 2015 Unknown, Provider [id number] 96 Sanofi Pasteur ([facility]) complet ed tuberculi [...] Unknown Manufactu rer: Transcrib ed (TRS) 0055C-[address] [place] [address] hepatitis B adult vaccine 2014 TRANSCR IBED 43 complet ed hepatitis B adult vaccine 05/31/15 Given Ambulat ory Pharmac y hepatitis B vaccine, adult dosage 2 2014 Unknown, Provider 43 Transcribed (TRS) complet ed hepatitis B vaccine, adult dosage DoD HepB, Adult 2014 DARLENERBRUNN ER TRANSCR IBED 43 complet ed Result Comment: Route: Unknown Manufactu rer: Transcrib ed (TRS) 0055C-[address] [place] [address] hepatitis B adult vaccine 2014 TRANSCR IBED 43 complet ed hepatitis B adult vaccine 04/16/15 Given Ambulat ory Pharmac y hepatitis B vaccine, adult dosage 1 2014 Unknown, Provider 43 Transcribed (TRS) complet ed hepatitis B vaccine, adult dosage DoD HepB, Adult 2014 DARLENERBRUNN ER TRANSCR IBED 43 complet ed Result Comment: Route: Unknown Manufactu rer: Transcrib ed (TRS) 0055C-[address] [place] [address] tetanus, diphtheria, acellular pertu is 2012 Petar Arm [id number] 115 [employer] ne complet ed tetanus, diphtheri a, acellular pertussis 01/23/13 Given Ambulat ory Pharmac y tetanus toxoid, reduced diphtheria toxoid, and acellular pertu is vaccine, adsorbed 1 2012 Unknown, Provider [id number] 4BA [facility] complet ed tetanus toxoid, reduced diphtheri [...] gy Platelets 277 x10^3/mc L 150 - [id number] 02/21 N 0055A-375 MED[facility]-Sc javan Hematolo gy [...] High Blood Cholesterol : >/= 240 mg/dL MEDGRP-Ms javan Chemistr y TSH 2.440 mIU/L 0.270 [...] see the Epi Lab Guide at: [email or web address] [email or web address] x 5600A-USA FSAM EPILAB [...] 0.7103 02/21 N [facility]-Sc javan Hematolo gy Hemphill Absolute 0.5 x10^3/mc L 0.2 - 0.8103 02/21 N MEDGRP-Ms javan Chemistr y Vitamin D 25 OH [...] n, and other findings. Testing performed by [employer] ce. 5600A-USA FSAM EPILAB Chemistr y LDL/HDL 3 05/24 MED[facility]-Ms javan Chemistr y Triglyceri araceli 121 mg/dL [...] and its performance characteris tics determined by [facility], [facility]. Vaginal source has not been cleared or approved by the U. S. Food and Drug Administrat [employer]. This modified vaginal specimen HPV test is [...] or methodology contact Molecular Department at or [phone]. Unknown Organizat [facility] AP Specimen s HPV Genotype 18 Negative [...] and its performance characteris tics determined by [facility], [facility]. Vaginal source has not been cleared or approved by the U. S. Food and Drug Administrat [employer]. This modified vaginal specimen HPV test is [...] or methodology contact Molecular Department at or [phone]. Unknown Organizat ion AP Specimen s HPV [...] and its performance characteris tics determined by [facility], Molecular Diagnostics [facility]. Vaginal source has not been cleared or approved by the U. S. Food and Drug Administrat [employer]. This modified vaginal specimen HPV test is [...] process or methodology contact Molecular Department at [phone] or [phone]. 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 [address] Cytology Gynecolo gic Report Patient: Tom Aguayo Specimen #: [id number] [facility] ID:: [id number] Encounte r #: [id number] Taken: 14:42 /Age: 5 8 (Age: [...] Out Specimen # Interpre tation 05/05/20 21 [id number] Negative for Intraepi thlial Lesion or Malignan cy 06/23/20 18 [id number] 956 Negative for Intraepi thlial Lesion or Malignan cy 11/25/19 17 [id number] 037 NEGATIVE 08/05/20 15 [id number] 903 EPITHELI AL CELL ABNORMAL ITIES 04/08/20 09 [id number] 5044 NEGATIVE CPT Codes: A; 76049 The Pap test is a screenin g test for precurso rs of squamous cell carcinom a with an irreduci ble false negative rate of around 5%. It is not designed to detect glandula r lesions. A negative test does not ensure that no disease is present. 05/17 0055C-375 th [facility]Sc javan AP Specimen s AP Surgical Pathology Patient: Tom Aguayo Specimen #: [id number] Patholog ist: Juan Antonio Timomns DO, [employer], [employer], Accessio n: 05/25/2024 [facility] DEPARTME NT OF PATHOLOG Y [address] [place] [address] Surgical Patholog y Report Patient: Tom Aguayo Specimen #: [id number] [facility] ID:: [id number] Encounte r #: [id number] Taken: 14:25 /Age: 5 8 (Age: [...] N/A . Total fixation time: N/A . [facility] CPT Codes: A; 12546 05/17 0055C-375 th MED[facility]-Sc javan Vital Signs [...] ADM Date DC Date Status Disposition Source [address] [place] [address] Maulik AUGUSTE ([facility]Fam veronica Practice Non-GME FHI2) OUTPATIENT [id number] left shoulde r pain for over 2 months CAMPBELL SNEED 07/15 Released w/o Limitations [address] [place] [address] Maulik AUGUSTE ([facility])(F amily Practic e Non-GME FHI2) [address] [place] [address] Maulik B [facility] Non-GME FHI1) OUTPATIENT [id number] annual pap smear SAM DWIGHT P 07/22 Released w/o Limitations [address] [place] [address] Maulik B [facility])(F amily Practic e Non-GME FHI1) [address] [place], [place] [address]B [facility] Non-GME FHI1) TELE CONSULT [id number] mum info req- PRAETEK Nicole 11/[address] [place] [address])(F amily Practic e Non-GME FHI1) [address] [place], [place] [address]B [facility] Non-GME FHI2) OUTPATIENT [id number] LOGAN and Chronic Cough H#[id number] JUDI RODRIGEZ 03/17 Released w/o Limitations [address] [place] [address])(F amily Practic e Non-GME FHI2) [address] [place] [address])(Opt ometry) OUTPATIENT [id number] eye exam SANTOS CORTEZ 03/24 Released w/o Limitations [address] [place] [address])(O ptometr y) [address] [place] [address])([facility] Non-GME FHI2) OUTPATIENT [id number] cold x 2 wks chest congest .clogge d ear.eye s crusted YOHAN MCGINNIS 09/06 Released w/o Limitations [address] [place] [address])(F amily Practic e Non-GME FHI2) [address] [place] [address])([facility] Non-GME FHI1) TELE CONSULT [id number] call back - YOHAN Larsen 09/[address] [place] [address])(F amily Practic e Non-GME FHI1) [address] [place], [place] [address]B [facility])([facility] Practice Non-GME FHI2) OUTPATIENT [id number] RIGHT EAR ACHE AND SORE THROAT ROSE SUN 09/28 Released w/o Limitations [address] [place], [place] [address]B [facility])(F amily Practic e Non-GME FHI2) [facility] [employer] ([facility])(Fam veronica Practice Non-GME FHI2) OUTPATIENT [id number] chest cold and dry cough IRON SYKES 10/17 Released w/o Limitations [facility] [employer] ([facility])(F amily Practic e Non-GME FHI2) [facility] Medical [facility] [employer] ([facility])(Breakfast Supervisor ecology) OUTPATIENT [id number] annual pap YOHAN BELL 04/02 Released w/o Limitations [facility] [employer] ([facility])(G ynecolo gy) [facility] [employer] ([facility])(Ob/ Breakfast Supervisor) TELE CONSULT [id number] YOHAN BELL 04/[address] [place] [address] [employer] ([facility])(O b/Breakfast Supervisor) [facility] Medical [facility] [employer] ([facility])(Sco tt [facility] Team 4) OUTPATIENT [id number] spot nose - [phone] YOHAN MCGINNIS 07/03 Released w/o Limitations [facility] [employer] ([facility])(S [facility] Team 4) [address] [place] [address] [employer] ([facility])(Rosalino matology) OUTPATIENT [id number] HYPERTE NSION (SYSTEM IC) MARÍA HAGAN 07/04 Released w/o Limitations [address] [place] [address] [employer] ([facility])(D ermatol ogy) [facility] Medical [facility] [employer] ([facility])(Ob/ Breakfast Supervisor) TELE CONSULT [id number] Lipid results VICKI GARCIA 07/05 [facility] [employer] ([facility])(O b/Breakfast Supervisor) [facility] [employer] ([facility])(Sco tt [facility] Team 4) OUTPATIENT [id number] f/u labs and BP YOHAN MCGINNIS 07/24 Released w/o Limitations [facility] [employer] ([facility])(S [facility] Team 4) [address] [place] [address] [employer] ([facility])(Car diology (MTF)) OUTPATIENT [id number] EKG LIPOFFSUSANNA I 07/29 Released w/o Limitations [facility] [employer] ([facility])(C ardiolo gy (MTF)) [facility] [employer] ([facility])([facility] Team 4) TELE CONSULT [id number] Lab f/u CATHERINEHORACIOLY R 08/[address] [place] [address] Group [employer] NIEVESB ([facility])([facility] Team 4) [address] [place] [address] [employer] ([facility])([facility] Team 4) OUTPATIENT [id number] rt arm pain FRANCISTANESHA Otis 09/02 Released w/o Limitations [facility] Group [employer] NIEVESB ([facility])([facility] Team 4) [address] [place] [address] [employer] ([facility])([facility] Team 4) TELE CONSULT [id number] rad f/u CATHERINE YOHAN R 10/[address] [place] [address] Group [employer] NIEVESB ([facility])([facility] Team [address]) [address] [place] [address] Maulik NIEVESB [facility])([facility] Team 4) TELE CONSULT [id number] Tests Results YOHAN MCGINNIS 10/[address] [place] [address] Maulik NIEVESB ([facility])([facility] Team 4) [address] [place] [address] Maulik NIEVESB ([facility])([facility] Team 4) OUTPATIENT [id number] 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 cycles [phone] YOHAN MCGINNIS 12/04 Released w/o Limitations [address] [place] [address] Maulik NIEVESB ([facility])([facility] Team [address]) [address] [place] [address] Maulik PICKETTB [facility])(Fam veronica Med Tm B Non-AD BCC) TELE CONSULT [id number] Audio notes / Lab results YOHAN MCGINNIS 12/[address] [place] [address] Group [employer] PICKETTB ([facility])(F amily Med Tm B Non-AD BCC) [facility] [employer] ([facility])(Breakfast Supervisor ecology) OUTPATIENT [id number] DYSFUNC TIONAL UTERINE BLEEDIN DEENA DONAHUE 01/07 Released w/o Limitations [address] [place] [address] Group [employer] ([facility])(G ynecolo gy) [facility] Medical [facility] [employer] ([facility])(Breakfast Supervisor ecology) OUTPATIENT [id number] pelvic pain DEENA ESTRADA 01/10 Released w/o Limitations [address] [place] [address] [employer] ([facility])(G ynecolo gy) [facility] Medical [facility] [employer] ([facility])(Ob/ Breakfast Supervisor) TELE CONSULT [id number] Biiosy results DEENA ESTRADA 01/[address] [place] [address] [employer] ([facility])(O b/Breakfast Supervisor) [address] [place] [address] [employer] ([facility])(Ob/ Breakfast Supervisor) TELE CONSULT [id number] test results DEENA ESTRADA 01/[address] [place] [address] [employer] ([facility])(O b/Breakfast Supervisor) [address] [place] [address] [employer] ([facility])(Ob/ Breakfast Supervisor) TELE CONSULT [id number] Questio ns about surgery DEENA ESTRADA 02/[address] [place] [address] [employer] ([facility])(O b/Breakfast Supervisor) [address] [place] [address] [employer] ([facility])(Breakfast Supervisor ecology) TELE CONSULT [id number] surgery date DEENA ESTRADA 02/[address] [place] [address] Maulik P[employer]TB ([facility])(G ynecolo gy) [address] [place] [address] [employer]ik P[employer] ([facility])(Breakfast Supervisor ecology) TELE CONSULT [id number] spottin g/disch arge after Ablatio n DEENA ESTRADA 04/[address] [place] [address] [employer]ulik PICKETTB ([facility])(G ynecolo gy) [address] [place] [address] [employer] [facility]War rior Op Med Cln Tm A Ad) OUTPATIENT [id number] bump on back of right shoulde r x 5 months [phone] JOELLE FRANCISCO 01/25 Released w/o Limitations [address] [place] [address] [employer] ([facility])(W arrior Op Med Cln Tm A Ad) [address] [place] [address] [employer] [facility])(Opt ometry) OUTPATIENT [id number] rt exam SANTOS CORTEZ 09/16 Released w/o Limitations 33 [place] [address] [employer] ([facility]O ptometr y) [address] [place] [address] [employer] [facility]Fam veronica Med Tm B Non-AD BCC) TELE CONSULT [id number] Notes Entered by: JEREMY MACE 28 Nov 2012 1604 ------- ------- ------- ------- -- public policy analyst JEREMY Morrison 11/[address] [place] [address])(F amily Med Tm B Non-AD BCC) [address] [place] [address])(War rior Op Med Cln Tm A Ad) TELE CONSULT [id number] Notes Entered by: CALOS DSOUZA 20 Dec 2012 0825 ------- ------- ------- ------- -- Referra l for [facility] needs correct ed VERENICE Wharton 12/[address] [place] [address])(W arrior Op Med Cln Tm A Ad) [address] [place] [address])(Opt ometry) OUTPATIENT [id number] ROUTINE JUAN BERGER 11/07 Released w/o Limitations [address] [place] [address])(O ptometr y) [address] [place] [address])(Fam veronica Med Tm B Non-AD BCC) TELE CONSULT [id number] Notes Entered by: CALOS DSOUZA 21 Nov 2013 1103 ------- ------- ------- ------- -- Sx ear pain Pierce ext [phone] VERENICE CAMPOS 11/[address] [place] [address] [employer] [facility])(F amily Med Tm B Non-AD BCC) [address] [place] [address])(Fam veronica Med Tm B Non-AD BCC) TELE CONSULT [id number] Notes Entered by: MANDI YANES 22 Nov 2013 0809 ------- ------- ------- ------- -- Sx - ear pain - Pierce - [id number] VERENICE Baker 11/[address] [place] [address])(F amily Med Tm B Non-AD BCC) [address] [place] [address])(Sco tt [facility] Team 3) OUTPATIENT [id number] bilater al ear pain ALECIA CRUZ S 11/24 Released w/o Limitations [employer] ([facility])(S [facility] Team 3) [facility] [employer] ([facility])(War rior Op Med Cln Tm A Ad) OUTPATIENT [id number] Notes Entered by: MARCOS LINTON 30 Nov 2013 0826 ------- ------- ------- ------- -- 09/24 BP check PIERRE SUAREZ 11/30 Released w/o Limitations [employer] ([facility])(W arrior Op Med Cln Tm A Ad) [facility] [employer] NIEVESB ([facility])([facility] Team 3) OUTPATIENT [id number] F/U for BP ALECIA CRUZ S 12/01 Released w/o Limitations [facility] [employer] ([facility])([facility] Team 3) [facility] [employer] ([facility])([facility] Team 3) OUTPATIENT [id number] BP f/u ALECIA CRUZ S 12/15 Released w/o Limitations [employer] ([facility])(S [facility] Team 3) [facility] [employer] ([facility])(Fam veronica Med Tm B Non-AD BCC) OUTPATIENT [id number] leg pain - [id number] PIERRE SUAREZ 03/07 Released w/o Limitations [employer] ([facility])(F amily Med Tm B Non-AD BCC) [facility] [employer] ([facility])(Fam veronica Med Tm B Non-AD BCC) OUTPATIENT [id number] pain in both knees x 3 mths//6 44.2555 PIERRE SUAREZ 07/13 Released w/o Limitations [employer] ([facility])(F amily Med Tm B Non-AD BCC) [facility] [employer] ([facility])(Fam veronica Med Tm B Non-AD BCC) TELE CONSULT [id number] Notes Entered by: ADELITA US 19 Jul 2014 1132 ------- ------- ------- ------- -- Questio ns concern ing medicat ion for pain/ Erick / [phone] Ex 7051 until 1:30 PIERRE SUAREZ 07/[address] [place] [address] [employer] ([facility])(F amily Med Tm B Non-AD BCC) [address] [place] [address] [employer] ([facility])(Fam veronica Med Tm B Non-AD BCC) OUTPATIENT [id number] knee pain worse; medicat ion not helping ; pain level 04/29 today [id number] IRON GARCIA 08/01 Released w/o Limitations [address] [place] [address] [employer] ([facility])(F amily Med Tm B Non-AD BCC) [address] [place] [address] [employer] ([facility])(Fam veronica Med Tm B Non-AD BCC) OUTPATIENT [id number] Request ing mahamed refer l to pain managem ent - PIERRE SUAREZ 09/19 Released w/o Limitations [address] [place] [address] [employer] ([facility])(F amily Med Tm B Non-AD BCC) [address] [place] [address] [employer] ([facility])([facility] veronica Med Tm B Non-AD BCC) TELE CONSULT [id number] Notes Entered by: NASRIN ROJAS 19 Oct 201422 ------- ------- ------- ------- -- Network Results - PAIN MANAGEM ENT- 10/04/14 ALECIA CRUZ 10/[address] [place] [address] [employer] ([facility])(F amily Med Tm B Non-AD BCC) [address] [place] [address] [employer] [facility] veronica Med Tm B Non-AD BCC) TELE CONSULT [id number] Notes Entered by: NASRIN ROJAS 11 Jan 201536 ------- ------- ------- ------- -- Network Results - PAIN MANAGEM ENT- Sep - Oct - Nov PIERRE SUAREZ 01/[address] [place] [address] [employer] ([facility])(F amily Med Tm B Non-AD BCC) [address] [place] [address] [employer]ik [facility])(Breakfast Supervisor ecology) OUTPATIENT [id number] [facility] [id number] JANINA LUCAS 07/29 Released w/o Limitations [address] [place] [address])(G ynecolo gy) [address] [place] [address])(Breakfast Supervisor ecology) TELE CONSULT [id number] Notes Entered by: SHOLA LUCAS 06 Aug 2015 0959 ------- ------- ------- ------- -- Pap results NOEL IRIZARRY 08/[address] [place] [address])(G yconcepcióncovlad gy) [address] [place] [address])(Breakfast Supervisor ecology) TELE CONSULT [id number] Notes Entered by: KENNETH MALIK 14 Aug 2015 1347 ------- ------- ------- ------- -- Scanned zhang hays into MANJEET JANINA LUCAS 08/[address] [place] [address])(G ynecolo gy) [address] [place] [address])(Breakfast Supervisor ecology) TELE CONSULT [id number] Notes Entered by: NOEL IRIZARRY 26 Aug 2015 0723 ------- ------- ------- ------- -- appt JANINA LUCAS 08/[address] [place] [address])(G ynecovlad gy) [address] [place] [address])(Breakfast Supervisor ecology) OUTPATIENT [id number] Colpo/6 [id number] CRISTINA REYES 09/24 Released w/o Limitations [address] [place] [address])(G ynecolo gy) [address] [place] [address])([facility] veronica Med Tm B Non-AD BCC) OUTPATIENT [id number] Notes Entered by: WILL BOYD 24 Sep 2015 1613 ------- ------- ------- ------- -- Blood pressur e PIERRE Tao 09/24 Released w/o Limitations [address] [place] [address] [employer]ik [facility]F amily Med Tm B Non-AD BCC) [address] [place] [address] [employer] [facility])(Breakfast Supervisor ecology) TELE CONSULT [id number] Notes Entered by: NOEL IRIZARRY 04 Oct 2015 1453 ------- ------- ------- ------- -- Test results NOEL IRIZARRY 10/[address] [place] [address] [employer] ([facility])(G ynecolo gy) [address] [place] [address] [employer]ulik [facility])(Fam veronica Med Tm B Non-AD BCC) TELE CONSULT [id number] Notes Entered by: RADHA REYES 02 Dec 2015 1545 ------- ------- ------- ------- -- SX - Elevate belia RODAS / Erick / RIGOBERTO MORALES 12/[address] [place] [address] [employer] [facility])(F amily Med Tm B Non-AD BCC) [address] [place] [address] [employer]ik [facility])(Fam veronica Med Tm B Non-AD BCC) OUTPATIENT [id number] HTN with side effects (LOGAN, blurry vision) . STANISLAV PRUITT 12/01 Released w/o Limitations [address] [place] [address] [employer] [facility])(F amily Med Tm B Non-AD BCC) [address] [place] [address] [employer] [facility])(Fam veronica Med Tm B Non-AD BCC) TELE CONSULT [id number] Notes Entered by: DOMINIQUE MILLER 04 Dec 2015 0710 ------- ------- ------- ------- -- Lab results LASHAY HERNANDEZ 12/03 Referred for Appointment [address] [place] [address] Maulik [facility] ([facility])(F amily Med Tm B Non-AD BCC) [address] [place] [address] [employer]ulik [place] ([facility])(Fam veronica Med Tm B Non-AD BCC) TELE CONSULT [id number] Notes Entered by: RADHA REYES 05 Dec 2015 1510 ------- ------- ------- ------- -- SX - Multipl e Issues / Pierce / / LASHAY HERNANDEZ 12/04 Referred for Appointment [address] [place] [address])(F amily Med Tm B Non-AD BCC) [address] [place] [address])(Fam veronica Med Tm B Non-AD BCC) TELE CONSULT [id number] Notes Entered by: NI HERNANDEZ 04 Feb 2016 1337 ------- ------- ------- ------- -- Switch Cardiol ogist/r efill medicat ion//[phone]//FILIPE Fontanez 02/03 Referred for Appointment [address] [place] [address])(F amily Med Tm B Non-AD BCC) [address] [place] [address])(Med ication Refill Clinic) TELE CONSULT [id number] Notes Entered by: Denisha MCGHEE 11 Feb 2016 0848 ------- ------- ------- ------- -- Med Bridge / Erick / LASHAY HERNANDEZ 02/10 Referred for Appointment [address] [place] [address])(Liz edlizabeth on Refill Clinic) [address] [place] [address])(Fam veronica Med Tm B Non-AD BCC) OUTPATIENT [id number] Medicat ion concern JANES KELLEY 03/04 Released w/o Limitations [address] [place] [address])(F amily Med Tm B Non-AD BCC) [address] [place] [address])(Fam veronica Med Tm B Non-AD BCC) TELE CONSULT [id number] Notes Entered by: VALENTIN LINN 30 Mar 2016 1559 ------- ------- ------- ------- -- SX- FOOT PAIN/ ERICK / LASHAY HERNANDEZ 03/30 Referred for Appointment [address] [place] [address] Group [employer] [facility])(F amily Med Tm B Non-AD BCC) [address] [place] [address] Maulik [facility])(Fam veronica Med Tm B Non-AD BCC) TELE CONSULT [id number] Notes Entered by: Elizabet HARDING 02 Apr 2016 0932 ------- ------- ------- ------- -- [facility] follow up *sympto ms persist * / Erick / tld LASHAY HERNANDEZ 04/02 Referred for Appointment [address] [place] [address])(F amily Med Tm B Non-AD BCC) [address] [place] [address])(Fam veronica Med Tm B Non-AD BCC) OUTPATIENT [id number] f/u [facility] R foot burning IRON GARCIA 04/06 Released w/o Limitations [address] [place] [address] Maulik [facility])(F amily Med Tm B Non-AD BCC) [address] [place] [address] Maulik [facility])(Fam veronica Med Tm B Non-AD BCC) TELE CONSULT [id number] Notes Entered by: CAMPBELL CHRISTOPHER 20 Apr 2016 1230 ------- ------- ------- ------- -- Network results Urgent Care 016 JANES BOWSER 04/[address] [place] [address] Maulik [facility])(F amily Med Tm B Non-AD BCC) [address] [place] [address] Ma[employer]ik [facility])(Med ication Refill Clinic) TELE CONSULT [id number] Notes Entered by: TILA PÉREZ 10 Jun 2016 09 ------- ------- ------- ------- -- Med renewal /Satish e/ /MONA Ibarra 06/10 Referred for Appointment [address] [place] [address] [facility]Liz yen on Ref[facility]) [address] [place] [address] Maulik [facility])(Fam veronica Med Tm B Non-AD BCC) OUTPATIENT [id number] JANES KELLEYY 06/26 Released w/o Limitations [address] [place] [address] Maulik [facility])(F amily Med Tm B Non-AD BCC) [address] [place] [address] [employer]ik [facility])(Fam veronica Med Tm B Non-AD BCC) OUTPATIENT [id number] work physicdenisha l 975.587 7 SAM FOSTER 07/08 Released w/o Limitations [address] [place] [address] Maulik [facility])(F amily Med Tm B Non-AD BCC) [address] [place] [address] Maulik [facility])(Fam veronica Med Tm B Non-AD BCC) TELE CONSULT [id number] Notes Entered by: Elizabet HARDING 17 Jul 2016 1145 ------- ------- ------- ------- -- Referra l request / Pierce / or LASHAY Tellez 07/17 Other Not Elsewhere Classified [address] [place] [address] Maulik [facility])(F amily Med Tm B Non-AD BCC) [address] [place] [address] Maulik [facility])(Fam veronica Med Tm B Non-AD BCC) TELE CONSULT [id number] Notes Entered by: PILAR JAEGER 20 Jul 2016 0824 ------- ------- ------- ------- -- Network Results -CARDIO LOGY 12/30/15 SDG STANISLAV PRUITT 07/[address] [place] [address] Maulik [facility])(F amily Med Tm B Non-AD BCC) [address] [place] [address] Maulik [facility])(Fam veronica Med Tm B Non-AD BCC) TELE CONSULT [id number] Notes Entered by: BRETT GLOVER 07 Sep 2016 1008 ------- ------- ------- ------- -- Referra l Renewal Request /Satish e/975.5 877 ANA CHICAS Jayro 09/[address] [place] [address] Maulik [facility])(F amily Med Tm B Non-AD BCC) [address] [place] [address])(Fam veronica Med Tm B Non-AD BCC) TELE CONSULT [id number] Notes Entered by: PILAR JAEGER 13 Oct 2016 1037 ------- ------- ------- ------- -- Network Results -PAIN MANAGEM ENT 6 PIERRE AVILES 10/[address] [place] [address] Maulik [facility])(F amily Med Tm B Non-AD BCC) [address] [place] [address])(Fam veronica Med Tm B Non-AD BCC) TELE CONSULT [id number] Notes Entered by: PILAR JAEGER 15 Oct 2016 1341 ------- ------- ------- ------- -- Network Results -PAIN MANAGEM ENT 10/05/16 PIERRE AVILES 10/[address] [place] [address] Maulik [facility])(F amily Med Tm B Non-AD BCC) [address] [place] [address])(Fam veronica Med Tm B Non-AD BCC) TELE CONSULT [id number] Notes Entered by: ELIO KAY 16 Oct 2016 1040 ------- ------- ------- ------- -- Network results Anesthe arisa/Louie n MGT. 09/28/16 PIERRE BENOIT 10/[address] [place] [address])(F amily Med Tm B Non-AD BCC) [address] [place] [address])(Fam veronica Med Tm B Non-AD BCC) TELE CONSULT [id number] Notes Entered by: PILAR JAEGER 20 Oct 2016 1306 ------- ------- ------- ------- -- Network Results -PAIN MANAGEM ENT 10/12/16 PIERRE AVILES 10/[address] [place] [address] Maulik [facility]F amily Med Tm B Non-AD BCC) [address] [place] [address] Maulik [facility])(Fam veronica Med Tm B Non-AD BCC) TELE CONSULT [id number] Notes Entered by: PILAR JAEGER 27 Oct 2016 1213 ------- ------- ------- ------- -- Network Results -PAIN MANAGEM ENT 10/19/16 PIERRE AVILES 10/[address] [place] [address] Maulik [facility])(F amily Med Tm B Non-AD BCC) [address] [place] [address] Maulik NIEVESGarret [facility])(Fam veronica Med Tm B Non-AD BCC) TELE CONSULT [id number] Notes Entered by: PILAR JAEGER 06 Nov 2016 1337 ------- ------- ------- ------- -- Network Results -PAIN MANAGEM ENT 10/26/16 and 11/02/16 PIERRE AVILES 11/[address] [place] [address] Maulik [facility]EVESGarret [facility])(F amily Med Tm B Non-AD BCC) [address] [place] [address] Maulik [employer]ESGarret [facility])(Breakfast Supervisor ecology) OUTPATIENT [id number] dysplas ia repeat pap and HPV JANINA LUCAS 11/16 Released w/o Limitations [address] [place] [address] Maulik [employer]Gar[facility])(G yconcepcióncovlad gy) [address] [place] [address] Maulik [employer]ESGar[employer] [facility])(Fam veronica Med Tm B Non-AD BCC) TELE CONSULT [id number] Notes Entered by: PILAR JAEGER 16 Nov 2016 1459 ------- ------- ------- ------- -- Network Results -PAIN MANAGEM ENT 11/09/16 PIERRE AVILES 11/[address] [place] [address] Maulik [facility])(F amily Med Tm B Non-AD BCC) [address] [place] [address] Maulik [facility])(Fam veronica Med Tm B Non-AD BCC) OUTPATIENT [id number] Med renewal and routine exam SAM FOSTER 12/03 Released w/o Limitations [address] [place] [address])(F amily Med Tm B Non-AD BCC) [address] [place] [address])(Breakfast Supervisor ecology) TELE CONSULT [id number] Notes Entered by: SHOLA LUCAS 07 Dec 2016 1624 ------- ------- ------- ------- -- Test results KOSTAS DAHL 12/[address] [place] [address])(Goyo ynecolo gy) [address] [place] [address])(Car e Coordinat ion Clinic) TELE CONSULT [id number] Notes Entered by: SWAPNA ORR 19 Jan 2017 1637 ------- ------- ------- ------- -- Assist with care [facility] SWAPNA ORR 01/[address] [place] [address])(C are Coordin [facility]) [address] [place] [address])(Corbin e [facility] t) TELE CONSULT [id number] Notes Entered by: SWAPNA ORR 27 Jan 2017 1139 ------- ------- ------- ------- -- Second opinion SWAPNA ORR 01/[address] [place] [address])(C ase Managem ent) [address] [place] [address])(War rior Op Med Cln Tm A Ad) TELE CONSULT [id number] Notes Entered by: MURALI VARELA 27 Jan 2017 1533 ------- ------- ------- ------- -- Network results Endocri nology 7 PIERRE MACE 01/[address] [place] [address])(W arrior Op Med Cln Tm A Ad) [address] [place] [address])(Car e [employer] [facility]) TELE CONSULT [id number] Notes Entered by: SWAPNA ORR 09 Feb 2017 1218 ------- ------- ------- ------- -- Update SWAPNA ORR 02/[address] [place] [address] Maulik P[employer]ETT ([facility])(C are Coordin at[facility]) [address] [place] [address] Maulik [facility])(Fam veronica Med Tm B Non-AD BCC) TELE CONSULT [id number] Notes Entered by: CONI CHRISTOPHER 19 Feb 2017 1142 ------- ------- ------- ------- -- Network Results Surgery 7 PIERRE CRUZ 02/[address] [place] [address] [facility]F amily Med Tm B Non-AD BCC) [address] [place] [address] Maulik [facility])(Car [employer] [facility]) TELE CONSULT [id number] Notes Entered by: SWAPNA ORR 03 Mar 2017 1101 ------- ------- ------- ------- -- Status update SWAPNA ORR 03/[address] [place] [address] [facility]C are Coordin at[facility]) [address] [place] [address] [facility]Fam veronica Med Tm B Non-AD BCC) OUTPATIENT [id number] Joint Pain (off/on ), getting worse, 975.587 7 PIERRE SUAREZ 03/10 Released w/o Limitations [address] [place] [address] Maulik [facility])(F amily Med Tm B Non-AD BCC) [address] [place] [address] Maulik [facility])(Fam veronica Med Tm B Non-AD BCC) TELE CONSULT [id number] Notes Entered by: PILAR JAEGER 25 Mar 2017 1048 ------- ------- ------- ------- -- Network Results -SURGIC AL ONCOLOG Y 03/12/17 PIERRE AVILES 03/[address] [place] [address])(F amily Med Tm B Non-AD BCC) [address] [place] [address])(Fam veronica Med Tm B Non-AD BCC) TELE CONSULT [id number] Notes Entered by: JAN LINDSAY 30 Mar 2017 0904 ------- ------- ------- ------- -- Lab test results - Erick - [facility] TOM TALLEY 03/[address] [place] [address])(F amily Med Tm B Non-AD BCC) [address] [place] [address])(Fam veronica Med Tm B Non-AD BCC) TELE CONSULT [id number] Notes Entered by: MURALI VARELA 10 May 2017 1625 ------- ------- ------- ------- -- Network results Hematol ogy/Onc ology 7 PIERRE MACE 05/[address] [place] [address])(F amily Med Tm B Non-AD BCC) [address] [place] [address])(Fam veronica Med Tm B Non-AD BCC) TELE CONSULT [id number] Notes Entered by: PILAR JAEGER 12 May 2017 1234 ------- ------- ------- ------- -- Network Results -SURGIC AL ONCOLOG Y 01/27/17 PIERRE AVILES 05/[address] [place] [address] Maulik [facility])(F amily Med Tm B Non-AD BCC) [address] [place] [address])(Fam veronica Med Tm B Non-AD BCC) TELE CONSULT [id number] Notes Entered by: MURALI VARELA 12 May 2017 1448 ------- ------- ------- ------- -- Network Results Emergen cy Room 7 PIERRE MACE 05/[address] [place] [address])(F amily Med Tm B Non-AD BCC) [address] [place] [address] Maulik [facility])(Fam veronica Med Tm B Non-AD BCC) OUTPATIENT [id number] F/U Lab Results and referra ls [id number] PIERRE SUAREZ 06/07 Released w/o Limitations [address] [place] [address] Maulik [facility])(F amily Med Tm B Non-AD BCC) [address] [place] [address] Maulik [facility])(Fam veronica Med Tm B Non-AD BCC) OUTPATIENT [id number] Concern of hard bump on nose/te nder to touch / tongue is green [id number] ALEXIS ELIZONDO 09/22 Released w/o Limitations [address] [place] [address] Group Ma[employer] [facility])(F amily Med Tm B Non-AD BCC) [address] [place] [address] Maulik [facility])(Fam veronica Med Tm B Non-AD BCC) TELE CONSULT [id number] Notes Entered by: Angeline JON 10 Nov 2017 1455 ------- ------- ------- ------- -- Network Results Ent/Sle ep Medicin e 8 NB PIERRE SUAREZ 11/[address] [place] [address] Maulik [facility])(F amily Med Tm B Non-AD BCC) [address] [place] [address] Maulik [facility])(War rior Op Med Cln Tm A Ad) OUTPATIENT [id number] Extreme Fatigue , Hip and leg weakens s, appetit e loss, dizzine ss618.9 75.5877 DENICE MORALES 01/13 Released w/o Limitations [address] [place] [address] Maulik [facility])(W arrior Op Med Cln Tm A Ad) [address] [place] [address] Maulik [facility])(War rior Op Med Cln Tm A Ad) TELE CONSULT [id number] Notes Entered by: Liz VELIZ 21 Jan 2018 0841 ------- ------- ------- ------- -- Pt needs a referra l to janey balderas Dermato pamela@ [phone] to DONTRELLEDU Wallace 01/[address] [place] [address] Maulik [facility])(W arrior Op Med Cln Tm A Ad) [address] [place] [address] Maulik [facility])(War rior Op Med Cln Tm A Ad) TELE CONSULT [id number] Notes Entered by: TILA PÉREZ 21 Jan 2018 1019 ------- ------- ------- ------- -- Med Renewal /Keira [facility]/975 .5877/c ODNTRELLEDU Wallace 01/[address] [place] [address])(W arrior Op Med Cln Tm A Ad) [address] [place] [address] Maulik [facility])(War rior Op Med Cln Tm A Ad) TELE CONSULT [id number] Notes Entered by: DELORIS MORA 24 Jan 2018 0725 ------- ------- ------- ------- -- Lab results DONTRELLEDU Wallace 01/24 [address] [place] [address])(W arrior Op Med Cln Tm A Ad) [address] [place] [address] Maulik [facility])(War rior Op Med Cln Tm A Ad) TELE CONSULT [id number] Notes Entered by: Liz VELIZ 08 Feb 2018 0914 ------- ------- ------- ------- -- PT NEEDS A OPTOMET RY RETRO FEBRUARY 04 DONTRELLEDU Wallace 02/[address] [place] [address] Maulik [facility])(W arrior Op Med Cln Tm A Ad) [address] [place] [address])(Breakfast Supervisor ecology) OUTPATIENT [id number] Annual WWE JANINA LUCAS 06/17 Released w/o Limitations [address] [place] [address])(G ynecovlad gy) [address] [place] [address])(Sco tt MTF BHOP) OUTPATIENT [id number] consult JOSIE MCCORMICK 06/24 Released w/o Limitations [address] [place] [address])([facility] [address] [place] [address])(Breakfast Supervisor ecology) TELE CONSULT [id number] Notes Entered by: SHOLA LUCAS 28 Jun 2018 0826 ------- ------- ------- ------- -- Test results JANINA LUCAS 06/[address] [place] [address])(G lzi gy) [address] [place] [address])(Breakfast Supervisor ecology) TELE CONSULT [id number] Notes Entered by: JAN LINDSAY 06 Jul 2018 1337 ------- ------- ------- ------- -- Sx: Indra lincoln rodrigo - Rose - - tsg JANINA LUCAS 07/[address] [place] [address])(G liz gy) [address] [place] [address])(Breakfast Supervisor ecology) TELE CONSULT [id number] Notes Entered by: NOEL IRIZARRY 07 Jul 2018 1307 ------- ------- ------- ------- -- Tests results NOEL IRIZARRY 07/07 Released w/o Limitations [address] [place] [address])(G liz gy) [address] [place] [address])(Fam veronica Med Tm B Non-AD BCC) TELE CONSULT [id number] Notes Entered by: YASMIN GAN 08 Aug 2018 1438 ------- ------- ------- ------- -- COLIN Null 08/08 Referred for Appointment [address] [place] [address])(F amily Med Tm B Non-AD BCC) [address] [place] [address])(Breakfast Supervisor ecology) TELE CONSULT [id number] Notes Entered by: MANDI YANES 06 Sep 2018 0814 ------- ------- ------- ------- -- Med Refill - Rose - [phone] JANINA LUCAS 09/[address] [place] [address] [facility])(G ynecolo gy) [address] [place] [address] [facility])(War rior Op Med Cln Tm A Ad) TELE CONSULT [id number] 3 Notes Entered by: PORTIA LAVAREZ 04 Jan 2019 1123 ------- ------- ------- ------- -- Med bridge request /[facility]/[phone] LAZARO Strong 01/04 Referred for Appointment [address] [place] [address] [facility])(W arrior Op Med Cln Tm A Ad) [address] [place] [address])(War rior Op Med Cln Tm A Ad) OUTPATIENT [id number] 7 f/u on meds, MAGGIE DUNBAR 01/12 Released w/o Limitations [address] [place] [address] [facility])(W arrior Op Med Cln Tm A Ad) [address] [place] [address])(War rior Op Med Cln Tm A Ad) TELE CONSULT [id number] 9 Notes Entered by: BRETT GLOVER 18 Jan 2019 1121 ------- ------- ------- ------- -- Med Renewal /[facility]/[phone] TAWNY DOMINGUEZ 01/18 Referred for Appointment [facility] Medical Group [facility])(W arrior Op Med Cln Tm A Ad) [address] [place] [address])(War rior Op Med Cln Tm A Ad) TELE CONSULT [id number] 1 Notes Entered by: Liz VELIZ 21 Mar 2019 1057 ------- ------- ------- ------- -- STAT REFERRA L REQUEST FOR OPTOMET RY FORM ANNA Marcus IN HUNTER KRUEGERDARINEL BARRON 03/21 Referred for Appointment [address] [place] [address])(W arrior Op Med Cln Tm A Ad) [address] [place] [address])(War rior Op Med Cln Tm A Ad) TELE CONSULT [id number] 9 Notes Entered by: RADHA REYES 04 Apr 2019 1435 ------- ------- ------- ------- -- Aldo Chandra / Robe mota / - sgj VALENTIN LAZO 04/04 Other Not Elsewhere Classified [address] [place] [address])(W arrior Op Med Cln Tm A Ad) [address] [place] [address])(Fam veronica Med Tm B Non-AD BCC) TELE CONSULT [id number] Notes Entered by: Elizabet MENJIVAR 26 Apr 2019 1120 ------- ------- ------- ------- -- Network results Allergy 9 TSB ELISEO HELLER 04/[address] [place] [address])(F amily Med Tm B Non-AD BCC) [address] [place] [address])(War rior Op Med Cln Tm A Ad) OUTPATIENT [id number] left wrist injury DICK PENALOZA 05/15 Released w/o Limitations [address] [place] [address])(W arrior Op Med Cln Tm A Ad) [address] [place] [address])(Breakfast Supervisor ecology) OUTPATIENT [id number] 4 dysplas ia pt - e - [phone] CHITRA GARCIA 06/15 Released w/o Limitations [address] [place] [address])(G liz gy) [address] [place] [address])(Breakfast Supervisor ecology) TELE CONSULT [id number] 6 Notes Entered by: KEATON GARCIA 23 Jun 2019 0707 ------- ------- ------- ------- -- tissue exam SALLY RINCON 06/23 Other Not Elsewhere Classified [address] [place] [address] [facility])(G yvijay gy) [address] [place] [address])(War rior Op Med Cln Tm A Ad) TELE CONSULT [id number] 0 Notes Entered by: PILAR JAEGER 26 Jul 2019 0852 ------- ------- ------- ------- -- Network Results RHEUM 07/21/19 [facility] [place] ELISEO HELLER 07/[address] [place] [address])(W arrior Op Med Cln Tm A Ad) [address] [place] [address])(War rior Op Med Cln Tm A Ad) TELE CONSULT [id number] Notes Entered by: Elizabet MENJIVAR 22 Aug 2019 0749 ------- ------- ------- ------- -- Network results Rheum 08/21/20 19 [facility] ELISEO HELLER 08/[address] [place] [address])(W arrior Op Med Cln Tm A Ad) [address] [place] [address])(War rior Op Med Cln Tm A Ad) TELE CONSULT [id number] 0 Notes Entered by: Elizabet MENJIVAR 02 Oct 2019 0901 ------- ------- ------- ------- -- Network results Rheumy 09/29/19 20 [facility] ELISEO HELLER 10/[address] [place] [address])(W arrior Op Med Cln Tm A Ad) [address] [place] [address])(War rior Op Med Cln Tm A Ad) TELE CONSULT [id number] Notes Entered by: RADHA REYES 02 Feb 2020 1005 ------- ------- ------- ------- -- STAT Referra l [place]antale - Appt 05 February / Gilberto lopez / - MELODY Toro 02/01 Immediate Referral [facility] Medical Group Maulik [facility])(W arrior Op Med Cln Tm A Ad) [address] [place] [address] Group Maulik [facility])(War rior Op Med Cln Tm A Ad) TELE CONSULT [id number] 8 Notes Entered by: BRETT GLOVER 24 Apr 2020 1144 ------- ------- ------- ------- -- F/u on Special ist - Referra l Request /Angela miller/[phone] BAHMAN RICK 04/24 Other Not Elsewhere Classified [address] [place] [address] Group Maulik [facility])(W arrior Op Med Cln Tm A Ad) [address] [place] [address] Group [facility])(Fam veronica Med Tm B Non-AD BCC) TELE CONSULT [id number] 5 Notes Entered by: BRETT GLOVER 05 Sep 2020 0924 ------- ------- ------- ------- -- Referra l Request /Angela miller/[phone] BAHMAN RICK 09/05 Other Not Elsewhere Classified [address] [place] [address] Group [facility]F amily Med Tm B Non-AD BCC) [address] [place] [address] Group Maulik [facility])(Fam veronica Med Tm B Non-AD BCC) TELE CONSULT [id number] 1 Notes Entered by: EV VALDEZ 24 Sep 2020 1134 ------- ------- ------- ------- -- R Knee MRI Referra l Request - ER x2 F/U/ Odell mota/ - ROSA Ozuna 09/24 Referred for Appointment [address] [place] [address] Group [facility])(F amily Med Tm B Non-AD BCC) [address] [place] [address] Maulik [facility])(Fam veronica Med Tm B Non-AD BCC) TELE CONSULT [id number] Notes Entered by: JAN LINDSAY 25 Sep 2020 1233 ------- ------- ------- ------- -- Sx; Right knee pain - MRI issue - Odell ki - - tsg* ROSA ANDRES 09/25 Released to Self [facility] [address] [place] [address])(F amily Med Tm B Non-AD BCC) [address] [place] [address])([facility] veronica Med Tm B Non-AD BCC) TELE CONSULT [id number] 5 Notes Entered by: TRENTON BOLDEN RET 30 Sep 2020 1341 ------- ------- ------- ------- -- MRI appt date resched joshua/[phone] BAHMAN RICK 09/30 Referred for Appointment [address] [place] [address])(F amily Med Tm B Non-AD BCC) [address] [place] [address])([facility] veronica Med Tm B Non-AD BCC) OUTPATIENT [id number] Virtual - MRI results [id number] BENEDICT DICK 10/09 Released w/o Limitations [address] [place] [address])(F amily Med Tm B Non-AD BCC) [address] [place] [address])(Fam veronica Med Tm B Non-AD BCC) TELE CONSULT [id number] 7 Notes Entered by: JAN LINDSAY 15 Oct 2020 1450 ------- ------- ------- ------- -- Referra l renewal /Rx status - Paul - - BENEDICT Vences 10/[address] [place] [address])(F amily Med Tm B Non-AD BCC) [address] [place] [address])(Fam veronica Med Tm B Non-AD BCC) TELE CONSULT [id number] 2 Notes Entered by: EMMA ROACH 29 Oct 2020 1354 ------- ------- ------- ------- -- Referra l Request /Luann wallace/ BAHMAN RICK 10/29 Other Not Elsewhere Classified [address] [place] [address] Maulik [facility])(F amily Med Tm B Non-AD BCC) [address] [place] [address] Maulik [facility])(Fam veronica Med Tm B Non-AD BCC) TELE CONSULT [id number] 0 Notes Entered by: BRETT GLOVER 08 Jan 2021 1600 ------- ------- ------- ------- -- STAT Referra l Request (appt 09 January)/ Paul / BAHMAN RICK 01/08 Other Not Elsewhere Classified [address] [place] [address] Maulik [facility])(F amily Med Tm B Non-AD BCC) [address] [place] [address] Maulik [facility])([facility] veronica Med Tm B Non-AD BCC) TELE CONSULT [id number] 3 Notes Entered by: EV VALEDZ 20 Jan 2021 1558 ------- ------- ------- ------- -- Orthope dic Referra l Additio nal Visits Req/ Paul / BAHMAN RICK 01/20 Other Not Elsewhere Classified [address] [place] [address] Maulik [facility])(F amily Med Tm B Non-AD BCC) [address] [place] [address])(War rior Op Med Cln Tm A Ad) TELE CONSULT [id number] 9 Notes Entered by: Elizabet MENJIVAR 04 Mar 2021 0917 ------- ------- ------- ------- -- Network results Ortho 10/22/20 - 01/20/21 BENEDICT APONTE 03/[address] [place] [address] Ma[place]ik [facility])(W arrior Op Med Cln Tm A Ad) [address] [place] [address] [facility]Fam veronica Med Tm B Non-AD BCC) TELE CONSULT [id number] 1 Notes Entered by: Elizabet MENJIVAR 05 Mar 2021 0929 ------- ------- ------- ------- -- Network results Ortho 11/30/19 21 BENEDICT APONTE 03/[address] [place] [address] Maulik B [facility])(F amily Med Tm B Non-AD BCC) [address] [place] [address] Maulik [facility])(Breakfast Supervisor ecology) OUTPATIENT [id number] Annual WWE JEANNETTE MOREL 04/28 Released w/o Limitations [address] [place] [address] Maulik [facility]Goyo mcgrath) [address] [place] [address] [facility]Fam veronica Med Tm B Non-AD BCC) OUTPATIENT [id number] FTf-Fol low up on right side of breast from firewor k hit-[phone] ELISEO HELLER 04/30 Released w/o Limitations [address] [place] [address] [facility]F amily Med Tm B Non-AD BCC) [address] [place] [address] Maulik B [facility])(Fam veronica Med Tm B Non-AD BCC) TELE CONSULT [id number] 7 Notes Entered by: ELISEO ADAME 02 May 2021 1528 ------- ------- ------- ------- -- follow up labs SARKIS NAVA 05/02 Released to Self Care [address] [place] [address] [facility])(F amily Med Tm B Non-AD BCC) [address] [place] [address] [facility]ulik B [facility])(Breakfast Supervisor ecology) TELE CONSULT [id number] 3 Notes Entered by: ALEXANDRE MOREL 07 May 2021 0743 ------- ------- ------- ------- -- results NOEL IRIZARRY 05/07 Released to Self Care [address] [place] [address] Maulik [facility])(G ynecolo gy) [address] [place] [address] Maulik [facility])(Fam veronica Med Tm B Non-AD BCC) TELE CONSULT [id number] Notes Entered by: SMILEY JOHNSON 20 May 2021 1056 ------- ------- ------- ------- -- Sx Rt Ear Blockag e with Pain/ Dick / CHARLES DAVIS 05/20 Referred for Appointment [address] [place] [address] Maulik [facility])(F amily Med Tm B Non-AD BCC) [address] [place] [address] Ma[facility])(Fam veronica Med Tm B Non-AD BCC) OUTPATIENT [id number] 1 f2f/rt ear pain BENEDICT DICK 05/20 Released w/o Limitations [address] [place] [address] Ma[place])(F amily Med Tm B Non-AD BCC) [address] [place] [address] Maulik [facility])(Breakfast Supervisor ecology) TELE CONSULT [id number] 7 Notes Entered by: ALEXANDRE MOREL 20 May 2021 1530 ------- ------- ------- ------- -- results NOEL IRIZARRY 05/20 Released to Self Care [address] [place] [address] Ma[place])(G ynecolo gy) [address] [place] [address] Maul[facility])(Fam veronica Med Tm B Non-AD BCC) TELE CONSULT [id number] Notes Entered by: Elizabet MENJIVAR 04 Jun 2021 1028 ------- ------- ------- ------- -- Network results Gastro 06/04/20 21 TSB BENEDICT DICK 06/[address] [place] [address] Ma[place])(F amily Med Tm B Non-AD BCC) [address] [place] [address] Ma[place])(Fam veronica Med Tm B Non-AD BCC) TELE CONSULT [id number] 0 Notes Entered by: EV VALDEZ 09 Jun 2021 1119 ------- ------- ------- ------- -- Sandrine Prieto rd Results / Paul / JUSTA -[facility] REEMA LEMA 06/09 Released to Self Care [address] [place] [address])(F amily Med Tm B Non-AD BCC) [address] [place] [address])([facility] veronica Med Tm B Non-AD BCC) TELE CONSULT [id number] 0 Notes Entered by: JAN LINDSAY 28 Oct 2021 0949 ------- ------- ------- ------- -- Aldo Dick - - CHARLES Oden 10/28 Immediate Referral [address] [place] [address])(F amily Med Tm B Non-AD BCC) [address] [place] [address])(Fam veronica Med Tm B Non-AD BCC) TELE CONSULT [id number] 8 Notes Entered by: Raymond FLOOD 18 Dec 2021 1233 ------- ------- ------- ------- -- Network results Rheumat zina 022 BENEDICT BARRETO 12/[address] [place] [address])( amily Med Tm B Non-AD BCC) [address] [place] [address])([facility] veronica Med Tm B Non-AD BCC) TELE CONSULT [id number] 0 Notes Entered by: SMILEY JOHNSON 17 Apr 2022 1035 ------- ------- ------- ------- -- Aldo Kenyon ( Stat Appt May 2022)/ Paul / ( Patient called [id number]). CHARLES DAVIS 04/17 Referred for Appointment [address] [place] [address])(F amily Med Tm B Non-AD BCC) [address] [place] [address])(Fam veronica Med Tm B Non-AD BCC) TELE CONSULT [id number] 7 Notes Entered by: SMILEY JOHNSON 17 Apr 2022 1042 ------- ------- ------- ------- -- Aldo Kenyon ( Stat Appt Jul)/Gael sprague/( Patient called [id number]) CHARLES DAVIS 04/17 Other Not Elsewhere Classified [address] [place] [address])(F amily Med Tm B Non-AD BCC) [address] [place] [address])(Fam veronica Med Tm B Non-AD BCC) OUTPATIENT [id number] 9 F2F/rig ht shoulde r pain, acid reflux BENEDICT DICK 04/24 Released w/o Limitations [address] [place] [address])(F amily Med Tm B Non-AD BCC) [address] [place] [address])(Fam veronica Med Tm B Non-AD BCC) TELE CONSULT [id number] 3 Notes Entered by: TRAV WALTERS 05 May 2022 1453 ------- ------- ------- ------- -- Network results Physica l Therapy 022 SLC BENEDICT DICK 05/[address] [place] [address])(F amily Med Tm B Non-AD BCC) [address] [place] [address])(Breakfast Supervisor ecology) OUTPATIENT [id number] WWE/Dys plasia JEANNETTE MOREL 05/21 Released w/o Limitations [address] [place] [address])(G ynecolo gy) [address] [place] [address])([facility] veronica Med Tm B Non-AD BCC) TELE CONSULT [id number] 7 Notes Entered by: ALECIA JOAQUIN 28 May 2022 1351 ------- ------- ------- ------- -- Network results Physica l Therapy 022 HLW BENEDICT DICK 05/[address] [place] [address])(F amily Med Tm B Non-AD BCC) [address] [place] [address])(Breakfast Supervisor ecology) TELE CONSULT [id number] 5 Notes Entered by: ALECIA JOAQUIN 18 Jun 2022 1130 ------- ------- ------- ------- -- Network results Dorian tubbs gy 022 JEANNETTE CHEN 06/[address] [place] [address])(G ynecolo gy) [address] [place] [address])(Breakfast Supervisor ecology) TELE CONSULT [id number] 7 Notes Entered by: ALEXANDRE MOREL 19 Jun 2022 1853 ------- ------- ------- ------- -- results NOEL IRIZARRY 06/19 Referred for Appointment [address] [place] [address])(G ynecolo gy) [address] [place] [address])(Fam veronica Med Tm B Non-AD BCC) TELE CONSULT [id number] 8 Notes Entered by: WONG HARMAN 25 Jun 2022 1220 ------- ------- ------- ------- -- STAT Referra l Request Ricardo edemmy/[phone] CHARLES DAVIS 06/25 Immediate Referral [address] [place] [address])(F amily Med Tm B Non-AD BCC) [address] [place] [address])(Fam veronica Med Tm B Non-AD BCC) TELE CONSULT [id number] 9 Notes Entered by: PILAR AMAYA 15 Sep 2022 1543 ------- ------- ------- ------- -- Out of Meds Aug RX Refill Request / Dick / DEA ISRAEL 09/15 Medication Refill Forwarded [address] [place] [address])(F amily Med Tm B Non-AD BCC) [address] [place] [address] [facility]ul[facility])(Fam veronica Med Tm B Non-AD BCC) TELE CONSULT [id number] 3 Notes Entered by: BRETT GLOVER 22 Sep 2022 1049 ------- ------- ------- ------- -- Referra azul Renewal Request /Luann s/ SARKIS NAVA 09/22 Released to Self Care [address] [place] [address] Maulik B [facility])(F amily Med Tm B Non-AD BCC) [address] [place] [address] Maulik B [facility])(Breakfast Supervisor ecology) TELE CONSULT [id number] 9 Notes Entered by: MU FORD 07 Oct 2022 0843 ------- ------- ------- ------- -- Winifred marcus Info Request / Palu / [phone] NOEL IRIZARRY 10/07 Referred for Appointment [address] [place] [address] Maulik B [facility]G ynecolo gy) [address] [place] [address] Maulik [facility])(Breakfast Supervisor ecology) OUTPATIENT [id number] breast exam prior breast reducti [phone] JEANNETTE MOREL 10/12 Released w/o Limitations [address] [place] [address] Maulik [facility])(G ynecolo gy) [address] [place] [address] Maul[facility])(Breakfast Supervisor ecology) TELE CONSULT [id number] Notes Entered by: JAN LINDSAY 15 Oct 2022 0942 ------- ------- ------- ------- -- Speak w/ Yadira - - tsg NOEL IRIZARRY 10/15 Released to Self Care [address] [place] [address] Maulik [facility]G ynecolo gy) [address] [place] [address] Maul[facility]Fam veronica Med Tm B Non-AD BCC) TELE CONSULT [id number] 4 Notes Entered by: BRETT GLOVER 30 Oct 2022 1301 ------- ------- ------- ------- -- Aldo Chandra /Luann wallace/ COLE ARCE Gooy 10/30 Other Not Elsewhere Classified [address] [place] [address])(F amily Med Tm B Non-AD BCC) [address] [place] [address])([facility] veronica Med Tm B Non-AD BCC) TELE CONSULT [id number] Notes Entered by: VILMA KHAN 19 Nov 2022 1330 ------- ------- ------- ------- -- Lab results RASHIDA CRENSHAW 11/19 Other Not Elsewhere Classified [address] [place] [address])(F amily Med Tm B Non-AD BCC) [address] [place] [address])([facility] veronica Med Tm B Non-AD BCC) TELE CONSULT [id number] 6 Notes Entered by: Angeline ESTRADA 25 Nov 2022 1605 ------- ------- ------- ------- -- NETWORK RESULTS -Joint Pain 11/19/22 BENEDICT DICK 11/[address] [place] [address] Maulik [facility])(F amily Med Tm B Non-AD BCC) [address] [place] [address])(Breakfast Supervisor ecology) TELE CONSULT [id number] 7 Notes Entered by: ALEXANDRE MOREL 03 Dec 2022 1248 ------- ------- ------- ------- -- results NOEL IRIZARRY 12/03 Released to Self Care [address] [place] [address])(G yconcepcióncovlad gy) [address] [place] [address] Maulik [facility])(Fam veronica Med Tm B Non-AD BCC) OUTPATIENT [id number] 8 [facility] VILMA KHAN 12/07 Released w/o Limitations [address] [place] [address])(F amily Med Tm B Non-AD BCC) [address] [place] [address])(Sco tt Internal Medicine Tm) TELE CONSULT [id number] Notes Entered by: LASHAY MURDOCK 09 Dec 2022 1409 ------- ------- ------- ------- -- Network results Gastroe suly gy 023 EMILEE PEREZ 12/[address] [place] [address])(S cott Interna l Medicin e Tm) [address] [place] [address])(Fam veronica Med Tm B Non-AD BCC) TELE CONSULT [id number] 5 Notes Entered by: VILMA KHAN 11 Dec 2022 0739 ------- ------- ------- ------- -- Appoint ment to discuss medicat RL Mccabe 12/[address] [place] [address])(F amily Med Tm B Non-AD BCC) [address] [place] [address])(Fam veronica Med Tm B Non-AD BCC) TELE CONSULT [id number] 4 Notes Entered by: LASHAY MURDOCK 21 Dec 2022 1159 ------- ------- ------- ------- -- Network results Rheumat zina 023 and 023 BENEDICT CASAREZ 12/[address] [place] [address])(F amily Med Tm B Non-AD BCC) [address] [place] [address])(Fam veronica Med Tm B Non-AD BCC) TELE CONSULT [id number] Notes Entered by: Angeline ESTRADA 25 Dec 2022 1435 ------- ------- ------- ------- -- Network Results - Rheumat BENEDICT Brewer 12/[address] [place] [address])(F amily Med Tm B Non-AD BCC) [address] [place] [address])([facility] veronica Med Tm B Non-AD BCC) TELE CONSULT [id number] Notes Entered by: KEVON MIJARES 28 Dec 2022 160 ------- ------- ------- ------- -- NETWORK RESULTS BENEDICT SIU 12/[address] [place] [address])( amily Med Tm B Non-AD BCC) [address] [place] [address])([facility] veronica Med Tm B Non-AD BCC) TELE CONSULT [id number] 6 Notes Entered by: WONG HARMAN 08 Jan 2023 133 ------- ------- ------- ------- -- RX Johnny /Luann s/ DEA ISRAEL 01/08 Other Not Elsewhere Classified [address] [place] [address])( amily Med Tm B Non-AD BCC) [id number]-375 th [facility] Between Visit [id number] 01/29 Discharge Disposition: Home or Self Care 0055C-[facility] 0055C-[facility] [id number] Lex Blair for screeni ng, unspeci fied JASSON ROSEHALL 02/09 Discharge Disposition: Home or Self Care 0055C-[facility] 0055A-[facility] th [facility] Outpatient [id number] JASSON ROSEHALL 02/21 Discharge Disposition: Home or Self Care 0055A-3 [facility] 0055C-375 th [facility] Between Visit [id number] 03/01 Discharge Disposition: Home or Self Care 0055C-3 [facility] 0055C[facility] [id number] Nick Blair yperlip idemia, unspeci fied JASSON ROSEHALL 03/19 Discharge Disposition: Home or Self Care 0055C-3 [address] [employer] Procedures Combined list of: 1) [facility] not all [facility] non-surgical procedures [...] 24H/SOON APT; 11-20 MIN MED DIS 018 [facility] HEALTH AND BEHAVIOR INTERVENTION, EACH 15 MINUTES, [id number]; INDIVIDUAL 018 [facility] BIOPSY OF CERVIX, SINGLE OR MULTIPLE, OR [...] DoD CASE MANAGEMENT, EACH 15 MINUTES 017 [facility] CASE MANAGEMENT, EACH 15 MINUTES 017 [facility] CASE MANAGEMENT, EACH 15 MINUTES 017 DoD CASE MANAGEMENT, EACH 15 MINUTES 017 [facility] SCREENING PAPANICOLAOU SMEAR; OBTAINING, PREPARING AND CONVEYANCE [...] PROLIFERATIVE LESIONS; UP TO 14 LESIONS 009 [facility] BIOPSY OF CERVIX, SINGLE OR MULTIPLE, OR LOCAL EXCISION OF LESION, WITH OR WITHOUT FULGURATION (SEPARATE PROCEDURE) 009 [facility] VISUAL FIELD EXAMINATION, UNI OR BILATERAL, WITH MEDICAL DIAGNOSTIC EVAL; INTERMEDIATE EXAM (EG, AT LEAST 2 ISOPTERS ON GOLDMANN PERIMETER, OR SEMIQUANT, AUTO SUPRATHRESHOLD SCREEN PROGRAM, QUISPE 007 [facility] SCREENING PAPANICOLAOU SMEAR; OBTAINING, PREPARING AND CONVEYANCE OF CERVICAL OR VAGINAL SMEAR TO LABORATORY 006 [facility] HANDLING AND/OR CONVEYANCE OF SPECIMEN FOR TRANSFER FROM THE OFFICE TO A LABORATORY 005 [facility] INFECTIOUS AGENT ANTIGEN DETECTION BY IMMUNOASSAY WITH DIRECT OPTICAL (IE, VISUAL) OBSERVATION; STREPTOCOCCUS, GROUP A 004 [facility] Non-Physician Phone Call To Patient/Provider Brief (5-10min) Non-Physician Phone Call To Patient/Provider Brief (5-10min) [id number] TAWNY DOMINGUEZ [facility] Disease management program, follow-up/meliton e ment 019 ALEXIS ELIZONDO [facility] Non-Physician Phone Call To Pt/Provider Intermed (11-20 min) Non-Physician Phone Call To Pt/Provider Intermed (11-20 min) [id number] 018 COLIN BERRY [facility] Health And Behavior Intervention, Each 15 Minutes Individual Health And Behavior Intervention, Each 15 Minutes Individual [id number] JOSIE MCCORMICK [facility] Health And Behav A e mt Each 15 Min Initial A e ment Health And Behav Assessmt Each 15 Min Initial Assessment [id number] 018 JOSIE MCCORMICK [facility] Screening papanicolaou smear; obtaining, preparing and conveyance of cervical or vaginal smear to laboratory 018 JANINA LUCAS [facility] Biopsy Cervical Biopsy Cervical [id number] 018 JANINA LUCAS [facility] Non-Physician Phone Call To Patient/Provider Brief (5-10min) Non-Physician Phone Call To Patient/Provider Brief (5-10min) [id number] [id number] EDU JON [facility] Non-Physician Phone Call To Patient/Provider Brief (5-10min) Non-Physician Phone Call To Patient/Provider Brief (5-10min) [id number] [id number] EDU JON [facility] Non-Physician Phone Call To Patient/Provider Brief (5-10min) Non-Physician Phone Call To Patient/Provider Brief (5-10min) [id number] 018 EDU JON [facility] Case Management, each 15 minutes 017 DOMINGA SWAPNA Zachary [facility] Case Management, each 15 minutes 017 DOMINGA SWAPNA Sharma [facility] Case Management, each 15 minutes 017 SWAPNA ORR [facility] Case Management, each 15 minutes 017 SWAPNA ORR [facility] Screening papanicolaou smear; obtaining, preparing and conveyance of cervical or vaginal smear to laboratory 017 JANINA LUCAS [facility] Non-Physician Phone Call To Patient/Provider Brief (5-10min) Non-Physician Phone Call To Patient/Provider Brief (5-10min) [id number] 016 LASHAY HERNANDEZ [facility] Non-Physician Phone Call To Patient/Provider Brief (5-10min) Non-Physician Phone Call To Patient/Provider Brief (5-10min) [id number] 016 LASHAY HERNANDEZ [facility] Non-Physician Phone Call To Patient/Provider Brief (5-10min) Non-Physician Phone Call To Patient/Provider Brief (5-10min) [id number] 016 FILIPE DE JESUS [facility] ECG 12-Lead With Interpretation And Report ECG 12-Lead With Interpretation And Report [id number] 016 STANISLAV PRUITT [facility] Test Test [id number] 016 CRISTINA REYES [facility] Colposcopy Cervix With Endocervical Curettage Colposcopy Cervix With Endocervical Curettage 18672 016 CRISTINA REYES [facility] Colposcopy Cervix With Biopsy(s) Colposcopy Cervix With Biopsy(s) 68017 016 CRISTINA REYES [facility] Colposcopy Cervix With Biopsy(s) Colposcopy Cervix With Biopsy(s) 10662 015 JANINA LUCAS Screening papanicolaou smear; obtaining, preparing and conveyance of cervical or vaginal smear to laboratory 015 JANINA LUCAS A e ment & Intervention Blood Pre ure Measured Assessment & Intervention Blood Pressure Measured 014 PIERRE SUAREZ Non-Physician Phone Call To Patient/Provider Brief (5-10min) Non-Physician Phone Call To Patient/Provider Brief (5-10min) [id number] 014 VERENICE CAMPOS Non-Physician Phone Call To Pt/Provider Intermed (11-20 min) Non-Physician Phone Call To Pt/Provider Intermed (11-20 min) 08704 014 VERENICE CAMPOS Determination Of Refractive State Determination Of Refractive State [id number] 014 JUAN BERGER Ophthalmological Prior Patient Start Comprehensive Care Ophthalmological Prior Patient Start Comprehensive Care 88731 014 JUAN BERGER Determination Of Refractive State Determination Of Refractive State [id number] 012 SANTOS CORTEZ Ophthalmological Prior Patient Start Comprehensive Care Ophthalmological Prior Patient Start Comprehensive Care 63104 012 SANTOS CORTEZ Biopsy Endometrial, Without Cervical Dilation Biopsy Endometrial, Without Cervical Dilation 05353 010 DEENA ESTRADA Urine HCG, Test Urine HCG, Test 02689 010 DEENA ESTRADA ECG Interpretation And Report Only ECG Interpretation And Report Only 04457 009 STEPHANIE SHIN Destruction Of Benign Lesion By Any Method 009 MARÍA HAGAN Destruction Of Premalignant Lesion By Any Method One Lesion 009 MARÍA HAGAN Biopsy Cervical 009 YOHAN BELL Visual Valverde Test Intermediate Examination Visual Valverde Test Intermediate Examination [id number] 007 SANTOS CORTEZ Determination Of Refractive State Determination Of Refractive State [id number] 007 SANTOS CORTEZ Ophthalmological New Patient Start Comprehensive Care Ophthalmological New Patient Start Comprehensive Care 62952 007 SANTOS CORTEZ Screening papanicolaou smear; obtaining, preparing and conveyance of cervical or vaginal smear to laboratory 006 DWIGHT VARGAS [facility] Biopsy Cervical Biopsy Cervical 09975 CHITRA MARTINEZ AM [facility] Non-Physician Phone Call To Patient/Provider Brief (5-10min) Non-Physician Phone Call To Patient/Provider Brief (5-10min) 01155 BAHMAN RICK [facility] Non-Physician Phone Call To Pt/Provider Intermed (11-20 min) Non-Physician Phone Call To Pt/Provider Intermed (11-20 min) 93941 ROSA ANDRES [facility] Waiver services; not otherwise specified (NOS) BENEDICT DICK [facility] Screening papanicolaou smear; obtaining, preparing and conveyance of cervical or vaginal smear to laboratory JEANNETTE MOREL [facility] Cerumen Removal Right Ear Curette Cerumen Removal Right Ear Curette [id number] BENEDICT DICK [facility] Non-Physician Phone Call To Pt/Provider Lengthy (21-30 min) Non-Physician Phone Call To Pt/Provider Lengthy (21-30 min) 89537 CHARLES DAVIS [facility] delivery only; including care delivery only; including care [phone] [id number]-[id number] [place] [address]-[facility] delivery only; including care delivery only; including care [phone] 0055C-37 [facility] abdominal hematoma I+D 023 [id number]-[id number] [place] [address]-[facility] right knee surgery 021 [id number] [place] [address]-[facility] right breast bx 017 B9 0055C-[address] [place], [place] [address]GRP-[facility] right breast calcification excision 017 ductal hyperplasia 0055C-37 [facility] C/S with BTL 001 [id number] [facility] wte 996 [id number]-[id number] [place] [address]-[facility] Social History Combined list of available smoking, tobacco, and other social history from Department of Defense and Veterans Affairs facilities. Social History Type Response Date Comment [facility] e Sex Representation Female (finding) 07/24/2021 Unknown Organization This section is an empty social history section. [facility] Tobacco Cigarette use: Never-cigarette user. Other Tobacco [...] and management. Jasson Del Toro R., Alfonso, MANAGER BEHAVIORAL-[facility] [place] [address] Ordered: atorvastatin(atorvastatin 40 mg oral tablet), 1 tab(s), Oral, Daily, for cholesterol, # 90 tab(s), 3 total refill(s), Maintenance, Pharmacy: [facility] [Federal Rx: #90 last filled 03/19/25] 2. F ibromyalgia Not currently well-controlled. She would like to wean off medication. She is o n lowest d [place] of Lyrica. W ill avoid abrupt d iscontinuation. A dvised to begin t aking 1 capsule Q OD x 1 w chinik; 1 t ablet t wice i n [...] 90 cap(s), 1 total refill(s), Maintenance, Pharmacy: [facility] [Federal Rx: #90 last filled 03/19/25] [...] has been having difficulty in finding a Unstacker. Discussed trialing Lyrica at low-dose HS with potential to increase dosage PRN based on tolerability. Continue Cymbalta 60mg daily. - continue to seek care with Un[facility]er - trial L yrica 25mg HS - continue Cymbalta 60mg daily 20 minutes total time spent on evaluation and management. Jasson Del Toro R., Alfonso, MANAGER BEHAVIORAL-[facility] [place] [address] Ordered: pregabalin(pregabalin 25 mg oral capsule), 1 cap(s), Oral, Daily, # 90 cap(s), 0 total refill(s), Maintenance, Pharmacy: [facility] [Last filled 02/09/25] 2. S creening [...] and management. Jasson Del Toro R., , [place] [address] Orders: DULoxetine(DULoxetine 60 mg oral delayed release capsule), 1 cap(s), Oral, Daily, do not crush or chew, # 90 cap(s), 3 total refill(s), Maintenance, Pharmacy: [facility] [Not filled] cyclobenzaprine(Flexeril 10 mg oral tablet), See Instructions, 1 tab(s) Oral before bedtime., # 90 tab(s), 0 total refill(s), Acute, Pharmacy: [facility] [Not filled] Extracted from:Title: 0055 BCC [...] f/u PRN Ordered: Referral Request 2.0 - [facility] 2. E ssential (primary) hypertension Checks at [...] management. Jasson Del Toro R., [place] [address] Ordered: Referral Request 2.0 - [facility] Orders: DULoxetine(DULoxetine 60 mg oral delayed release capsule), 1 cap(s), Oral, Daily, do not crush or chew, # 90 cap(s), 3 total refill(s), Maintenance, Pharmacy: [facility] [Not filled] lisinopril(lisinopril 10 mg oral tablet), 1 tab(s), Oral, Daily, for blood pressure, # 90 tab(s), 3 total refill(s), Maintenance, Pharmacy: [facility] [Not filled] Extracted from:Title: 0055 BCC virt fibromyalgia/med refill Author: JASSON DEL TORO NP Date: 05/30/24 1. F ibromyalgia Doing well on current med. Needing refill today. - continue current medication--no changes today 10 minutes total time spent on evaluation and management. Jasson Del Toro R., Maj, [place] [address] Orders: DULoxetine(DULoxetine 60 mg oral delayed release capsule), 1 cap(s), Oral, Daily, do not crush or chew, # 90 cap(s), 2 total refill(s), Maintenance, 1 cap(s) Oral Daily,Instr:do not crush or chew, Pharmacy: [facility] [Not filled] Extracted from:Title: REGIONAL ENGAGEMENT CONSULTANT/Virtual, cx polyp; vit d def, elevated LDL [...] supply, 1.25 mg Oral every week, Pharmacy: [facility] [Not filled] Vitamin D 25 Hydroxy [...] were provided to the patient. Jeannette Morel [facility] COMMUNICATIONS ELECTRICIAN SUPERVISOR [facility] Extracted from:Title: REGIONAL ENGAGEMENT CONSULTANT/WWE, pap, cx polyp; dysplasia f/u Author: JEANNETTE [...] test 5yrs if neg Ordered: AP Cytology REGIONAL ENGAGEMENT CONSULTANT HPV High Risk (16/18/Other) 3. 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 O ther specified abnormal findings of blood chemistry low fat/low chol diet, no more than 25% total calories from fat, states wasn't aware they wanted to start statin; network project manager never told her; will repeat lab to determine further plan Ordered: Lipid Panel 5. E ssential (primary) hypertension repeat BP nl; on HTN meds; to monitor home readings 6. A typical squamous cells cannot exclude high grade squamous intraepithelial lesion on cytologic smear of cervix (ASC-H) co test 5yrs if neg Ordered: [facility] Cytology REGIONAL ENGAGEMENT CONSULTANT HPV High Risk (16/18/Other) 7. O besity, unspecified increase exercise, decrease calories to decrease wt/BMI; advised healthy lifestyle, namely whole food plant based diet w/ regular exercise. Advise nutrition wade/diary to track energy intake vs expenditure f/u prn PVUA. 8. B WV 38.0 to 38.9 Pt questions addressed and written discharge instructions were provided to the patient. Jeannette Morel [facility] COMMUNICATIONS ELECTRICIAN SUPERVISOR [facility] Extracted from:Title: 0055 BCC Chronic pain / Multiple complaints Author: BENEDICT DICK PA Date: 02/08/24 1. C hronic pain 58 y/o F w/hx of fibromyalgia along with p olyarthralgia and o steoarthritis of the right knee presents c/o ongoing pain requesting help with pain management. Pt states she currently sees a network project manager but is not pleased with the care she is receiving. Pt would like a second opinion. -Will restart Cymbalta. -Placed consults for pt to see new network project manager for a second opinion. -F/u as needed. [...] getting out of b ed in the [facility] -Provided stretch/strengthening handout for Achilles tendinitis/plantar [...] tab(s), 0 total refill(s), Acute, 08/05/2024, Pharmacy: [facility] [Not filled] 2. E levated blood [...] 25 Hydroxy Level 08/20/24Lipid Panel 08/20/24 03/29/2025 [id number] Extracted from:Title : 0055 [facility] virtual HLD/fibromyalgia Author: JASSON DEL TORO NP, [...] and management. Jasson Del Toro R., Alfonso, MANAGER BEHAVIORAL-[facility] [place] [address] Ordered: atorvastatin(atorvastatin 40 mg oral tablet), 1 tab(s), Oral, Daily, for cholesterol, # 90 tab(s), 3 total refill(s), Maintenance, Pharmacy: [facility] [Federal Rx: #90 last filled 03/19/25] 2. F ibromyalgia Not currently well-controlled. She would like to wean off medication. She is o n lowest d [place] of Lyrica. W ill avoid abrupt d iscontinuation. A dvised to begin t aking 1 capsule Q OD x 1 w chinik; 1 t ablet t wice i n [...] 90 cap(s), 1 total refill(s), Maintenance, Pharmacy: [facility] [Federal Rx: #90 last filled 03/19/25] Extracted from:Title: 0055 [facility] virtual fibromyalgia/pregabalin Author: JASSON DEL TORO NP, [...] has been having difficulty in finding a Unstacker. Discussed trialing Lyrica at low-dose HS with potential to increase dosage PRN based on tolerability. Continue Cymbalta 60mg daily. - continue to seek care with [facility] - trial L yrica 25mg HS - continue Cymbalta 60mg daily 20 minutes total time spent on evaluation and management. Jasson Del Toro R., , MANAGER BEHAVIORAL-[facility] [place] [address] Ordered: pregabalin(pregabalin 25 mg oral capsule), 1 cap(s), Oral, Daily, # 90 cap(s), 0 total refill(s), Maintenance, Pharmacy: [facility] [Last filled 02/09/25] 2. S creening [...] and management. Jasson Del Toro R., , MANAGER BEHAVIORAL-[facility] [place] [address] Orders: DULoxetine(DULoxetine 60 mg oral delayed release [...] f/u PRN Ordered: Referral Request 2.0 - [facility] 2. E ssential (primary) hypertension Checks at [...] management. Jasson Del Toro R., [place] [address] Ordered: Referral Request 2.0 - [facility] Orders: DULoxetine(DULoxetine 60 mg oral delayed release capsule), 1 cap(s), Oral, Daily, do not crush or chew, # 90 cap(s), 3 total refill(s), Maintenance, Pharmacy: [facility] [Not filled] lisinopril(lisinopril 10 mg oral tablet), 1 tab(s), Oral, Daily, for blood pressure, # 90 tab(s), 3 total refill(s), Maintenance, Pharmacy: [facility] [Not filled] Extracted from:Title: 0055 BCC virt fibromyalgia/med refill Author: JASSON DEL TORO NP Date: 05/30/24 1. F ibromyalgia Doing well on current med. Needing refill today. - continue current medication--no changes today 10 minutes total time spent on evaluation and management. Jasson Del Toro R., , [place] [address] Orders: DULoxetine(DULoxetine 60 mg oral delayed release capsule), 1 cap(s), Oral, Daily, do not crush or chew, # 90 cap(s), 2 total refill(s), Maintenance, 1 cap(s) Oral Daily,Instr:do not crush or chew, Pharmacy: [facility] [Not filled] Extracted from:Title: REGIONAL ENGAGEMENT CONSULTANT/Virtual, cx polyp; vit d def, elevated LDL [...] supply, 1.25 mg Oral every week, Pharmacy: [facility] [Not filled] Vitamin [...] were provided to the patient. Jeannette Morel [facility] [place] Extracted from:Title: REGIONAL ENGAGEMENT CONSULTANT/WWE, pap, cx polyp; dysplasia f/u Author: JEANNETTE [...] test 5yrs if neg Ordered: AP Cytology REGIONAL ENGAGEMENT CONSULTANT HPV High Risk (16/18/Other) 3. P olyp of cervix uteri sent to path; virtual appt scheduled 9 to discuss results Ordered: [facility] Surgical Pathology 4. O ther specified abnormal findings of blood chemistry low fat/low chol diet, no more than 25% total calories from fat, states wasn't aware they wanted to start statin; network project manager never told her; will repeat lab to determine further plan Ordered: Lipid Panel 5. E ssential (primary) hypertension repeat BP nl; on HTN meds; to monitor home readings 6. A typical squamous cells cannot exclude high grade squamous intraepithelial lesion on cytologic smear of cervix (ASC-H) co test 5yrs if neg Ordered: AP Cytology REGIONAL ENGAGEMENT CONSULTANT HPV High Risk (16/18/Other) 7. O besity, unspecified increase exercise, decrease calories to decrease wt/BMI; advised healthy lifestyle, namely whole food plant based diet w/ regular exercise. Advise nutrition wade/diary to track energy intake vs expenditure f/u prn PVUA. 8. B WV 38.0 to 38.9 Pt questions addressed and written discharge instructions were provided to the patient. Jeannette Morel [facility] COMMUNICATIONS ELECTRICIAN SUPERVISOR [facility] Extracted from:Title: 0055 BCC Chronic pain / Multiple complaints Author: BENDEICT DICK PA Date: 02/08/24 1. C hronic pain 58 y/o F w/hx of fibromyalgia along with p olyarthralgia and o steoarthritis of the right knee presents c/o ongoing pain requesting help with pain management. Pt states she currently sees a network project manager but is not pleased with the care she is receiving. Pt would like a second opinion. -Will restart Cymbalta. -Placed consults for pt to see new network project manager for a second opinion. -F/u as needed. [...] [facility] [Not filled] Extracted from:Title: 0055 [facility] Plantar Fasciitis Author: ABDI PERERA PA Date: [...] getting out of b ed in the [facility] -Provided stretch/strengthening handout for Achilles tendinitis/plantar [...] change/increase at flu visit. Extracted from:Title: 0055 [facility] Surgery f/u / knee pain / anisocoria [...] of Defense and Veterans Affairs (VA).VA Functional [place] Measurement (FIM) Scale: 1 = Total Assistance (Subject = 0% +), 2 = Maximal Assistance (Subject = 25% +), 3 = Moderate Assistance (Subject = 50% +), 4 = Minimal Assistance (Subject = 75% +), 5 = Supervision, 6 = Modified [place] (Device), 7 = Complete [place] (Timely, Safely). Assessment Date/Time Source Assessment Type Assessment Skill Assessment Score Assessment Details No data available for this section
--- OUTSIDE RECORDS SUMMARY | 2025-03-29 12:22 | XMS_ITS | Clinical Summary ---
Author Organization [facility] Address [address] [place] [address] Care Team Providers Care System Sales Consultant Name Role Phone Unavailable Primary Care Provider Unavailabl e Source Comments [facility],non-owned Affiliates and Associated Physician Practices is amultiple site organization consisting of ambulatory clinics and hospital sitesin [place], [place], [place] and [place]. This disclosure is being madepursuant to the Care Everywhere program and may not contain all information available regarding this patient. Last updated 18.[facility] Allergies No known active allergies Medications * [...] and heating? Not hard at all 04/18/2023 [facility] of Occupat ional Health - Occupational Stress [...] place to sleep or slept in a group home (including now)? No 04/18/2023 Comments Unknown Sex and Gender Information Value Date Recorded Sex Assigned at Not on file Legal Sex Female 7:46 PM SENIOR CREDIT ANALYST Gender Identity Not on file Sexual Orientation [...] 7 - 26 mg/dL 05/04/2023 3:21 PM [facility] Creatinine 0.53(L) 0.56 - 0.96 mg/dL 05/04/2023 3:21 PM [facility] Sodium 141 136 - 145 mmol/L 05/04/2023 3:21 PM [facility] Potassium 3.7 3.5 - 4.5 mmol/L 05/04/2023 3:21 PM [facility] Chloride 106 98 - 107 mmol/L 05/04/2023 3:21 PM [facility] CO2 25 22 - 29 mmol/L 05/04/2023 3:21 PM [facility] Glucose 85 70 - 115 mg/dL 05/04/2023 3:21 PM [facility] Calcium 9.4 8.4 - 10.2 mg/dL 05/04/2023 3:21 PM [facility] Protein Total 7.1 6.0 - 8.3 g/dL 05/04/2023 3:[address] [facility] Albumin 3.9 3.4 - 5.0 g/dL 05/04/2023 3:21 PM [facility] Bilirubin Total 0.5 0.2 - 1.2 mg/dL 05/04/2023 3:21 PM [facility] Alkaline Phosphatase 87 40 - 150 U/L 05/04/2023 3:21 PM [facility] ALT 34 5 - 55 U/L 05/04/2023 3:21 PM [facility] AST 20 5 - 34 U/L 05/04/2023 3:21 PM [facility] Anion Gap 14 8 - 18 05/04/2023 3:21 PM [facility] BUN/Creatinine Ratio 26(H) 7 - 23 05/04/2023 3:21 PM [facility] Osmolality Calculated 292 270 - 300 mOsm/kg 05/04/2023 3:21 PM [facility] Albumin/Globulin Ratio 1.2 1.1 - 2.3 05/04/2023 3:21 PM [facility] eGFR by CKD-EPI >90 >=90 mL/min/1.7 3 m2 05/04/2023 3:21 PM [facility] Blood BLOOD SPECIMEN / Unknown Venipuncture / Unknown 05/04/2023 2:42 PM CDT 05/04/2023 2:47 PM CDT Villa Echavarria MD LAB - CHEMISTRY ORDERABLES nal Result Performing Organization Address [facility]/State/ZIP Co de Phone Number [facility] [address] [place] [address], [facility] [[email or web address]] [phone] from Last 3 Months or Most Recently Relevant to Health Maintenance Insurance [facility] SELF PAY NO INSURANCE Member Subscriber Plan / Payer (Ef fective for All Dates) Name:Arthur Morgan Member ID:Not on file Relation to Subscriber:Not on file Name:ARTHUR MORGAN Subscriber ID:Not on file (Home) Address: [address] [place] [id number] Payer ID:Not on file Group ID:Not on file Type:Self Pay Address: [place], [place] Advance Directives * Full Code (Latest Code Status on File) Date Activated Date Inactivated Comments 04/17/2023 3:07 PM 04/20/2023 3:55 PM
[2025-03-29 12:31] LABS: Alanine Aminotransferase 28 U/L (6-35); Albumin Level 4.4 g/dL (3.5-5.1); Alkaline Phosphatase 86 U/L (38-126); Anion Gap 9 mmol/L (4-12); Aspartate Amino Transferase 33 U/L (14-36); Bilirubin,Total 0.3 mg/dL (0.2-1.3); Blood Urea Nitrogen 13 mg/dL (7-17); Calcium 9.8 mg/dL (8.4-10.2); Carbon Dioxide 29 mmol/L (22-30); Chloride 105 mmol/L (98-107); Estimated CRCL calculation 95 ml/min; Estimated Glomerular Filt Rate > 60; Glucose 110 mg/dL (65-110); Lipase 39 U/L (23-300); Potassium 4.8 mmol/L (3.4-5.0); Sodium 143 mmol/L (137-145); Total Protein 7.6 g/dL (6.3-8.2)
--- NOTE | 2025-03-29 13:02 | ED_ITS ---
HPI - General Adult General Chief complaint: Nausea/Vomiting/Diarrhea Stated complaint: sick for 3 days, N/V, headache Time Seen by Provider: 03/29/25 12:02 History of Present Illness HPI narrative: This is a 59 year female with history of chronic pain and ataxia presenting for not feeling well. Patient says on Wednesday she was exposed to a Spectrum bug barrier had an episode of nausea and vomiting. She felt better Wednesday until she had a full body massage. After that she developed total body pain, dizziness, vertigo, nausea, vomiting, diarrhea, and headache. She denies slurred speech double vision weakness to any extremity or loss of coordination outside of her normal ataxia. Patient says that she frequently has vertigo and lightheadedness. She denies fevers, sinus congestion chest pain shortness of breath or abdominal pain or urinary symptoms. Patient has been on Cymbalta many years and stopped taking Cymbalta on Wednesday which is 1 day prior to her symptom onset. She said that she took a dose of Cymbalta last night but did not have any affect. Related Data Home Medications ?Medication ?Instructions ?Recorded ?Confirmed ?Last Taken ?Type cholecalciferol (vitamin D3) 25 25 mcg PO DAILY 11/28/24 01/10/25 12/17/24 History mcg (1,000 unit) capsule duloxetine 60 mg capsule,delayed 60 mg PO DAILY 11/28/24 01/10/25 12/19/24 History release (Cymbalta) lisinopril 10 mg tablet 10 mg PO DAILY 11/28/24 01/10/25 12/19/24 History magnesium 200 mg tablet 200 mg PO DAILY 11/28/24 01/10/25 12/17/24 History mecobalamin (vitamin B12) 500 mcg 500 mcg PO DAILY 11/28/24 01/10/25 12/17/24 History chewable tablet multivitamin (Daily Multi-Vitamin 1 tablet PO DAILY 11/28/24 01/10/25 12/17/24 History tablet) omeprazole magnesium 2.5 mg oral 10 mg PO DAILY 11/28/24 01/10/25 12/19/24 History suspension,delayed release (Prilosec) Allergies Allergy/AdvReac Type Severity Reaction Status Date / Time No Known Allergies Allergy Verified 03/29/25 11:22 [facility] Past Medical History Medical History (Updated 03/29/25 @ 14:55 by Vivek Diaz MD) PONV (postoperative nausea and vomiting) Arthritis HTN (hypertension) Surgical History Surgical History (Updated 01/09/25 @ 14:21 by Berenice Varma MA) H/O excision of mass 12/20/24 excisional biopsy right shoulder subcutaneous mass measuring [address] Paz Hx of tubal ligation 2000 H/O: 1990, 1993, 2000 Family History Family History Father Lung cancer Mother Hypertension Other No significant family history Social History Social History Smoking status: Never smoker Alcohol intake: current Alcohol use details: 2 PER MONTH- [place] [employer] W[employer] Substance use: never Do You Feel Safe in your Home?: Yes Lack of Transportation: No Lack of Food: Never True Current Housing: I Have Housing Concerned About Future Housing: No Difficulty Paying Gas/Electric Bills: No Difficulty Paying for Meds: No Currently Unemployed: Decline to Answer Education: High School Diploma/GED Difficulty w/ Childcare or Family Care: No Living arrangements: with family Gender identity (if verbalized by the patient): Female Exam 2 Narrative: APPEARANCE: No apparent distress. Head: atraumatic. EYES: EOMI, NOSE: Atraumatic NECK: Trachea midline RESPIRATORY: No increased rate of breathing clear to auscultation CARDIOVASCULAR: RRR, ABDOMINAL: Non-distended no peripheral edema MUSCULOSKELETAl: No obvious deformities NEURO: Alert. Cranial nerves 2-12 grossly intact. Sensation light touch, motor function cerebellar function intact for 4 extremities. Gait exam was ataxic and which is normal for this patient SKIN:: Warm, dry. Normal color PSYCHIATRIC: Normal affect Course Vital Signs Vital signs: Vital Signs Temperature 98.1 F 03/29/25 11:44 Pulse Rate 94 03/29/25 11:44 Respiratory Rate 18 03/29/25 11:44 Blood Pressure 153/90 H 03/29/25 11:44 Pulse Oximetry 96 03/29/25 11:44 Oxygen Delivery Room Air 03/29/25 11:44 Temperature 98.0 F 03/29/25 14:15 Pulse Rate 72 03/29/25 14:15 Respiratory Rate 16 03/29/25 14:15 Blood Pressure 144/73 H 03/29/25 14:15 Pulse Oximetry 96 03/29/25 14:15 Oxygen Delivery Room Air 03/29/25 11:44 Medical Decision Making [facility] Narrative Medical decision making narrative: -Course: 59-year-old female presenting with generally not feeling well including total body aches headaches nausea and vomiting. CTA ordered to evaluate for dissection given her recent massage. CT was negative. Laboratory studies within normal limits. Patient was given symptomatic treatment. Unclear if her symptoms are due to viral syndrome versus Cymbalta withdrawal. Regardless she will be discharged with supportive care instructed to follow up with her primary care physician. Given return precautions. In agreement with the plan -DDX includes but is not limited to: Viral syndrome, vertebral dissection, Cymbalta withdrawal, pneumonia UTI sepsis dehydration -Co-morbidities complicating care: Cerebral ataxia, chronic pain Vital Signs Vital Signs: Vital Signs Temperature 98.1 F 03/29/25 11:44 Pulse Rate 94 03/29/25 11:44 Respiratory Rate 18 03/29/25 11:44 Blood Pressure 153/90 H 03/29/25 11:44 Pulse Oximetry 96 03/29/25 11:44 Oxygen Delivery Room Air 03/29/25 11:44 Temperature 98.0 F 03/29/25 14:15 Pulse Rate 72 03/29/25 14:15 Respiratory Rate 16 03/29/25 14:15 Blood Pressure 144/73 H 03/29/25 14:15 Pulse Oximetry 96 03/29/25 14:15 Oxygen Delivery Room Air 03/29/25 11:44 Lab Data 03/29/25 12:15 03/29/25 12:15 Labs: Lab Results 03/29/25 03/29/25 Range/Units 12:15 13:38 WBC 8.6 (4.5-10.0) K/mm3 RBC 4.83 (4.2-5.4) M/mm3 Hgb 13.8 (12.0-15.0) g/dL Hct 43.0 (37.0-47.0) % MCV 89.0 (80-100) fl MCH 28.6 (26-34) pg MCHC 32.1 (32-36) g/dl RDW 13.4 (11.5-14.5) % Plt Count 266 (150-375) k/mm3 MPV 9.6 (7.4-10.4) fl Immature Gran % (Auto) 0.2 (0-0.5) % Neut % (Auto) 62.2 (45.5-73.1) % Lymph % (Auto) 29.6 (18.3-44.2) % Lewis % (Auto) 6.3 (2.6-8.5) % Eos % (Auto) 1.5 (0-4.4) % Baso % (Auto) 0.2 (0.2-1.2) % Lymph # (Auto) 2.54 (0.9-3.2) K/mm3 Lewis # (Auto) 0.5 (0.1-0.6) K/mm3 Eos # (Auto) 0.1 (0-0.3) K/mm3 Baso # (Auto) 0.0 (0.0-0.1) K/mm3 Abs Immat Gran (auto) 0.02 (0.00-0.031) K/mm3 Absolute Neuts (auto) 5.3 (1.3-6.7) K/mm3 Absolute Nucleated RBC 0.000 (0.0-0.012) K/mm3 Nucleated RBC % 0.0 (0.0-0.2) % Sodium 143 (137-145) mmol/L Potassium 4.8 (3.4-5.0) mmol/L Chloride 105 (98-107) mmol/L Carbon Dioxide 29 (22-30) mmol/L Anion Gap 9 (4-12) mmol/L BUN 13 (7-17) mg/dL Creatinine 0.59 L (0.7-1.0) mg/dL Estim Creat Clear Calc 95 ml/min Estimated GFR > 60 (59 - ) Glucose 110 (65-110) mg/dL Calcium 9.8 (8.4-10.2) mg/dL Total Bilirubin 0.3 (0.2-1.3) mg/dL AST 33 (14-36) U/L ALT 28 (6-35) U/L Alkaline Phosphatase 86 (38-126) U/L Total Protein 7.6 (6.3-8.2) g/dL Albumin 4.4 (3.5-5.1) g/dL Lipase 39 (23-300) U/L Urine Color Yellow (Yellow) Urine Appearance Clear (Clear) Urine pH 7.5 (5.0-9.0) Ur Specific [place] 1.025 (1.001-1.035) Urine Protein Negative (Negative) mg/dL Urine Glucose (UA) Negative (Negative) mg/dL Urine Ketones Negative (Negative) mg/dL Ur Blood (Man) Negative (Negative) Urine Nitrate Negative (Negative) Urine Bilirubin Negative (Negative) Urine Urobilinogen 0.2 (<2.0) mg/dL Leukocyte Esterase Rfl Negative (Negative) CHRIS/UL Influenza A (RT-PCR) Negative (Negative) Influenza B (RT-PCR) Negative (Negative) RSV (RT-PCR) Negative (Negative) SARS-CoV-2 RNA (RT-PCR) Negative (Negative) Discharge Plan Discharge Clinical Impression: Alcohol withdrawal Patient Disposition: Home Condition: Stable Instructions: Antibiotic Form, Acute Nausea and Vomiting (ED) Additional Instructions: You were seen in the emergency department for headache, nausea, vomiting and total body pain. This may be related to a viral syndrome or due to withdrawal from Cymbalta. Please use Zofran for nausea, Tylenol or Toradol for body aches. Please follow-up with your primary care physician in the next 3-5 days to ensure symptoms are improving. If you are getting worse or develop any new symptoms please return to ED for evaluation. I provided a referral to our local neurologist for your cerebral ataxia Patient Language: Citizen Of [place] Prescriptions: New acetaminophen 500 mg tablet 1,000 mg PO TID PRN (Reason: wes) 7 Days Qty: 42 0RF ondansetron 4 mg tablet,disintegrating 4 mg PO Q8H PRN (Reason: nausea and vomiting) Qty: 30 0RF No Action duloxetine [Cymbalta] 60 mg capsule,delayed release(DR/EC) 60 mg PO DAILY lisinopril 10 mg tablet 10 mg PO DAILY Prilosec 2.5 mg susp,delayed release for recon 10 mg PO DAILY mecobalamin (vitamin B12) 500 mcg tablet,chewable 500 mcg PO DAILY cholecalciferol (vitamin D3) 25 mcg (1,000 unit) capsule 25 mcg PO DAILY multivitamin [Daily Multi-Vitamin] Tablet 1 tablet PO DAILY magnesium 200 mg tablet 200 mg PO DAILY hydrocodone-acetaminophen 5-325 mg tablet 1 tablet PO Q6H PRN (Reason: pain) Qty: 10 0RF Follow-up/Referrals: Faraz Rutledge MD [Physician] - 1 Week (Cerebral ataxia, establish w/ neurology) [place], [Primary Care Provider] -
[2025-03-29 13:16] LABS: Influenza A QL RT-PCR Negative (Negative); Influenza B QL RT-PCR Negative (Negative); RSV RNA, RT-PCR Negative (Negative); SARS-CoV-2 RNA PCR Negative (Negative)
--- NOTE | 2025-03-29 13:34 | PC.NURSE ---
Spoke with Velma at [place] [facility] control-No treatment needed, current symptoms are unrelated to exposure 3 days ago to Spectracide Bug Stop Home Barrier spray. Dr Diaz made aware
[2025-03-29 13:58] LABS: Add Urine Microscopic? NO; Appearance Urine Clear (Clear); Glucose Urine UA Negative (Negative); Leukocyte Esterase Ur Negative LEU/UL (Negative); Nitrate Urine Negative (Negative); Specific Grav Ur 1.025 (1.001-1.035)
[2025-03-29 14:15] VITALS: BP 144/73; PULSE 72; RESP 16; TEMP 36.7; O2SAT 96
[2025-03-29] MEDS: ACETAMINOPHEN 500 MG TABLET 1000 MG PO (15:22)
[2025-03-29] MEDS: PROCHLORPERAZINE EDISYLATE 10 MG/2 ML VIAL IV PUSH (15:24)
[2025-03-29] MEDS: KETOROLAC 15 MG/ML VIAL (*BKC) IV PUSH (15:24)
[2025-03-29 15:44] VITALS: BP 146/69; PULSE 74; RESP 16; O2SAT 98
== END 2025-03-29 15:46 | disposition home or self-care (01) ==
PROVIDERS: Emergency Medicine; Emergency Provider Emergency Medicine
DX: F19.230 Other psychoactive substance dependence with withdrawal, uncomplicated (principal); Z20.822 Contact with and (suspected) exposure to COVID-19
CPT/HCPCS: 36415; 70496; 70498; 71045; 80053; 81003; 83690; 85025; 87637; 96372; 96374; 96375; 96376; 99284; A9270; J0780; J1200; J1885; J2405; J7030; Q9967